=== PATIENT | female | born 1935 | race Caucasian/White ===

== ENCOUNTER → 2017-02-18 | Outpatient (CLI) | payer MEDICARE, OTHER ==
--- NOTE | 2017-02-19 09:07 | MM ---
Reason for exam: screening (asymptomatic). Last mammogram was performed 1 year and 1 month ago. History: Patient is postmenopausal. Benign US biopsy breast VAD LT of the left breast, January 18, 2015. Took estrogen for 15 years beginning at age 39. Took progesterone for 15 years beginning at age 39. Physical Findings: A clinical breast exam by your physician is recommended on an annual basis and results should be correlated with mammographic findings. MG 3D Screening Mammo W/Cad Bilateral CC and MLO view(s) were taken. Prior study comparison: January 18, 2016, bilateral MG 3d diag mammo w/cad TONY. January 18, 2015, left breast MG diagnostic mammo LT wo CAD. The breast tissue is heterogeneously dense. This may lower the sensitivity of mammography. Finding: There are few typically benign round calcifications in the left breast. Previous mammotome biopsy in the left breast. There is no discrete abnormality. ASSESSMENT: Benign, BI-RAD 2 RECOMMENDATION: Routine screening mammogram of both breasts in 1 year.
== END | disposition home or self-care (01) ==
LOC: RADMAMWWP 14:54
PROVIDERS: ATTEND Internal Medicine Geriatric Medicine
DX: Z12.31 Encounter for screening mammogram for malignant neoplasm of breast (principal)
CPT/HCPCS: 77063; G0202

== ENCOUNTER 2020-12-23 | Inpatient (IN) | payer MEDICARE, OTHER ==
[2020-12-23] MEDS ORDERED: SODIUM CHLORIDE 0.9% 1,000 ML IV STA (00:09)
[2020-12-23] MEDS ORDERED: MORPHINE SULFATE 4 MG/ML SYRINGE IV STA (00:09)
[2020-12-23] MEDS ORDERED: SODIUM CHLORIDE 0.9% 500 ML 500 ML IV STA (00:09)
--- NOTE | 2020-12-23 00:13 | ED ---
Fall HPI - General Stated Complaint: Fall Time Seen by Provider: 12/23/20 00:09 Source: RN notes reviewed, old records reviewed Mode of arrival: ambulatory Limitations: no limitations - History of Present Illness Initial Comments: This is an 85-year-old female to the ER for evaluation of a fall. Patient is a poor historian regarding her fall. Complaining of severe left hip pain patient got tangled up in a tire prior to falling. Her fall was purely Mechanical no other injuries aside from left hip MD Complaint: fall -: hour(s) Fall From: standing When Fall Occurred: 1 hour BILL[employer] Fall Witnessed: yes, by family Place Fall Occurred: home Loss of Consciousness: none Prolonged Down Time?: no Symptoms Prior to Fall: none Location - Extremities: Left: Thigh Severity: moderate, severe Severity scale (1-10): 7 Quality: burning Context: tripped/slipped Associated Symptoms: denies - Related Data Allergies Allergy/AdvReac Type Severity Reaction Status Date / Time codeine Allergy Rash/Hives Verified 12/23/20 00:16 Review of Systems ROS Statement: Those systems with pertinent positive or pertinent negative responses have been documented in the HPI. ROS Other: All systems not noted in ROS Statement are negative. General Exam General appearance: alert, in no apparent distress, anxious Head exam: Present: atraumatic, normocephalic, normal inspection Eye exam: Present: normal appearance, PERRL, EOMI. Absent: scleral icterus, conjunctival injection, periorbital swelling ENT exam: Present: normal exam, mucous membranes moist Neck exam: Present: normal inspection. Absent: tenderness, meningismus, lymphadenopathy Respiratory exam: Present: normal lung sounds bilaterally. Absent: respiratory distress, wheezes, rales, rhonchi, stridor Cardiovascular Exam: Present: regular rate, normal rhythm, normal heart sounds. Absent: systolic murmur, diastolic murmur, rubs, gallop, clicks GI/Abdominal exam: Present: soft, normal bowel sounds. Absent: distended, tenderness, guarding, rebound, rigid Extremities exam: Present: normal inspection, full ROM, normal capillary refill. Absent: tenderness, pedal edema, joint swelling, calf tenderness Left Hip exam: Present: tenderness, deformity, external rotation, shortening Neurovascular tendon exam: Present: no vascular compromise Back exam: Present: normal inspection Neurological exam: Present: alert, oriented X3, CN II-XII intact Psychiatric exam: Present: normal affect, normal mood Skin exam: Present: warm, dry, intact, normal color. Absent: rash Course Vital Signs 12/23/20 12/23/20 00:08 00:41 Temperature 98 F Pulse Rate 66 66 Respiratory 18 18 Rate Blood Pressure 220/96 202/83 O2 Sat by Pulse 88 L 96 Oximetry - Reevaluation(s) Reevaluation #1: 12/23/20 01:50 Medical record is reviewed Reevaluation #2: 12/23/20 01:50 Patient has current pain control Reevaluation #3: 12/23/20 01:50 Patient family member informed results and questions are answered - Consultations Consultation #1: Spoke with orthopedics who agreed to admit this patient Medical Decision Making - Medical Decision Making 85 female DF for evaluation patient Dese for evaluation of a fall with a left hip fracture. Patient will be admitted to orthopedics with a medical consult for evaluation and treatment - Lab Data Result diagrams: 12/23/20 00:17 12/23/20 00:17 Lab Results 12/23/20 12/23/20 12/23/20 Range/Units 00:17 00:17 00:17 WBC 15.5 H (3.8-10.6) k/uL RBC 4.09 (3.80-5.40) m/uL Hgb 13.3 (11.4-16.0) gm/dL Hct 38.7 (34.0-46.0) % MCV 94.5 (80.0-100.0) fL MCH 32.6 (25.0-35.0) pg MCHC 34.5 (31.0-37.0) g/dL RDW 12.8 (11.5-15.5) % Plt Count 279 (150-450) k/uL MPV 7.2 Neutrophils % 85 % Lymphocytes % 11 % Monocytes % 3 % Eosinophils % 1 % Basophils % 0 % Neutrophils # 13.2 H (1.3-7.7) k/uL Lymphocytes # 1.6 (1.0-4.8) k/uL Monocytes # 0.4 (0-1.0) k/uL Eosinophils # 0.1 (0-0.7) k/uL Basophils # 0.1 (0-0.2) k/uL PT 10.0 (9.0-12.0) sec INR 0.9 (<1.2) APTT 23.0 (22.0-30.0) sec Sodium 137 (137-145) mmol/L Potassium 3.7 (3.5-5.1) mmol/L Chloride 103 (98-107) mmol/L Carbon Dioxide 29 (22-30) mmol/L Anion Gap 5 mmol/L BUN 8 (7-17) mg/dL Creatinine 0.66 (0.52-1.04) mg/dL Est GFR (CKD-EPI)AfAm >90 (>60 ml/min/1.73 sqM) Est GFR (CKD-EPI)NonAf 82 (>60 ml/min/1.73 sqM) Glucose 131 H (74-99) mg/dL Plasma Lactic Acid Nicho (0.7-2.0) mmol/L Calcium 8.9 (8.4-10.2) mg/dL Phosphorus 3.1 (2.5-4.5) mg/dL Magnesium 1.8 (1.6-2.3) mg/dL Total Bilirubin 0.5 (0.2-1.3) mg/dL AST 28 (14-36) U/L ALT 17 (4-34) U/L Alkaline Phosphatase 128 H (38-126) U/L Creatine Kinase 82 (30-135) U/L Troponin I (0.000-0.034) ng/mL Total Protein 6.7 (6.3-8.2) g/dL Albumin 3.7 (3.5-5.0) g/dL 12/23/20 12/23/20 Range/Units 00:17 00:17 WBC (3.8-10.6) k/uL RBC (3.80-5.40) m/uL Hgb (11.4-16.0) gm/dL Hct (34.0-46.0) % MCV (80.0-100.0) fL MCH (25.0-35.0) pg MCHC (31.0-37.0) g/dL RDW (11.5-15.5) % Plt Count (150-450) k/uL MPV Neutrophils % % Lymphocytes % % Monocytes % % Eosinophils % % Basophils % % Neutrophils # (1.3-7.7) k/uL Lymphocytes # (1.0-4.8) k/uL Monocytes # (0-1.0) k/uL Eosinophils # (0-0.7) k/uL Basophils # (0-0.2) k/uL PT (9.0-12.0) sec INR (<1.2) APTT (22.0-30.0) sec Sodium (137-145) mmol/L Potassium (3.5-5.1) mmol/L Chloride (98-107) mmol/L Carbon Dioxide (22-30) mmol/L Anion Gap mmol/L BUN (7-17) mg/dL Creatinine (0.52-1.04) mg/dL Est GFR (CKD-EPI)AfAm (>60 ml/min/1.73 sqM) Est GFR (CKD-EPI)NonAf (>60 ml/min/1.73 sqM) Glucose (74-99) mg/dL Plasma Lactic Acid Nicho 1.2 (0.7-2.0) mmol/L Calcium (8.4-10.2) mg/dL Phosphorus (2.5-4.5) mg/dL Magnesium (1.6-2.3) mg/dL Total Bilirubin (0.2-1.3) mg/dL AST (14-36) U/L ALT (4-34) U/L Alkaline Phosphatase (38-126) U/L Creatine Kinase (30-135) U/L Troponin I <0.012 (0.000-0.034) ng/mL Total Protein (6.3-8.2) g/dL Albumin (3.5-5.0) g/dL - EKG Data -: EKG Interpreted by Me (EKG shows sinus rhythm 66 WA 214 QRS 82 QTC 444) - Radiology Data Radiology results: report reviewed (X-ray left hip pelvis and chest x-ray po sitive for left hip fracture), image reviewed Disposition Clinical Impression: Fall, Fracture, intertrochanteric, left femur Disposition: ADMITTED IP TO THIS [facility] Condition: Good Is patient prescribed a controlled substance at d/c from ED?: No
[2020-12-23 00:55] LABS: Basophils # (A) 0.1 k/uL (0-0.2); Basophils % (A) 0 %; Eosinophils # (A) 0.1 k/uL (0-0.7); Eosinophils % (A) 1 %; HCT 38.7 % (34.0-46.0); HGB 13.3 gm/dL (11.4-16.0); Lymphocytes # (A) 1.6 k/uL (1.0-4.8); Lymphocytes % (A) 11 %; MCH 32.6 pg (25.0-35.0); MCHC 34.5 g/dL (31.0-37.0); MCV 94.5 fL (80.0-100.0); Mean Platelet Volume 7.2; Monocytes # (A) 0.4 k/uL (0-1.0); Monocytes % (A) 3 %; Neutrophils # (A) 13.2 k/uL (1.3-7.7); Neutrophils % (A) 85 %; Platelet Count 279 k/uL (150-450); RBC 4.09 m/uL (3.80-5.40); RDW 12.8 % (11.5-15.5); WBC 15.5 k/uL (3.8-10.6)
[2020-12-23 01:05] LABS: INR 0.9 (<1.2)
[2020-12-23 01:07] LABS: ALT 17 U/L (4-34); AST 28 U/L (14-36); African American GFR (CKD) >90 (>60 ml/min/1.73 sqM); Albumin 3.7 g/dL (3.5-5.0); Alkaline Phosphatase 128 U/L (38-126); Anion Gap 5 mmol/L; Blood Urea Nitrogen 8 mg/dL (7-17); Calcium 8.9 mg/dL (8.4-10.2); Carbon Dioxide 29 mmol/L (22-30); Chloride 103 mmol/L (98-107); Creatine Kinase 82 U/L (30-135); Glucose 131 mg/dL (74-99); Magnesium 1.8 mg/dL (1.6-2.3); Non-African American GFR(CKD) 82 (>60 ml/min/1.73 sqM); Phosphorus 3.1 mg/dL (2.5-4.5); Potassium 3.7 mmol/L (3.5-5.1); Sodium 137 mmol/L (137-145); Total Bilirubin 0.5 mg/dL (0.2-1.3); Total Protein 6.7 g/dL (6.3-8.2)
--- NOTE | 2020-12-23 01:20 | XR ---
EXAMINATION TYPE: XR chest 1V DATE OF EXAM: 12/23/2020 COMPARISON: NONE HISTORY: Fall. Pain. TECHNIQUE: Single view FINDINGS: There is minimal linear density left lung base. Right lung is clear. Heart is normal. Thora cic aorta is atheromatous. There is no heart failure. There are chest leads. IMPRESSION: Subsegmental atelectasis at the left lung base.
--- NOTE | 2020-12-23 01:21 | XR ---
EXAMINATION TYPE: XR Hip LT and AP Pelvis DATE OF EXAM: 12/23/2020 COMPARISON: NONE HISTORY: Fall. Pain. TECHNIQUE: 3 views FINDINGS: Pelvic ring is intact. There is an acute mildly impacted subcapital fracture left femur. Th ere is no dislocation. Proximal right femur is intact. Sacroiliac joints are intact. IMPRESSION: Acute fracture of the left femoral neck with mild impaction.
[2020-12-23] MEDS ORDERED: NALOXONE 0.4 MG/ML 1 ML VIAL IV PRN ×2 (01:42→13:05)
[2020-12-23] MEDS: MORPHINE SULFATE 4 MG/ML SYRINGE IV PRN ×4 (03:14→20:05)
--- NOTE | 2020-12-23 03:25 | XR ---
EXAMINATION TYPE: XR femur LT DATE OF EXAM: 12/23/2020 COMPARISON: NONE HISTORY: Leg pain TECHNIQUE: 5 views FINDINGS: There is deformity of the femoral neck consistent with an acute subcapital impacted fractur e. There is no dislocation. The knee joint appears anatomic. I see no evidence of fracture at the kne e. IMPRESSION: Acute impacted subcapital fracture left femur.
[2020-12-23] MEDS: hydrALAZINE HCL 25 MG TAB PO SCH ×4 (03:55→22:06)
[2020-12-23] MEDS ORDERED: hydrALAZINE HCL 10 MG TAB PO PRN (05:37)
[2020-12-23] MEDS: LOSARTAN 50 MG TAB PO SCH (05:48)
[2020-12-23] MEDS ORDERED: PANTOPRAZOLE 40 MG/10 ML VIAL IV SCH (09:00)
[2020-12-23] MEDS: SODIUM CHLORIDE 0.9% 1,000 ML IV SCH ×3 (09:20→16:08)
--- NOTE | 2020-12-23 09:26 | P.HPOR ---
History of Present Illness H&P Date: 12/23/20 Chief Complaint: left hip pain Patient presented the emergency department late last night status post fall at home while trying to get into vehicle inside garage. Patient says she is in moderate amount of pain. She says she is ready for her hip to be fixed and is understanding that she may need to go to rehab for a couple weeks to recover after surgery. Patient was seen at bedside this morning is lying supine in bed. She points to her left hip and states it is in pain. Patient's left leg is shortened and externally rotated. Patient denies taking any blood thinners for medication denies any heart history. She says about 10-15 years ago she fell and fractured patella. She denies any other orthopedic surgical history. Patient has chest pain, fever, shortness breath, nausea, vomiting, change in vision. Past Medical History Past Medical History: Hyperlipidemia, Hypertension Additional Past Medical History / Comment(s): herniated disc, neuropathy, low thyroid History of Any Multi-Drug Resistant Organisms: None Reported Past Surgical History: Appendectomy, Hysterectomy Additional Past Surgical History / Comment(s): toxic goiter; gallblader removal Past Psychological History: Depression Smoking Status: Former smoker Past Alcohol Use History: None Reported Past Drug Use History: None Reported Medications and Allergies Allergies Allergy/AdvReac Type Severity Reaction Status Date / Time codeine Allergy Rash/Hives Verified 12/23/20 00:16 Physical Examination Inspection: Shortening and external rotation of left leg. No evidence of open fractures. Negative for any ecchymosis. Negative for any significant di scoloration other than as noted. Negative for nodules, erythema. Sensation: Sensation is intact in bilateral upper extremities symmetric, equal in distribution. Sensation is intact in bilateral lower extremities symmetric, equal in distribution Palpation: Significant tenderness to palpation diffusely over the proximal left femur. Nontender to palpation throughout rest of exam Range of motion: Limited range of motion in the left leg due to patient being in significant pain. Decreased hip flexion in left leg. Bilateral upper extremities full range of motion in elbow extension/flexion as well as shoulder internal and external rotation abduction and forward elevation. Right lower extremity full range of motion and knee flexion extension and hip flexion extension. Plantar and dorsiflexion full range of motion bilaterally Motor: Strength 5 out of 5 in upper extremities as well as test manager strength. Right lower extremity 5/5 in resisted flexion extension and hip flexion extension. Left leg exam limited due to patient being in significant amount of pain Neurovascular status/tensioning signs: Refill under 3 seconds bilaterally in l ower and upper extremities. Skin mildly warm to touch in hands bilaterally as well as bilaterally in the lower extremities. Dorsalis pedis pulses intact, 2+ bilaterally. Radial pulses intact, 2+ bilaterally. Negative Homans bilaterally. Negative Gabriela's bilaterally. Negative clonus upon you siflexing feet bilaterally. Results - Labs Labs: Abnormal Lab Results - Last 24 Hours (Table) 12/23/20 12/23/20 Range/Units 00:17 00:17 WBC 15.5 H (3.8-10.6) k/uL Neutrophils # 13.2 H (1.3-7.7) k/uL Glucose 131 H (74-99) mg/dL Alkaline Phosphatase 128 H (38-126) U/L H & H 12/23/20 Range/Units 00:17 Hgb 13.3 (11.4-16.0) gm/dL Hct 38.7 (34.0-46.0) % Coagulation 12/23/20 Range/Units 00:17 INR 0.9 (<1.2) Result Diagrams: 12/23/20 00:17 12/23/20 00:17 Assessment and Plan Assessment: Left hip intertrochanteric fracture Plan: 1. Left hip intertrochanteric fracture - surgery scheduled for today, 12/23/2020 - plan to do left hip hemiarthroplasty. Patient consented to surgery. Remain nothing by mouth at this time 2. Appreciate medical management 3. Pain management - stable at this time 4. GI prophylaxis - protonix 5. PT/OT- non-weightbearing left leg Time with Patient: Less than 30
--- NOTE | 2020-12-23 10:04 | P.CONS ---
History of Present Illness - Reason for Consult Consult date: 12/23/20 - Chief Complaint Left hip pain - History of Present Illness 85 years old female with past medical history of hypertension, hyperlipidemia, GERD, hypothyroidism comes in after she had a fall while trying to get into her car and got tangled up into cord of some sort. Patient fell on her hip leading to left hip fracture. Overnight patient was complaining of significant hip pain. Patient's blood pressure on admission was 220/96" 98 pulse 66 respiratory rate 18 and oxygen saturation was 88% on room air. Labs are ordered to suggest a WBC of 15.5 hemoglobin 13.3 platelets 279 sodium 137 potassium 3.7 chloride 103 bicarb 20 B UN eights creatinine 0.66 glucose 131 EKG obtained suggest a sinus rhythm. Patient does not do so cane or walker at home is more than 5METs at home. She denies any chest pain, shortness of breath, nausea, vomiting, burning micturition, numbness or tingling in her extremities. 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 He said patient was initiated on hydralazine and losartan overnight with improvement in her blood pressure to 186/71 afebrile pulse 70 respiratory rate 18 oxygen saturation of 95% on 2 L chest x-ray is negative for pneumonia. Segmental atelectasis in the left lung base noted. No urinalysis available. Review of systems Constitutional: Denies chills, Denies fever, Denies lethargy, Denies malaise, Denies poor appetite, Denies weakness, Denies weight loss Eyes: denies decreased vision, denies diplopia, denies discharge, denies pain Ears: deny: decreased hearing Ears, nose, mouth and throat: Denies dental pain, Denies headache, Denies nasal discharge, Denies nose pain Cardiovascular: Denies chest pain, Denies decreased exercise tolerance, Denies edema, Denies high blood pressure, Denies irregular heart beat, Denies palpitations, Denies paroxysmal nocturnal dyspnea, Denies rapid heart beat, Denies shortness of breath Respiratory: Denies congestion, Denies cough, Denies cough with sputum, Denies dyspnea, Denies home oxygen, Denies wheezing Gastrointestinal: Denies abdominal pain, Denies change in bowel habits, Denies coffee ground emesis, Denies early satiety, Denies excessive gas, Denies heartburn, Denies hematemesis, Denies hematochezia, Denies loss of appetite, Denies nausea, Denies vomiting Genitourinary: Denies dysuria, Denies flank pain, Denies kidney stones, Denies menorrhagia, Denies urgency, Denies urinary frequency Musculoskeletal: Endorses gait dysfunction, limitation of motion and significant hip pain, Denies morning stiffness, Denies muscle cramps Integumentary: Denies rash, Denies wounds, Denies brittle nails, Denies change in hair/nails, Denies darkening of skin Neurological: Denies balance difficulties, Denies change in speech, Denies double vision, Denies gait dysfunction, Denies loss of vision, Denies motor disturbance, Denies numbness, Denies paralysis, Denies paresthesias, Denies seizures Psychiatric: Denies anxiety, Denies depression Endocrine: Denies excessive sweating, Denies excessive thirst, Denies high blood sugars, Denies palpitations Hematologic/Lymphatic: Denies easy bruising, Denies lymphadenopathy Social history Former smoker quit smoking 20 years ago smoked more than half pack a day for 30+ years. Denies any alcohol use. No illicit drug use Family history Father had multiple surgeries. Denies any history of coronary artery disease Mother had no significant medical problems Daughter had diabetes and rheumatoid arthritis, 10 years ago from complications Physical exam - Constitutional General appearance: cooperative, no acute distress, obese - EENT Eyes: anicteric sclerae, PERRLA, normal appearance ENT: hearing grossly normal - Neck Neck: no lymphadenopathy, normal ROM, no other, no rigidity, no stridor, no thyromegaly - Respiratory Respiratory: bilateral: CTA, negative: diminished, dullness, rales, rhonchi - Cardiovascular Rhythm: regular Heart sounds: normal: S1, S2 Abnormal Heart Sounds: no systolic murmur, no diastolic murmur, no rub, no S3 Gallop, no S4 Gallop, no click, no other - Gastrointestinal General gastrointestinal: normal bowel sounds, soft - Integumentary Integumentary: no rash - Neurologic Neurologic: CNII-XII intact - Musculoskeletal Musculoskeletal: gait not assessed, significant pain on movement of left lower extremity. Tenderness to palpate in the proximal left femur. Left leg appear shortened and externally rotated - Psychiatric Psychiatric: A&O x's 3, appropriate affect Assessment and plan #1 left hip intertrochanteric fracture patient has 1-5% risk of or IA from the surgery. As per the revised cardiac risk index. Patient is cleared medically to undergo the surgery. Continue pain control with morphine 4 mg as needed #2 essential hypertension blood pressure is uncontrolled hydralazine initiated 25 3 times a day. Patient initiated on losartan, Norvasc to help control blood pressure. No medication available. Patient may be taking atenolol at home we will hold for the procedure. #3 GERD continue Protonix 40 mg IV daily #4 hypothyroidism. Patient is unaware of the dose. Patient is a poor historian Currently held #5 hyperlipidemia. Continue diet control. Unclear if patient is taking cholesterol-lowering medication. Patient is not able to provide history due to the pain #6 CODE STATUS full code #7 DVT prophylaxis SCDs. #8 leukocytosis. Chest x-ray negative for pneumonia. Urine analysis to be obtained prior to surgery. Thank you for the consult. I'll be happy to assist in patient's medical knee drug patient is in the hospital Past Medical History Past Medical History: Hyperlipidemia, Hypertension Additional Past Medical History / Comment(s): herniated disc, neuropathy, low thyroid History of Any Multi-Drug Resistant Organisms: None Reported Past Surgical History: Appendectomy, Hysterectomy Additional Past Surgical History / Comment(s): toxic goiter; gallblader removal Past Psychological History: Depression Smoking Status: Former smoker Past Alcohol Use History: None Reported Past Drug Use History: None Reported Medications and Allergies Allergies Allergy/AdvReac Type Severity Reaction Status Date / Time codeine Allergy Rash/Hives Verified 12/23/20 00:16 Physical Exam Vitals: Vital Signs Temp Pulse Pulse Resp BP BP Pulse Ox 12/23/20 08:00 97.9 F 70 18 186/71 95 12/23/20 07:26 97 12/23/20 05:00 182/80 12/23/20 03:40 188/76 12/23/20 02:43 98.2 F 68 19 206/75 98 12/23/20 02:40 18 12/23/20 00:41 66 18 202/83 96 12/23/20 00:08 98 F 66 18 220/96 88 L Intake and Output 12/22/20 12/23/20 12/23/20 22:59 06:59 14:59 Output Total 800 Balance -800 Output: Urine 800 Other: Voiding Method Indwelling Catheter Indwelling Catheter Weight 88.451 kg Results CBC & Chem 7: 12/23/20 00:17 12/23/20 00:17 Labs: Abnormal Lab Results - Last 24 Hours (Table) 12/23/20 12/23/20 Range/Units 00:17 00:17 WBC 15.5 H (3.8-10.6) k/uL Neutrophils # 13.2 H (1.3-7.7) k/uL Glucose 131 H (74-99) mg/dL Alkaline Phosphatase 128 H (38-126) U/L
[2020-12-23] MEDS ORDERED: KETAMINE 10 MG/ML 20 ML VIAL ONE (10:46)
[2020-12-23] MEDS ORDERED: fentaNYL (PF) 50 MCG/ML 2 ML AMP ONE (10:46)
[2020-12-23] MEDS ORDERED: PROPOFOL 10 MG/ML 20 ML VIAL IV ONE (10:46)
[2020-12-23] MEDS ORDERED: MIDAZOLAM 2 MG/2 ML VIAL ONE (10:46)
[2020-12-23] MEDS ORDERED: LACTATED RINGERS 1,000 ML IV ONE (10:50)
[2020-12-23] MEDS ORDERED: SODIUM CHLORIDE 0.9% 100 ML with ceFAZolin 2,000 MG IV ONE ×2 (11:06)
--- NOTE | 2020-12-23 13:03 | P.PN ---
Progress Note - Text Progress Note Date: 12/23/20 Pt s/e in PACU. Doing well. VSS. Pain controlled. Hip abduction pillow in place. Dressing CDI. She will TF to the floor when stable per anesthesia.
[2020-12-23] MEDS ORDERED: HYDROcodone/APAP 5-325MG 1 EACH TAB PO PRN ×2 (13:05→13:11)
[2020-12-23] MEDS ORDERED: CYCLOBENZAPRINE 5 MG TAB PO PRN (13:12)
--- NOTE | 2020-12-23 13:52 | XR ---
EXAMINATION TYPE: XR Hip LT and AP Pelvis DATE OF EXAM: 12/23/2020 COMPARISON: 12/23/2020 HISTORY: Pain TECHNIQUE: A single AP view of the pelvis is obtained. Two views of the left hip are obtained. FINDINGS: There is postsurgical change involving the left hip with surgical johnson and soft tissue edema. Vascular calcifications are seen and there is diffuse osteopenia. Hypertrophic arthropathy of the right hip joint. Degenerative change lower lumbar spine. IMPRESSION: 1. Postsurgical change involving the left hip.
[2020-12-23] MEDS: amLODIPine 10 MG TAB PO SCH (14:48)
[2020-12-23 17:04] LABS: Appearance,Urine Clear (Clear); Bacteria,Urine Rare /hpf; Bilirubin,Urine Negative (Negative); Blood,Urine Negative (Negative); Color,Urine Yellow; Glucose,Urine (UA) Negative (Negative); Ketones,Urine Negative (Negative); Leukocyte Esterase,Urine Large (Negative); Mucus,Urine Rare /hpf; Nitrite,Urine Negative (Negative); PH, Urine 6.5 (5.0-8.0); Protein,Urine Trace (Negative); RBC,Urine 4 /hpf (0-5); Specific Gravity,Urine 1.019 (1.001-1.035); Squamous Epithelial Cell,Urine 1 /hpf (0-4); Urobilinogen,Urine <2.0 mg/dL (<2.0); WBC,Urine 50 /hpf (0-5)
[2020-12-23] MEDS: SENNOSIDES-DOCUSATE SODIUM 1 EACH TAB PO SCH (20:05)
[2020-12-24] MEDS: SODIUM CHLORIDE 0.9% 1,000 ML IV SCH ×3 (01:11→17:34)
[2020-12-24] MEDS: MORPHINE SULFATE 4 MG/ML SYRINGE IV PRN ×2 (03:15→19:51)
[2020-12-24] MEDS ORDERED: ENOXAPARIN 40 MG/0.4 ML SYRINGE SQ SCH (09:00)
--- NOTE | 2020-12-24 09:49 | P.PN ---
Subjective Progress Note Date: 12/24/20 Principal diagnosis: POD #1 s/p left hip femoral neck fracture Patient seen at bedside this morning about to eat breakfast. Patient says he is in a moderate amount of pain. Patient has incentive spirometer at side and has been using it. Patient says she has not had a bowel movement yet, however, she has been passing gas. Patient denies chest pain, fever, shortness of breath, nausea, vomiting, change in vision, loss of bowel/bladder control. Objective - Vital Signs Vital signs: Vital Signs Temp 100.1 F H 12/24/20 07:59 Pulse 78 12/24/20 07:59 Resp 19 12/24/20 07:59 BP 170/74 12/24/20 07:59 Pulse Ox 94 L 12/24/20 07:59 Intake & Output 12/23/20 12/24/20 12/24/20 18:59 06:59 18:59 Intake Total 900 Output Total 550 525 Balance 350 -525 Intake: IV 900 Output: Urine 300 525 Estimated Blood Loss 250 Other: Voiding Method Indwelling Catheter Indwelling Catheter Indwelling Catheter - Exam Inspection: Incision is clean, dry, intact. [place] are in good place. No evidence of open fractures. Negative for any ecchymosis. Negative for any significant discoloration other than as noted. Negative for nodules, erythema. Sensation: Sensation is intact in bilateral upper extremities symmetric, equal in distribution. Sensation is intact in bilateral lower extremities symmetric, equal in distribution Palpation: Mild TTP over incision . Nontender to palpation throughout rest of exam Range of motion:Patient has limited ROM of left leg. She can externally/internally rotate left leg with some pain. Bilateral upper ex tremities full range of motion in elbow extension/flexion as well as shoulder internal and external rotation abduction and forward elevation. Right lower extremity full range of motion and knee flexion extension and hip flexion extension. Plantar and dorsiflexion full range of motion bilaterally Motor: Strength 5 out of 5 in upper extremities as well as government minister strength. Right lower extremity 5/5 in resisted flexion extension and hip flexion extension. Left leg exam limited due to patient being in significant amount of pain Neurovascular status/tensioning signs: Refill under 3 seconds bilaterally in lower and upper extremities. Skin mildly warm to touch in hands bilaterally as well as bilaterally in the lower extremities. Dorsalis pedis pulses intact, 2+ bilaterally. Radial pulses intact, 2+ bilaterally. Negative Homans bilaterally. Negative Gabriela's bilaterally. Negative clonus upon dorsiflexing feet bilaterally. - Labs CBC & Chem 7: 12/23/20 00:17 12/23/20 00:17 Labs: Abnormal Lab Results - Last 24 Hours (Table) 12/23/20 Range/Units 16:45 Urine Protein Trace H (Negative) Ur Leukocyte Esterase Large H (Negative) Urine WBC 50 H (0-5) /hpf Urine Bacteria Rare H (None) /hpf Urine Mucus Rare H (None) /hpf Microbiology - Last 24 Hours (Table) 12/23/20 16:45 Urine Culture - Preliminary Urine,Voided Assessment and Plan Assessment: Left hip intertrochanteric fracture Plan: 1. Left hip intertrochanteric fracture - surgery performed yesterday, 12/23/2020- left hip hemiarthroplasty. Patient in some discomfort this morning. Will adjust pain meds as needed. 2. Appreciate medical management 3. Pain management - [place] 7.5 mg/325mg 4. GI prophylaxis - protonix 5. PT/OT- WBAT w/walker for assistance. 6. Encourage incentive spirometer use 7. Discharge planning - plan to discharge to rehab Friday vs Friday. Time with Patient: Less than 30
[2020-12-24] MEDS: ENOXAPARIN 30 MG/0.3 ML SYRINGE SQ SCH ×2 (09:51→19:52)
[2020-12-24] MEDS: PANTOPRAZOLE 40 MG TABLET PO SCH (09:51)
[2020-12-24] MEDS: LOSARTAN 50 MG TAB PO SCH (09:51)
[2020-12-24] MEDS: amLODIPine 10 MG TAB PO SCH (09:51)
[2020-12-24] MEDS: hydrALAZINE HCL 25 MG TAB PO SCH ×3 (09:51→19:52)
[2020-12-24 10:22] LABS: Basophils # (A) 0.03 X 10*3/uL (0.00-0.10); Basophils % (A) 0.3 %; Eosinophils # (A) 0.16 X 10*3/uL (0.04-0.35); Eosinophils % (A) 1.6 %; HCT 32.3 % (37.2-46.3); HGB 10.8 g/dL (12.0-15.0); Lymphocytes # (A) 1.58 X 10*3/uL (0.90-5.00); Lymphocytes % (A) 15.9 %; MCH 32.5 pg (27.0-32.0); MCHC 33.4 g/dL (32.0-37.0); MCV 97.3 fL (80.0-97.0); Mean Platelet Volume 9.8 fL (9.5-12.2); Monocytes # (A) 0.55 X 10*3/uL (0.20-1.00); Monocytes % (A) 5.5 %; Neutrophils # (A) 7.54 X 10*3/uL (1.80-7.70); Neutrophils % (A) 76.2 %; Platelet Count 221 X 10*3/uL (140-440); RBC 3.32 X 10*6/uL (4.10-5.20); RDW 13.2 % (11.5-14.5); WBC 9.91 X 10*3/uL (4.50-10.00)
[2020-12-24 11:37] LABS: Glucose,Whole Blood 156 mg/dL (75-99)
[2020-12-24 11:47] LABS: African American GFR (CKD) 97.7 (60.0-200.0); Anion Gap 4.8 mmol/L (4.00-12.00); BUN/Creat Ratio 13.33 Ratio (12.00-20.00); Calcium 8.1 mg/dL (8.7-10.3); Carbon Dioxide 28.2 mmol/L (21.6-31.8); Magnesium 1.7 mg/dL (1.5-2.4); Non-African American GFR(CKD) 84.3 (60.0-200.0); Phosphorus 3.1 mg/dL (2.4-5.1)
--- NOTE | 2020-12-24 14:29 | P.PN ---
Subjective Progress Note Date: 12/24/20 85 years old female with past medical history of hypertension, hyperlipidemia, GERD, hypothyroidism comes in after she had a fall while trying to get into her car and got tangled up into cord of some sort. Patient fell on her hip leading to left hip fracture. Overnight patient was complaining of significant hip pain. Patient's blood pressure on admission was 220/96" 98 pulse 66 respiratory rate 18 and oxygen saturation was 88% on room air. Labs are ordered to suggest a WBC of 15.5 hemoglobin 13.3 platelets 279 sodium 137 potassium 3.7 chloride 103 bicarb 20 B UN eights creatinine 0.66 glucose 131 EKG obtained suggest a sinus rhythm. Patient does not do so cane or walker at home is more than 5METs at home. She denies any chest pain, shortness of breath, nausea, vomiting, burning micturition, numbness or tingling in her extremities. 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 He said patient was initiated on hydralazine and losartan overnight with improvement in her blood pressure to 186/71 afebrile pulse 70 respiratory rate 18 oxygen saturation of 95% on 2 L chest x-ray is negative for pneumonia. Segmental atelectasis in the left lung base noted. No urinalysis available. 12/24 patient examined bedside. Appears to be lethargic and have pain in the left lower extremity. Patient is able to move her left lower extremity without significant pain. She denies any chest pain, shortness of breath noted. Breathing difficulty. Labs are reviewed patient has a low-grade temp of 100.1 pulse 78 respiratory rate 19 and blood pressure 170/74 oxygen saturation 94% on 2 L. Chest x-ray to be obtained. Continue Norvasc, losartan and hydralazine for blood pressure control. Encourage oral intake of fluids. PTOT consulted for possible discharge to rehab on Friday was issues Review of systems Constitutional: Denies chills, Denies fever, Denies lethargy, Denies malaise, Denies poor appetite, Denies weakness, Denies weight loss Eyes: denies decreased vision, denies diplopia, denies discharge, denies pain Ears: deny: decreased hearing Ears, nose, mouth and throat: Denies dental pain, Denies headache, Denies nasal discharge, Denies nose pain Cardiovascular: Denies chest pain, Denies decreased exercise tolerance, Denies edema, Denies high blood pressure, Denies irregular heart beat, Denies palpitations, Denies paroxysmal nocturnal dyspnea, Denies rapid heart beat, Denies shortness of breath Respiratory: Denies congestion, Denies cough, Denies cough with sputum, Denies dyspnea, Denies home oxygen, Denies wheezing Gastrointestinal: Denies abdominal pain, Denies change in bowel habits, Denies coffee ground emesis, Denies early satiety, Denies excessive gas, Denies heartburn, Denies hematemesis, Denies hematochezia, Denies loss of appetite, Denies nausea, Denies vomiting Genitourinary: Denies dysuria, Denies flank pain, Denies kidney stones, Denies m enorrhagia, Denies urgency, Denies urinary frequency Musculoskeletal: Endorses gait dysfunction, limitation of motion and significant hip pain, Denies morning stiffness, Denies muscle cramps Integumentary: Denies rash, Denies wounds, Denies brittle nails, Denies change in hair/nails, Denies darkening of skin Neurological: Denies balance difficulties, Denies change in speech, Denies double vision, Denies gait dysfunction, Denies loss of vision, Denies motor disturbance, Denies numbness, Denies paralysis, Denies paresthesias, Denies seizures Psychiatric: Denies anxiety, Denies depression Endocrine: Denies excessive sweating, Denies excessive thirst, Denies high blood sugars, Denies palpitations Hematologic/Lymphatic: Denies easy bruising, Denies lymphadenopathy Physical exam - Constitutional General appearance: cooperative, no acute distress, obese - EENT Eyes: anicteric sclerae, PERRLA, normal appearance ENT: hearing grossly normal - Neck Neck: no lymphadenopathy, normal ROM, no other, no rigidity, no stridor, no thyromegaly - Respiratory Respiratory: bilateral: CTA, negative: diminished, dullness, rales, rhonchi - Cardiovascular Rhythm: regular Heart sounds: normal: S1, S2 Abnormal Heart Sounds: no systolic murmur, no diastolic murmur, no rub, no S3 Gallop, no S4 Gallop, no click, no other - Gastrointestinal General gastrointestinal: normal bowel sounds, soft - Integumentary Integumentary: no rash - Neurologic Neurologic: CNII-XII intact - Musculoskeletal Musculoskeletal: gait not assessed, mild pain on movement of left lower extremity. Left leg in a immobilizer no drainage noted at the site of incision. Mild tender to palpate over her incision Patient is limited range of motion on the left leg - Psychiatric Psychiatric: A&O x's 3, appropriate affect Assessment and plan #1 postoperative day 1 left hip hemiarthroplasty for left hip intertrochanteric fracture Continue pain control with morphine 4 mg as needed incentive spirometry. Chest x-ray ordered to rule out pneumonia #2 essential hypertension blood pressure is uncontrolled hydralazine initiated 25 3 times a day. Patient initiated on losartan, Norvasc to help control blood pressure. No medication available. Patient may be taking atenolol at home we will hold for the procedure. Patient initiated on atenolol 25 mg at home #3 GERD continue Protonix 40 mg IV daily #4 hypothyroidism. Synthyroid initiated at 50 mg by mouth daily Patient is a poor historian Currently held #5 hyperlipidemia. Continue diet control. Hold Lipitor #6 neuropathy hold gabapentin continue [place] for pain control. #7 CODE STATUS full code #7 DVT prophylaxis Lovenox 30 subcu 12 hours #8 leukocytosis secondary to UTI Chest x-ray negative for pneumonia. Urine analysis positive for infection. Rocephin initiated 1 g daily Objective - Vital Signs Vital signs: Vital Signs Temp 98 F 12/24/20 11:33 Pulse 78 12/24/20 07:59 Resp 19 12/24/20 07:59 BP 170/74 12/24/20 07:59 Pulse Ox 94 L 12/24/20 07:59 Intake & Output 12/23/20 12/24/20 12/24/20 18:59 06:59 18:59 Intake Total 900 Output Total 550 525 Balance 350 -525 Intake: IV 900 Output: Urine 300 525 Estimated Blood Loss 250 Other: Voiding Method Indwelling Catheter Indwelling Catheter Indwelling Catheter - Labs CBC & Chem 7: 12/24/20 00:06 12/24/20 06:04 Labs: Abnormal Lab Results - Last 24 Hours (Table) 12/23/20 12/24/20 12/24/20 Range/Units 16:45 00:06 06:04 RBC 3.32 L (4.10-5.20) X 10*6/uL Hgb 10.8 L (12.0-15.0) g/dL Hct 32.3 L (37.2-46.3) % MCV 97.3 H (80.0-97.0) fL MCH 32.5 H (27.0-32.0) pg Immature Gran # 0.05 H (0.00-0.04) X 10*3/uL BUN 8.0 L (9.0-27.0) mg/dL Glucose 147 H (70-110) mg/dL POC Glucose (mg/dL) (75-99) mg/dL Calcium 8.1 L (8.7-10.3) mg/dL Urine Protein Trace H (Negative) Ur Leukocyte Esterase Large H (Negative) Urine WBC 50 H (0-5) /hpf Urine Bacteria Rare H (None) /hpf Urine Mucus Rare H (None) /hpf 12/24/20 Range/Units 11:35 RBC (4.10-5.20) X 10*6/uL Hgb (12.0-15.0) g/dL Hct (37.2-46.3) % MCV (80.0-97.0) fL MCH (27.0-32.0) pg Immature Gran # (0.00-0.04) X 10*3/uL BUN (9.0-27.0) mg/dL Glucose (70-110) mg/dL POC Glucose (mg/dL) 156 H (75-99) mg/dL Calcium (8.7-10.3) mg/dL Urine Protein (Negative) Ur Leukocyte Esterase (Negative) Urine WBC (0-5) /hpf Urine Bacteria (None) /hpf Urine Mucus (None) /hpf Microbiology - Last 24 Hours (Table) 12/23/20 16:45 Urine Culture - Preliminary Urine,Voided
[2020-12-24] MEDS ORDERED: NON FORMULARY DRUG (Esomeprazole Magnesium [Esomeprazole Magnesium] 40 MG Capsule.Dr) PO SCH (14:30)
[2020-12-24] MEDS: CITALOPRAM HYDROBROMIDE 10 MG TAB PO SCH (16:16)
[2020-12-24] MEDS: SENNOSIDES-DOCUSATE SODIUM 1 EACH TAB PO SCH (19:52)
[2020-12-24] MEDS: atenoloL 25 MG TAB PO SCH (19:52)
[2020-12-24] MEDS: AMITRIPTYLINE HCL 50 MG TAB PO SCH (21:58)
[2020-12-25] MEDS: SODIUM CHLORIDE 0.9% 1,000 ML IV SCH ×4 (00:15→20:45)
[2020-12-25] MEDS: MORPHINE SULFATE 4 MG/ML SYRINGE IV PRN (00:48)
[2020-12-25] MEDS: HYDROcodone/APAP 7.5-325MG 1 EACH TAB PO PRN ×3 (02:11→20:43)
[2020-12-25] MEDS: LEVOTHYROXINE 50 MCG TAB PO SCH (05:15)
[2020-12-25] MEDS: CITALOPRAM HYDROBROMIDE 10 MG TAB PO SCH (08:37)
[2020-12-25] MEDS: ENOXAPARIN 30 MG/0.3 ML SYRINGE SQ SCH ×2 (08:37→20:44)
[2020-12-25] MEDS: amLODIPine 10 MG TAB PO SCH (08:37)
[2020-12-25] MEDS: PANTOPRAZOLE 40 MG TABLET PO SCH (08:37)
[2020-12-25] MEDS: hydrALAZINE HCL 25 MG TAB PO SCH ×3 (08:38→20:45)
[2020-12-25] MEDS: LOSARTAN 50 MG TAB PO SCH (08:38)
--- NOTE | 2020-12-25 09:45 | P.OP ---
Date of Procedure: 12/23/20 Preoperative Diagnosis: 1. Left hip femoral neck fracture 2. S/p ffs Postoperative Diagnosis: 1. Left hip femoral neck fracture 2. s/p ffs Procedure(s) Performed: 1. Left hip hemiarthroplasty Implants: S&N polar stem size 5, 28 mm inner +0 head, 49 mm outter bipolar cap Anesthesia: MAC, spinal Surgeon: Micheal Lang Mysql Database Developer #1: Brandon Kirkland (Was present for the entire case and necessary due to the complexity of the case) Mysql Database Developer #2: Sandy De La Rosa (Was present for the entire case and necessary due to the complexity of the case) Estimated Blood Loss (ml): 250 IV fluids (ml): 1,500 Urine output (ml): 200 Pathology: none sent Condition: stable Disposition: PACU Indications for Procedure: 85 yo female presented s/p ffs on her left hip with inability to ambulate and pain in her left hip. She was evaluated by ED and admitted to the hospital with medicine consult for left hip femoral neck fracture. The patient was evaluated and we discussed risks and benefits of surgical vs non surgical options. Pt was evaluated and cleared by medicine for surgical fixation. She agree with surgical fixation. She did not have prior pain in her hip and normally ambulates with a cane for assist. She lives at home with her grandson who we attempted several times to contact howevere with no answer at this time. She is alert and able to make her own decisions and she is OK with proceeding with surgical fixation assuming the risks involved. Operative Findings: Comminuted displaced, complete femoral neck fracture on the Left. Description of Procedure: The patient was seen and examined in the preoperative area. All preoperative protocols were followed. Informed consent was obtained risks and benefits of the procedure were discussed at length. Risks including bleeding infection damage to the surrounding tissue and risk of reoperation were discussed with the patient. Risk of anesthesia up to and including was a discussed with the patient. These are outlined in the risk reviewed. They were willing to accept these risks and all of the risks of surgery. The patient was given a weight- based dose of antibiotics in the form of 2 g Ancef. The patient was seen and evaluated by the anesthesia team who deemed them fit for surgery. The site was marked, the patient was willing to proceed with the procedure. The patient was transferred to the operative suite by the Department of anesthesia. There were then drifted off to sleep by the department of anesthesia and spinal anesthesia anesthesia was used. Once adequate anesthesia had been obtained the patient was carefully transferred to the operative bed. All bony prominences were padded accordingly. SCDs were placed on the nonoperative lower extremities. Arms were well padded. Patient was then placed lateral on a pegboard with an axillary roll her arms and legs were well-padded her knees were well padded. Pegs were placed. Her left lower extremity was exposed 10:15's were placed around this area. Preoperative briefing was done with the operative team and everyone was ready for the procedure to start. The patients left leg was then prepped and draped in the normal sterile fashion. Timeout was then performed and all parties in agreement with the procedure to be performed. Over his lower previously by marked area were then performed a standard posterior approach to the hip. Skin incision was made and dissection taken down to the tensor fascia was then split in line with its fibers Chumley was then placed we then identified the posterior external rotators as well as the bursa in this area bursa was removed there is a large hemorrhagic portion of the hematoma in this area and the short external rotators had been damaged posteriorly the piriformis was still intact however. We then used a [employer] to protect the gluteus medius insertion and we performed a capsulotomy with in the posterior capsule. This was a L-shaped capsulotomy following up along the superior portion of the neck to the head. Once this was performed the leg was internally rotated the fracture was complete and we are able to place a corkscrew into the head of the femur and this was removed with ease. We then performed a clean up cut of the femoral neck using a guide to allow for 1 fingerbreadth above the lesser trochanter. Once this clean up cut was performed we were then able to irrigate and inspect the acetabulum which was intact the labrum was intact. We then sized the acetabulum and a 49 mm head was selected. We then turned our attention to the proximal femur the leg was internally rotated and abducted we then performed a box osteotome for lateralization followed by a rasp were then sequentially broached the femur lateralizing in between each broach to ensure good fit and to ensure no varus. We then were able to place a size 5 broach which was stable and so we trialed this with a standard neck and a 0 mm head. Once we did this the leg lengths were checked as well as tension. Leg lengths were stable tension was good and the patient's hip was stable in all ranges of motion. We elected to go with these components. We then dislocated the hip atraumatically and removed the head and neck the broach handle was reattached and the broach was stable we then removed this and copiously irrigated out with a pulse lavaged the canal as well as the acetabulum. Once it was irrigated with then placed the final component. Final component was impacted into place and sat in good position the trunnion was then cleaned and dried and we placed the Erickson taper head of the bipolar this was impacted into place and was stable. We then atraumatically relocated hip once relocated and taken through a range of motion hip remained stable with good leg lengths. We then again copiously irrigated with pulse lavage the wound. Posterior capsular repair was then performed using a 20 drill bit 3 holes were drilled in the posterior aspect of the greater trochanter the capsule as well as the piriformis were then passed through this using a suture passer and Ethibond stitch #1 Ethibond was used to perform this. We then tied these together to allow for good capsular repair. It was then oversewn with #1 Ethibond. The hip was then taken through a range of motion and the capsular repair was stable. We then performed repair of the tensor fascia using #1 Vicryl in a running locking fashion the deep subcutaneous tissue was closed using 0 Vicryl the superficial subcutaneous tissue closed with 2-0 Vicryl and the skin was closed with skin johnson. Wound edges approximated very well. The wound was then cleaned and dressed with a sterile Optifoam Dressing. The patient was then transferred back to their hospital bed. There were awakened by department of anesthesia having tolerated the procedure very well with no complications. The patient was then transported to the postoperative care unit in stable condition.
--- NOTE | 2020-12-25 12:31 | P.PN ---
Subjective Progress Note Date: 12/25/20 This is an 85-year-old female patient of Dr. Walsh with past medical history of hypertension, hyperlipidemia, GERD, hypothyroidism comes in after she had a fall while trying to get into her car and got tangled up into cord of some sort. Patient fell on her hip leading to left hip fracture. Overnight patient was complaining of significant hip pain. Patient's blood pressure on admission was 220/96" 98 pulse 66 respiratory rate 18 and oxygen saturation was 88% on room air. Labs are ordered to suggest a WBC of 15.5 hemoglobin 13.3 platelets 279 sodium 137 potassium 3.7 chloride 103 bicarb 20 B UN eights creatinine 0.66 glucose 131 EKG obtained suggest a sinus rhythm. Patient does not do so cane or walker at home is more than 5METs at home. She denies any chest pain, shortness of breath, nausea, vomiting, burning micturition, numbness or tingling in her extremities. 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 He said patient was initiated on hydralazine and losartan overnight with improvement in her blood pressure to 186/71 afebrile pulse 70 respiratory rate 18 oxygen saturation of 95% on 2 L chest x-ray is negative for pneumonia. Segmental atelectasis in the left lung base noted. No urinalysis available. 12/24 patient examined bedside. Appears to be lethargic and have pain in the left lower extremity. Patient is able to move her left lower extremity without significant pain. She denies any chest pain, shortness of breath noted. Breathing difficulty. Labs are reviewed patient has a low-grade temp of 100.1 pulse 78 respiratory rate 19 and blood pressure 170/74 oxygen saturation 94% on 2 L. Chest x-ray to be obtained. Continue Norvasc, losartan and hydralazine for blood pressure control. Encourage oral intake of fluids. PTOT consulted for possible discharge to rehab on Friday. 12/25: Patient has been afebrile for greater than 24 hours. Heart rate 65, blood pressure 152/60, pulse ox 94% on 2 L. Urine culture is in progress. Patient's been started on Lovenox for DVT prophylaxis. Expect PT and OT to start working with the patient with plan for subacute rehab once arrangements are completed. Medication reconciliation has been reviewed and prepared for discharge if orthopedically as patient today. DVT prophylaxis per orthopedics. Review of systems Constitutional: Denies chills, Denies fever, Denies lethargy, Denies malaise, Denies poor appetite, Denies weakness, Denies weight loss Eyes: denies decreased vision, denies diplopia, denies discharge, denies pain Ears: deny: decreased hearing Ears, nose, mouth and throat: Denies dental pain, Denies headache, Denies nasal discharge, Denies nose pain Cardiovascular: Denies chest pain, Denies decreased exercise tolerance, Denies edema, Denies high blood pressure, Denies irregular heart beat, Denies palpitations, Denies paroxysmal nocturnal dyspnea, Denies rapid heart beat, Denies shortness of breath Respiratory: Denies congestion, Denies cough, Denies cough with sputum, Denies dyspnea, Denies home oxygen, Denies wheezing Gastrointestinal: Denies abdominal pain, Denies change in bowel habits, Denies coffee ground emesis, Denies early satiety, Denies excessive gas, Denies heartburn, Denies hematemesis, Denies hematochezia, Denies loss of appetite, Denies nausea, Denies vomiting Genitourinary: Denies dysuria, Denies flank pain, Denies kidney stones, Denies menorrhagia, Denies urgency, Denies urinary frequency Musculoskeletal: Endorses gait dysfunction, limitation of motion and minimal hip pain, Denies morning stiffness, Denies muscle cramps Integumentary: Denies rash, Denies wounds, Denies brittle nails, Denies change in hair/nails, Denies darkening of skin Neurological: Denies balance difficulties, Denies change in speech, Denies double vision, Denies gait dysfunction, Denies loss of vision, Denies motor disturbance, Denies numbness, Denies paralysis, Denies paresthesias, Denies seizures Psychiatric: Denies anxiety, Denies depression Endocrine: Denies excessive sweating, Denies excessive thirst, Denies high blood sugars, Denies palpitations Hematologic/Lymphatic: Denies easy bruising, Denies lymphadenopathy Physical exam - Constitutional General appearance: cooperative, no acute distress, obese - EENT Eyes: anicteric sclerae, PERRLA, normal appearance ENT: hearing grossly normal - Neck Neck: no lymphadenopathy, normal ROM, no other, no rigidity, no stridor, no thyromegaly - Respiratory Respiratory: bilateral: CTA, negative: diminished, dullness, rales, rhonchi - Cardiovascular Rhythm: regular Heart sounds: normal: S1, S2 Abnormal Heart Sounds: 2/6 systolic murmur, no diastolic murmur, no rub, no S3 Gallop, no S4 Gallop, no click, no other - Gastrointestinal General gastrointestinal: normal bowel sounds, soft - Integumentary Integumentary: no rash - Neurologic Neurologic: CNII-XII intact - Musculoskeletal Musculoskeletal: gait not assessed, mild pain left hip. no drainage noted at the site of incision. Mild tender to palpate over her incision Patient is limited range of motion on the left leg - Psychiatric Psychiatric: A&O x's 3, appropriate affect Assessment and plan #1 postoperative day 2 left hip hemiarthroplasty for left hip intertrochanteric fracture Continue pain control with morphine 4 mg as needed incentive spirometry. Chest x-ray ordered to rule out pneumonia #2 essential hypertension blood pressure is uncontrolled hydralazine initiated 25 3 times a day. Patient initiated on losartan 50 mg daily, Norvasc 10 mg daily to help control blood pressure. Patient initiated on atenolol 25 mg at home #3 GERD continue Protonix 40 mg oral daily #4 hypothyroidism. Synthyroid 50 mcg by mouth daily. #5 hyperlipidemia. Continue Lipitor #6 neuropathy continue gabapentin adjusted to 100 mg 3 times daily, continue [place] for pain control. #7 CODE STATUS full code #7 DVT prophylaxis Lovenox 30 subcu 12 hours #8 leukocytosis secondary to UTI patient will be transitioned to Ceftin per the correction. DISCHARGE PLAN Impression and plan of care have been directed as dictated by the signing physician. Tianna Elaine nurse practitioner acting as scribe for signing physician. Objective - Vital Signs Vital signs: Vital Signs Temp 97.9 F 12/25/20 07:32 Pulse 65 12/25/20 07:32 Resp 17 12/25/20 07:32 BP 152/68 12/25/20 07:32 Pulse Ox 94 L 12/25/20 07:32 Intake & Output 12/24/20 12/25/20 12/25/20 18:59 06:59 18:59 Intake Total 800 Output Total 625 1850 Balance 175 -1850 Intake: IV 800 Sodium Chloride 0.9% 1, 800 000 ml @ 130 mls/hr IV . [id number] [facility] Rx#:[id number] Output: Urine 625 1850 Urether[place] ([place]) 625 Other: Voiding Method Indwelling Catheter Indwelling Catheter # Voids 1 - Labs CBC & Chem 7: 12/24/20 00:06 12/24/20 06:04 Labs: Abnormal Lab Results - Last 24 Hours (Table) 12/24/20 12/24/20 12/24/20 Range/Units 00:06 06:04 11:35 RBC 3.32 L (4.10-5.20) X 10*6/uL Hgb 10.8 L (12.0-15.0) g/dL Hct 32.3 L (37.2-46.3) % MCV 97.3 H (80.0-97.0) fL MCH 32.5 H (27.0-32.0) pg Immature Gran # 0.05 H (0.00-0.04) X 10*3/uL BUN 8.0 L (9.0-27.0) mg/dL Glucose 147 H (70-110) mg/dL POC Glucose (mg/dL) 156 H (75-99) mg/dL Calcium 8.1 L (8.7-10.3) mg/dL Microbiology - Last 24 Hours (Table) 12/23/20 16:45 Urine Culture - Preliminary Urine,Voided
--- NOTE | 2020-12-25 12:43 | P.PN ---
Subjective Progress Note Date: 12/25/20 Principal diagnosis: POD #2 s/p left hip femoral neck fracture Patient seen at bedside this morning about to eat breakfast. Patient says he is in a moderate amount of pain. Patient has incentive spirometer at side and has been using it. Patient says she has not had a bowel movement yet, however, she has been passing gas. Patient denies chest pain, fever, shortness of breath, nausea, vomiting, change in vision, loss of bowel/bladder control. Objective - Vital Signs Vital signs: Vital Signs Temp 97.9 F 12/25/20 07:32 Pulse 65 12/25/20 07:32 Resp 17 12/25/20 07:32 BP 152/68 12/25/20 07:32 Pulse Ox 94 L 12/25/20 07:32 Intake & Output 12/24/20 12/25/20 12/25/20 18:59 06:59 18:59 Intake Total 800 Output Total 625 1850 Balance 175 -1850 Intake: IV 800 Sodium Chloride 0.9% 1, 800 000 ml @ 130 mls/hr IV . [id number] [facility] Rx#:[id number] Output: Urine 625 1850 Uretheral ([place]) 625 Other: Voiding Method Indwelling Catheter Indwelling Catheter Indwelling Catheter # Voids 1 - Exam Inspection: Incision is clean, dry, intact. Thong are in good place. No evidence of open fractures. Negative for any ecchymosis. Negative for any significant discoloration other than as noted. Negative for nodules, erythema. Sensation: Sensation is intact in bilateral upper extremities symmetric, equal in distribution. Sensation is intact in bilateral lower extremities symmetric, equal in distribution Palpation: Mild TTP over incision . Nontender to palpation throughout rest of exam Range of motion:Patient has limited ROM of left leg. She can externally/internally rotate left leg with some pain. Bilateral upper extremities full range of motion in elbow extension/flexion as well as shoulder internal and external rotation abduction and forward elevation. Right lower extremity full range of motion and knee flexion extension and hip flexion extension. Plantar and dorsiflexion full range of motion bilaterally Motor: Strength 5 out of 5 in upper extremities as well as bartender helper strength. Right lower extremity 5/5 in resisted flexion extension and hip flexion extension. Left leg exam limited due to patient being in significant amount of pain Neurovascular status/tensioning signs: Refill under 3 seconds bilaterally in lower and upper extremities. Skin mildly warm to touch in hands bilaterally as well as bilaterally in the lower extremities. Dorsalis pedis pulses intact, 2+ bilaterally. Radial pulses intact, 2+ bilaterally. Negative Homans bilaterally. Negative Gabriela's bilaterally. Negative clonus upon dorsiflexing feet bilaterally. - Labs CBC & Chem 7: 12/24/20 00:06 12/24/20 06:04 Labs: Microbiology - Last 24 Hours (Table) 12/23/20 16:45 Urine Culture - Preliminary Urine,Voided Assessment and Plan Assessment: Left hip intertrochanteric fracture Plan: 1. Left hip intertrochanteric fracture - surgery performed yesterday, 12/23/2020- left hip hemiarthroplasty. 2. Appreciate medical management 3. Pain management - [place] 7.5 mg/325mg 4. GI prophylaxis - protonix 5. PT/OT- WBAT w/walker for assistance. 6. Encourage incentive spirometer use 7. Discharge planning - plan to discharge to rehab tomorrow, 12/26/2020 Time with Patient: Less than 30
[2020-12-25] MEDS: AMITRIPTYLINE HCL 50 MG TAB PO SCH (20:43)
[2020-12-25] MEDS: SENNOSIDES-DOCUSATE SODIUM 1 EACH TAB PO SCH (20:44)
[2020-12-25] MEDS: atenoloL 25 MG TAB PO SCH (20:44)
[2020-12-26] MEDS: LEVOTHYROXINE 50 MCG TAB PO SCH (05:40)
[2020-12-26] MEDS: SODIUM CHLORIDE 0.9% 1,000 ML IV SCH ×2 (05:40→15:23)
[2020-12-26] MEDS: PANTOPRAZOLE 40 MG TABLET PO SCH (07:39)
--- NOTE | 2020-12-26 08:02 | P.PN ---
Subjective Progress Note Date: 12/26/20 Principal diagnosis: POD #3 s/p left hip femoral neck fracture Patient seen at bedside this morning about to eat breakfast. Patient says he is in a moderate amount of pain. Patient has incentive spirometer at side and has been using it. Patient says she has not had a bowel movement yet, however, she has been passing gas. Patient denies chest pain, fever, shortness of breath, nausea, vomiting, change in vision, loss of bowel/bladder control. Objective - Vital Signs Vital signs: Vital Signs Temp 98.0 F 12/26/20 07:22 Pulse 66 12/26/20 07:22 Resp 16 12/26/20 07:22 BP 145/75 12/26/20 07:22 Pulse Ox 96 12/26/20 07:22 Intake & Output 12/25/20 12/26/20 12/26/20 18:59 06:59 18:59 Output Total 3800 Balance -3800 Output: Urine 3800 Straight 1900 Other: Voiding Method Indwelling Catheter Toilet Bedpan # Voids 2 - Exam Inspection: Incision is clean, dry, intact. Thong are in good place. No evidence of open fractures. Negative for any ecchymosis. Negative for any sig nificant discoloration other than as noted. Negative for nodules, erythema. Sensation: Sensation is intact in bilateral upper extremities symmetric, equal in distribution. Sensation is intact in bilateral lower extremities symmetric, equal in distribution Palpation: Mild TTP over incision . Nontender to palpation throughout rest of exam Range of motion:Patient has limited ROM of left leg. She can externally/internally rotate left leg with some pain. Bilateral upper extremities full range of motion in elbow extension/flexion as well as shoulder internal and external rotation abduction and forward elevation. Right lower extremity full range of motion and knee flexion extension and hip flexion extension. 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 Right lower extremity 5/5 in resisted flexion extension and hip flexion extension. Left leg exam limited due to patient being in significant amount of pain Neurovascular status/tensioning signs: Refill under 3 seconds bilaterally in lower and upper extremities. Skin mildly warm to touch in hands bilaterally as well as bilaterally in the lower extremities. Dorsalis pedis pulses intact, 2+ bilaterally. Radial pulses intact, 2+ bilaterally. Negative Homans bilaterally. Negative Gabriela's bilaterally. Negative clonus upon dorsiflexing feet bilaterally. - Labs CBC & Chem 7: 12/24/20 00:06 12/24/20 06:04 Labs: Microbiology - Last 24 Hours (Table) 12/23/20 16:45 Urine Culture - Final Urine,Voided Assessment and Plan Assessment: Left hip intertrochanteric fracture Plan: 1. Left hip intertrochanteric fracture - surgery performed yesterday, 12/23/2020- left hip hemiarthroplasty. 2. Appreciate medical management 3. Pain management - [place] 7.5 mg/325mg 4. GI prophylaxis - protonix 5. PT/OT- WBAT w/walker for assistance. 6. Encourage incentive spirometer use 7. Discharge planning - plan to discharge to rehab today, 12/26/2020
[2020-12-26] MEDS ORDERED: TAMSULOSIN 0.4 MG CAP.ER.24H PO SCH (08:30)
--- NOTE | 2020-12-26 08:44 | P.PN ---
Progress Note - Text Progress Note Date: 12/26/20 Patient seen and examined I agree with the note of NISREEN Tidwell Patient doing fairly well complains of some pain in her left hip. She was up yesterday to her chair she walks minimally with a walker. Her exam is stable today she has some pain with logroll of the hip but has good flexion plantar flexion EHL FHL bilaterally. No other deficits sensation intact to light touch L2 S1 palpable distal pulses compartment soft and compressible. Dressing is clean dry and intact at this time. We are hoping to get her to rehab within the next day or even today. She is stable from orthopedic standpoint to go to rehab.
[2020-12-26] MEDS ORDERED: polyethylene glycoL 3350 17 GM POWD.PACK PO SCH (09:30)
[2020-12-26] MEDS: hydrALAZINE HCL 25 MG TAB PO SCH ×2 (09:33→15:24)
[2020-12-26] MEDS: ENOXAPARIN 30 MG/0.3 ML SYRINGE SQ SCH (09:34)
[2020-12-26] MEDS: amLODIPine 10 MG TAB PO SCH (09:34)
[2020-12-26] MEDS: LOSARTAN 50 MG TAB PO SCH (09:34)
[2020-12-26] MEDS: HYDROcodone/APAP 7.5-325MG 1 EACH TAB PO PRN ×2 (09:35→15:24)
[2020-12-26] MEDS: CITALOPRAM HYDROBROMIDE 10 MG TAB PO SCH (10:49)
--- NOTE | 2020-12-26 10:54 | P.GSCN ---
History of Present Illness Consult date: 12/26/20 History of present illness: Patient is in the hospital after sustaining a left hip fracture. She required surgery for this. She has had postoperative urinary retention. We are asked see the patient for this reason.She denies previous voiding issues. No history of recurrent uti. No history of incontinence. No previous urological evaluation No major back issues. No history of gi issues. Review of Systems the patient is still somewhat fuzzy about the hip fracture and hospitalization Past Medical History Past Medical History: Hyperlipidemia, Hypertension Additional Past Medical History / Comment(s): herniated disc, neuropathy, low thyroid History of Any Multi-Drug Resistant Organisms: None Reported Past Surgical History: Appendectomy, Hysterectomy Additional Past Surgical History / Comment(s): toxic goiter; gallblader removal Past Psychological History: Depression Smoking Status: Former smoker Past Alcohol Use History: None Reported Past Drug Use History: None Reported Medications and Allergies Home Medications Medication Instructions Recorded Confirmed Type Amitriptyline HCl [Elavil] 50 mg PO HS 12/23/20 12/23/20 History Atorvastatin [Lipitor] 20 mg PO DAILY 12/23/20 12/23/20 History Cholecalciferol (Vitamin D3) 125 mcg PO DAILY 12/23/20 12/23/20 History [Vitamin D3 (125 MCG = 5,000 IU)] Citalopram Hydrobromide [CeleXA] 10 mg PO DAILY 12/23/20 12/23/20 History Cyanocobalamin (Vitamin B-12) 1,000 mcg PO DAILY 12/23/20 12/23/20 History [Vitamin B-12] Ergocalciferol [Vitamin D2 (1250 1,250 mcg PO Q14D 12/23/20 12/23/20 History Mcg = 47646 Iu)] Esomeprazole Magnesium 40 mg PO DAILY 12/23/20 12/23/20 History Garlic 1 tab PO DAILY 12/23/20 12/23/20 History Levothyroxine Sodium [Levo-T] 50 mcg PO DAILY 12/23/20 12/23/20 History atenoloL [Atenolol] 25 mg PO HS 12/23/20 12/23/20 History Cefuroxime [Ceftin] 250 mg PO BID 3 Days #6 tab 12/25/20 Rx Gabapentin [Neurontin] 100 mg PO TID #9 cap 12/25/20 Rx Losartan [Cozaar] 50 mg PO DAILY tab 12/25/20 Rx Sennosides-Docusate Sodium 2 each PO HS tab 12/25/20 Rx [Senokot-S] amLODIPine [Norvasc] 10 mg PO DAILY tab 12/25/20 Rx hydrALAZINE HCL [Apresoline] 25 mg PO TID tab 12/25/20 Rx Polyethylene Glycol 3350 [Miralax] 17 gm PO DAILY #527 gm 12/26/20 Rx Allergies Allergy/AdvReac Type Severity Reaction Status Date / Time codeine Allergy Rash/Hives Verified 12/23/20 14:09 Surgical - Exam Vital Signs Temp Pulse Resp BP Pulse Ox 98 F 66 18 220/96 88 L 12/23/20 00:08 12/23/20 00:08 12/23/20 00:08 12/23/20 00:08 12/23/20 00:08 - General well developed, well nourished, moderate pain - Eyes PERRL - ENT no hearing loss - Neck trachea midline - Respiratory normal expansion, normal respiratory effort - Cardiovascular Rhythm: regular - Abdomen Abdomen: soft - Neurologic normal sensation - Musculoskeletal normal posture - Psychiatric the patient is somewhat fuzzy doesnt remember the hospital events. Results - Labs 12/24/20 00:06 12/24/20 06:04 Microbiology - Last 24 Hours (Table) 12/23/20 16:45 Urine Culture - Final Urine,Voided Assessment and Plan Assessment: Impression: post hip fracture urine retention Plan: I suspect that this issue is related to the ivf, pain, narcotics in the [place] hip fracture period. When she is ambulating a clear mentally the catheter can be removed for a voiding trial
--- NOTE | 2020-12-26 12:24 | P.PN ---
Subjective Progress Note Date: 12/26/20 This is an 85-year-old female patient of Dr. Walsh with past medical history of hypertension, hyperlipidemia, GERD, hypothyroidism comes in after she had a fall while trying to get into her car and got tangled up into cord of some sort. Patient fell on her hip leading to left hip fracture. Overnight patient was complaining of significant hip pain. Patient's blood pressure on admission was 220/96" 98 pulse 66 respiratory rate 18 and oxygen saturation was 88% on room air. Labs are ordered to suggest a WBC of 15.5 hemoglobin 13.3 platelets 279 sodium 137 potassium 3.7 chloride 103 bicarb 20 B UN eights creatinine 0.66 glucose 131 EKG obtained suggest a sinus rhythm. Patient does not do so cane or walker at home is more than 5METs at home. She denies any chest pain, shortness of breath, nausea, vomiting, burning micturition, numbness or tingling in her extremities. 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 He said patient was initiated on hydralazine and losartan overnight with improvement in her blood pressure to 186/71 afebrile pulse 70 respiratory rate 18 oxygen saturation of 95% on 2 L chest x-ray is negative for pneumonia. Segmental atelectasis in the left lung base noted. No urinalysis available. 12/24 patient examined bedside. Appears to be lethargic and have pain in the left lower extremity. Patient is able to move her left lower extremity without significant pain. She denies any chest pain, shortness of breath noted. Breathing difficulty. Labs are reviewed patient has a low-grade temp of 100.1 pulse 78 respiratory rate 19 and blood pressure 170/74 oxygen saturation 94% on 2 L. Chest x-ray to be obtained. Continue Norvasc, losartan and hydralazine fo r blood pressure control. Encourage oral intake of fluids. PTOT consulted for possible discharge to rehab on Friday. 12/25: Patient has been afebrile for greater than 24 hours. Heart rate 65, blood pressure 152/60, pulse ox 94% on 2 L. Urine culture is in progress. Patient's been started on Lovenox for DVT prophylaxis. Expect PT and OT to start working with the patient with plan for subacute rehab once arrangements are completed. Medication reconciliation has been reviewed and prepared for discharge if orthopedically as patient today. DVT prophylaxis per orthopedics. 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 With next bladder scan, [place] catheter will most likely be placed. Complicating the urinary retention is constipation and MiraLAX added to the Senokot. Patient has been afebrile, heart rate 66, blood pressure 145/ 75, pulse ox 96% on 2 L nasal cannula. Medication reconciliation has been updated with Flomax and MiraLAX. Patient is cleared for medicine for discharge to subacute rehab. Review of systems Constitutional: Denies chills, Denies fever, Denies lethargy, Denies malaise, Denies poor appetite, Denies weakness, Denies weight loss Eyes: denies decreased vision, denies diplopia, denies discharge, denies pain Ears: deny: decreased hearing Ears, nose, mouth and throat: Denies dental pain, Denies headache, Denies nasal discharge, Denies nose pain Cardiovascular: Denies chest pain, Denies decreased exercise tolerance, Denies edema, Denies high blood pressure, Denies irregular heart beat, Denies palpitations, Denies paroxysmal nocturnal dyspnea, Denies rapid heart beat, Denies shortness of breath Respiratory: Denies congestion, Denies cough, Denies cough with sputum, Denies dyspnea, Denies home oxygen, Denies wheezing Gastrointestinal: Denies abdominal pain, Denies change in bowel habits, Denies coffee ground emesis, Denies early satiety, Denies excessive gas, Denies heartburn, Denies hematemesis, Denies hematochezia, Denies loss of appetite, Denies nausea, Denies vomiting Genitourinary: Denies dysuria, Denies flank pain, Denies kidney stones, Denies menorrhagia, Denies urgency, Denies urinary frequency Musculoskeletal: Endorses gait dysfunction, limitation of motion and minimal hip pain, Denies morning stiffness, Denies muscle cramps Integumentary: Denies rash, Denies wounds, Denies brittle nails, Denies change in hair/nails, Denies darkening of skin Neurological: Denies balance difficulties, Denies change in speech, Denies double vision, Denies gait dysfunction, Denies loss of vision, Denies motor disturbance, Denies numbness, Denies paralysis, Denies paresthesias, Denies seizures Psychiatric: Denies anxiety, Denies depression Endocrine: Denies excessive sweating, Denies excessive thirst, Denies high blood sugars, Denies palpitations Hematologic/Lymphatic: Denies easy bruising, Denies lymphadenopathy Physical exam - Constitutional General appearance: cooperative, no acute distress, obese - EENT Eyes: anicteric sclerae, PERRLA, normal appearance ENT: hearing grossly normal - Neck Neck: no lymphadenopathy, normal ROM, no other, no rigidity, no stridor, no thyromegaly - Respiratory Respiratory: bilateral: CTA, negative: diminished, dullness, rales, rhonchi - Cardiovascular Rhythm: regular Heart sounds: normal: S1, S2 Abnormal Heart Sounds: 2/6 systolic murmur, no diastolic murmur, no rub, no S3 Gallop, no S4 Gallop, no click, no other - Gastrointestinal General gastrointestinal: normal bowel sounds, soft - Integumentary Integumentary: no rash - Neurologic Neurologic: CNII-XII intact - Musculoskeletal Musculoskeletal: gait not assessed, mild ain left hip. no drainage noted at the site of incision. Mild tender to palpate over her incision Patient is limited range of motion on the left leg - Psychiatric Psychiatric: A&O x's 3, appropriate affect Assessment and plan #1 postoperative day 3 left hip hemiarthroplasty for left hip intertrochanteric fracture Continue pain control with morphine 4 mg as needed incentive spirometry. Chest x-ray ordered to rule out pneumonia #2 essential hypertension blood pressure is uncontrolled hydralazine initiated 25 3 times a day. Patient initiated on losartan 50 mg daily, Norvasc 10 mg daily to help control blood pressure. Patient initiated on atenolol 25 mg at home #3 GERD continue Protonix 40 mg oral daily #4 hypothyroidism. Synthyroid 50 mcg by mouth daily. #5 hyperlipidemia. Continue Lipitor #6 neuropathy continue gabapentin adjusted to 100 mg 3 times daily, continue [place] for pain control. #7 CODE STATUS full code #7 DVT prophylaxis Lovenox 30 subcu 12 hours #8 leukocytosis secondary to UTI patient will be transitioned to Ceftin for the jail. 9. Urinary retention requiring [place] catheter placement. Patient started on Flomax. 10. Constipation. Patient started on MiraLAX in addition to Senokot 2 tablets scheduled daily. DISCHARGE PLAN [facility] Impression and plan of care have been directed as dictated by the signing physician. Tianna Elaine nurse practitioner acting as scribe for signing physician. Objective - Vital Signs Vital signs: Vital Signs Temp 98.0 F 12/26/20 07:22 Pulse 66 12/26/20 07:22 Resp 16 12/26/20 07:22 BP 145/75 12/26/20 07:22 Pulse Ox 96 12/26/20 07:22 Intake & Output 12/25/20 12/26/20 12/26/20 18:59 06:59 18:59 Output Total 3800 Balance -3800 Output: Urine 3800 Straight 1900 Other: Voiding Method Indwelling Catheter Toilet Bedpan # Voids 2 - Labs CBC & Chem 7: 12/24/20 00:06 12/24/20 06:04 Labs: Microbiology - Last 24 Hours (Table) 12/23/20 16:45 Urine Culture - Final Urine,Voided
--- NOTE | 2020-12-26 12:44 | P.DS ---
Providers Date of admission: 12/23/20 01:44 Expected date of discharge: 12/26/20 Attending physician: Micheal Lang DO Consults: 12/23/20 01:43 Consult Physician Routine Consulting Provider: Babatunde Walsh Reason/Comments: known Do you want consulting provider notified?: Yes 12/26/20 07:15 Consult Physician Routine Consulting Provider: Tom Villa Reason/Comments: Post Op Retention Do you want consulting provider notified?: Yes Primary care physician: Babatunde Walsh Hospital Course: Date of admission: 12/23/2020 Date of discharge: 12/26/2020 Admission diagnosis: Left hip femoral neck fracture Discharge diagnosis: Same Attending physician: Dr. Lang Surgical procedures: Left hip hemiarthroplasty Brief history: Patient is a 85-year-old female with a history of left hip femoral neck fracture status post fall. At this point patient has failed conservative treatment measures and has opted to proceed with a left hip hemiarthroplasty. Hospital course: Details of patient's surgery can be found in operative report. Patient tolerated the procedure well and was subsequently transported to orthopedic floor. Patient's orthopeidc and medical care was provided daily. Patient had daily laboratory tests performed for evaluation of overall blood counts. Patient had daily physical therapy to include strengthening range of motion as well as education with walker ambulation. Patient was treated with Lovenox for their postoperative DVT prophylaxis during their inpatient stay. Patient was noted to have a relatively uneventful postoperative course. Patient reported satisfactory pain control with oral pain medications by postoperative day .. Patient showed satisfactory progress with physical therapy. Patient moved steadily through the program and had no difficulty meeting the goals by postoperative day 3. Given patient's otherwise satisfactory course and having met physical therapy goals, plan is to discharge patient to [facility] for rehab on postoperative day 3. Discharge condition/disposition: Patient will be discharged to [facility] for rehab in stable condition. Discharge medications: Instructions are given on resumption of patient's normal daily medications per primary care recommendation, in addition patient will be prescribed Nageezi 5mg/325mg; Lovenox; Flexeril Discharge instructions: 1. Wound care and infection precautions, keep incision dry and covered while showering, no lotions, creams, moisturizers. No soaking, tubs, pools, hottubs. Do not scrub over the incision. 2. Weight-bear as tolerated with walker / cane until follow-up. 3. Ice and elevate when necessary. Do not exceed 20 minutes per hour with ice pack. 4. Utilize compression sleeve until seen at first follow up appointment. 5. Visiting nursing care. 6. Home physical therapy. 7. Pain meds and anticoagulants per prescription. 8. Pain medication has potential to cause constipation. Increase oral fluid and fiber intake. Contact primary care provider if you have not had a bowel movement within 48 hours after discharge 9. No anti-inflammatory medication until discussed at first post operative visit, this including Motrin, Aleve, Mobic, Diclofenac. 10. Follow up in office at 2 weeks postop with Ghulam Puente PA-C / Brandon Kirkland PA-C 11. Follow up with your primary care doctor 7-10 days after discharge. 12. Contact [facility] with any questions, . Assessment: Left hip femoral neck fracture Procedures: Left hip hemiarthroplasty Patient Condition at Discharge: Good Plan - Discharge Summary Discharge Rx Participant: No New Discharge Prescriptions: New Losartan [Cozaar] 50 mg PO DAILY tab Sennosides-Docusate Sodium [Senokot-S] 2 each PO HS tab Polyethylene Glycol 3350 [Miralax] 17 gm PO DAILY #527 gm Cyclobenzaprine [Flexeril] 10 mg PO HS #20 tab hydrALAZINE HCL [Apresoline] 25 mg PO TID tab Cefuroxime [Ceftin] 250 mg PO BID 3 Days #6 tab amLODIPine [Norvasc] 10 mg PO DAILY tab Tamsulosin [Flomax] 0.4 mg PO PC-BRKFST cap.er.24h Enoxaparin [Lovenox] 30 mg SQ Q12H #7 syringe HYDROcodone/APAP 5-325MG [Nageezi 5-325] 1 tab PO Q6HR PRN #24 tab PRN Reason: Pain Continue atenoloL [Atenolol] 25 mg PO HS Esomeprazole Magnesium 40 mg PO DAILY Ergocalciferol [Vitamin D2 (1250 Mcg = 97478 Iu)] 1,250 mcg PO Q14D Cholecalciferol (Vitamin D3) [Vitamin D3 (125 MCG = 5,000 IU)] 125 mcg PO DAILY Cyanocobalamin (Vitamin B-12) [Vitamin B-12] 1,000 mcg PO DAILY Amitriptyline HCl [Elavil] 50 mg PO HS Atorvastatin [Lipitor] 20 mg PO DAILY Citalopram Hydrobromide [CeleXA] 10 mg PO DAILY Levothyroxine Sodium [Levo-T] 50 mcg PO DAILY Garlic 1 tab PO DAILY Changed Gabapentin [Neurontin] 100 mg PO TID #9 cap Discontinued Gabapentin [Neurontin] 400 mg PO HS Discharge Medication List Amitriptyline HCl [Elavil] 50 mg PO HS 12/23/20 [History] Atorvastatin [Lipitor] 20 mg PO DAILY 12/23/20 [History] Cholecalciferol (Vitamin D3) [Vitamin D3 (125 MCG = 5,000 IU)] 125 mcg PO DAILY 12/23/20 [History] Citalopram Hydrobromide [CeleXA] 10 mg PO DAILY 12/23/20 [History] Cyanocobalamin (Vitamin B-12) [Vitamin B-12] 1,000 mcg PO DAILY 12/23/20 [History] Ergocalciferol [Vitamin D2 (1250 Mcg = 80993 Iu)] 1,250 mcg PO Q14D 12/23/20 [History] Esomeprazole Magnesium 40 mg PO DAILY 12/23/20 [History] Garlic 1 tab PO DAILY 12/23/20 [History] Levothyroxine Sodium [Levo-T] 50 mcg PO DAILY 12/23/20 [History] atenoloL [Atenolol] 25 mg PO HS 12/23/20 [History] Cefuroxime [Ceftin] 250 mg PO BID 3 Days #6 tab 12/25/20 [Rx] Gabapentin [Neurontin] 100 mg PO TID #9 cap 12/25/20 [Rx] Losartan [Cozaar] 50 mg PO DAILY tab 12/25/20 [Rx] Sennosides-Docusate Sodium [Senokot-S] 2 each PO HS tab 12/25/20 [Rx] amLODIPine [Norvasc] 10 mg PO DAILY tab 12/25/20 [Rx] hydrALAZINE HCL [Apresoline] 25 mg PO TID tab 12/25/20 [Rx] Cyclobenzaprine [Flexeril] 10 mg PO HS #20 tab 12/26/20 [Rx] Enoxaparin [Lovenox] 30 mg SQ Q12H #7 syringe 12/26/20 [Rx] HYDROcodone/APAP 5-325MG [Nageezi 5-325] 1 tab PO Q6HR PRN #24 tab 12/26/20 [Rx] Polyethylene Glycol 3350 [Miralax] 17 gm PO DAILY #527 gm 12/26/20 [Rx] Tamsulosin [Flomax] 0.4 mg PO PC-BRKFST cap.er.24h 12/26/20 [Rx] Follow up Appointment(s)/Referral(s): Babatunde Walsh MD [Primary Care Provider] - 1 Week (at [facility] or after dc from other F) Micheal Lang DO [Doctor of Osteopathic Medicine] - 2 Weeks Patient Instructions/Handouts: Joint Replacement Surgery (DC) Activity/Diet/Wound Care/Special Instructions: Orthopedic Discharge Instructions: 1. Wound care and infection precautions, keep incision dry and covered while sh owering, no lotions, creams, moisturizers. No soaking, pools, hot tubs. Do not scrub over incision. 2. Weight-bear as tolerated with walker / cane until follow-up. 3. Ice and elevate when necessary. Do not exceed 20 minutes per hour with ice pack. 4. Utilize compression sleeve until seen at first follow up appointment. 5. Pain meds and anticoagulants per prescription. 6. Pain medication has potential to cause constipation. Increase oral fluid and fiber intake. Contact primary care provider if you have not had a bowel movement within 48 hours after discharge. 7. No anti-inflammatory medication until discussed at first post operative visit, this including Motrin, Aleve, Mobic, Diclofenac. 8. Follow up in office at 2 weeks postop with Ghulam Puente PA-C / Brandon Kirkland PA-C 9. Follow up with your primary care doctor 7-10 days after discharge. 10. Contact [facility] with any questions, . Discharge Disposition: TRANSFER TO SNF/ECF
[2020-12-26 14:28] VITALS: BP 110/58; PULSE 67; RESP 18; TEMP 97.6
== END 2020-12-26 16:20 | DRG 522 ==
LOC: EC → 4SSUR 01:44
PROVIDERS: ADMIT Orthopaedic Surgery; ATTEND Orthopaedic Surgery
PROC: 0SRS01A Replacement of Left Hip Joint, Femoral Surface with Metal Synthetic Substitute, Uncemented, Open Approach (ICD-10-PCS; principal; 2020-12-23 10:00)
DX: S72.142A Displaced intertrochanteric fracture of left femur, initial encounter for closed fracture (principal); J98.11 Atelectasis; N39.0 Urinary tract infection, site not specified; E03.9 Hypothyroidism, unspecified; E78.5 Hyperlipidemia, unspecified; G57.90 Unspecified mononeuropathy of unspecified lower limb; I10 Essential (primary) hypertension; F32.9 Major depressive disorder, single episode, unspecified; K21.9 Gastro-esophageal reflux disease without esophagitis; R33.9 Retention of urine, unspecified; K59.00 Constipation, unspecified; Z79.890 Hormone replacement therapy; Z79.899 Other long term (current) drug therapy; Z90.710 Acquired absence of both cervix and uterus; Z90.49 Acquired absence of other specified parts of digestive tract; Z87.19 Personal history of other diseases of the digestive system; Z87.42 Personal history of other diseases of the female genital tract; Z87.891 Personal history of nicotine dependence; Z87.81 Personal history of (healed) traumatic fracture; Z98.890 Other specified postprocedural states; W01.0XXA Fall on same level from slipping, tripping and stumbling without subsequent striking against object, initial encounter; Y92.008 Other place in unspecified non-institutional (private) residence as the place of occurrence of the external cause; Z88.5 Allergy status to narcotic agent
CPT/HCPCS: 36415; 71045; 73502; 80048; 80053; 81001; 82550; 83605; 83735; 84100; 84484; 85025; 85610; 85730; 87086; 88305; 88311; 93005; 94760; 96361; 96374; 99285

== ENCOUNTER → 2023-03-17 | Outpatient (CLI) | payer MEDICARE ==
--- NOTE | 2023-03-17 11:39 | MR ---
EXAMINATION TYPE: MR lumbar spine wo/w con, XR lumbar spine 2 or 3V DATE OF EXAM: 03/17/2023 10:10 AM CLINICAL INDICATION:Female, 88 years old with history of M54.9 back pain; PHH, Low back pain into omid lower extremities COMPARISON: None TECHNIQUE: Multi planar, multi sequence imaging was performed utilizing: T1-weighted, T2-weighted, a nd turbo inversion recovery imaging of the lumbar spine. IV Contrast: 7 cc Gadavist. (None if empty) Additional plain film imaging of the lumbar spine with frontal and lateral views. FINDINGS: Alignment: The lumbar vertebral bodies have preserved heights and alignment. Cord: The conus medullaris and the distal spinal cord appear unremarkable with regards to their signa l intensity and morphology. Bones/Discs: Scattered suspicious lesions are seen throughout the osseous structures compatible with metastatic disease which are low T1 signal and demonstrate postcontrast enhancement. The largest in L 3 vertebral body measuring up to 1.4 cm. There is curvilinear low T1/T2 signal with bony edema involv ing the L5 superior endplate with at least 25% height loss. Pseudoarthrosis of the spinous processes. T12-L1: No evidence of significant spinal canal stenosis or neural foraminal stenosis. L1-L2: No evidence of significant spinal canal stenosis. Facet joint arthropathy mild bilateral neura l foraminal stenosis. L2-L3: Disc bulge and facet joint arthropathy result in moderate to severe spinal canal and moderate bilateral neural foraminal stenosis. There is cauda equina bunching. L3-L4: Disc bulge and facet joint arthropathy result in moderate to severe spinal canal and moderate bilateral neural foraminal stenosis. There is cauda equina bunching. L4-L5: Disc bulge and facet joint arthropathy result in severe spinal canal and moderate bilateral ne ural foraminal stenosis. There is cauda equina bunching. L5-S1: The disc is rounded posterior morphology without significant spinal canal stenosis. Facet join t arthropathy with mild bilateral neural foraminal stenosis. No significant spinal canal or neural foraminal stenosis in the remainder of the visualized levels. Other findings: Radiograph from the same day confirms findings on MRI. IMPRESSION: Motion limited exam. 1. 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 2. Acute/subacute L5 superior endplate compression deformity with 25% height loss. 3. No definitive underlying osseous lesion to suggest pathologic fracture. 4. L4-L5 severe, L3-L4 and L2-L3 moderate to severe spinal canal stenosis secondary to disc bulge an d facet joint arthropathy. 5. Findings suggestive of Baastrup's disease.
== END | disposition home or self-care (01) ==
LOC: RADMRIMAIN 08:53
PROVIDERS: ATTEND Internal Medicine Geriatric Medicine
DX: M48.56XA Collapsed vertebra, not elsewhere classified, lumbar region, initial encounter for fracture (principal); M48.061 Spinal stenosis, lumbar region without neurogenic claudication; M51.26 Other intervertebral disc displacement, lumbar region
CPT/HCPCS: 72100; 72158; A9585

== ENCOUNTER → 2023-03-21 | Outpatient (CLI) | payer MEDICARE ==
--- NOTE | 2023-03-21 13:33 | MM ---
Reason for Exam: Clinical finding. Last mammogram was performed 6 year(s) and 1 month(s) ago. Patient History: Menarche at age 15. First Full-Term at age 26. Left ovary removed at age 39. Right ovary removed at age 39. Hysterectomy at age 39. Postmenopausal. Estrogen for 15 years from age 39 until age 54. Progesterone for 15 years from age 39 until age 54. 01/18/2015, Benign Core Biopsy on the left side. Tissue Density: The breast tissue is heterogeneously dense. This may lower the sensitivity of mammography. Findings: Analyzed By CAD. Spiculated high density mass within the upper outer quadrant of the left breast measuring 3.4 cm approximately 5 cm from the nipple. Additional enlarged left axillary lymph nodes with fine pleomorphic calcifications with largest measuring 4 cm. Biopsy clip within the left breast. Skin thickening throughout the left breast demonstrated. No suspicious mass or group of calcifications within the right breast. Architectural distortion within the right breast.Spiculated high density mass within the upper outer quadrant of the left breast measuring 3.4 cm approximately 5 cm from the nipple. Additional enlarged left axillary lymph nodes with fine pleomorphic calcifications with largest measuring 4 cm. Biopsy clip within the left breast. Skin thickening throughout the left breast demonstrated. No suspicious mass or group of calcifications within the right breast. No architectural distortion within the right breast. Overall Assessment: Incomplete: need additional imaging evaluation, BI-RAD 0 Management: Diagnostic Breast Ultrasound of the left breast. A clinical breast exam by your physician is recommended on an annual basis and results should be correlated with mammographic findings. This exam should not preclude additional follow-up of suspicious palpable abnormalities. Results were given to the patient verbally at the time of exam. Electronically signed and approved by: Dave Mejia D.O.
--- NOTE | 2023-03-21 14:27 | USB ---
Reason for Exam: Additional evaluation requested from abnormal screening. Patient History: Menarche at age 15. First Full-Term at age 26. Left ovary removed at age 39. Right ovary removed at age 39. Hysterectomy at age 39. Postmenopausal. Estrogen for 15 years from age 39 until age 54. Progesterone for 15 years from age 39 until age 54. 01/18/2015, Benign Core Biopsy on the left side. Prior Study Comparison: 01/18/2015 Left Diagnostic Mammogram, [facility]. 08/09/2015 Left Diagnostic Ultrasound, [facility]. 01/18/2016 Bilateral Diagnostic Mammogram, [facility]. 02/18/2017 Bilateral Screening Mammogram, [facility]. Findings: The whole breast of the left breast, the axilla of the left breast and the retroareolar of the left breast were scanned. Complete ultrasound of the left breast with additional evaluation of the nipple and axilla was performed. Large spiculated hypoechoic mass within the left breast at 12:00 5 cm from nipple measuring 2.6 x 2.5 x 2.8 cm. Echogenic halo identified without significant shadowing. Diffuse soft tissue edema identified. Antiparallel oriented hypoechoic mass within the left nipple region measuring 0.4 x 0.5 x 0.3 cm with posterior acoustic shadowing. No internal color flow identified. This is approximately 1.5 cm from the nipple. Multiple abnormal left axillary lymph nodes largest measuring 2.6 x 1.9 x 1.6 cm. Eccentric thickening cortex identified measuring up to 1.3 cm. Internal color flow identified. Within the left axilla tail is an irregular hypoechoic spiculated mass with internal color flow. There is corresponding calcifications as seen on mammogram of the same date. No posterior acoustic shadowing identified. This measures 3.6 x 1.9 cm. Overall Assessment: Highly suggestive of malignancy, BI-RAD 5 Management: Ultrasound Core Biopsy of the left breast. Ultrasound core biopsy involving the left nipple small mass, 12:00 dominant left breast mass, left axillary mass, and abnormal axillary lymph node. A clinical breast exam by your physician is recommended on an annual basis and results should be correlated with mammographic findings. This exam should not preclude additional follow-up of suspicious palpable abnormalities. Results were given to the patient verbally at the time of exam. Electronically signed and approved by: Dave Mejia D.O.
== END | disposition home or self-care (01) ==
LOC: RADMAMWWP 12:55
PROVIDERS: ATTEND Surgery
DX: N63.25 Unspecified lump in the left breast, overlapping quadrants (principal); R92.333 Mammographic heterogeneous density, bilateral breasts; Z78.0 Asymptomatic menopausal state
CPT/HCPCS: 77066; 76641; G0279; 77062

== ENCOUNTER → 2023-04-07 | Day surgery (SDC) | payer MEDICARE | END | disposition home or self-care (01) | LOC: RADUSWWP 12:33 | PROVIDERS: ATTEND Surgery | DX: R92.8 Other abnormal and inconclusive findings on diagnostic imaging of breast (principal); I21.9 Acute myocardial infarction, unspecified; Z17.0 Estrogen receptor positive status [ER+] | CPT/HCPCS: 88305; 88342; 88341; 77065; 19083; 19084; A4648 ==

== ENCOUNTER → 2023-04-09 | Outpatient (CLI) | payer MEDICARE ==
[2023-04-09 15:10] VITALS: BP 146/70; PULSE 72; RESP 18; TEMP 98
--- NOTE | 2023-04-09 15:29 | P.GSHP ---
History of Present Illness H&P Date: 04/09/23 Chief Complaint: abnormal left breast mammogram Jessica is an 88-year-old white female seen in consultation for Dr. Walsh regarding an abnormal left breast mammogram. She underwent a bilateral mammogram in 1020 723 which revealed a 3.4 cm lesion in the left breast as well as multiple abnormal lymph nodes. She subsequently underwent an ultrasound of the left breast revealing a 2.6 x 2.8 cm lesion. Additionally multiple abnormal left axillary lymph nodes were identified. She underwent ultrasound- guided core biopsy of the left breast mass and left axillary mass on [id number]. She also had an MRI of her lumbar spine performed on [id number]. This revealed metastatic disease to the osseous structures Acute/subacute L5 superior endplate compression deformity with 25% height loss No definitive underlying osseous lesion to suggest pathologic fracture L4-L5, L3-L4, and L2-L3 moderate to severe spinal canal stenosis secondary to disc bulge and facet joint arthropathy Findings suggestive of Baastrups disease She noted a lump in her left breast about 1 month ago. It has not changed in size. She had a biopsy of the lymph nodes under her arm as well as the lesion in her breast approximately 2 days ago pathology is pending. She has not had surgery or trauma on either breasts. She has chronic back pain. Caffiene: 1 cup/day, coke daily nicotine: none chocolate: occasional BCP: stopped in her 30's hormones: none Family History: none Hormonal History: menarche: 17 breast fed: no, age at first : 25 menopause: hysterectomy 32's Surgical History: hysterectomy toxic goiter gallbladder left hip fracture Medical History: Hypertension Hyperlipidemia Social history: Nicotine: Negative Alcohol: negative Drugs: none - Constitutional Constitutional: Reports sweats - EENT Eyes: bilateral blurred vision Ears: bilateral: tinnitus Ears, nose, mouth and throat: Reports headache - Breasts Breasts: bilateral: as per HPI - Cardiovascular Cardiovascular: Reports shortness of breath - Respiratory Respiratory: Reports cough - Gastrointestinal Gastrointestinal: Denies abdominal pain, Denies diarrhea, Denies nausea, Denies vomiting - Genitourinary (Female) Genitourinary: Denies dysuria, Denies hematuria - Menstruation Menstruation: Reports post hysterectomy - Musculoskeletal Musculoskeletal: Reports as per HPI - Integumentary Integumentary: Reports pruritus - Neurological Neurological: Denies numbness, Denies weakness - Psychiatric Psychiatric: Reports anxiety, Reports depression - Endocrine Endocrine: Reports fatigue - Hematologic/Lymphatic Comment: none - Allergic/Immunologic Allergic/Immunologic: Reports as per HPI Past Medical History Past Medical History: Hyperlipidemia, Hypertension Additional Past Medical History / Comment(s): herniated disc, neuropathy, low thyroid History of Any Multi-Drug Resistant Organisms: None Reported Past Surgical History: Appendectomy, Hysterectomy Additional Past Surgical History / Comment(s): toxic goiter; gallblader removal Past Psychological History: Depression Smoking Status: Former smoker Past Alcohol Use History: None Reported Past Drug Use History: None Reported Medications and Allergies Home Medications Medication Instructions Recorded Confirmed Type Amitriptyline HCl [Elavil] 50 mg PO HS 12/23/20 04/09/23 History Atorvastatin [Lipitor] 20 mg PO DAILY 12/23/20 04/09/23 History Cholecalciferol (Vitamin D3) 125 mcg PO DAILY 12/23/20 04/09/23 History [Vitamin D3 (125 MCG = 5,000 IU)] Citalopram Hydrobromide [CeleXA] 10 mg PO DAILY 12/23/20 04/09/23 History Cyanocobalamin (Vitamin B-12) 1,000 mcg PO DAILY 12/23/20 04/09/23 History [Vitamin B-12] Ergocalciferol [Vitamin D2 (1250 1,250 mcg PO Q14D 12/23/20 04/09/23 History Mcg = 71283 Iu)] Levothyroxine Sodium [Levo-T] 50 mcg PO DAILY 12/23/20 04/09/23 History atenoloL 25 mg PO HS 12/23/20 04/09/23 History Gabapentin [Neurontin] 100 mg PO TID #9 cap 12/25/20 04/09/23 Rx Allergies Allergy/AdvReac Type Severity Reaction Status Date / Time codeine Allergy Rash/Hives Verified 04/09/23 15:03 Surgical - Exam Vital Signs Temp Pulse Resp BP Pulse Ox 98.0 F 72 18 146/70 92 L 04/09/23 14:56 04/09/23 14:56 04/09/23 14:56 04/09/23 14:56 04/09/23 14:56 - General moderate distress - Eyes normal ocular movement - Neck trachea midline - Respiratory normal respiratory effort, clear to auscultation - Cardiovascular Heart Sounds: normal: S1, S2 - Abdomen Abdomen: soft, non tender, no guarding, no rigid, no rebound - Integumentary normal turgor - Musculoskeletal uses a cane - Psychiatric oriented to time, oriented to person, oriented to place, speech is normal, memory intact Breast Exam: BRA: 40D inspection: Bilateral grade 3 ptosis Palpation: Right breast: Patient examined sitting up no dominant masses or nodules of concern Right axilla: No adenopathy of concern Left breast: Approximately 4-5 cm mass in the upper outer quadrant non-fixed to the chest wall Left axilla: Fullness in the axilla consistent with multiple adenopathy Results MRI from [id number] reviewed consistent with metastatic disease to osseous structures Abnormal left breast mammogram and ultrasound/biopsies performed. Pathology pending Assessment and Plan Assessment: Impression: Abnormal MRI of the back from [id number] Abnormal left breast mammogram pathology pending Plan: PET/CT Await pathology results Presentation of case at tumor board Appointment medical oncology Would not planning any surgical intervention at this time CC: Dr. Walsh
== END ==
LOC: WWCWWP 14:13
PROVIDERS: ATTEND Surgery
DX: R92.8 Other abnormal and inconclusive findings on diagnostic imaging of breast (principal); N63.20 Unspecified lump in the left breast, unspecified quadrant; E78.5 Hyperlipidemia, unspecified; I10 Essential (primary) hypertension; F32.A Depression, unspecified; G89.29 Other chronic pain; E03.9 Hypothyroidism, unspecified; Z87.891 Personal history of nicotine dependence; Z88.5 Allergy status to narcotic agent; Z79.899 Other long term (current) drug therapy; Z79.890 Hormone replacement therapy

== ENCOUNTER → 2023-04-23 | Outpatient (CLI) | payer MEDICARE ==
--- NOTE | 2023-04-24 11:17 | MR ---
EXAMINATION TYPE: MR brain wo/w con DATE OF EXAM: 04/23/2023 6:10 PM CLINICAL INDICATION:Female, 88 years old with history of C50.812; PHH, Breast Cancer, Severe pain carol n left leg, hip to foot COMPARISON: None TECHNIQUE: Multi planar, multi sequence imaging was performed through the brain including: T1, T2, In version recovery, susceptibility weighted imaging and gradient echo imaging and Diffusion weighted im aging. The patient was then given intravenous contrast and multi planar, T1 fat-saturation images wer e obtained. IV Contrast: 9 cc Gadavist FINDINGS: Mild cerebral atrophy with proportional dilation of ventricular system. Diffusion-weighted imaging s hows no evidence of restricted diffusion to suggest acute/subacute infarct. Intracranial arterial ken w voids are maintained. Midline structures show no abnormality. Scattered foci and confluent areas of of high T2 signal intensity are seen within the periventricular white matter. The susceptibility mervat ghted images do not reveal any evidence for micro-hemorrhage. After administration of gadolinium, no abnormal enhancement is seen. The bone marrow signal is there is some heterogenous bone marrow signal in the clivus and skull base on the left. Series 802 image 24. Paranasal sinuses and mastoid air cells: No significant paranasal sinus disease. Visualized orbits: Orbital contents are intact. IMPRESSION: 1. No evidence of intracranial mass, acute/subacute infarct, or abnormal enhancement. No evidence for intra-axial metastatic disease. Mild heterogenous enhancement to the skull base to the clivus. On th e left represent metastatic disease. Consider PET/CT. 2. Extensive Nonspecific white matter changes, likely related to small vessel ischemic disease.
== END | disposition home or self-care (01) ==
LOC: RADMRIMAIN 16:47
PROVIDERS: ATTEND Internal Medicine
DX: C50.812 Malignant neoplasm of overlapping sites of left female breast (principal); C79.31 Secondary malignant neoplasm of brain; R90.82 White matter disease, unspecified
CPT/HCPCS: 70553; A9585

== ENCOUNTER → 2023-05-16 | Outpatient (CLI) | payer MEDICARE ==
--- NOTE | 2023-05-25 19:41 | PE ---
EXAMINATION TYPE: PET CT fusion skull to thigh DATE OF EXAM: 05/16/2023 COMPARISON: None Prior PET/CT: None HISTORY: Breast cancer TECHNIQUE: Following the intravenous administration of 11.76 mCi of F-18 FDG, whole body images are performed from the skull base to the midthigh. Images are reviewed on the computer in the coronal, a xial, and sagittal planes. Reconstructed rotating images are created on independent workstation and reviewed on the computer. A localization and attenuation correction CT is performed in conjunction with the PET scan. DLP: 474.03 mGycm SCAN: Initial Blood glucose: 102 mg/dL Average Mediastinum SUV: 2.46 Average Liver SUV: 3.39 FINDINGS: NECK: There is a focus of radiotracer accumulation at the right skull base may be at the atlantoaxia l occipital junction. THORAX: There is uptake within a prominent left axillary lymph node, image 96, SUV 5.91. Slightly mor e medial smaller lymph node has an SUV of 3.88. There are additional smaller lymph nodes with uptake, image 100, SUV 6.78 more posteriorly image 100 SUV 3.55/10 uptake image 104, SUV 6.87 suspicious for metastatic disease. A more inferior metastatic lymph node may be present image 109, SUV 5.89. Additi onal lymph nodes are present. There is uptake within the left breast 127, SUV 6.84 compatible with the patient's reported breast ca ncer. ABDOMEN: No abnormal uptake PELVIS: No abnormal uptake OSSEOUS STRUCTURES: There is increased uptake along the left lateral lamina C2 small focus radiotrace r is present within the T2 left pars interarticularis, image 67, SUV 5.8 level and in the body of C2 on the left. Abnormal osseous uptake is present scattered within the pelvis including above the right acetabulum, lateral right sacral alar, image 214, medial ilium, image 214 medial right iliac wing, image 208 and within the sacrum, image 209. There is a large focus of radiotracer within the anterior lateral right iliac wing, image 200. There is uptake within the L4 and L1 vertebral bodies inferior right lateral T12 vertebral body a posterior lateral right rib, image 119. Uptake appears to be within T9, T8 and T 5, T4. Upper right and left ribs uptake is noted, example images [address]: Vascular calcifications within the aorta. Coronary artery calcifications noted. Enla rged lymph node just to the left axillary region. Pancreas is atrophic. Left hip prosthesis is presen t. COMPARISON: None IMPRESSION: 1. Uptake within the left breast compatible with the patient's known primary breast cancer. 2. Multiple areas of uptake within the left axillary region compatible with metastatic lymph nodes. 3. Multiple osseous metastasis including ribs, axial vertebral bodies within the thoracic and lumbar spine, and within the pelvis.
== END | disposition home or self-care (01) ==
LOC: RADPETMAIN 11:47
PROVIDERS: ATTEND Surgery
DX: C50.412 Malignant neoplasm of upper-outer quadrant of left female breast (principal); C79.51 Secondary malignant neoplasm of bone
CPT/HCPCS: 78815; A9552

== ENCOUNTER → 2023-06-06 | Outpatient (CLI) | payer MEDICARE ==
[~2023-06-06] MED LIST: SODIUM CHLORIDE 0.9% 500 ML 500 ML in EMPTY BAG 1 BAG IV PRN; ZOLEDRONIC ACID 4 MG in SODIUM CHLORIDE 0.9% 100 ML IV NR
[2023-06-06 13:29] VITALS: BP 145/71; PULSE 69; RESP 16; TEMP 97.5
== END ==
LOC: PROCWHC3 12:17
PROVIDERS: ATTEND Internal Medicine
DX: C50.812 Malignant neoplasm of overlapping sites of left female breast (principal)
CPT/HCPCS: 96365; J3489

== ENCOUNTER → 2023-07-23 | Outpatient (CLI) | payer MEDICARE ==
--- NOTE | 2023-07-23 16:54 | CA ---
Transthoracic Echo Report Name: Jessica Buckner Age: 88 Gender: F : 1935 Exam Date: 07/23/2023 13:05 Exam Location: [facility] Ht (in): 68 Wt (lb): 189 Ordering Physician: Gely Patel MD Attending/Referring Phys: Balloon Dipper Yara Henriquez RDCS Procedure CPT: Indications: Z01.818 Chemo Cardiac Hx: Technical Quality: Fair Contrast 1: Total Dose (mL): Contrast 2: Total Dose (mL): MEASUREMENTS (Male / Female) Normal Values 2D ECHO LV Diastolic Diameter PLAX 4.1 cm 4.2 - 5.9 / 3.9 - 5.3 cm LV Systolic Diameter PLAX 2.0 cm IVS Diastolic Thickness 1.2 cm 0.6 - 1.0 / 0.6 - 0.9 cm LVPW Diastolic Thickness 1.1 cm 0.6 - 1.0 / 0.6 - 0.9 cm LV Relative Wall Thickness 0.6 RV Internal Dim ED PLAX 2.2 cm LA Volume 57.1 cm??? 18 - 58 / 22 - 52 cm??? LA Volume Index 27.9 cm???/m??? 16 - 28 cm???/m??? M-MODE Aortic Root Diameter MM 2.1 cm LA Systolic Diameter MM 3.8 cm LA Ao Ratio MM 1.8 AV Cusp Separation MM 1.3 cm DOPPLER AV Peak Velocity 186.9 cm/s AV Peak Gradient 14.0 mmHg AV Mean Velocity 123.5 cm/s AV Mean Gradient 6.9 mmHg AV Velocity Time Integral 40.9 cm LVOT Peak Velocity 145.0 cm/s LVOT Peak Gradient 8.4 mmHg LVOT Velocity Time Integral 31.6 cm MV Peak Velocity 174.5 cm/s MV Peak Gradient 12.2 mmHg MV Mean Velocity 88.9 cm/s MV Mean Gradient 3.8 mmHg MV Velocity Time Integral 45.3 cm MV Area PHT 2.6 cm??? Mitral E Point Velocity 147.6 cm/s Mitral A Point Velocity 69.3 cm/s Mitral E to A Ratio 2.1 MV Deceleration Time 288.2 ms MV E' Velocity 5.6 cm/s Mitral E to MV E' Ratio 26.2 TR Peak Velocity 244.8 cm/s TR Peak Gradient 24.0 mmHg Right Ventricular Systolic Press 27.6 mmHg FINDINGS Left Ventricle Mildly increased left ventricular wall thickness. Left ventricular cavity size normal. Normal left ventricular systolic function with no obvious regional wall motion abnormalities. Left ventricular ejection fraction is estimated at 55-60 %. Right Ventricle Normal right ventricular size and function. Right ventricular systolic pressure within normal limits. Right Atrium Normal right atrial size. Left Atrium Mildly increased left atrial volume. Mildly increased left atrial area. Mitral Valve Structurally normal mitral valve. Mitral valve thickened. Moderate mitral annular calcification. Mild mitral stenosis. Mild mitral regurgitation. Aortic Valve Trileaflet aortic valve. Diffuse thickening (sclerosis) of the aortic valve cusps without reduced excursion. No aortic regurgitation. Tricuspid Valve Structurally normal tricuspid valve. Mild tricuspid regurgitation. Pulmonic Valve Trace pulmonic regurgitation. Pericardium No pericardial effusion. Echo free space anterior to the right ventricle likely represents a fat pad. Aorta Normal size aortic root and proximal ascending aorta. CONCLUSIONS Normal LV systolic function Mitral annular calcification with mild mitral stenosis and regurgitation Previewed by: Dr. Dom Calderon MD (Electronically Signed) Final Date: 23 July 2023 16:53
== END | disposition home or self-care (01) ==
LOC: RADECHMAIN 13:00
PROVIDERS: ATTEND Internal Medicine
DX: Z01.818 Encounter for other preprocedural examination (principal); C50.812 Malignant neoplasm of overlapping sites of left female breast; I34.81 Nonrheumatic mitral (valve) annulus calcification; I10 Essential (primary) hypertension; E78.5 Hyperlipidemia, unspecified; E03.9 Hypothyroidism, unspecified; Z71.3 Dietary counseling and surveillance
CPT/HCPCS: 93306

== ENCOUNTER → 2023-11-13 | Outpatient (CLI) | payer MEDICARE ==
--- NOTE | 2023-11-16 18:46 | PE ---
EXAMINATION TYPE: PET CT fusion skull to thigh DATE OF EXAM: 11/13/2023 COMPARISON: No recent pertinent CT Prior PET/CT: 05/16/2023 HISTORY: Breast cancer TECHNIQUE: Following the intravenous administration of 10.67 mCi of F-18 FDG, whole body images are performed from the skull base to the midthigh. Images are reviewed on the computer in the coronal, a xial, and sagittal planes. Reconstructed rotating images are created on independent workstation and reviewed on the computer. A localization and attenuation correction CT is performed in conjunction with the PET scan. DLP: 738.07 mGycm SCAN: Subsequent Blood glucose: 95 mg/dL Average Mediastinum SUV: 2.56 Average Liver SUV: 3.49 FINDINGS: NECK: There is some subtle asymmetry at the level of the vocal cords with slight increased focal cor d signal on the right compared to the left. SUV is 4.21. Direct visualization is recommended. THORAX: There is focal radiotracer in the left superior mediastinum, image 74, SUV 6.56. Left axillary lymphadenopathy is present, image 88, SUV medially 5.91, SUV laterally 7.17 and additio nal hyperintensity is below the prior pectoralis major muscle image 92, SUV 9.44. Some posterior axil sydni adenopathy is present, image 94, SUV 5.5. Additional inferior axillary adenopathy is present. On e of the more intense lymph node measures 10.03, image 102 and image 109 SUV 7.69. Left breast mass image 1:15 has an SUV of 9.21 ABDOMEN: No intra-abdominal abnormality PELVIS: No intrapelvic abnormality OSSEOUS STRUCTURES: There is increased signal within the upper thoracic spine. Additional mid thoraci c spine upper lumbar spine increased uptake of radiotracer is evident. Metastatic disease should be c onsidered. Example images 64, SUV 5.88, image 80, SUV 5.97, image 106, SUV 5.59, image 136, SUV 9.82, image 158, SUV 6.46. Additional milder areas of uptake are present. There are some incidental sclero tic lesions noted on the localization CT which are not radiotracer avid. There is a focus of increase d radiotracer accumulation within the proximal clavicle, image 74, SUV 6.17. The right sacral uptake is present image 184, SUV 6.97. Uptake within the right iliac wing image 194 and the SUV of 5.23. The re is a focus radiotracer in the posterior cortex of proximal right diaphyseal femur, image 250, SUV 6.[address]: Vascular calcifications within the aorta. Left hip prosthesis is present. COMPARISON: Uptake within the osseous structures present previously but may be more extensive than pr ior. Axillary adenopathy appears smaller size but increased in SUV. IMPRESSION: 1. Left breast mass with multiple left axillary lymphadenopathy with uptake compatible with metastati c disease to the left axillary lymph nodes. 2. There is extensive uptake within osseous structures predominantly within the axial skeleton as dis cussed above. 3. Subtle asymmetry within the right vocal cord. Consider direct visualization
== END | disposition home or self-care (01) ==
LOC: RADPETMAIN 12:56
PROVIDERS: ATTEND Internal Medicine Hematology & Oncology
DX: C50.812 Malignant neoplasm of overlapping sites of left female breast (principal); R59.0 Localized enlarged lymph nodes
CPT/HCPCS: 78815; A9552

== ENCOUNTER → 2023-12-22 | Outpatient (CLI) | payer MEDICARE ==
--- NOTE | 2023-12-22 18:23 | CA ---
Transthoracic Echo Report Name: Jessica Buckner Age: 88 Gender: F : 1935 Exam Date: 12/22/2023 16:04 Exam Location: [facility] Ht (in): 68 Wt (lb): 185 Ordering Physician: Gely Patel MD Attending/Referring Phys: Gely Patel MD Forest Engineer Iliana Freitas RDCS Procedure CPT: Indications: Z01.818 ENCOUNTER FOR OTHER PREPROCEDURAL EXAMINAT Cardiac Hx: Technical Quality: Fair Contrast 1: Total Dose (mL): Contrast 2: Total Dose (mL): MEASUREMENTS (Male / Female) Normal Values 2D ECHO LV Diastolic Diameter PLAX 4.6 cm 4.2 - 5.9 / 3.9 - 5.3 cm LV Systolic Diameter PLAX 3.0 cm IVS Diastolic Thickness 1.1 cm 0.6 - 1.0 / 0.6 - 0.9 cm LVPW Diastolic Thickness 1.1 cm 0.6 - 1.0 / 0.6 - 0.9 cm LV Relative Wall Thickness 0.5 RV Internal Dim ED PLAX 2.9 cm LA Systolic Diameter LX 3.4 cm 3.0 - 4.0 / 2.7 - 3.8 cm LV Diastolic Volume MOD BP 98.9 cm??? 67 - 155 / 56 - 104 cm??? LV Systolic Volume MOD BP 40.1 cm??? 22 - 58 / 19 - 49 cm??? LV Ejection Fraction MOD BP 59.4 % >= 55 % LV Cardiac Index MOD BP 1944.1 cm???/min???m??? LV Diastolic Volume MOD 4C 94.8 cm??? LV Systolic Volume MOD 4C 43.0 cm??? LV Ejection Fraction MOD 4C 54.6 % LV Cardiac Index MOD 4C 1713.2 cm???/min???m??? LV Diastolic Length 4C 8.0 cm LV Systolic Length 4C 7.1 cm LV Diastolic Volume MOD 2C 95.2 cm??? LV Systolic Volume MOD 2C 33.4 cm??? LV Ejection Fraction MOD 2C 64.9 % LV Cardiac Index MOD 2C 2043.1 cm???/min???m??? LV Diastolic Length 2C 8.7 cm LV Systolic Length 2C 6.2 cm LA Volume 67.1 cm??? 18 - 58 / 22 - 52 cm??? LA Volume Index 33.1 cm???/m??? 16 - 28 cm???/m??? M-MODE Aortic Root Diameter MM 3.0 cm AV Cusp Separation MM 1.9 cm DOPPLER AV Peak Velocity 189.3 cm/s AV Peak Gradient 14.3 mmHg AV Mean Velocity 132.5 cm/s AV Mean Gradient 7.7 mmHg AV Velocity Time Integral 45.4 cm MV Area PHT 2.7 cm??? Mitral E Point Velocity 140.5 cm/s Mitral A Point Velocity 66.1 cm/s Mitral E to A Ratio 2.1 MV Deceleration Time 276.0 ms TR Peak Velocity 290.8 cm/s TR Peak Gradient 33.8 mmHg Right Ventricular Systolic Press 38.8 mmHg FINDINGS Left Ventricle Left ventricular ejection fraction is estimated at 55-60 %. Normal left ventricular wall motion. Mildly increased septal wall thickness. Mildly increased posterior wall thickness. Mildly decrease LV strain Right Ventricle Normal right ventricular size and function. Mild pulmonary hypertension. Right Atrium Mild right atrial dilatation. No right atrial thrombus or mass seen. Left Atrium Mildly increased left atrial volume. Mildly increased left atrial area. Mitral Valve Mitral valve thickened. Mild mitral annular calcification. Trace to mild mitral regurgitation. Aortic Valve Trileaflet aortic valve. No aortic valve stenosis or regurgitation. Aortic valve sclerosis. Tricuspid Valve Structurally normal tricuspid valve. Mild tricuspid regurgitation. Pulmonic Valve Structurally normal pulmonic valve. Trace to mild pulmonic regurgitation. Pericardium No pericardial effusion. No pleural effusion. Aorta Normal size aortic root and proximal ascending aorta. CONCLUSIONS Preserved LV size and function Thickened mitral valve leaflet Previewed by: Dr. Omero Phillip MD (Electronically Signed) Final Date: 22 December 2023 18:23
== END | disposition home or self-care (01) ==
LOC: RADECHMAIN 16:01
PROVIDERS: ATTEND Internal Medicine
DX: C50.812 Malignant neoplasm of overlapping sites of left female breast (principal); Z01.818 Encounter for other preprocedural examination; E03.9 Hypothyroidism, unspecified; Z71.3 Dietary counseling and surveillance
CPT/HCPCS: 93306

== ENCOUNTER → 2024-03-25 | Outpatient (CLI) | payer MEDICARE ==
--- NOTE | 2024-03-27 08:22 | PE ---
EXAMINATION TYPE: PET CT fusion skull to thigh DATE OF EXAM: 03/25/2024 CLINICAL INDICATION:Female, 89 years old with history of C50.812 BREAST CANCER; TECHNIQUE: Following the intravenous administration of 12.22 mCi of F-18 FDG, whole body images are performed from the skull base to the midthigh. Images are reviewed on the computer in the coronal, axial, and sagittal planes. Reconstructed rotating images are created on independent workstation and reviewed on the computer. A non-contrast CT is performed in conjunction with the PET scan. Glucose level 113 mg/dL CT DLP: 814 mGycm, Automated exposure control for dose reduction was used. COMPARISON: CT None, PET/CT 11/13/2023, MRI: None FINDINGS: Mediastinal SUV mean is 2.1. Hepatic parenchyma SUV mean is 2.0. SKULL BASE AND NECK: No suspicious radiotracer activity. CHEST, MEDIASTINUM, AND HILAR REGION: Suspicious uptake identified examples include: * Left breast uptake max SUV 5.9 previously 9.5. * left axillary lymph nodes with uptake max SUV 7.6 previously 12.9 the largest measuring up to 18 m m which is increase in size previously measuring up to 9 mm. * Prevascular space lymph node/AP window max SUV 9.6 previously 9.8 ABDOMEN AND PELVIS: * Uptake within the caudate lobe max SUV 6.3 not definitively seen on prior. Measuring 19 mm. MUSCULOSKELETAL STRUCTURES: Suspicious uptake identified examples include: * Medial right clavicle max SUV 6.1 previously 8.3. * S1 vertebral body multiple levels throughout the spine SUV 7.0, previously 6.5 * L5 vertebral body max SUV 7.1 previously 6.5. * Right rib 7 Max SUV 4.0 previously 3.7. * L3 vertebral body max SUV 7.6, previously 6.4 * T12 vertebral body max SUV 6.7, producing 11.8 * T10 vertebral body max SUV 7.2 previously 9.5 * C1 vertebral body max SUV 5.[address]: * Coronary atherosclerosis. * Carotid bifurcation atherosclerosis. * Mild cardiomegaly. * Colonic diverticulosis. * Cholecystectomy changes. * Left hip arthroplasty appears intact. IMPRESSION: Majority of the lesions have decreased FDG activity from prior exam however there is increasing left axillary lymphadenopathy size. [facility], Workstation: [id number], 03/27/2024 8:20 AM
== END | disposition home or self-care (01) ==
LOC: RADPETMAIN 10:06
PROVIDERS: ATTEND Internal Medicine
DX: C50.812 Malignant neoplasm of overlapping sites of left female breast (principal)
CPT/HCPCS: 78815; A9552

== ENCOUNTER → 2024-07-23 | Outpatient (CLI) | payer MEDICARE ==
--- NOTE | 2024-07-24 16:17 | PE ---
EXAMINATION TYPE: PET CT fusion skull to thigh DATE OF EXAM: 07/23/2024 COMPARISON: No recent pertinent CT Prior PET/CT: 03/25/2024 CLINICAL INDICATION: Female, 89 years old with history of C50.812 breast ca, TECHNIQUE: Following the intravenous administration of 9.32 mCi of F-18 FDG, whole body images are p erformed PET CT fusion skull to thigh. Images are reviewed on the computer in the coronal, axial, an d sagittal planes. Reconstructed rotating images are created on independent workstation and reviewed on the computer. A localization and attenuation correction CT is performed in conjunction with the PET scan. DLP: 78.83 mGycm SCAN: Subsequent Blood glucose: 117 mg/dL Average Mediastinum SUV: 2.72 Average Liver SUV: 3.5 FINDINGS: NECK: Large suspicious metastases is not identified THORAX: There is a superior mediastinal area of uptake may be a small prostatic lymph node, image 82, SUV 7.77. Previous SUV 9.6 and appeared larger. Left suprahilar uptake is present image 93, SUV 5.94 . Not present previously. There is uptake within the enlarged lymph node in the left axillary region, image 95, SUV 7.6. Previo us SUV 5.49. Additional lymph nodes are more inferior example image 100, SUV 7.76. Previous SUV 7.6. There is uptake within the inferior axillary region on the left. Image 108, SUV 6.24. Uptake is withi n the left breast image 122, SUV 8.57. This appears to be recurrent. ABDOMEN: Uptake is within the peripheral liver, image 131, SUV 6.84. There are additional scattered a reas of uptake within the liver. Some hyperintense areas within the lateral mid right liver, image 13 8, SUV 6.43. Uptake is within the inferior posterior right lobe liver image 155, C5 0.72. PELVIS: No suspicious intraperitoneal uptake OSSEOUS STRUCTURES: Appears to be some posterior left cervical spine uptake, image 39, SUV 6.07. Hype rintense uptake in medial left posterior clavicle. Image 77, SUV 5.9. There is some uptake within an anterior left rib, image 89, SUV 6.5. There is uptake within the posterior left sternum, image 92, ARZATE V 4.55. There is uptake within the thoracic vertebral body, image 104, SUV 5.8. There is uptake withi n the anterior left vertebral thoracic level image 112, SUV 6.39. Uptake is within vertebral level, i mage 122, SUV 9.88. Uptake is within the lower thoracic level image 144, SUV 5.5. Some central home connect lpn ior uptake is within the thoracolumbar junction image 156, SUV 5.28 lumbar spine uptake image 175 has an SUV of 5.81. Intense uptake is within the lumbosacral region image 192, SUV 7.8. Posterior sacral uptake is present image 199, SUV 8.95. Uptake is within the right ilium, image 199, SUV 4.66. Bilate ral sacral alar and bilateral medial ilium uptake is present, example image 206. Small amount of atel ectasis at the right acetabulum. Image 2-4, SUV 8.21. There is uptake within the right femur. Image 2 58, SUV 7.36. LOCALIZATION CT: Coronary artery calcification is present. Diverticulosis without acute diverticuliti s sigmoid colon. COMPARISON: Left axillary uptake was present previously. Breast uptake appears recurrent. The scatter ed osseous uptake appears to be increasing or new. Hepatic uptake appears to be new. There is some ne w uptake within the hilar regions and increasing in the superior mediastinum. IMPRESSION: 1. Recurrent or increasing areas of uptake from prior exam. 2. New areas of uptake within the superior mediastinum and left hilar region suspicious for new metas tasis. 3. New areas of uptake within the liver suspicious for hepatic metastasis. 4. New areas of uptake within the axial skeleton and within the pelvis suspicious for new metastasis. Prior osseous metastases may be increasing in volume and intensity. [facility], , 07/24/2024 4:15 PM
== END | disposition home or self-care (01) ==
LOC: RADPETMAIN 09:03
PROVIDERS: ATTEND Internal Medicine Hematology & Oncology
DX: C50.812 Malignant neoplasm of overlapping sites of left female breast (principal); K57.30 Diverticulosis of large intestine without perforation or abscess without bleeding; R59.0 Localized enlarged lymph nodes
CPT/HCPCS: 78815; A9552

== ENCOUNTER → 2024-08-09 | Outpatient (CLI) | payer MEDICARE ==
--- NOTE | 2024-08-09 12:02 | MR ---
EXAMINATION TYPE: MR brain wo/w con DATE OF EXAM: 08/09/2024 11:29 AM COMPARISON: 04/23/2023. 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 TECHNIQUE: Multi planar, multi sequence imaging was performed through the brain including: T1, T2, In version recovery, susceptibility weighted imaging and gradient echo imaging and Diffusion weighted im aging. The patient was then given intravenous contrast and multi planar, T1 fat-saturation images wer e obtained. IV Contrast: 8 mL Gadobutrol FINDINGS: Mild cerebral atrophy with proportional dilation of ventricular system. Diffusion-weighted imaging s hows no evidence of restricted diffusion to suggest acute/subacute infarct. Intracranial arterial ken w voids are maintained. Midline structures show no abnormality. Scattered foci and confluent areas of high T2 signal intensity are seen within the periventricular white matter. The susceptibility weight ed images demonstrate left frontal lobe and left parietal lobe pulmonary effect suggestive of microhe morrhage versus small vascular malformations. No abnormal postcontrast enhancement within these regio ns.. After administration of gadolinium, no abnormal enhancement is seen. The bone marrow signal is within normal limits. Paranasal sinuses and mastoid air cells: No significant paranasal sinus disease. Visualized orbits: Bilateral aphakia IMPRESSION: 1. No evidence of intracranial mass, acute/subacute infarct, or abnormal enhancement. 2. Nonspecific white matter changes, likely related to small vessel ischemic disease. [facility], , 08/09/2024 12:00 PM
== END | disposition home or self-care (01) ==
LOC: RADMRIMAIN 10:06
PROVIDERS: ATTEND Internal Medicine
DX: C50.812 Malignant neoplasm of overlapping sites of left female breast (principal); E03.9 Hypothyroidism, unspecified; E78.5 Hyperlipidemia, unspecified; R90.82 White matter disease, unspecified; Z71.3 Dietary counseling and surveillance
CPT/HCPCS: 70553; A9585

== ENCOUNTER 2024-09-03 12:28 | Inpatient (IN) | payer MEDICARE ==
--- NOTE | 2024-09-03 13:22 | ED ---
Arrhythmia/Palpitations HPI - General Chief Complaint: Arrhythmia/Palpitations Stated Complaint: Irreg Heartrate Time Seen by Provider: 09/03/24 13:21 Source: patient, family, RN notes reviewed Mode of arrival: ambulatory Limitations: no limitations - History of Present Illness Initial Comments: 89-year-old female with a past medical history significant of breast cancer with metastasis currently on chemotherapy, thyroid disorder, hyperlipidemia and hypertension presented to the ER for evaluation of irregular heart rate. Patient was sent from [facility] after receiving scheduled chemotherapy. Family, at bedside, state patient was hooked up to a radiographer cardiac catheterization and was found to have heart rates ranging from 70-140s bpm. Patient completed chemotherapy and was instructed to come to the emergency department for further evaluation and treat ment. Patient denies any chest pain, palpitations, shortness of breath, dizziness, lightheadedness during this or currently. She denies a history of atrial fibrillation. Patient is not currently on a blood thinner and denies a history of blood clots. No other complaints. - Related Data Home Medications Medication Instructions Recorded Confirmed Amitriptyline HCl [Elavil] 50 mg PO HS 12/23/20 09/03/24 Atorvastatin [Lipitor] 20 mg PO DAILY 12/23/20 09/03/24 Citalopram Hydrobromide [CeleXA] 10 mg PO DAILY 12/23/20 09/03/24 Cyanocobalamin (Vitamin B-12) 1,000 mcg PO DAILY 12/23/20 09/03/24 [Vitamin B-12] Ergocalciferol [Vitamin D2 (1250 1,250 mcg PO Q14D 12/23/20 09/03/24 Mcg = 93182 Iu)] Levothyroxine Sodium [Levo-T] 50 mcg PO DAILY 12/23/20 09/03/24 atenoloL 25 mg PO HS 12/23/20 09/03/24 Aspirin [Adult Low Dose Aspirin EC] 81 mg PO DAILY 06/06/23 09/03/24 Gabapentin [Neurontin] 100 mg PO DAILY 06/06/23 09/03/24 Gabapentin [Neurontin] 400 mg PO HS 06/06/23 09/03/24 Multivit-Min/Iron/Folic/Lutein 1 tab PO DAILY 06/06/23 09/03/24 [Centrum Silver Women Tablet] Butalb/APAP/Caff 50-325-40Mg 1 tab PO Q6H PRN 09/03/24 09/03/24 [Fioricet 50-325-40] Cholecalciferol (Vitamin D3) 50 mcg PO DAILY 09/03/24 09/03/24 [Vitamin D3 (50 Mcg = 2000 Iu)] Collagen Skin Renewal 833-30mg 1 tab PO DAILY 09/03/24 09/03/24 Esomeprazole Magnesium [NexIUM] 40 mg PO DAILY 09/03/24 09/03/24 Fulvestrant 500 mg IM DIRECTED 09/03/24 09/03/24 Garlic(Unknown Dose) 1 tab PO DAILY 09/03/24 09/03/24 Ketorolac 0.5% Ophth Soln [Acular 1 drop BOTH EYES QID 09/03/24 09/03/24 0.5%] Lapatinib Ditosylate [Tykerb] 1,000 mg PO DAILY 09/03/24 09/03/24 Sodium Chloride 5% Ophth Soln 1 drop BOTH EYES QID 09/03/24 09/03/24 [Fabiano 128] Allergies Allergy/AdvReac Type Severity Reaction Status Date / Time codeine Allergy Rash/Hives Verified 09/03/24 14:37 Review of Systems ROS Statement: Those systems with pertinent positive or pertinent negative responses have been documented in the HPI. ROS Other: All systems not noted in ROS Statement are negative. Past Medical History Past Medical History: Cancer, Hyperlipidemia, Hypertension Additional Past Medical History / Comment(s): herniated disc, neuropathy, low thyroid, BREASST CANCER - 2022 History of Any Multi-Drug Resistant Organisms: None Reported Past Surgical History: Appendectomy, Hysterectomy Additional Past Surgical History / Comment(s): toxic goiter; gallblader removal Past Psychological History: Depression Smoking Status: Former smoker General Exam Limitations: no limitations General appearance: alert, in no apparent distress Respiratory exam: Present: normal lung sounds bilaterally. Absent: respiratory distress, wheezes, rales, rhonchi, stridor Cardiovascular Exam: Present: tachycardia, irregular rhythm, normal heart sounds Extremities exam: Present: normal inspection, full ROM, normal capillary refill. Absent: tenderness, pedal edema, joint swelling, calf tenderness Neurological exam: Present: alert, oriented X3, CN II-XII intact Skin exam: Present: warm, dry, intact, normal color. Absent: rash Course Vital Signs 09/03/24 09/03/24 09/03/24 12:49 13:31 15:00 Temperature 98.0 F Pulse Rate 134 H 118 H 115 H Pulse Rate [ Insurance Risk Analyst ] Respiratory 17 18 18 Rate Blood Pressure 128/82 131/98 122/92 O2 Sat by Pulse 99 99 96 Oximetry 09/03/24 09/03/24 15:48 15:50 Temperature Pulse Rate 125 H Pulse Rate [ 125 H Insurance Risk Analyst ] Respiratory 18 Rate Blood Pressure 143/97 O2 Sat by Pulse 97 Oximetry - Reevaluation(s) Reevaluation #1: 09/03/24 16:00 [facility] Medical Decision Making - Medical Decision Making Was pt. sent in by a medical professional or institution (, PA, CHIEF II DISPATCHER, urgent care, hospital, or senior living...) When possible be specific @ -Patient sent by [facility] for evaluation of irregular heart rhythm Did you speak to anyone other than the patient for history (EMS, parent, family, police, friend...)? What history was obtained from this source @ -Patient's grandson, bedside, aiding in HPI past medical history. Did you review nursing and triage notes (agree or disagree)? Why? @ -I reviewed and agree with nursing and triage notes Were old charts reviewed (outside hosp., previous admission, EMS record, old EKG, old radiological studies, urgent care reports/EKG's, senior living records)? Report findings @ -No old charts were reviewed Differential Diagnosis (chest pain, altered mental status, abdominal pain women, abdominal pain men, vaginal bleeding, weakness, fever, dyspnea, syncope, headache, dizziness, GI bleed, back pain, seizure, CVA, palpatations, mental health, musculoskeletal)? @ -Differential Palpitations: Ventricular arrhythmias, atrial arrhythmias, myocardial infarction, anemia, thyrotoxicosis, electrolyte imbalance, hypokalemia, pulmonary embolism, pulmonary disease, drugs, alcohol, anxiety, stress.... This is not meant to be an all-inclusive list. EKG interpreted by me (3pts min.). @ -As above X-rays interpreted by me (1pt min.). @ -CXR interpreted me showing cardiomegaly with mild pulmonary vascular congestion. No focal consolidations. CT interpreted by me (1pt min.). @ -None done U/S interpreted by me (1pt. min.). @ -None done What testing was considered but not performed or refused? (CT, X-rays, U/S, labs)? Why? @ -None What meds were considered but not given or refused? Why? @ -None Did you discuss the management of the patient with other professionals (professionals i.e. DrMichael, PA, CHIEF II DISPATCHER, lab, RT, psych nurse, social service director, salt plant operator, teacher, industrial relations officer, behavioral health case manager)? Give summary @ -Yes, [facility]. Was smoking cessation discussed for >3mins.? @ -No Was critical care preformed (if so, how long)? @ -Yes, 31 minutes Were there social determinants of health that impacted care today? How? (Homelessness, low income, unemployed, alcoholism, drug addiction, transportation, low edu. Level, literacy, decrease access to med. care, intermediate, rehab)? @ -No Was there de-escalation of care discussed even if they declined (Discuss DNR or withdrawal of care, Hospice)? DNR status @ -No What co-morbidities impacted this encounter? (DM, HTN, Smoking, COPD, CAD, Cancer, CVA, ARF, Chemo, Hep., AIDS, mental health diagnosis, sleep apnea, morbi d obesity)? @ -Breast cancer currently on chemotherapy, hypertension, hyperlipidemia Was patient admitted / discharged? Hospital course, mention meds given and route, prescriptions, significant lab abnormalities, going to OR and other pertinent info. @ -Admitted. 89-year-old female presented the ER for evaluation of irregular heart rhythm. Upon rooming, history and physical exam completed. Patient in no signs of acute distress nontoxic-appearing. Patient is tachycardic ranging from 90s to 140s. Vitals otherwise acceptable limits. EKG showing atrial fibrillation with RVR. Troponin elevated at 0.121. Patient started on Cardizem, 5mg bolus and drip at 5ml/hr, and low-dose heparin for new onset atrial fibrillation. Given new onset atrial fibrillation with elevated troponin admission [facility] on consult. Second troponin pending at time of admission. Upon reevaluation, patient resting comfortably in exam room no signs of acute distress. Results discussed with patient and patient's grandson, all questions answered. Patient agreeable for admission. Patient admitted in stable condition. Case discussed with ED attending, . Undiagnosed new problem with uncertain prognosis? @ -No Drug Therapy requiring intensive monitoring for toxicity (Heparin, Nitro, Insulin, Cardizem)? @ -Yes, heparin and Cardizem Were any procedures done? @ -No Diagnosis/symptom? @ -New onset A-fib/elevated troponin Acute, or Chronic, or Acute on Chronic? @ -Acute Uncomplicated (without systemic symptoms) or Complicated (systemic symptoms)? @ -Complicated Side effects of treatment? @ -No Exacerbation, Progression, or Severe Exacerbation? @ -No Poses a threat to life or bodily function? How? (Chest pain, USA, DC, pneumonia, PE, COPD, DKA, ARF, appy, cholecystitis, CVA, Diverticulitis, Homicidal, Suicidal, threat to staff... and all critical care pts) @ -Yes, untreated atrial fibrillation can lead to blood clot formation which can cause strokes. - Lab Data Result diagrams: 09/03/24 13:45 09/03/24 13:45 Lab Results 09/03/24 09/03/24 09/03/24 Range/Units 13:45 13:45 13:45 WBC 8.35 (4.50-10.00) 10*3/uL RBC 3.10 L (4.10-5.20) 10*6/uL Hgb 9.5 L (12.0-15.0) g/dL Hct 29.8 L (37.2-46.3) % MCV 96.1 (80.0-97.0) fL MCH 30.6 (27.0-32.0) pg MCHC 31.9 L (32.0-37.0) g/dL Plt Count 391 (140-440) 10*3/uL MPV 8.4 L (9.5-12.2) fL Immature Gran % (Auto) 0.2 % Neutrophils % 60.4 % Lymphocytes % 31.6 % Monocytes % 5.1 % Eosinophils % 2.0 % Basophils % 0.7 % Immature Gran # 0.02 (0.00-0.04) 10*3/uL Neutrophils # 5.03 (1.80-7.70) 10*3/uL Lymphocytes # 2.64 (0.90-5.00) 10*3/uL Monocytes # 0.43 (0.20-1.00) 10*3/uL Eosinophils # 0.17 (0.04-0.35) 10*3/uL Basophils # 0.06 (0.00-0.10) 10*3/uL PT 11.4 (10.0-12.5) sec INR 1.0 (<1.2) APTT 23.9 (22.0-30.0) sec Sodium 141 (137-145) mmol/L Potassium 4.4 (3.5-5.1) mmol/L Chloride 106 (98-107) mmol/L Carbon Dioxide 26 (22-30) mmol/L Anion Gap 9 mmol/L BUN 9 (7-17) mg/dL Creatinine 1.23 H (0.52-1.04) mg/dL Est GFR (CKD-EPI)AfAm 46 (>60 ml/min/1.73 sqM) Est GFR (CKD-EPI)NonAf 40 (>60 ml/min/1.73 sqM) Glucose 100 H (74-99) mg/dL Calcium 9.1 (8.4-10.2) mg/dL Magnesium 2.0 (1.6-2.3) mg/dL Total Bilirubin 0.4 (0.2-1.3) mg/dL AST 48 H (14-36) U/L ALT 28 (4-34) U/L Alkaline Phosphatase 234 H (38-126) U/L Troponin I (0.000-0.034) ng/mL Total Protein 6.9 (6.3-8.2) g/dL Albumin 3.5 (3.5-5.0) g/dL TSH 6.310 H (0.465-4.680) mIU/L Free T4 1.04 (0.78-2.19) ng/dL 09/03/24 Range/Units 13:45 WBC (4.50-10.00) 10*3/uL RBC (4.10-5.20) 10*6/uL Hgb (12.0-15.0) g/dL Hct (37.2-46.3) % MCV (80.0-97.0) fL MCH (27.0-32.0) pg MCHC (32.0-37.0) g/dL Plt Count (140-440) 10*3/uL MPV (9.5-12.2) fL Immature Gran % (Auto) % Neutrophils % % Lymphocytes % % Monocytes % % Eosinophils % % Basophils % % Immature Gran # (0.00-0.04) 10*3/uL Neutrophils # (1.80-7.70) 10*3/uL Lymphocytes # (0.90-5.00) 10*3/uL Monocytes # (0.20-1.00) 10*3/uL Eosinophils # (0.04-0.35) 10*3/uL Basophils # (0.00-0.10) 10*3/uL PT (10.0-12.5) sec INR (<1.2) APTT (22.0-30.0) sec Sodium (137-145) mmol/L Potassium (3.5-5.1) mmol/L Chloride (98-107) mmol/L Carbon Dioxide (22-30) mmol/L Anion Gap mmol/L BUN (7-17) mg/dL Creatinine (0.52-1.04) mg/dL Est GFR (CKD-EPI)AfAm (>60 ml/min/1.73 sqM) Est GFR (CKD-EPI)NonAf (>60 ml/min/1.73 sqM) Glucose (74-99) mg/dL Calcium (8.4-10.2) mg/dL Magnesium (1.6-2.3) mg/dL Total Bilirubin (0.2-1.3) mg/dL AST (14-36) U/L ALT (4-34) U/L Alkaline Phosphatase (38-126) U/L Troponin I 0.121 H* (0.000-0.034) ng/mL Total Protein (6.3-8.2) g/dL Albumin (3.5-5.0) g/dL TSH (0.465-4.680) mIU/L Free T4 (0.78-2.19) ng/dL - Radiology Data Radiology results: report reviewed, image reviewed Disposition Clinical Impression: New onset atrial fibrillation, Elevated troponin Disposition: ADMITTED IP TO THIS [facility] Condition: Stable Referrals: Babatunde Walsh MD [Primary Care Provider] - 1-2 days Time of Disposition: 16:00
[2024-09-03 14:03] LABS: Basophils # (A) 0.06 10*3/uL (0.00-0.10); Basophils % (A) 0.7 %; Eosinophils # (A) 0.17 10*3/uL (0.04-0.35); HCT 29.8 % (37.2-46.3); HGB 9.5 g/dL (12.0-15.0); Lymphocytes # (A) 2.64 10*3/uL (0.90-5.00); Lymphocytes % (A) 31.6 %; MCH 30.6 pg (27.0-32.0); MCHC 31.9 g/dL (32.0-37.0); MCV 96.1 fL (80.0-97.0); Mean Platelet Volume 8.4 fL (9.5-12.2); Monocytes # (A) 0.43 10*3/uL (0.20-1.00); Monocytes % (A) 5.1 %; Neutrophils # (A) 5.03 10*3/uL (1.80-7.70); Neutrophils % (A) 60.4 %; Platelet Count 391 10*3/uL (140-440); RDW 15.6 % (11.5-14.5); WBC 8.35 10*3/uL (4.50-10.00)
[2024-09-03 14:19] LABS: ALT 28 U/L (4-34); AST 48 U/L (14-36); African American GFR (CKD) 46 (>60 ml/min/1.73 sqM); Albumin 3.5 g/dL (3.5-5.0); Alkaline Phosphatase 234 U/L (38-126); Anion Gap 9 mmol/L; Blood Urea Nitrogen 9 mg/dL (7-17); Calcium 9.1 mg/dL (8.4-10.2); Carbon Dioxide 26 mmol/L (22-30); Chloride 106 mmol/L (98-107); Glucose 100 mg/dL (74-99); Non-African American GFR(CKD) 40 (>60 ml/min/1.73 sqM); Potassium 4.4 mmol/L (3.5-5.1); Sodium 141 mmol/L (137-145); Total Bilirubin 0.4 mg/dL (0.2-1.3); Total Protein 6.9 g/dL (6.3-8.2)
--- NOTE | 2024-09-03 14:21 | XR ---
EXAMINATION TYPE: XR chest 2V DATE OF EXAM: 09/03/2024 2:01 PM COMPARISON: Chest radiographs from 12/23/2020 CLINICAL INDICATION: Female, 89 years old with history of dysrhythmia; [facility] TECHNIQUE: XR chest 2V Frontal and lateral views of the chest. FINDINGS: Lungs/Pleura: There is no evidence of pleural effusion, focal consolidation, or pneumothorax. Pulmonary vascularity: Pulmonary vascular congestion. Heart/mediastinum: Cardiomediastinal silhouette is prominent in size. Musculoskeletal: No acute osseous pathology. Other findings: None IMPRESSION: Cardiomegaly and mild pulmonary vascular congestion. Correlate with BNP for congestive heart failure. [facility], , 09/03/2024 2:19 PM
[2024-09-03 14:26] LABS: Partial Thromboplastin Time 23.9 sec (22.0-30.0); Prothrombin Time 11.4 sec (10.0-12.5)
[2024-09-03] MEDS: DILTIAZEM 125 MG in SODIUM CHLORIDE 0.9% 100 ML IV SCH (14:35)
[2024-09-03] MEDS: DILTIAZEM DRIP BOLUS FROM BAG 1 MG SOLN IV ONE (14:37)
[2024-09-03 15:27] LABS: T4, Free (Free Thyroxine) 1.04 ng/dL (0.78-2.19)
[2024-09-03] MEDS: HEPARIN SOD,PORK IN 0.45% NACL 25,000 UNIT in 0.45% NACL 1 250ML.BAG IV SCH (15:54)
[2024-09-03] MEDS ORDERED: NALOXONE 0.4 MG/ML 1 ML VIAL IV PRN (15:58)
[2024-09-03] MEDS: HEPARIN SODIUM 1,000 UN/ML (10ML VL) IV ONE (15:58)
[2024-09-03] MEDS: SODIUM CHLORIDE 0.9% 1,000 ML IV SCH (18:02)
[2024-09-03] MEDS ORDERED: BUTALB/APAP/CAFF 50-325-40MG TAB PO PRN (18:40)
[2024-09-03] MEDS ORDERED: DEXTROSE 50% SYRINGE 50 ML IVP PRN ×2 (18:42)
[2024-09-03 19:30] LABS: Glucose,Whole Blood 126 mg/dL (70-110)
[2024-09-03] MEDS: METOPROLOL TARTRATE 50 MG TAB PO SCH (20:14)
[2024-09-03] MEDS: AMITRIPTYLINE HCL 50 MG TAB PO SCH (20:15)
[2024-09-03] MEDS: GABAPENTIN 400 MG CAP PO SCH (20:15)
[2024-09-03] MEDS ORDERED: INSULIN LISPRO (HumaLOG) 100 UNIT/ML 10 mL VL SQ SCH (21:00)
[2024-09-03] MEDS: KETOROLAC 0.5% OPHTH DROPS 5 ML BTL BOTH EYES SCH (23:23)
[2024-09-03] MEDS: SODIUM CHLORIDE 5% OPHTH DROPS 15 ML BTL BOTH EYES SCH (23:24)
[2024-09-04] MEDS: DILTIAZEM 125 MG in SODIUM CHLORIDE 0.9% 100 ML IV SCH (06:49)
[2024-09-04] MEDS: LEVOTHYROXINE 50 MCG TAB PO SCH (06:49)
[2024-09-04 07:52] LABS: Basophils # (A) 0.06 10*3/uL (0.00-0.10); Basophils % (A) 0.6 %; Eosinophils # (A) 0.21 10*3/uL (0.04-0.35); Eosinophils % (A) 2.2 %; HCT 31.9 % (37.2-46.3); HGB 10.1 g/dL (12.0-15.0); Lymphocytes # (A) 2.23 10*3/uL (0.90-5.00); Lymphocytes % (A) 23.6 %; MCH 30.6 pg (27.0-32.0); MCHC 31.7 g/dL (32.0-37.0); MCV 96.7 fL (80.0-97.0); Mean Platelet Volume 8.5 fL (9.5-12.2); Monocytes # (A) 0.48 10*3/uL (0.20-1.00); Monocytes % (A) 5.1 %; Neutrophils # (A) 6.44 10*3/uL (1.80-7.70); Neutrophils % (A) 68.1 %; Platelet Count 406 10*3/uL (140-440); RDW 15.5 % (11.5-14.5); WBC 9.46 10*3/uL (4.50-10.00)
[2024-09-04 08:03] LABS: INR 1.1 (<1.2); Partial Thromboplastin Time 33.8 sec (22.0-30.0); Prothrombin Time 11.5 sec (10.0-12.5)
[2024-09-04] MEDS: HEPARIN SODIUM 1,000 UN/ML (10ML VL) IV PRN (09:09)
[2024-09-04] MEDS: CITALOPRAM HYDROBROMIDE 10 MG TAB PO SCH (09:11)
[2024-09-04] MEDS: ASPIRIN 81 MG PO SCH (09:12)
[2024-09-04] MEDS: ATORVASTATIN 20 MG TAB PO SCH (09:12)
[2024-09-04] MEDS: GABAPENTIN 100 MG CAP PO SCH (09:12)
[2024-09-04] MEDS: MULTIVITAMINS, THERA 1 EACH TAB PO SCH (09:12)
--- NOTE | 2024-09-04 10:21 | P.CRDCN ---
History of Present Illness History of present illness: HISTORY OF PRESENT ILLNESS: This is a 89-year-old female with a past medical history significant for hypertension, hyperlipidemia, breast cancer, and former nicotine dependence. Patient follows in the office with Dr. Syed. We have been asked to see the patient in consultation for atrial fibrillation. Patient examined at the bedside in the emergency room. Patient states that she was at the [facility] yesterday receiving chemotherapy. She was found to be tachycardic and was direc hong to come to the emergency room. Patient was found to be in atrial fibrillation with RVR. Patient was started on IV heparin and IV Cardizem. The patient denies any known history of atrial fibrillation. Patient denied having any palpitations. She denied dizziness or lightheadedness. Denies chest pain or pressure. Denies shortness of breath. The patient is currently on IV Cardizem at 2.5 mg/h. Bedside telemetry reveals atrial fibrillation with a heart rate between [id number]. According to the nurse the patient's Cardizem was decreased as she did have an episode with heart rates in the 40s. DIAGNOSTICS: - EKG reveals A-fib with RVR - Chest xray cardiomegaly mild pulmonary vascular congestion - Laboratory data: WBC 9.46. Hemoglobin 10.1. Platelet count 406. Sodium 141. Potassium 4.4. BUN 9. Creatinine 1.23. Troponin 0.121. 0.112. proBNP 3100. TSH 6.310. Free T4 1.04. - Current home cardiac medications include atenolol 25 mg at night, Lipitor 20 mg daily, aspirin 81 mg daily. - Most recent echocardiogram obtained in November 2023 revealed ejection fraction 55 to 60%, trace to mild MR, mild TR - Cardiac catheterization history: Patient denies REVIEW OF SYSTEMS: At the time of my exam: CONSTITUTIONAL: Denies fever or chills. HEENT: Denies blurred vision, vision changes, or eye pain. Denies hemoptysis CARDIOVASCULAR: Denies chest pain. Denies orthopnea. Denies PND. Denies palpitations RESPIRATORY: Denies shortness of breath. GASTROINTESTINAL: Denies abdominal pain. Denies nausea or vomiting. HEMATOLOGIC: Denies bleeding disorders. GENITOURINARY: Denies any blood in urine. SKIN: Denies pruitis. Denies rash. PHYSICAL EXAM: VITAL SIGNS: Reviewed. GENERAL: Well-developed in no acute distress. HEENT: Head is normocephalic. Pupils are equal, round. Sclerae anicteric. Mucous membranes of the mouth are moist. Neck supple. No JVD or thyromegaly LUNGS: Respirations even and unlabored. Lungs essentially clear to auscultation bilaterally. HEART: Tachycardic. Irregular rate and rhythm. S1 and S2 heard. Systolic murmur noted. ABDOMEN: Soft. Nondistended. Nontender. EXTREMITIES: Normal range of motion. No clubbing or cyanosis. Peripheral pulses intact. No lower extremity edema NEUROLOGIC: Awake and alert. Oriented x 3. ASSESSMENT: New onset atrial fibrillation with RVR History of breast cancer with metastasis to liver, spine, and brain per patient, currently on chemotherapy Elevated troponins, type II IA secondary to oxygen supply/demand mismatch Hypertension Hyperlipidemia Former nicotine dependence Obesity: BMI 30.2 Coronary artery calcifications noted on PET scan PLAN: Obtain 2D echo to assess cardiac structure and function Discontinue IV heparin. Begin Eliquis 5 mg twice a day Discontinue IV Cardizem Continue metoprolol tartrate 50 mg twice a day Continue telemetry monitoring Further recommendations pending patient course Nurse practitioner note has been reviewed by physician. Signing provider agrees with the documented findings, assessment, and plan of care documented by DELIVERY SALES WORKER as a scribe. Past Medical History Past Medical History: Cancer, Hyperlipidemia, Hypertension Additional Past Medical History / Comment(s): herniated disc, neuropathy, low thyroid, BREASST CANCER - 2022 History of Any Multi-Drug Resistant Organisms: None Reported Past Surgical History: Appendectomy, Hysterectomy Additional Past Surgical History / Comment(s): toxic goiter; gallblader removal Past Anesthesia/Blood Transfusion Reactions: No Reported Reaction Smoking Status: Former smoker Medications and Allergies Home Medications Medication Instructions Recorded Confirmed Type Amitriptyline HCl [Elavil] 50 mg PO HS 12/23/20 09/03/24 History Atorvastatin [Lipitor] 20 mg PO DAILY 12/23/20 09/03/24 History Citalopram Hydrobromide [CeleXA] 10 mg PO DAILY 12/23/20 09/03/24 History Cyanocobalamin (Vitamin B-12) 1,000 mcg PO DAILY 12/23/20 09/03/24 History [Vitamin B-12] Ergocalciferol [Vitamin D2 (1250 1,250 mcg PO Q14D 12/23/20 09/03/24 History Mcg = 21140 Iu)] Levothyroxine Sodium [Levo-T] 50 mcg PO DAILY 12/23/20 09/03/24 History atenoloL 25 mg PO HS 12/23/20 09/03/24 History Aspirin [Adult Low Dose Aspirin EC] 81 mg PO DAILY 06/06/23 09/03/24 History Gabapentin [Neurontin] 100 mg PO DAILY 06/06/23 09/03/24 History Gabapentin [Neurontin] 400 mg PO HS 06/06/23 09/03/24 History Multivit-Min/Iron/Folic/Lutein 1 tab PO DAILY 06/06/23 09/03/24 History [Centrum Silver Women Tablet] Butalb/APAP/Caff 50-325-40Mg 1 tab PO Q6H PRN 09/03/24 09/03/24 History [Fioricet 50-325-40] Cholecalciferol (Vitamin D3) 50 mcg PO DAILY 09/03/24 09/03/24 History [Vitamin D3 (50 Mcg = 2000 Iu)] Collagen Skin Renewal 833-30mg 1 tab PO DAILY 09/03/24 09/03/24 History Esomeprazole Magnesium [NexIUM] 40 mg PO DAILY 09/03/24 09/03/24 History Fulvestrant 500 mg IM DIRECTED 09/03/24 09/03/24 History Garlic(Unknown Dose) 1 tab PO DAILY 09/03/24 09/03/24 History Ketorolac 0.5% Ophth Soln [Acular 1 drop BOTH EYES QID 09/03/24 09/03/24 History 0.5%] Lapatinib Ditosylate [Tykerb] 1,000 mg PO DAILY 09/03/24 09/03/24 History Sodium Chloride 5% Ophth Soln 1 drop BOTH EYES QID 09/03/24 09/03/24 History [Fabiano 128] Allergies Allergy/AdvReac Type Severity Reaction Status Date / Time codeine Allergy Rash/Hives Verified 09/03/24 14:37 Physical Exam Vitals: Vital Signs Temp Pulse Pulse Resp BP BP Pulse Ox 09/04/24 09:00 123 H 20 134/83 96 09/04/24 04:00 97.5 F L 96 18 130/97 09/03/24 22:38 101 H 22 116/84 97 09/03/24 20:56 106 H 20 131/94 98 09/03/24 20:02 110 H 18 120/80 97 09/03/24 19:30 129 H 18 126/83 97 09/03/24 17:00 105 H 22 119/86 98 09/03/24 16:41 115 H 09/03/24 16:00 96 19 129/102 99 09/03/24 15:50 125 H 09/03/24 15:48 125 H 18 143/97 97 09/03/24 15:00 115 H 18 122/92 96 09/03/24 13:31 118 H 18 131/98 99 09/03/24 12:49 98.0 F 134 H 17 128/82 99 FiO2 09/04/24 09:00 09/04/24 04:00 94 09/03/24 22:38 09/03/24 20:56 09/03/24 20:02 09/03/24 19:30 09/03/24 17:00 09/03/24 16:41 09/03/24 16:00 09/03/24 15:50 09/03/24 15:48 09/03/24 15:00 09/03/24 13:31 09/03/24 12:49 Intake and Output 09/03/24 09/04/24 09/04/24 22:59 06:59 14:59 Intake Total 33.25 80.327 84.137 Output Total 100 Balance 33.25 -19.673 84.137 Intake: Intake, IV Titration 33.25 80.327 84.137 Amount Diltiazem 125 mg In 33.25 Sodium Chloride 0.9% 100 ml @ 5 MG/HR 5 mls/hr IV .Q24H [facility] Rx#:[id number] Heparin Sod,Pork in 0.45% 80.327 84.137 NaCl 25,000 unit In 0.45 % NaCl 1 250ml.bag @ 12 UNITS/KG/HR 9.525 mls/hr IV .Q24H [facility] Rx#: [id number] Output: Urine 100 Other: # Voids 1 Weight 90 kg 90 kg Results 09/04/24 07:30 09/03/24 13:45 Cardiac Enzymes 09/03/24 09/03/24 09/03/24 Range/Units 13:45 13:45 17:26 AST 48 H (14-36) U/L Troponin I 0.121 H* 0.112 H* (0.000-0.034) ng/mL Coagulation 09/03/24 09/03/24 09/04/24 Range/Units 13:45 21:59 07:25 PT 11.4 11.5 (10.0-12.5) sec APTT 23.9 39.8 H 33.8 H (22.0-30.0) sec CBC 09/03/24 09/04/24 Range/Units 13:45 07:30 WBC 8.35 9.46 (4.50-10.00) 10*3/uL RBC 3.10 L 3.30 L (4.10-5.20) 10*6/uL Hgb 9.5 L 10.1 L (12.0-15.0) g/dL Hct 29.8 L 31.9 L (37.2-46.3) % Plt Count 391 406 (140-440) 10*3/uL Comprehensive Metabolic Panel 09/03/24 Range/Units 13:45 Sodium 141 (137-145) mmol/L Potassium 4.4 (3.5-5.1) mmol/L Chloride 106 (98-107) mmol/L Carbon Dioxide 26 (22-30) mmol/L BUN 9 (7-17) mg/dL Creatinine 1.23 H (0.52-1.04) mg/dL Glucose 100 H (74-99) mg/dL Calcium 9.1 (8.4-10.2) mg/dL AST 48 H (14-36) U/L ALT 28 (4-34) U/L Alkaline Phosphatase 234 H (38-126) U/L Total Protein 6.9 (6.3-8.2) g/dL Albumin 3.5 (3.5-5.0) g/dL Current Medications Generic Name Dose Route Start Last Admin Trade Name Freq PRN Reason Stop Dose Admin Acetaminophen 650 mg 09/03/24 15:58 Acetaminophen Tab 325 Mg Tab PO Q6HR PRN Mild Pain or Fever > 100.5 Acetaminophen/Butalbital/Caffeine 1 each 09/03/24 18:40 Butalb/Apap/Caff 50-325-40mg Tab PO Q6H PRN Headache Amitriptyline HCl 50 mg 09/03/24 21:00 09/03/24 20:15 Amitriptyline Hcl 50 Mg Tab PO 50 mg HS [facility] Administration Aspirin 81 mg 09/04/24 09:00 09/04/24 09:12 Aspirin 81 Mg PO 81 mg DAILY [facility] Administration Atorvastatin Calcium 20 mg 09/04/24 09:00 09/04/24 09:12 Atorvastatin 20 Mg Tab PO 20 mg DAILY [facility] Administration Citalopram Hydrobromide 10 mg 09/04/24 09:00 09/04/24 09:11 Citalopram Hydrobromide 10 Mg Tab PO 10 mg DAILY [facility] Administration Dextrose/Water 50 ml 09/03/24 18:42 Dextrose 50% Syringe 50 Ml IVP PER PROTOCOL PRN Hypoglycemia Protocol Gabapentin 100 mg 09/04/24 09:00 09/04/24 09:12 Gabapentin 100 Mg Cap PO 100 mg DAILY [facility] Administration Gabapentin 400 mg 09/03/24 21:00 09/03/24 20:15 Gabapentin 400 Mg Cap PO 400 mg HS [facility] Administration Heparin Sodium (Porcine) 0 unit 09/04/24 08:43 09/04/24 09:09 Heparin Sodium 1,000 Un/Ml (10ml Vl) IV 2,250 unit PER PROTOCOL PRN Administration Low PTT Protocol Heparin Sodium/Sodium Chloride 250 mls @ 9.525 mls/hr 09/03/24 13:45 09/04/24 09:10 25,000 unit/ Sodium Chloride IV 14 units/kg/hr .Q24H [facility] 11.113 mls/hr Titration Protocol 12 UNITS/KG/HR Sodium Chloride 1,000 mls @ 50 mls/hr 09/03/24 16:00 09/03/24 18:02 Saline 0.9% IV 50 mls/hr .Q20H [facility] Administration Diltiazem HCl 125 mg/ Sodium 125 mls @ 2.5 mls/hr 09/04/24 04:15 09/04/24 06:49 Chloride IV 2.5 mg/hr .Q24H [facility] 2.5 mls/hr Administration 2.5 MG/HR Ketorolac Tromethamine 1 drops 09/03/24 22:00 09/03/24 23:23 Ketorolac 0.5% Ophth Drops 5 Ml Btl BOTH EYES 1 drops QID [facility] Administration Levothyroxine Sodium 50 mcg 09/04/24 06:30 09/04/24 06:49 Levothyroxine 50 Mcg Tab PO 50 mcg 0630 [facility] Administration Metoprolol Tartrate 50 mg 09/03/24 21:00 09/04/24 09:12 Metoprolol Tartrate 50 Mg Tab PO 50 mg BID [facility] Administration Multivitamins 1 each 09/04/24 09:00 09/04/24 09:12 Multivitamins, Thera 1 Each Tab PO 1 each DAILY [facility] Administration Naloxone HCl 0.2 mg 09/03/24 15:58 Naloxone 0.4 Mg/Ml 1 Ml Vial IV Q2M PRN Opioid Reversal Sodium Chloride 1 drops 09/03/24 22:00 09/03/24 23:24 Sodium Chloride 5% Ophth Drops 15 Ml Btl BOTH EYES 1 drops QID [facility] Administration Intake and Output 09/03/24 09/04/24 09/04/24 22:59 06:59 14:59 Intake Total 33.25 80.327 84.137 Output Total 100 Balance 33.25 -19.673 84.137 Intake: Intake, IV Titration 33.25 80.327 84.137 Amount Diltiazem 125 mg In 33.25 Sodium Chloride 0.9% 100 ml @ 5 MG/HR 5 mls/hr IV .Q24H [facility] Rx#:[id number] Heparin Sod,Pork in 0.45% 80.327 84.137 NaCl 25,000 unit In 0.45 % NaCl 1 250ml.bag @ 12 UNITS/KG/HR 9.525 mls/hr IV .Q24H [facility] Rx#: [id number] Output: Urine 100 Other: # Voids 1 Weight 90 kg 90 kg Patient Weight 09/05/24 06:59 Weight 90 kg 09/04/24 07:30 09/03/24 13:45
[2024-09-04] MEDS: APIXABAN 5 MG TAB PO SCH (12:02)
--- NOTE | 2024-09-04 13:57 | P.HPIM ---
History of Present Illness 83-year-old pleasant female was sent in because of atrial fibrillation with rapid unclear rate from doctor's office patient was on his medicine chemotherapy found to be tachycardic was sent in here. Patient was started on IV Cardizem. Patient had any history of atrial fibrillation. EKG showed A-fib with RVR chest x-ray is within normal limits but does read as cardiomegaly with mild pulmonary vascular congestion patient BNP is around 2000 TSH is 6.3 with normal T4 patient had a normal ejection fraction on the echocardiogram that was not done last year. REVIEW OF SYSTEMS: All other systems are negative except those mentioned in the HPI PHYSICAL EXAMINATION: GENERAL: The patient is alert and oriented x3, not in any acute distress. Well developed, well nourished. HEENT: Pupils are round and equally reacting to light. EOMI. No scleral icterus. No conjunctival pallor. Normocephalic, atraumatic. No pharyngeal erythema. No thyromegaly. CARDIOVASCULAR: S1 and S2 present. No murmurs, rubs, or gallops. PULMONARY: Chest is clear to auscultation, no wheezing or crackles. ABDOMEN: Soft, nontender, nondistended, normoactive bowel sounds. No palpable organomegaly. MUSCULOSKELETAL: No joint swelling or deformity. EXTREMITIES: No cyanosis, clubbing, or pedal edema. NEUROLOGICAL: Gross neurological examination did not reveal any focal deficits. SKIN: No rashes. Assessment and plan Atrial fibrillation with rapid ventricular rate patient is presently rate controlled Cardizem will be discontinued and patient will be started on metoprolol 50 twice a day and patient was started on Eliquis - History of breast cancer with mets for which patient is receiving chemotherapy - Type II NSTEMI from supply/demand mismatch secondary to atrial fibrillation mild elevated troponins - Hyperlipidemia - Hypertension - Elevated BNP secondary to atrial fibrillation most probably patient is laying almost flat without any symptoms of shortness of breath this time I do not believe patient did not present CHF exacerbation at this time DVT prophylaxis: on anticoagulation with Eliquis Past Medical History Past Medical History: Cancer, Hyperlipidemia, Hypertension Additional Past Medical History / Comment(s): herniated disc, neuropathy, low thyroid, BREASST CANCER - 2022 History of Any Multi-Drug Resistant Organisms: None Reported Past Surgical History: Appendectomy, Hysterectomy Additional Past Surgical History / Comment(s): toxic goiter; gallblader removal Past Anesthesia/Blood Transfusion Reactions: No Reported Reaction Smoking Status: Former smoker Medications and Allergies Home Medications Medication Instructions Recorded Confirmed Type Amitriptyline HCl [Elavil] 50 mg PO HS 12/23/20 09/03/24 History Atorvastatin [Lipitor] 20 mg PO DAILY 12/23/20 09/03/24 History Citalopram Hydrobromide [CeleXA] 10 mg PO DAILY 12/23/20 09/03/24 History Cyanocobalamin (Vitamin B-12) 1,000 mcg PO DAILY 12/23/20 09/03/24 History [Vitamin B-12] Ergocalciferol [Vitamin D2 (1250 1,250 mcg PO Q14D 12/23/20 09/03/24 History Mcg = 37019 Iu)] Levothyroxine Sodium [Levo-T] 50 mcg PO DAILY 12/23/20 09/03/24 History atenoloL 25 mg PO HS 12/23/20 09/03/24 History Aspirin [Adult Low Dose Aspirin EC] 81 mg PO DAILY 06/06/23 09/03/24 History Gabapentin [Neurontin] 100 mg PO DAILY 06/06/23 09/03/24 History Gabapentin [Neurontin] 400 mg PO HS 06/06/23 09/03/24 History Multivit-Min/Iron/Folic/Lutein 1 tab PO DAILY 06/06/23 09/03/24 History [Centrum Silver Women Tablet] Butalb/APAP/Caff 50-325-40Mg 1 tab PO Q6H PRN 09/03/24 09/03/24 History [Fioricet 50-325-40] Cholecalciferol (Vitamin D3) 50 mcg PO DAILY 09/03/24 09/03/24 History [Vitamin D3 (50 Mcg = 2000 Iu)] Collagen Skin Renewal 833-30mg 1 tab PO DAILY 09/03/24 09/03/24 History Esomeprazole Magnesium [NexIUM] 40 mg PO DAILY 09/03/24 09/03/24 History Fulvestrant 500 mg IM DIRECTED 09/03/24 09/03/24 History Garlic(Unknown Dose) 1 tab PO DAILY 09/03/24 09/03/24 History Ketorolac 0.5% Ophth Soln [Acular 1 drop BOTH EYES QID 09/03/24 09/03/24 History 0.5%] Lapatinib Ditosylate [Tykerb] 1,000 mg PO DAILY 09/03/24 09/03/24 History Sodium Chloride 5% Ophth Soln 1 drop BOTH EYES QID 09/03/24 09/03/24 History [Fabiano 128] Allergies Allergy/AdvReac Type Severity Reaction Status Date / Time codeine Allergy Rash/Hives Verified 09/03/24 14:37 Physical Exam Vitals: Vital Signs Temp Pulse Pulse Resp BP BP Pulse Ox 09/04/24 13:51 107 H 20 115/88 96 09/04/24 12:51 97.7 F 98 16 122/88 96 09/04/24 10:43 93 20 122/76 96 09/04/24 09:00 123 H 20 134/83 96 09/04/24 04:00 97.5 F L 96 18 130/97 09/03/24 22:38 101 H 22 116/84 97 09/03/24 20:56 106 H 20 131/94 98 09/03/24 20:02 110 H 18 120/80 97 09/03/24 19:30 129 H 18 126/83 97 09/03/24 17:00 105 H 22 119/86 98 09/03/24 16:41 115 H 09/03/24 16:00 96 19 129/102 99 09/03/24 15:50 125 H 09/03/24 15:48 125 H 18 143/97 97 09/03/24 15:00 115 H 18 122/92 96 FiO2 09/04/24 13:51 09/04/24 12:51 09/04/24 10:43 09/04/24 09:00 09/04/24 04:00 94 09/03/24 22:38 09/03/24 20:56 09/03/24 20:02 09/03/24 19:30 09/03/24 17:00 09/03/24 16:41 09/03/24 16:00 09/03/24 15:50 09/03/24 15:48 09/03/24 15:00 Intake and Output 09/03/24 09/04/24 09/04/24 22:59 06:59 14:59 Intake Total 33.25 80.327 84.137 Output Total 100 Balance 33.25 -19.673 84.137 Intake: Intake, IV Titration 33.25 80.327 84.137 Amount Diltiazem 125 mg In 33.25 Sodium Chloride 0.9% 100 ml @ 5 MG/HR 5 mls/hr IV .Q24H [facility] Rx#:[id number] Heparin Sod,Pork in 0.45% 80.327 84.137 NaCl 25,000 unit In 0.45 % NaCl 1 250ml.bag @ 12 UNITS/KG/HR 9.525 mls/hr IV .Q24H [facility] Rx#: [id number] Output: Urine 100 Other: # Voids 1 Weight 90 kg 90 kg Results CBC & Chem 7: 09/04/24 07:30 09/03/24 13:45 Labs: Abnormal Lab Results - Last 24 Hours (Table) 09/03/24 09/03/24 09/03/24 Range/Units 13:45 13:45 13:45 RBC 3.10 L (4.10-5.20) 10*6/uL Hgb 9.5 L (12.0-15.0) g/dL Hct 29.8 L (37.2-46.3) % MCHC 31.9 L (32.0-37.0) g/dL MPV 8.4 L (9.5-12.2) fL APTT (22.0-30.0) sec Creatinine 1.23 H (0.52-1.04) mg/dL Glucose 100 H (74-99) mg/dL POC Glucose (mg/dL) (70-110) mg/dL AST 48 H (14-36) U/L Alkaline Phosphatase 234 H (38-126) U/L Troponin I 0.121 H* (0.000-0.034) ng/mL TSH 6.310 H (0.465-4.680) mIU/L 09/03/24 09/03/24 09/03/24 Range/Units 17:26 19:28 21:59 RBC (4.10-5.20) 10*6/uL Hgb (12.0-15.0) g/dL Hct (37.2-46.3) % MCHC (32.0-37.0) g/dL MPV (9.5-12.2) fL APTT 39.8 H (22.0-30.0) sec Creatinine (0.52-1.04) mg/dL Glucose (74-99) mg/dL POC Glucose (mg/dL) 126 H (70-110) mg/dL AST (14-36) U/L Alkaline Phosphatase (38-126) U/L Troponin I 0.112 H* (0.000-0.034) ng/mL TSH (0.465-4.680) mIU/L 09/04/24 09/04/24 Range/Units 07:25 07:30 RBC 3.30 L (4.10-5.20) 10*6/uL Hgb 10.1 L (12.0-15.0) g/dL Hct 31.9 L (37.2-46.3) % MCHC 31.7 L (32.0-37.0) g/dL MPV 8.5 L (9.5-12.2) fL APTT 33.8 H (22.0-30.0) sec Creatinine (0.52-1.04) mg/dL Glucose (74-99) mg/dL POC Glucose (mg/dL) (70-110) mg/dL AST (14-36) U/L Alkaline Phosphatase (38-126) U/L Troponin I (0.000-0.034) ng/mL TSH (0.465-4.680) mIU/L Thrombosis Risk Factor Assmnt - Choose All That Apply Any of the Below Risk Factors Present?: Yes Each Factor Represents 1 point: Obesity (BMI >25), Varicose veins Other Risk Factors: Yes Each Risk Factor Represents 2 Points: Malignancy Each Risk Factor Represents 3 Points: Age 75 years or older Thrombosis Risk Factor Assessment Total Risk Factor Score: 7 Thrombosis Risk Factor Assessment Level: High Risk
[2024-09-04] MEDS: ZINC OXIDE PASTE (Z-GUARD) 1 APPLIC TOPICAL SCH (19:11)
[2024-09-04] MEDS ORDERED: ZINC OXIDE PASTE (Z-GUARD) 1 APPLIC TOPICAL PRN (19:11)
[2024-09-05] MEDS: PANTOPRAZOLE 40 MG TABLET PO SCH (06:49)
[2024-09-05 07:20] LABS: HCT 30.7 % (37.2-46.3); HGB 9.6 g/dL (12.0-15.0); MCH 30.2 pg (27.0-32.0); MCHC 31.3 g/dL (32.0-37.0); MCV 96.5 fL (80.0-97.0); Mean Platelet Volume 8.6 fL (9.5-12.2); Platelet Count 361 10*3/uL (140-440); RBC 3.18 10*6/uL (4.10-5.20); RDW 15.4 % (11.5-14.5); WBC 7.79 10*3/uL (4.50-10.00)
[2024-09-05 07:51] LABS: African American GFR (CKD) 47 (>60 ml/min/1.73 sqM); Anion Gap 8 mmol/L; Blood Urea Nitrogen 10 mg/dL (7-17); Calcium 8.5 mg/dL (8.4-10.2); Carbon Dioxide 26 mmol/L (22-30); Chloride 103 mmol/L (98-107); Glucose 143 mg/dL (74-99); Non-African American GFR(CKD) 41 (>60 ml/min/1.73 sqM); Sodium 137 mmol/L (137-145)
--- NOTE | 2024-09-05 12:19 | P.PN ---
Subjective 83-year-old pleasant female was sent in because of atrial fibrillation with rapid unclear rate from doctor's office patient was on his medicine chemotherapy found to be tachycardic was sent in here. Patient was started on IV Cardizem. Patient had any history of atrial fibrillation. EKG showed A-fib with RVR chest x-ray is within normal limits but does read as cardiomegaly with mild pulmonary vascular congestion patient BNP is around 2000 TSH is 6.3 with normal T4 patient had a normal ejection fraction on the echocardiogram that was not done last year. 09/05/2024 Patient's heart rate remains high in the 140s metoprolol dose was increased to 3 times daily echocardiogram is still pending. Patient is otherwise hemodynamically stable REVIEW OF SYSTEMS: All other systems are negative except those mentioned in the HPI PHYSICAL EXAMINATION: GENERAL: The patient is alert and oriented x3, not in any acute distress. Well developed, well nourished. HEENT: Pupils are round and equally reacting to light. EOMI. No scleral icterus. No conjunctival pallor. Normocephalic, atraumatic. No pharyngeal erythema. No thyromegaly. CARDIOVASCULAR: S1 and S2 present. No murmurs, rubs, or gallops. PULMONARY: Chest is clear to auscultation, no wheezing or crackles. ABDOMEN: Soft, nontender, nondistended, normoactive bowel sounds. No palpable organomegaly. MUSCULOSKELETAL: No joint swelling or deformity. EXTREMITIES: No cyanosis, clubbing, or pedal edema. NEUROLOGICAL: Gross neurological examination did not reveal any focal deficits. SKIN: No rashes. Assessment and plan Atrial fibrillation with rapid ventricular rate patient is presently rate controlled Cardizem will be discontinued and Toprol dose was increased to 50 mg 3 times a day and patient was started on Eliquis -Elevated TSH probably secondary to syndrome repeat TSH in about a month - History of breast cancer with mets for which patient is receiving chemotherapy - Type II NSTEMI from supply/demand mismatch secondary to atrial fibrillation mild elevated troponins - Hyperlipidemia - Hypertension - Elevated BNP secondary to atrial fibrillation most probably patient is laying almost flat without any symptoms of shortness of breath this time I do not belie ve patient did not present CHF exacerbation at this time DVT prophylaxis: on anticoagulation with Eliquis Objective - Vital Signs Vital signs: Vital Signs Temp 97.4 F L 09/05/24 08:35 Pulse 124 H 09/05/24 08:35 Resp 18 09/05/24 08:35 BP 124/88 09/05/24 08:35 Pulse Ox 93 L 09/05/24 08:35 FiO2 94 09/04/24 04:00 Intake & Output 09/04/24 09/05/24 09/05/24 18:59 06:59 18:59 Intake Total 84.137 540 240 Output Total 0 Balance 84.137 540 240 Weight 90 kg 80 kg Intake: Intake, IV Titration 84.137 Amount Heparin Sod,Pork in 0.45% 84.137 NaCl 25,000 unit In 0.45 % NaCl 1 250ml.bag @ 12 UNITS/KG/HR 9.525 mls/hr IV .Q24H [facility] Rx#: [id number] Oral 540 240 Output: Urine 0 Other: Voiding Method Toilet # Voids 2 # Bowel Movements 1 - Labs CBC & Chem 7: 09/05/24 06:55 09/05/24 06:55 Labs: Abnormal Lab Results - Last 24 Hours (Table) 09/04/24 09/05/24 09/05/24 Range/Units 07:25 06:55 06:55 RBC 3.18 L (4.10-5.20) 10*6/uL Hgb 9.6 L (12.0-15.0) g/dL Hct 30.7 L (37.2-46.3) % MCHC 31.3 L (32.0-37.0) g/dL MPV 8.6 L (9.5-12.2) fL Creatinine 1.19 H (0.52-1.04) mg/dL Glucose 143 H (74-99) mg/dL Hemoglobin A1c 6.6 H (<=6.0) %
--- NOTE | 2024-09-05 12:43 | P.PN ---
Subjective HISTORY OF PRESENT ILLNESS: This is a 89-year-old female with a past medical history significant for hypertension, hyperlipidemia, breast cancer, and former nicotine dependence. Patient follows in the office with Dr. Syed. We have been asked to see the patient in consultation for atrial fibrillation. Patient examined at the bedside in the emergency room. Patient states that she was at the [facility] yesterday receiving chemotherapy. She was found to be tachycardic and was directed to come to the emergency room. Patient was found to be in atrial fibrillation with RVR. Patient was started on IV heparin and IV Cardizem. The patient denies any known history of atrial fibrillation. Patient denied having any palpitations. She denied dizziness or lightheadedness. Denies chest pain or pressure. Denies shortness of breath. The patient is currently on IV Cardizem at 2.5 mg/h. Bedside telemetry reveals atrial fibrillation with a heart rate between 237630. According to the nurse the patient's Cardizem was decreased as she did have an episode with heart rates in the 40s. DIAGNOSTICS: - EKG reveals A-fib with RVR - Chest xray cardiomegaly mild pulmonary vascular congestion - Laboratory data: WBC 9.46. Hemoglobin 10.1. Platelet count 406. Sodium 141. Potassium 4.4. BUN 9. Creatinine 1.23. Troponin 0.121. 0.112. proBNP 3100. TSH 6.310. Free T4 1.04. - Current home cardiac medications include atenolol 25 mg at night, Lipitor 20 mg daily, aspirin 81 mg daily. - Most recent echocardiogram obtained in November 2023 revealed ejection fraction 55 to 60%, trace to mild MR, mild TR - Cardiac catheterization history: Patient denies 09/05/2024 Patient examined this morning at the bedside. Patient currently denies chest pain or pressure. She denies shortness of breath. Denies any palpitations. Telemetry reveals atrial fibrillation with a heart rate around [id number]. PHYSICAL EXAM: VITAL SIGNS: Reviewed. GENERAL: Well-developed in no acute distress. HEENT: Head is normocephalic. Pupils are equal, round. Sclerae anicteric. Mucous membranes of the mouth are moist. Neck supple. No JVD or thyromegaly LUNGS: Respirations even and unlabored. Lungs essentially clear to auscultation bilaterally. HEART: Tachycardic. Irregular rate and rhythm. S1 and S2 heard. Systolic murmur noted. ABDOMEN: Soft. Nondistended. Nontender. EXTREMITIES: Normal range of motion. No clubbing or cyanosis. Peripheral pulses intact. No lower extremity edema NEUROLOGIC: Awake and alert. Oriented x 3. ASSESSMENT: New onset atrial fibrillation with RVR History of breast cancer with metastasis to liver, spine, and brain per patient, currently on chemotherapy Elevated troponins, type II SD secondary to oxygen supply/demand mismatch Hypertension Hyperlipidemia Former nicotine dependence Obesity: BMI 30.2 Coronary artery calcifications noted on PET scan PLAN: Obtain 2D echo to assess cardiac structure and function Continue Eliquis 5 mg twice a day Continue metoprolol tartrate. Increase frequency to TID dosing. Continue telemetry monitoring Further recommendations pending patient course Nurse practitioner note has been reviewed by physician. Signing provider agrees with the documented findings, assessment, and plan of care documented by HYDRAULIC ASSEMBLER as a scribe. Objective - Vital Signs Vital signs: Vital Signs Temp 97.4 F L 09/05/24 08:35 Pulse 124 H 09/05/24 08:35 Resp 18 09/05/24 08:35 BP 124/88 09/05/24 08:35 Pulse Ox 93 L 09/05/24 08:35 FiO2 94 09/04/24 04:00 Intake & Output 09/04/24 09/05/24 09/05/24 18:59 06:59 18:59 Intake Total 84.137 540 240 Output Total 0 Balance 84.137 540 240 Weight 90 kg 80 kg Intake: Intake, IV Titration 84.137 Amount Heparin Sod,Pork in 0.45% 84.137 NaCl 25,000 unit In 0.45 % NaCl 1 250ml.bag @ 12 UNITS/KG/HR 9.525 mls/hr IV .Q24H [facility] Rx#: [id number] Oral 540 240 Output: Urine 0 Other: Voiding Method Toilet # Voids 2 # Bowel Movements 1 - Labs CBC & Chem 7: 09/05/24 06:55 09/05/24 06:55 Labs: Abnormal Lab Results - Last 24 Hours (Table) 09/04/24 09/05/24 09/05/24 Range/Units 07:25 06:55 06:55 RBC 3.18 L (4.10-5.20) 10*6/uL Hgb 9.6 L (12.0-15.0) g/dL Hct 30.7 L (37.2-46.3) % MCHC 31.3 L (32.0-37.0) g/dL MPV 8.6 L (9.5-12.2) fL Creatinine 1.19 H (0.52-1.04) mg/dL Glucose 143 H (74-99) mg/dL Hemoglobin A1c 6.6 H (<=6.0) %
[2024-09-05] MEDS: METOPROLOL TARTRATE 50 MG TAB PO SCH (15:54)
[2024-09-05] MEDS: ACETAMINOPHEN TAB 325 MG TAB PO PRN (21:13)
[2024-09-06 07:10] LABS: African American GFR (CKD) 42 (>60 ml/min/1.73 sqM); Anion Gap 8 mmol/L; Blood Urea Nitrogen 12 mg/dL (7-17); Calcium 8.7 mg/dL (8.4-10.2); Carbon Dioxide 29 mmol/L (22-30); Chloride 101 mmol/L (98-107); Glucose 108 mg/dL (74-99); Non-African American GFR(CKD) 37 (>60 ml/min/1.73 sqM); Potassium 4.5 mmol/L (3.5-5.1); Sodium 138 mmol/L (137-145)
[2024-09-06] MEDS: METOPROLOL TARTRATE 50 MG TAB PO STA (13:01)
--- NOTE | 2024-09-06 13:32 | P.PN ---
Subjective HISTORY OF PRESENT ILLNESS: This is a 89-year-old female with a past medical history significant for hypertension, hyperlipidemia, breast cancer, and former nicotine dependence. Patient follows in the office with Dr. Syed. We have been asked to see the patient in consultation for atrial fibrillation. Patient examined at the bedside in the emergency room. Patient states that she was at the [facility] yesterday receiving chemotherapy. She was found to be tachycardic and was directed to come to the emergency room. Patient was found to be in atrial fibrillation with RVR. Patient was started on IV heparin and IV Cardizem. The patient denies any known history of atrial fibrillation. Patient denied having any palpitations. She denied dizziness or lightheadedness. Denies chest pain or pressure. Denies shortness of breath. The patient is currently on IV Cardizem at 2.5 mg/h. Bedside telemetry reveals atrial fibrillation with a heart rate between 019813. According to the nurse the patient's Cardizem was decreased as she did have an episode with heart rates in the 40s. DIAGNOSTICS: - EKG reveals A-fib with RVR - Chest xray cardiomegaly mild pulmonary vascular congestion - Laboratory data: WBC 9.46. Hemoglobin 10.1. Platelet count 406. Sodium 141. Potassium 4.4. BUN 9. Creatinine 1.23. Troponin 0.121. 0.112. proBNP 3100. TSH 6.310. Free T4 1.04. - Current home cardiac medications include atenolol 25 mg at night, Lipitor 20 mg daily, aspirin 81 mg daily. - Most recent echocardiogram obtained in November 2023 revealed ejection fraction 55 to 60%, trace to mild MR, mild TR - Cardiac catheterization history: Patient denies 09/05/2024 Patient examined this morning at the bedside. Patient currently denies chest pain or pressure. She denies shortness of breath. Denies any palpitations. Telemetry reveals atrial fibrillation with a heart rate around 863764. 09/06/2024 Patient examined this morning at the bedside. Patient currently denies chest pain or pressure. She denies shortness of breath. 2D echo remains pending. Patient remains in atrial fibrillation with controlled ventricular rates. Patie nt does have episodes of RVR. PHYSICAL EXAM: VITAL SIGNS: Reviewed. GENERAL: Well-developed in no acute distress. HEENT: Head is normocephalic. Pupils are equal, round. Sclerae anicteric. Mucous membranes of the mouth are moist. Neck supple. No JVD or thyromegaly LUNGS: Respirations even and unlabored. Lungs essentially clear to auscultation bilaterally. HEART: Irregular rate and rhythm. S1 and S2 heard. Systolic murmur noted. ABDOMEN: Soft. Nondistended. Nontender. EXTREMITIES: Normal range of motion. No clubbing or cyanosis. Peripheral pulses intact. No lower extremity edema NEUROLOGIC: Awake and alert. Oriented x 3. ASSESSMENT: New onset atrial fibrillation with RVR History of breast cancer with metastasis to liver, spine, and brain per patient, currently on chemotherapy Elevated troponins, type II NM secondary to oxygen supply/demand mismatch Hypertension Hyperlipidemia Former nicotine dependence Obesity: BMI 30.2 Coronary artery calcifications noted on PET scan PLAN: Obtain 2D echo to assess cardiac structure and function Continue Eliquis 5 mg twice a day Continue metoprolol tartrate. Increase dosage to 100 mg 3 times daily. Given additional 50 mg now. Continue telemetry monitoring Further recommendations pending patient course Nurse practitioner note has been reviewed by physician. Signing provider agrees with the documented findings, assessment, and plan of care documented by STEAM SHOVEL OILER as a scribe. Objective - Vital Signs Vital signs: Vital Signs Temp 98.6 F 09/06/24 08:00 Pulse 108 H 09/06/24 08:00 Resp 20 09/06/24 08:00 BP 146/94 09/06/24 08:00 Pulse Ox 93 L 09/06/24 08:00 FiO2 94 09/04/24 04:00 Intake & Output 09/05/24 09/06/24 09/06/24 18:59 06:59 18:59 Intake Total 480 480 Balance 480 480 Weight 80.1 kg Intake: Oral 480 480 Other: Voiding Method Toilet # Voids 2 1 1 # Bowel Movements 0 - Labs CBC & Chem 7: 09/05/24 06:55 09/06/24 05:32 Labs: Abnormal Lab Results - Last 24 Hours (Table) 09/06/24 Range/Units 05:32 Creatinine 1.31 H (0.52-1.04) mg/dL Glucose 108 H (74-99) mg/dL
--- NOTE | 2024-09-06 14:25 | CA ---
Transthoracic Echo Report Name: Jessica Buckner Age: 89 Gender: F : 1935 Exam Date: 09/06/2024 10:43 Exam Location: [facility] Ht (in): 68 Wt (lb): 198 Ordering Physician: Gabby Espinal Attending/Referring Phys: [id number], Teddy Service Or Work Dispatcher Chief Iliana Freitas, DERIAN Procedure CPT: Indications: LV function, new onset afib Cardiac Hx: Technical Quality: Good Contrast 1: Total Dose (mL): Contrast 2: Total Dose (mL): MEASUREMENTS (Male / Female) Normal Values 2D ECHO LV Diastolic Diameter PLAX 4.3 cm 4.2 - 5.9 / 3.9 - 5.3 cm LV Systolic Diameter PLAX 3.3 cm IVS Diastolic Thickness 1.2 cm 0.6 - 1.0 / 0.6 - 0.9 cm LVPW Diastolic Thickness 1.1 cm 0.6 - 1.0 / 0.6 - 0.9 cm LV Relative Wall Thickness 0.5 RV Internal Dim ED PLAX 3.8 cm LA Systolic Diameter LX 3.8 cm 3.0 - 4.0 / 2.7 - 3.8 cm LV Diastolic Volume MOD 4C 51.9 cm??? LV Systolic Volume MOD 4C 30.0 cm??? LV Ejection Fraction MOD 4C 42.1 % LV Cardiac Index MOD 4C 967.0 cm???/min???m??? LV Diastolic Length 4C 7.9 cm LV Systolic Length 4C 7.1 cm LV Diastolic Volume MOD 2C 82.3 cm??? LV Systolic Volume MOD 2C 55.5 cm??? LV Ejection Fraction MOD 2C 32.6 % LV Cardiac Index MOD 2C 1186.1 cm???/min???m??? LV Diastolic Length 2C 8.5 cm LV Systolic Length 2C 7.0 cm M-MODE Aortic Root Diameter MM 3.2 cm DOPPLER AV Peak Velocity 140.5 cm/s AV Peak Gradient 7.9 mmHg MV Area PHT 8.3 cm??? MR Peak Velocity 508.6 cm/s MR Peak Gradient 103.5 mmHg TR Peak Velocity 296.3 cm/s TR Peak Gradient 35.1 mmHg Right Ventricular Systolic Press 45.2 mmHg FINDINGS Left Ventricle Left ventricular ejection fraction is estimated at 35-40 %. Left ventricular cavity size normal. Mildly increased septal wall thickness. Mildly increased posterior wall thickness. Right Ventricle Mildly right ventricular dilatation. Moderate pulmonary hypertension. Right Atrium Severe right atrial dilatation. No right atrial thrombus or mass seen. Left Atrium No left atrial thrombus or mass present. Mild left atrial dilatation. Mitral Valve Moderate thickening/calcification of the anterior mitral valve leaflet. Moderate thickening/calcification of the posterior mitral valve leaflet. Moderate mitral annular calcification. Mild mitral regurgitation. Aortic Valve Trileaflet aortic valve. Aortic valve sclerosis. No aortic valve stenosis or regurgitation. Tricuspid Valve Structurally normal tricuspid valve. Moderate tricuspid regurgitation. Pulmonic Valve Structurally normal pulmonic valve. No pulmonic regurgitation. Pericardium No pericardial effusion. Aorta Normal size aortic root and proximal ascending aorta. CONCLUSIONS Left ventricular ejection fraction is estimated at 35-40 %. No bradycardia to systolic LV function Mild concentric LVH No obvious regional wall motion abnormality Mild RV dilatation with moderate pulmonary hypertension with RVSP of 45 mmHg Severe RA dilatation Mild LA dilatation Mitral calcification with mild MR Moderate TR Aortic valve sclerosis Previewed by: Dr Yehuda Syed (Electronically Signed) Final Date: 06 September 2024 14:25
[2024-09-06] MEDS: METOPROLOL TARTRATE 50 MG TAB PO SCH (16:42)
[2024-09-07] MEDS: METOPROLOL TARTRATE 50 MG TAB PO STA (13:04)
--- NOTE | 2024-09-07 13:52 | P.PN ---
Subjective HISTORY OF PRESENT ILLNESS: This is a 89-year-old female with a past medical history significant for hypertension, hyperlipidemia, breast cancer, and former nicotine dependence. Patient follows in the office with Dr. Syed. We have been asked to see the patient in consultation for atrial fibrillation. Patient examined at the bedside in the emergency room. Patient states that she was at the [facility] yesterday receiving chemotherapy. She was found to be tachycardic and was directed to come to the emergency room. Patient was found to be in atrial fibrillation with RVR. Patient was started on IV heparin and IV Cardizem. The patient denies any known history of atrial fibrillation. Patient denied having any palpitations. She denied dizziness or lightheadedness. Denies chest pain or pressure. Denies shortness of breath. The patient is currently on IV Cardizem at 2.5 mg/h. Bedside telemetry reveals atrial fibrillation with a heart rate between [id number]. According to the nurse the patient's Cardizem was decreased as she did have an episode with heart rates in the 40s. DIAGNOSTICS: - EKG reveals A-fib with RVR - Chest xray cardiomegaly mild pulmonary vascular congestion - Laboratory data: WBC 9.46. Hemoglobin 10.1. Platelet count 406. Sodium 141. Potassium 4.4. BUN 9. Creatinine 1.23. Troponin 0.121. 0.112. proBNP 3100. TSH 6.310. Free T4 1.04. - Current home cardiac medications include atenolol 25 mg at night, Lipitor 20 mg daily, aspirin 81 mg daily. - Most recent echocardiogram obtained in November 2023 revealed ejection fraction 55 to 60%, trace to mild MR, mild TR - Cardiac catheterization history: Patient denies 09/05/2024 Patient examined this morning at the bedside. Patient currently denies chest pain or pressure. She denies shortness of breath. Denies any palpitations. Telemetry reveals atrial fibrillation with a heart rate around 785572. 09/06/2024 Patient examined this morning at the bedside. Patient currently denies chest pain or pressure. She denies shortness of breath. 2D echo remains pending. Patient remains in atrial fibrillation with controlled ventricular rates. Patie nt does have episodes of RVR. 09/07/2024 Patient examined this morning at the bedside. Patient currently denies chest pain or pressure. She denies shortness of breath at rest. She does report some dyspnea upon ambulation from the bathroom. She remains in atrial fibrillation with heart rate between [id number]. Echocardiogram completed revealing ejection fraction 35 to 40%, mild concentric LVH, no obvious regional wall motion abnormalities, moderate pulmonary hypertension, mild MR, moderate TR PHYSICAL EXAM: VITAL SIGNS: Reviewed. GENERAL: Well-developed in no acute distress. HEENT: Head is normocephalic. Pupils are equal, round. Sclerae anicteric. Mucous membranes of the mouth are moist. Neck supple. No JVD or thyromegaly LUNGS: Respirations even and unlabored. Lungs essentially clear to auscultation bilaterally. HEART: Irregular rate and rhythm. S1 and S2 heard. Systolic murmur noted. ABDOMEN: Soft. Nondistended. Nontender. EXTREMITIES: Normal range of motion. No clubbing or cyanosis. Peripheral pulses intact. No lower extremity edema NEUROLOGIC: Awake and alert. Oriented x 3. 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 Increase dosage to 200 mg twice daily. Given additional dose of 100 mg now. Continue telemetry monitoring Further recommendations pending patient course Nurse practitioner note has been reviewed by physician. Signing provider agrees with the documented findings, assessment, and plan of care documented by SCHOOL OCCUPATIONAL THERAPIST as a scribe. Objective - Vital Signs Vital signs: Vital Signs Temp 97.8 F 09/07/24 11:09 Pulse 125 H 09/07/24 11:09 Resp 16 09/07/24 11:09 BP 127/74 09/07/24 11:09 Pulse Ox 96 09/07/24 11:09 FiO2 94 09/04/24 04:00 Intake & Output 09/06/24 09/07/24 09/07/24 18:59 06:59 18:59 Intake Total 480 118 Balance 480 118 Weight 80.1 kg 81 kg Intake: Oral 480 118 Other: Voiding Method Toilet # Voids 3 1 1 - Labs CBC & Chem 7: 09/05/24 06:55 09/06/24 05:32
--- NOTE | 2024-09-07 14:03 | P.PN ---
Subjective Progress Note Date: 09/07/24 83-year-old pleasant female was sent in because of atrial fibrillation with rapid unclear rate from doctor's office patient was on his medicine chemotherapy found to be tachycardic was sent in here. Patient was started on IV Cardizem. Patient had any history of atrial fibrillation. EKG showed A-fib with RVR chest x-ray is within normal limits but does read as cardiomegaly with mild pulmonary vascular congestion patient BNP is around 2000 TSH is 6.3 with normal T4 patient had a normal ejection fraction on the echocardiogram that was not done last year. 09/05/2024 Patient's heart rate remains high in the 140s metoprolol dose was increased to 3 times daily echocardiogram is still pending. Patient is otherwise hemodynamically stable 09/06/2024 Patient is evaluated today in follow-up on the cardiac unit. She is resting in bed. Patient was hoping to be discharged home today as she does have a follow- up appointment at [facility] outpatient imaging tomorrow states that she will be having imaging of her head in regards to her cataracts in the left eye. She is not having any acute complaints. She remains in atrial fibrillation with a heart rate into the 120s. Echocardiogram reveals an EF 35-40%. Review of Systems Constitutional: Denied any fatigue denied any fever. Cardio vascular: denied any chest pain, palpitations Gastrointestinal: denied any nausea, vomiting, diarrhea Pulmonary: Denied any shortness of breath cough Neurologic denied any new focal deficits All inpatient medications were reviewed and appropriate changes in these medications as dictated in the interval history and assessment and plan. PHYSICAL EXAMINATION: GENERAL: The patient is alert and oriented x3, not in any acute distress. Well developed, well nourished. HEENT: Pupils are round and equally reacting to light. EOMI. No scleral icterus. No conjunctival pallor. Normocephalic, atraumatic. No pharyngeal erythema. No thyromegaly. CARDIOVASCULAR: S1 and S2 present. No murmurs, rubs, or gallops. PULMONARY: Chest is clear to auscultation, no wheezing or crackles. ABDOMEN: Soft, nontender, nondistended, normoactive bowel sounds. No palpable organomegaly. MUSCULOSKELETAL: No joint swelling or deformity. EXTREMITIES: No cyanosis, clubbing, or pedal edema. NEUROLOGICAL: Gross neurological examination did not reveal any focal deficits. SKIN: No rashes. Assessment and plan - Atrial fibrillation with rapid ventricular rate - Elevated TSH probably secondary to syndrome repeat TSH in about a month - History of breast cancer with mets for which patient is receiving chemotherapy - Type II NSTEMI from supply/demand mismatch secondary to atrial fibrillation mild elevated troponins - Hyperlipidemia - Hypertension - Elevated BNP secondary to atrial fibrillation - Diplopia left eye per patient has been going on since her cataract surgery secondary to possibly wearing her eye patch -Recent cataract surgery DVT prophylaxis: on anticoagulation with [facility] recommending oral metoprolol 200 mg BID patient has received an extra 100 mg of oral metoprolol this afternoon. Continue cardiac telemetry. Patient to have outpatient imaging done tomorrow in regards to double vision in the left eye which was ordered by Dr Maciel. This was ordered on an outpatient basis. She has not been cleared for discharge as of yet. Echocardiogram is currently pending at this time. The impression and plan of care has been dictated by Lisa Smith, Nurse Practitioner as directed. Dr. Ne MD I have performed a history and physical examination and medical decision making of this patient, discussed the same with the dictator, and agree with the dictators assessment and plan as written, documented as a scribe. Based on total visit time, I have performed more than 50% of this visit. Objective - Vital Signs Vital signs: Vital Signs Temp 97.8 F 09/07/24 11:09 Pulse 125 H 09/07/24 11:09 Resp 16 09/07/24 11:09 BP 127/74 09/07/24 11:09 Pulse Ox 96 09/07/24 11:09 FiO2 94 09/04/24 04:00 Intake & Output 09/06/24 09/07/24 09/07/24 18:59 06:59 18:59 Intake Total 480 118 Balance 480 118 Weight 80.1 kg 81 kg Intake: Oral 480 118 Other: Voiding Method Toilet # Voids 3 1 1 - Labs CBC & Chem 7: 09/05/24 06:55 09/06/24 05:32 Assessment and Plan Time with Patient: Less than 30
[2024-09-07] MEDS: METOPROLOL TARTRATE 50 MG TAB PO SCH (20:01)
[2024-09-08 04:31] VITALS: RESP 16
[2024-09-08 11:05] LABS: African American GFR (CKD) 45 (>60 ml/min/1.73 sqM); Anion Gap 7 mmol/L; Blood Urea Nitrogen 18 mg/dL (7-17); Calcium 9.1 mg/dL (8.4-10.2); Carbon Dioxide 30 mmol/L (22-30); Chloride 102 mmol/L (98-107); Glucose 135 mg/dL (74-99); Non-African American GFR(CKD) 39 (>60 ml/min/1.73 sqM); Potassium 4.3 mmol/L (3.5-5.1); Sodium 139 mmol/L (137-145)
[2024-09-08] MEDS: DILTIAZEM ORAL 30 MG TAB PO SCH (12:01)
--- NOTE | 2024-09-08 13:27 | CT ---
EXAMINATION TYPE: CT brain wo con DATE OF EXAM: 09/08/2024 COMPARISON: None CLINICAL INDICATION: Female, 89 years old with history of diplopia left eye and right leg heaviness x 3 week; PHH, diplopia left eye CT DLP: 1200.4 mGycm Automated exposure control for dose reduction was used. Findings: The ventricles, basal cisterns and sulci over convexities are moderately enlarged consistent with mod erate generalized atrophy. There is moderate to marked decreased density in the periventricular white matter consistent with chronic ischemic white matter demyelination. There is no mass effect or shift of midline structures. There is no acute intra or extra-axial hemorrhage. The posterior fossa including the brainstem, fourth ventricle and cerebellopontine angles appear tito sly normal. Intraorbital contents appear normal with symmetric. Visualized paranasal sinuses and mastoid air cells are well aerated. There are 2 abnormal soft tissue masses in the left neck adjacent to the sternocleidomastoid the larg est of which measures 17 mm and the smaller measures approximately 16 mm findings are suspicious for adenopathy. CT soft tissue neck with contrast is recommended for further evaluation. IMPRESSION: 1. Moderate atrophy and marked chronic ischemic white matter demyelination 2. No acute bleed or mass effect. 3. Enlarged lymph nodes suspected in the left neck. CT soft tissue neck with contrast is recommended for further evaluation. [facility], Workstation: [id number] 09/08/2024 1:25 PM
--- NOTE | 2024-09-08 13:57 | P.PN ---
Subjective HISTORY OF PRESENT ILLNESS: This is a 89-year-old female with a past medical history significant for hypertension, hyperlipidemia, breast cancer, and former nicotine dependence. Patient follows in the office with Dr. Syed. We have been asked to see the patient in consultation for atrial fibrillation. Patient examined at the bedside in the emergency room. Patient states that she was at the [facility] yesterday receiving chemotherapy. She was found to be tachycardic and was directed to come to the emergency room. Patient was found to be in atrial fibrillation with RVR. Patient was started on IV heparin and IV Cardizem. The patient denies any known history of atrial fibrillation. Patient denied having any palpitations. She denied dizziness or lightheadedness. Denies chest pain or pressure. Denies shortness of breath. The patient is currently on IV Cardizem at 2.5 mg/h. Bedside telemetry reveals atrial fibrillation with a heart rate between 703010. According to the nurse the patient's Cardizem was decreased as she did have an episode with heart rates in the 40s. DIAGNOSTICS: - EKG reveals A-fib with RVR - Chest xray cardiomegaly mild pulmonary vascular congestion - Laboratory data: WBC 9.46. Hemoglobin 10.1. Platelet count 406. Sodium 141. Potassium 4.4. BUN 9. Creatinine 1.23. Troponin 0.121. 0.112. proBNP 3100. TSH 6.310. Free T4 1.04. - Current home cardiac medications include atenolol 25 mg at night, Lipitor 20 mg daily, aspirin 81 mg daily. - Most recent echocardiogram obtained in November 2023 revealed ejection fraction 55 to 60%, trace to mild MR, mild TR - Cardiac catheterization history: Patient denies 09/05/2024 Patient examined this morning at the bedside. Patient currently denies chest pain or pressure. She denies shortness of breath. Denies any palpitations. Telemetry reveals atrial fibrillation with a heart rate around 453672. 09/06/2024 Patient examined this morning at the bedside. Patient currently denies chest pain or pressure. She denies shortness of breath. 2D echo remains pending. Patient remains in atrial fibrillation with controlled ventricular rates. Patie nt does have episodes of RVR. 09/07/2024 Patient examined this morning at the bedside. Patient currently denies chest pain or pressure. She denies shortness of breath at rest. She does report some dyspnea upon ambulation from the bathroom. She remains in atrial fibrillation with heart rate between [id number]. Echocardiogram completed revealing ejection fraction 35 to 40%, mild concentric LVH, no obvious regional wall motion abnormalities, moderate pulmonary hypertension, mild MR, moderate TR 09/08/2024 Patient examined this morning at the bedside. Patient denies chest pain or pressure. She denies shortness of breath. She remains in atrial fibrillation with a heart rate between 58852. Blood pressure in the 130s. PHYSICAL EXAM: VITAL SIGNS: Reviewed. GENERAL: Well-developed in no acute distress. HEENT: Head is normocephalic. Pupils are equal, round. Sclerae anicteric. Mucous membranes of the mouth are moist. Neck supple. No JVD or thyromegaly LUNGS: Respirations even and unlabored. Lungs essentially clear to auscultation bilaterally. HEART: Irregular rate and rhythm. S1 and S2 heard. Systolic murmur noted. ABDOMEN: Soft. Nondistended. Nontender. EXTREMITIES: Normal range of motion. No clubbing or cyanosis. Peripheral pulses intact. No lower extremity edema NEUROLOGIC: Awake and alert. Oriented x 3. ASSESSMENT: New onset atrial fibrillation with RVR New onset cardiomyopathy, suspect nonischemic secondary to A-fib with RVR History of breast cancer with metastasis to liver, spine, and brain per patient, currently on chemotherapy Elevated troponins, type II AK secondary to oxygen supply/demand mismatch Hypertension Hyperlipidemia Former nicotine dependence Obesity: BMI 30.2 Coronary artery calcifications noted on PET scan PLAN: Continue Eliquis 5 mg twice a day Continue metoprolol tartrate 200 mg twice a day Patient with continued episodes of RVR despite high dose metoprolol. While Cardizem is not ideal choice due to cardiomyopathy, will add small dose of Cardizem 30 mg 3 times daily for optimal heart rate control Continue telemetry monitoring Further recommendations pending patient course Nurse practitioner note has been reviewed by physician. Signing provider agrees with the documented findings, assessment, and plan of care documented by JOINT MACHINE OPERATOR as a scribe. Objective - Vital Signs Vital signs: Vital Signs Temp 97.6 F 09/08/24 08:00 Pulse 100 09/08/24 12:00 Resp 16 09/08/24 13:35 BP 130/77 09/08/24 12:00 Pulse Ox 92 L 09/08/24 12:00 FiO2 94 09/04/24 04:00 Intake & Output 09/07/24 09/08/24 09/08/24 18:59 06:59 18:59 Intake Total 238 240 240 Balance 238 240 240 Weight 88 kg Intake: Oral 238 240 240 Other: Voiding Method Toilet Toilet # Voids 3 - Labs CBC & Chem 7: 09/05/24 06:55 09/08/24 09:34 Labs: Abnormal Lab Results - Last 24 Hours (Table) 09/08/24 Range/Units 09:34 BUN 18 H (7-17) mg/dL Creatinine 1.24 H (0.52-1.04) mg/dL Glucose 135 H (74-99) mg/dL
--- NOTE | 2024-09-08 14:56 | P.PN ---
Subjective Progress Note Date: 09/08/24 83-year-old pleasant female was sent in because of atrial fibrillation with rapid unclear rate from doctor's office patient was on his medicine chemotherapy found to be tachycardic was sent in here. Patient was started on IV Cardizem. Patient had any history of atrial fibrillation. EKG showed A-fib with RVR chest x-ray is within normal limits but does read as cardiomegaly with mild pulmonary vascular congestion patient BNP is around 2000 TSH is 6.3 with normal T4 patient had a normal ejection fraction on the echocardiogram that was not done last year. 09/05/2024 Patient's heart rate remains high in the 140s metoprolol dose was increased to 3 times daily echocardiogram is still pending. Patient is otherwise hemodynamically stable 09/06/2024 Patient is evaluated today in follow-up on the cardiac unit. She is resting in bed. Patient was hoping to be discharged home today as she does have a follow- up appointment at [facility] outpatient imaging tomorrow states that she will be having imaging of her head in regards to her cataracts in the left eye. She is not having any acute complaints. She remains in atrial fibrillation with a heart rate into the 120s. Echocardiogram reveals an EF 35-40%. 09/07/2024 Patient was evaluated today in follow-up on the cardiac unit. She remains in atrial fibrillation with rapid ventricular rate up into the 130s. She continues on oral Cardizem 30 mg 3 times daily as well as oral metoprolol 200 mg twice daily. Pending further recommendations from cardiology. Patient is very upset as she thought that she has been going for her brain scan that was scheduled as an outpatient. Did discuss with the patient that the brain CT without contrast has been ordered to have inpatient today as she did reveal that she has been having double vision in her left eye which has been ongoing since June as an outpatient; as well as heaviness in her right leg and this has been ongoing for a couple weeks. Unable to complete a brain CT with oral contrast as her BUN creatinine are abnormal with a GFR of 39. Brain CT reveals moderate atrophy and marked chronic ischemic white matter demyelination, no acute bleed or mass effect. Enlarged lymph nodes suspected in the left neck. CT soft tissue neck with contrast is recommended for further evaluation. Patient did have a PET scan on an outpatient basis in July of 2024 with findings of areas of uptake in the mediastinum and left hilar region suspicious for new metastasis. She has known metastatic breast cancer. Brain MRI in July of 2024 reveals no evidence of intracranial mass, acute/subacute infarct or abnormal enhancement. Nonspecific white matter changes, likely related to small vessel ischemic disease. Review of Systems Constitutional: Denied any fatigue denied any fever. Cardio vascular: denied any chest pain, palpitations Gastrointestinal: denied any nausea, vomiting, diarrhea Pulmonary: Denied any shortness of breath cough Neurologic denied any new focal deficits All inpatient medications were reviewed and appropriate changes in these medications as dictated in the interval history and assessment and plan. PHYSICAL EXAMINATION: GENERAL: The patient is alert and oriented x3, not in any acute distress. Well developed, well nourished. HEENT: Pupils are round and equally reacting to light. EOMI. No scleral icterus. No conjunctival pallor. Normocephalic, atraumatic. No pharyngeal erythema. No thyromegaly. CARDIOVASCULAR: S1 and S2 present. No murmurs, rubs, or gallops. PULMONARY: Chest is clear to auscultation, no wheezing or crackles. ABDOMEN: Soft, nontender, nondistended, normoactive bowel sounds. No palpable organomegaly. MUSCULOSKELETAL: No joint swelling or deformity. EXTREMITIES: No cyanosis, clubbing, or pedal edema. NEUROLOGICAL: Gross neurological examination did not reveal any focal deficits. SKIN: No rashes. Assessment and plan - Atrial fibrillation with rapid ventricular rate - Elevated TSH probably secondary to syndrome repeat TSH in about a month - History of breast cancer with mets for which patient is receiving chemotherapy - Type II NSTEMI from supply/demand mismatch secondary to atrial fibrillation mild elevated troponins - Hyperlipidemia - Hypertension - Elevated BNP secondary to atrial fibrillation - Diplopia left eye per patient has been going on since her cataract surgery secondary to possibly wearing her eye patch -Recent cataract surgery DVT prophylaxis: on anticoagulation with Eliquis Cardiology recommending oral metoprolol 200 mg BID patient has received an extra 100 mg of oral metoprolol this afternoon. Started on oral cardizem. Continue cardiac telemetry. Brain CT without contrast completed with no acute findings. She has not been cleared for discharge as of yet. Long conversation with patient at the bedside regarding ordering of the brain CT. She is not understanding. The impression and plan of care has been dictated by Lisa Smith, Nurse Practitioner as directed. Dr. Ne MD I have performed a history and physical examination and medical decision making of this patient, discussed the same with the dictator, and agree with the dictators assessment and plan as written, documented as a scribe. Based on total visit time, I have performed more than 50% of this visit. Objective - Vital Signs Vital signs: Vital Signs Temp 97.6 F 09/08/24 08:00 Pulse 100 09/08/24 12:00 Resp 16 09/08/24 13:35 BP 130/77 09/08/24 12:00 Pulse Ox 92 L 09/08/24 12:00 FiO2 94 09/04/24 04:00 Intake & Output 09/07/24 09/08/24 09/08/24 18:59 06:59 18:59 Intake Total 238 240 240 Balance 238 240 240 Weight 88 kg Intake: Oral 238 240 240 Other: Voiding Method Toilet Toilet # Voids 3 - Labs CBC & Chem 7: 09/05/24 06:55 09/08/24 09:34 Labs: Abnormal Lab Results - Last 24 Hours (Table) 09/08/24 Range/Units 09:34 BUN 18 H (7-17) mg/dL Creatinine 1.24 H (0.52-1.04) mg/dL Glucose 135 H (74-99) mg/dL Assessment and Plan Time with Patient: Less than 30
[2024-09-09 07:09] LABS: African American GFR (CKD) 44 (>60 ml/min/1.73 sqM); Anion Gap 9 mmol/L; Blood Urea Nitrogen 19 mg/dL (7-17); Calcium 9.3 mg/dL (8.4-10.2); Carbon Dioxide 27 mmol/L (22-30); Chloride 103 mmol/L (98-107); Glucose 113 mg/dL (74-99); Non-African American GFR(CKD) 38 (>60 ml/min/1.73 sqM); Potassium 4.2 mmol/L (3.5-5.1); Sodium 139 mmol/L (137-145)
[2024-09-09 09:36] VITALS: TEMP 97.6
--- NOTE | 2024-09-09 10:21 | US ---
EXAMINATION TYPE: US kidneys/renal and bladder DATE OF EXAM: 09/09/2024 COMPARISON: PET CT 2024 CLINICAL INDICATION: Female, 89 years old with history of MUSA; MUSA TECHNIQUE: Grayscale imaging of the bilateral kidneys and urinary bladder: FINDINGS: EXAM MEASUREMENTS: Right Kidney: 8.7 x 4.7 x 5.0 cm Left Kidney: 8.6 x 4.9 x 4.7 cm Right Kidney: Lower pole was gassed out. Limited measurement, but measures small. Left Kidney: Lower pole was gassed out. Limited measurement, but measures small. Bladder: Appears wnl Bilateral Jets seen: No, only left jet was seen during exam. Incidental findin hypoechoic ill-defined areas seen in the liver, larger area measures 7.3 x 5.6 x 3.4 cm. No hydronephrosis or nephrolithiasis. Small bilateral kidneys. No renal lesion identified. Cortical m edullary differentiation is maintained bilaterally. Urinary bladder is within normal limits. Only the left ureteral jet was seen. There are 2 visualized ill-defined hypoechoic lesions within the liver w hich correspond to PET/CT and demonstrated FDG activity IMPRESSION: 1. No hydronephrosis or nephrolithiasis. 2. Hepatic lesions which demonstrated FDG activity on prior PET CT scan and are concerning for metast asis. [facility], , 09/09/2024 10:19 AM
[2024-09-09 11:11] VITALS: BMI 29.5
[2024-09-09] MEDS: DILTIAZEM ORAL 30 MG TAB PO STA (12:38)
[2024-09-09 12:44] VITALS: BP 109/70; PULSE 112
--- NOTE | 2024-09-09 12:58 | P.PN ---
Subjective HISTORY OF PRESENT ILLNESS: This is a 89-year-old female with a past medical history significant for hypertension, hyperlipidemia, breast cancer, and former nicotine dependence. Patient follows in the office with Dr. Syed. We have been asked to see the patient in consultation for atrial fibrillation. Patient examined at the bedside in the emergency room. Patient states that she was at the [facility] yesterday receiving chemotherapy. She was found to be tachycardic and was directed to come to the emergency room. Patient was found to be in atrial fibrillation with RVR. Patient was started on IV heparin and IV Cardizem. The patient denies any known history of atrial fibrillation. Patient denied having any palpitations. She denied dizziness or lightheadedness. Denies chest pain or pressure. Denies shortness of breath. The patient is currently on IV Cardizem at 2.5 mg/h. Bedside telemetry reveals atrial fibrillation with a heart rate between 730444. According to the nurse the patient's Cardizem was decreased as she did have an episode with heart rates in the 40s. DIAGNOSTICS: - EKG reveals A-fib with RVR - Chest xray cardiomegaly mild pulmonary vascular congestion - Laboratory data: WBC 9.46. Hemoglobin 10.1. Platelet count 406. Sodium 141. Potassium 4.4. BUN 9. Creatinine 1.23. Troponin 0.121. 0.112. proBNP 3100. TSH 6.310. Free T4 1.04. - Current home cardiac medications include atenolol 25 mg at night, Lipitor 20 mg daily, aspirin 81 mg daily. - Most recent echocardiogram obtained in November 2023 revealed ejection fraction 55 to 60%, trace to mild MR, mild TR - Cardiac catheterization history: Patient denies 09/05/2024 Patient examined this morning at the bedside. Patient currently denies chest pain or pressure. She denies shortness of breath. Denies any palpitations. Telemetry reveals atrial fibrillation with a heart rate around 488841. 09/06/2024 Patient examined this morning at the bedside. Patient currently denies chest pain or pressure. She denies shortness of breath. 2D echo remains pending. Patient remains in atrial fibrillation with controlled ventricular rates. Patie nt does have episodes of RVR. 09/07/2024 Patient examined this morning at the bedside. Patient currently denies chest pain or pressure. She denies shortness of breath at rest. She does report some dyspnea upon ambulation from the bathroom. She remains in atrial fibrillation with heart rate between 272489. Echocardiogram completed revealing ejection fraction 35 to 40%, mild concentric LVH, no obvious regional wall motion abnormalities, moderate pulmonary hypertension, mild MR, moderate TR 09/08/2024 Patient examined this morning at the bedside. Patient denies chest pain or pressure. She denies shortness of breath. She remains in atrial fibrillation with a heart rate between 15248. Blood pressure in the 130s. 09/09/2024 Patient examined this morning to bedside. Patient denies chest pain or pressure. She denies shortness of breath. Telemetry reveals atrial fibrillation with a heart rate around 115. Pressure 128/88. She is on room air with oxygen saturations greater than 92%. PHYSICAL EXAM: VITAL SIGNS: Reviewed. GENERAL: Well-developed in no acute distress. HEENT: Head is normocephalic. Pupils are equal, round. Sclerae anicteric. Mucous membranes of the mouth are moist. Neck supple. No JVD or thyromegaly LUNGS: Respirations even and unlabored. Lungs essentially clear to auscultation bilaterally. HEART: Irregular rate and rhythm. S1 and S2 heard. Systolic murmur noted. ABDOMEN: Soft. Nondistended. Nontender. EXTREMITIES: Normal range of motion. No clubbing or cyanosis. Peripheral pulses intact. No lower extremity edema NEUROLOGIC: Awake and alert. Oriented x 3. 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 While Cardizem is not ideal choice due to cardiomyopathy, small dose of Cardizem 30 mg 3 times daily added on 09/08/2024 for optimal heart rate control. Increase oral Cardizem to 60 mg 3 times daily. Patient may be discharged from a cardiac standpoint if patient's heart rates stabilize this afternoon Continue telemetry monitoring Further recommendations pending patient course Nurse practitioner note has been reviewed by physician. Signing provider agrees with the documented findings, assessment, and plan of care documented by SCHOOL ADJUSTMENT COUNSELOR as a scribe. Objective - Vital Signs Vital signs: Vital Signs Temp 98.4 F 09/08/24 21:40 Pulse 114 H 09/09/24 04:13 Resp 16 09/09/24 04:13 BP 128/88 09/09/24 04:13 Pulse Ox 95 09/09/24 04:13 FiO2 94 09/04/24 04:00 Intake & Output 09/08/24 09/09/24 09/09/24 18:59 06:59 18:59 Intake Total 358 Balance 358 Weight 88.3 kg Intake: Oral 358 Other: Voiding Method Toilet Toilet # Voids 2 3 - Labs CBC & Chem 7: 09/05/24 06:55 09/09/24 05:59 Labs: Abnormal Lab Results - Last 24 Hours (Table) 09/08/24 09/09/24 Range/Units 09:34 05:59 BUN 18 H 19 H (7-17) mg/dL Creatinine 1.24 H 1.27 H (0.52-1.04) mg/dL Glucose 135 H 113 H (74-99) mg/dL
[2024-09-09] MEDS ORDERED: DILTIAZEM ORAL 60 MG TAB PO SCH (16:00)
--- NOTE | 2024-09-13 09:40 | CDI ---
Documentation Clarification Form Date: 09/13/2024 08:31:58 AM From: Agata John RN, CCDS Phone: [phone] Admit Date: 09/03/2024 01:43:00 PM Patient Name: Jessica Buckner Visit Number: [id number] Discharge Date: 09/09/2024 03:57:00 PM ATTENTION: The Clinical Documentation Specialists (CDI) and [facility] Coding Staff appreciate your assistance in clarifying documentation. Please respond to the clarification below the line at the bottom and electronically sign. The CDI & [facility] Coding staff will review the response and follow-up if needed. Please note: Queries are made part of the Legal Health Record. If you have any questions, please contact the author of this message via ITS. DoctorMichael Simeon Atrial Fibrillation is documented in the Cardiology consult and subsequent progress notes.. Additional clarification regarding the type of atrial fibrillation is requested. History/Risk Factors: Breast Cancer, Hyperlipidemia, Hypertension Clinical Indicators: 89-year-old female presented to the ER on 09/03/24 for evaluation of irregular heart rate. early learning teacher found heart rates ranging from 70-140s bpm. She denies any chest pain, palpitations, shortness of breath. 09/03 VS: 128/82 134 17 98.0 99% RA 09/03 Labs: Cr 1.23 Troponin 0.121, 0.112 BNP 3100 09/03 CXR: Cardiomegaly and mild pulmonary vascular congestion. Correlate with BNP for congestive heart failure. EKG/telemetry Atrial fibrillation with RVR 101 BPM 09/06 ECHO: Ejection fraction 35to 40%, mold concentric LVH, no obvious regional wall motion abnormalities, moderate pulmonary hypertension, mild MR, moderate TR. 09/06 cardiology progress notes: Patient remains in atrial fibrillation with controlled ventricular rates. Patient does have episodes of RVR. Assessment: New onset atrial fibrillation with RVR 09/08 Cardiology progress note: She remains in atrial fibrillation with a heart rate between 90-120 blood pressure in the 130s. 09/09 cardiology progress note: Telemetry reveals atrial fibrillation with a heart rate around 115 . 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
--- NOTE | 2024-09-14 09:28 | P.DS ---
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 secondary to A-fib with RVR - Elevated TSH probably secondary to syndrome repeat TSH in about a month - History of breast cancer with mets for which patient is receiving chemotherapy - Type II NSTEMI from supply/demand mismatch secondary to atrial fibrillation mild elevated troponins - Hyperlipidemia - Hypertension - Elevated BNP secondary to atrial fibrillation - Diplopia left eye per patient has been going on since her cataract surgery secondary to possibly wearing her eye patch -Recent cataract surgery -Obesity: BMI 30.2 -Coronary artery calcifications noted on PET scan Discharge Disposition Patient stable for discharge home. Patient to continue Eliquis 5 mg twice daily. Patient should continue metoprolol 200 mg twice daily. Cardizem was add ed for optimal heart rate control although Cardizem was not the ideal choice secondary to the decreased ejection fraction. Patient had a conditional discharge and that she may be discharged home later in the afternoon if her heart rate stabilizes however patient was discharged home with a heart rate of 104 - 110 by nursing. She was advised to return to the ER if she experiences any chest pain shortness of breath palpitations dizziness lightheadedness. She is advised to follow-up with Dr. Maciel regarding the imaging that has been completed and further recommendations for the diplopia in the left eye. CT soft tissue neck with contrast is recommended for further evaluation of the enlarged lymph in the neck. Defer to outpatient follow up with PCP. Hospital Course This is an 83-year-old pleasant female was sent in because of atrial fibrillation with rapid unclear rate from doctor's office. Patient was at her chemotherapy appointment and was found to be tachycardic and told to come strait to the ER. She has no prior history of atrial fibrillation. Had a recent cataract surgery for which she has been patching her left eye and now experiencing double vision and has been following with dr. Maciel for this as an outpatient. She recently underwent PET scan and brain MRI on an outpatient basis in july with no acute findings on brain MRI. Patient was admitted to the hospital and started on IV cardizem. EKG showed A-fib with RVR chest x-ray is within normal limits but does read as cardiomegaly with mild pulmonary vascular congestion patient BNP is around 2000 TSH is 6.3 with normal T4. Echocardiogram reveals an EF 35-40%. She remains in atrial fibrillation with rapid ventricular rate up into the 130s. She continues on oral Cardizem 30 mg 3 times daily as well as oral metoprolol 200 mg twice daily. Patient was supposed to have a brain CT with and without contrast done as an outpatient however she was hospitalized. Unable to complete a brain CT with oral contrast as her BUN creatinine are abnormal with a GFR of 39. Brain CT reveals moderate atrophy and marked chronic ischemic white matter demyelination, no acute bleed or mass effect. Enlarged lymph nodes suspected in the left neck. CT soft tissue neck with contrast is recommended for further evaluation. Patient did have a PET scan on an outpatient basis in July of 2024 with findings of areas of uptake in the mediastinum and left hilar region suspicious for new metastasis. She has known metastatic breast cancer. Brain MRI in July of 2024 reveals no evidence of intracranial mass, acute/subacute infarct or abnormal enhancement. Nonspecific white matter changes, likely related to small vessel ischemic disease. This was discussed with the patient. She has not been experiencing any chest pain or shortness of breath and no palpitations. She is a sodium level of 139 potassium of 4.2 BUN of 19 creatinine of 1.27. Patient does want to discharge home and is frustrated with remaining in the hospital. Cardiac medications were adjusted. Heart rate has improved and she will be discharged home. Please see medication reconciliation for a list of current medications. Thank you for allowing us to participate in the care of this patient. The impression and plan of care has been dictated by Lisa Smith Nurse Practitioner as directed. Dr. Ne MD I have performed a history and physical examination and medical decision making of this patient, discussed the same with the dictator, and agree with the dictators assessment and plan as written, documented as a scribe. Based on total visit time, I have performed more than 50% of this visit. Patient Condition at Discharge: Stable Plan - Discharge Summary New Discharge Prescriptions: New Diltiazem Oral [Cardizem*] 60 mg PO TID #90 tab Apixaban [Eliquis] 5 mg PO BID #60 tab Metoprolol Tartrate [Lopressor] 200 mg PO BID #120 tablet Continue Ergocalciferol [Vitamin D2 (1250 Mcg = 75539 Iu)] 1,250 mcg PO Q14D Cyanocobalamin (Vitamin B-12) [Vitamin B-12] 1,000 mcg PO DAILY Gabapentin [Neurontin] 400 mg PO HS Esomeprazole Magnesium [NexIUM] 40 mg PO DAILY Fulvestrant 500 mg IM DIRECTED Cholecalciferol (Vitamin D3) [Vitamin D3 (50 Mcg = 2000 Iu)] 50 mcg PO DAILY Amitriptyline HCl [Elavil] 50 mg PO HS Atorvastatin [Lipitor] 20 mg PO DAILY Citalopram Hydrobromide [CeleXA] 10 mg PO DAILY Levothyroxine Sodium [Levo-T] 50 mcg PO DAILY Aspirin [Adult Low Dose Aspirin EC] 81 mg PO DAILY Gabapentin [Neurontin] 100 mg PO DAILY Multivit-Min/Iron/Folic/Lutein [Centrum Silver Women Tablet] 1 tab PO DAILY Ketorolac 0.5% Ophth Soln [Acular 0.5%] 1 drop BOTH EYES QID Butalb/APAP/Caff 50-325-40Mg [Fioricet 50-325-40] 1 tab PO Q6H PRN PRN Reason: Headache Lapatinib Ditosylate [Tykerb] 1,000 mg PO DAILY Garlic(Unknown Dose) 1 tab PO DAILY Sodium Chloride 5% Ophth Soln [Fabiano 128] 1 drop BOTH EYES QID Collagen Skin Renewal 833-30mg 1 tab PO DAILY Discontinued atenoloL 25 mg PO HS Discharge Medication List Amitriptyline HCl [Elavil] 50 mg PO HS 12/23/20 [History] Atorvastatin [Lipitor] 20 mg PO DAILY 12/23/20 [History] Citalopram Hydrobromide [CeleXA] 10 mg PO DAILY 12/23/20 [History] Cyanocobalamin (Vitamin B-12) [Vitamin B-12] 1,000 mcg PO DAILY 12/23/20 [History] Ergocalciferol [Vitamin D2 (1250 Mcg = 54504 Iu)] 1,250 mcg PO Q14D 12/23/20 [History] Levothyroxine Sodium [Levo-T] 50 mcg PO DAILY 12/23/20 [History] Aspirin [Adult Low Dose Aspirin EC] 81 mg PO DAILY 06/06/23 [History] Gabapentin [Neurontin] 100 mg PO DAILY 06/06/23 [History] Gabapentin [Neurontin] 400 mg PO HS 06/06/23 [History] Multivit-Min/Iron/Folic/Lutein [Centrum Silver Women Tablet] 1 tab PO DAILY 06/06/23 [History] Butalb/APAP/Caff 50-325-40Mg [Fioricet 50-325-40] 1 tab PO Q6H PRN 09/03/24 [History] Cholecalciferol (Vitamin D3) [Vitamin D3 (50 Mcg = 2000 Iu)] 50 mcg PO DAILY 09/03/24 [History] Collagen Skin Renewal 833-30mg 1 tab PO DAILY 09/03/24 [History] Esomeprazole Magnesium [NexIUM] 40 mg PO DAILY 09/03/24 [History] Fulvestrant 500 mg IM DIRECTED 09/03/24 [History] Garlic(Unknown Dose) 1 tab PO DAILY 09/03/24 [History] Ketorolac 0.5% Ophth Soln [Acular 0.5%] 1 drop BOTH EYES QID 09/03/24 [History] Lapatinib Ditosylate [Tykerb] 1,000 mg PO DAILY 09/03/24 [History] Sodium Chloride 5% Ophth Soln [Fabiano 128] 1 drop BOTH EYES QID 09/03/24 [History] Apixaban [Eliquis] 5 mg PO BID #60 tab 09/09/24 [Rx] Diltiazem Oral [Cardizem*] 60 mg PO TID #90 tab 09/09/24 [Rx] Metoprolol Tartrate [Lopressor] 200 mg PO BID #120 tablet 09/09/24 [Rx] Follow up Appointment(s)/Referral(s): Guillermo Duggan MD [STAFF PHYSICIAN] - 09/21/24 1:30 pm Gely Patel MD [STAFF PHYSICIAN] - 09/22/24 11:30 am Babatunde Walsh MD [Primary Care Provider] - 1-2 days Ambulatory/Diagnostic Orders: Basic Metabolic Panel [LAB.AMB] Time Frame: 3 Days, Location: None Selected Patient Instructions/Handouts: A-fib (Atrial Fibrillation) (DC) Activity/Diet/Wound Care/Special Instructions: Please follow up with PCP and Dr. Maciel on discharge regarding the diplopia. Discharge Disposition: HOME SELF-CARE
== END 2024-09-09 15:57 | disposition home or self-care (01) | DRG 281 ==
LOC: EC 12:28 → 3SCARD 13:43
PROVIDERS: ADMIT Hospitalist; ATTEND Hospitalist
DX: I48.19 Other persistent atrial fibrillation (principal); I21.A1 Myocardial infarction type 2; C78.7 Secondary malignant neoplasm of liver and intrahepatic bile duct; C79.31 Secondary malignant neoplasm of brain; C79.51 Secondary malignant neoplasm of bone; C50.919 Malignant neoplasm of unspecified site of unspecified female breast; I10 Essential (primary) hypertension; E66.9 Obesity, unspecified; I42.8 Other cardiomyopathies; G62.9 Polyneuropathy, unspecified; E07.9 Disorder of thyroid, unspecified; Z68.30 Body mass index [BMI] 30.0-30.9, adult; H53.2 Diplopia; I25.10 Atherosclerotic heart disease of native coronary artery without angina pectoris; I25.84 Coronary atherosclerosis due to calcified coronary lesion; E78.5 Hyperlipidemia, unspecified; Z79.01 Long term (current) use of anticoagulants; Z87.891 Personal history of nicotine dependence; Z79.82 Long term (current) use of aspirin; Z79.890 Hormone replacement therapy; Z79.899 Other long term (current) drug therapy; Z28.310 Unvaccinated for COVID-19
CPT/HCPCS: 36415; 70450; 71046; 76770; 80048; 80053; 83036; 83735; 83880; 84439; 84443; 84484; 85025; 85027; 85610; 85730; 93005; 93306; 96361; 96365; 96366; 96368; 99291

== ENCOUNTER 2024-09-17 12:42 | Inpatient (IN) | payer MEDICARE ==
--- NOTE | 2024-09-17 13:11 | ED ---
General Adult HPI - General Chief complaint: Arrhythmia/Palpitations Stated complaint: Afib,Fall Time Seen by Provider: 09/17/24 12:53 Source: patient, RN notes reviewed, old records reviewed Mode of arrival: ambulatory Limitations: no limitations - History of Present Illness Initial comments: 89 female presenting [id number] generalized weakness, confusion, palpitation. Patient has history of atrial fibrillation. She has a history of metastatic b reast cancer. She was sent in by her primary care for evaluation. No pain complaints at the time my evaluation. The majority of the history is obtained from her son who is at bedside. - Related Data Home Medications Medication Instructions Recorded Confirmed Amitriptyline HCl [Elavil] 50 mg PO HS 12/23/20 09/17/24 Atorvastatin [Lipitor] 20 mg PO DAILY 12/23/20 09/17/24 Citalopram Hydrobromide [CeleXA] 10 mg PO DAILY 12/23/20 09/17/24 Cyanocobalamin (Vitamin B-12) 1,000 mcg PO DAILY 12/23/20 09/17/24 [Vitamin B-12] Ergocalciferol [Vitamin D2 (1250 1,250 mcg PO Q14D 12/23/20 09/17/24 Mcg = 13559 Iu)] Levothyroxine Sodium [Levo-T] 50 mcg PO DAILY 12/23/20 09/17/24 Aspirin [Adult Low Dose Aspirin EC] 81 mg PO DAILY 06/06/23 09/17/24 Gabapentin [Neurontin] 100 mg PO DAILY 06/06/23 09/17/24 Gabapentin [Neurontin] 400 mg PO HS 06/06/23 09/17/24 Multivit-Min/Iron/Folic/Lutein 1 tab PO DAILY 06/06/23 09/17/24 [Centrum Silver Women Tablet] Butalb/APAP/Caff 50-325-40Mg 1 tab PO Q6H PRN 09/03/24 09/17/24 [Fioricet 50-325-40] Cholecalciferol (Vitamin D3) 50 mcg PO DAILY 09/03/24 09/17/24 [Vitamin D3 (50 Mcg = 2000 Iu)] Collagen Skin Renewal 833-30mg 1 tab PO DAILY 09/03/24 09/17/24 Esomeprazole Magnesium [NexIUM] 40 mg PO DAILY 09/03/24 09/17/24 Fulvestrant 500 mg IM DIRECTED 09/03/24 09/17/24 Garlic(Unknown Dose) 1 tab PO DAILY 09/03/24 09/17/24 Lapatinib Ditosylate [Tykerb] 1,000 mg PO DAILY 09/03/24 09/17/24 Previous Rx's Medication Instructions Recorded Apixaban [Eliquis] 5 mg PO BID #60 tab 09/09/24 Diltiazem Oral [Cardizem*] 60 mg PO TID #90 tab 09/09/24 Metoprolol Tartrate [Lopressor] 200 mg PO BID #120 tablet 09/09/24 Allergies Allergy/AdvReac Type Severity Reaction Status Date / Time codeine Allergy Rash/Hives Verified 09/17/24 15:17 Review of Systems ROS Statement: Those systems with pertinent positive or pertinent negative responses have been documented in the HPI. ROS Other: All systems not noted in ROS Statement are negative. Past Medical History Past Medical History: Cancer, Hyperlipidemia, Hypertension Additional Past Medical History / Comment(s): herniated disc, neuropathy, low thyroid, BREASST CANCER - 2022 History of Any Multi-Drug Resistant Organisms: None Reported Past Surgical History: Appendectomy, Hysterectomy Additional Past Surgical History / Comment(s): toxic goiter; gallblader removal Past Anesthesia/Blood Transfusion Reactions: No Reported Reaction Past Psychological History: Depression Smoking Status: Former smoker Past Alcohol Use History: None Reported Past Drug Use History: None Reported General Exam Limitations: no limitations General appearance: in no apparent distress, lethargic Head exam: Present: atraumatic, normocephalic Eye exam: Present: normal appearance, PERRL ENT exam: Present: mucous membranes dry Respiratory exam: Present: normal lung sounds bilaterally. Absent: respiratory distress, wheezes Cardiovascular Exam: Present: tachycardia, irregular rhythm GI/Abdominal exam: Present: soft. Absent: distended, tenderness, guarding Neurological exam: Present: alert. Absent: motor sensory deficit Skin exam: Present: warm, dry, intact, pallor Course Vital Signs 09/17/24 09/17/24 09/17/24 12:46 13:08 13:30 Temperature 97.6 F Pulse Rate 152 H 160 H 168 H Respiratory 18 20 19 Rate Blood Pressure 126/86 146/99 146/99 O2 Sat by Pulse 98 100 Oximetry 09/17/24 09/17/24 09/17/24 14:00 14:30 15:00 Temperature Pulse Rate 133 H 141 H 152 H Respiratory 20 14 15 Rate Blood Pressure 139/84 144/94 O2 Sat by Pulse 99 99 98 Oximetry 09/17/24 09/17/24 15:30 16:00 Temperature Pulse Rate 149 H 135 H Respiratory 15 16 Rate Blood Pressure 146/80 131/108 O2 Sat by Pulse 98 99 Oximetry Medical Decision Making - Medical Decision Making Was pt. sent in by a medical professional or institution (, PA, DIRECTOR OF STRATEGIC MARKETING, urgent care, hospital, or fdc...) When possible be specific @ -No Did you speak to anyone other than the patient for history (EMS, parent, family, police, friend...)? What history was obtained from this source @Patient's son Did you review nursing and triage notes (agree or disagree)? Why? @ -I reviewed and agree with nursing and triage notes Were old charts reviewed (outside hosp., previous admission, EMS record, old EKG, old radiological studies, urgent care reports/EKG's, fdc records)? Report findings @ -No old charts were reviewed Differential Weakness: Hypoglycemia, shock, sepsis, hyponatremia, anemia, infection, ND, ETOH, adverse medicine reaction, overdose, stroke, this is not meant to be an all-inclusive list. Differential Palpitations Ventricular arrhythmias, atrial arrhythmias, myocardial infarction, anemia, thyrotoxicosis, electrolyte imbalance, hypokalemia, pulmonary embolism, pulmonary disease, drugs, alcohol, anxiety, stress.... This is not meant to be an all-inclusive list. EKG interpreted by me (3pts min.). @Atrial fibrillation with RVR rate of 156, QRS duration 78, QTc [address] segment elevation. X-rays interpreted by me (1pt min.). @ -Chest x-ray showing cardiomegaly, CHF CT interpreted by me (1pt min.). @ -None done U/S interpreted by me (1pt. min.). @ -None done What testing was considered but not performed or refused? (CT, X-rays, U/S, labs)? Why? @ -None What meds were considered but not given or refused? Why? @ -None Did you discuss the management of the patient with other professionals (pro fessionals i.e. , PA, DIRECTOR OF STRATEGIC MARKETING, lab, RT, psych nurse, social worker assistant, outpatient physical therapist assistant, teacher, senior administrative services officer, director case)? Give summary @ -EMH Was smoking cessation discussed for >3mins.? @ -No Was critical care preformed (if so, how long)? @ -Yes, 35 minutes Were there social determinants of health that impacted care today? How? (Homelessness, low income, unemployed, alcoholism, drug addiction, transpo rtation, low edu. Level, literacy, decrease access to med. care, senior living, rehab)? @ -No Was there de-escalation of care discussed even if they declined (Discuss DNR or withdrawal of care, Hospice)? DNR status @ -No What co-morbidities impacted this encounter? (DM, HTN, Smoking, COPD, CAD, Cancer, CVA, ARF, Chemo, Hep., AIDS, mental health diagnosis, sleep apnea, morbid obesity)? @ -Metastatic breast cancer, A-fib, CHF Was patient admitted / discharged? Hospital course, mention meds given and rou te, prescriptions, significant lab abnormalities, going to OR and other pertinent info. @ -[89-year-old female presenting with generalized weakness, palpitation, history of metastatic breast cancer, atrial fibrillation, patient is in atrial fibrillation with RVR. Patient started on Cardizem. She is anticoagulated on Eliquis at baseline. Chest x-ray shows CHF. Patient given IV Lasix and contin ued on Cardizem. Admitted to internal medicine with cardiology on consultation. Patient will likely require placement. Undiagnosed new problem with uncertain prognosis? @ -No Drug Therapy requiring intensive monitoring for toxicity (Heparin, Nitro, Insulin, Cardizem)? @ -No Were any procedures done? @ -No Diagnosis/symptom? @ -A-fib with RVR, CHF Acute, or Chronic, or Acute on Chronic? @Acute on chronic Uncomplicated (without systemic symptoms) or Complicated (systemic symptoms)? @ -Default Side effects of treatment? @ -No Exacerbation, Progression, or Severe Exacerbation? @ -No Poses a threat to life or bodily function? How? (Chest pain, USA, ND, pneumonia, PE, COPD, DKA, ARF, appy, cholecystitis, CVA, Diverticulitis, Homicidal, Suicidal, threat to staff... and all critical care pts) @ Yes, Arrhythmia, metastatic cancer - Lab Data Result diagrams: 09/17/24 13:16 09/17/24 13:16 Lab Results 09/17/24 09/17/24 09/17/24 Range/Units 13:16 13:16 13:16 WBC 10.71 H (4.50-10.00) 10*3/uL RBC 3.36 L (4.10-5.20) 10*6/uL Hgb 10.4 L (12.0-15.0) g/dL Hct 32.3 L (37.2-46.3) % MCV 96.1 (80.0-97.0) fL MCH 31.0 (27.0-32.0) pg MCHC 32.2 (32.0-37.0) g/dL Plt Count 481 H (140-440) 10*3/uL MPV 9.5 (9.5-12.2) fL Immature Gran % (Auto) 0.6 % Neutrophils % 81.5 % Lymphocytes % 12.3 % Monocytes % 4.7 % Eosinophils % 0.2 % Basophils % 0.7 % Immature Gran # 0.06 H (0.00-0.04) 10*3/uL Neutrophils # 8.73 H (1.80-7.70) 10*3/uL Lymphocytes # 1.32 (0.90-5.00) 10*3/uL Monocytes # 0.50 (0.20-1.00) 10*3/uL Eosinophils # 0.02 L (0.04-0.35) 10*3/uL Basophils # 0.08 (0.00-0.10) 10*3/uL PT 13.1 H (10.0-12.5) sec INR 1.2 H (<1.2) APTT 23.9 (22.0-30.0) sec Sodium 139 (137-145) mmol/L Potassium 4.5 (3.5-5.1) mmol/L Chloride 105 (98-107) mmol/L Carbon Dioxide 22 (22-30) mmol/L Anion Gap 12 mmol/L BUN 16 (7-17) mg/dL Creatinine 1.03 (0.52-1.04) mg/dL Est GFR (CKD-EPI)AfAm 57 (>60 ml/min/1.73 sqM) Est GFR (CKD-EPI)NonAf 49 (>60 ml/min/1.73 sqM) Glucose 141 H (74-99) mg/dL Calcium 8.9 (8.4-10.2) mg/dL Magnesium 1.9 (1.6-2.3) mg/dL Total Bilirubin 1.1 (0.2-1.3) mg/dL AST 100 H (14-36) U/L ALT 68 H (4-34) U/L Alkaline Phosphatase 233 H (38-126) U/L Troponin I (0.000-0.034) ng/mL Total Protein 7.5 (6.3-8.2) g/dL Albumin 3.9 (3.5-5.0) g/dL 09/17/ Range/Units 13:16 WBC (4.50-10.00) 10*3/uL RBC (4.10-5.20) 10*6/uL Hgb (12.0-15.0) g/dL Hct (37.2-46.3) % MCV (80.0-97.0) fL MCH (27.0-32.0) pg MCHC (32.0-37.0) g/dL Plt Count (140-440) 10*3/uL MPV (9.5-12.2) fL Immature Gran % (Auto) % Neutrophils % % Lymphocytes % % Monocytes % % Eosinophils % % Basophils % % Immature Gran # (0.00-0.04) 10*3/uL Neutrophils # (1.80-7.70) 10*3/uL Lymphocytes # (0.90-5.00) 10*3/uL Monocytes # (0.20-1.00) 10*3/uL Eosinophils # (0.04-0.35) 10*3/uL Basophils # (0.00-0.10) 10*3/uL PT (10.0-12.5) sec INR (<1.2) APTT (22.0-30.0) sec Sodium (137-145) mmol/L Potassium (3.5-5.1) mmol/L Chloride (98-107) mmol/L Carbon Dioxide (22-30) mmol/L Anion Gap mmol/L BUN (7-17) mg/dL Creatinine (0.52-1.04) mg/dL Est GFR (CKD-EPI)AfAm (>60 ml/min/1.73 sqM) Est GFR (CKD-EPI)NonAf (>60 ml/min/1.73 sqM) Glucose (74-99) mg/dL Calcium (8.4-10.2) mg/dL Magnesium (1.6-2.3) mg/dL Total Bilirubin (0.2-1.3) mg/dL AST (14-36) U/L ALT (4-34) U/L Alkaline Phosphatase (38-126) U/L Troponin I 0.035 H* (0.000-0.034) ng/mL Total Protein (6.3-8.2) g/dL Albumin (3.5-5.0) g/dL Critical Care Time Critical Care Time: Yes Total Critical Care Time: 35 Disposition Clinical Impression: Elevated troponin, Atrial fibrillation with rapid ventricular response Disposition: ADMITTED IP TO THIS [facility] Condition: Stable Is patient prescribed a controlled substance at d/c from ED?: No Time of Disposition: 16:12
[2024-09-17 13:43] LABS: Basophils # (A) 0.08 10*3/uL (0.00-0.10); Basophils % (A) 0.7 %; Eosinophils # (A) 0.02 10*3/uL (0.04-0.35); Eosinophils % (A) 0.2 %; HCT 32.3 % (37.2-46.3); HGB 10.4 g/dL (12.0-15.0); Lymphocytes # (A) 1.32 10*3/uL (0.90-5.00); Lymphocytes % (A) 12.3 %; MCHC 32.2 g/dL (32.0-37.0); MCV 96.1 fL (80.0-97.0); Mean Platelet Volume 9.5 fL (9.5-12.2); Monocytes % (A) 4.7 %; Neutrophils # (A) 8.73 10*3/uL (1.80-7.70); Neutrophils % (A) 81.5 %; Platelet Count 481 10*3/uL (140-440); RBC 3.36 10*6/uL (4.10-5.20); RDW 17.7 % (11.5-14.5); WBC 10.71 10*3/uL (4.50-10.00)
[2024-09-17] MEDS: DILTIAZEM 5 MG/ML 5 ML VIAL IVP STA ×2 (13:43→16:12)
[2024-09-17] MEDS: DILTIAZEM 125 MG in DEXTROSE 5% IN WATER 100 ML IV SCH (13:43)
[2024-09-17] MEDS: SODIUM CHLORIDE 0.9% 500 ML 500 ML IV ONE (13:43)
[2024-09-17] MEDS: SODIUM CHLORIDE 0.9% 1,000 ML IV SCH (13:44)
[2024-09-17 13:59] LABS: INR 1.2 (<1.2); Partial Thromboplastin Time 23.9 sec (22.0-30.0); Prothrombin Time 13.1 sec (10.0-12.5)
[2024-09-17 14:04] LABS: ALT 68 U/L (4-34); African American GFR (CKD) 57 (>60 ml/min/1.73 sqM); Albumin 3.9 g/dL (3.5-5.0); Anion Gap 12 mmol/L; Blood Urea Nitrogen 16 mg/dL (7-17); Calcium 8.9 mg/dL (8.4-10.2); Carbon Dioxide 22 mmol/L (22-30); Chloride 105 mmol/L (98-107); Glucose 141 mg/dL (74-99); Magnesium 1.9 mg/dL (1.6-2.3); Non-African American GFR(CKD) 49 (>60 ml/min/1.73 sqM); Sodium 139 mmol/L (137-145); Total Bilirubin 1.1 mg/dL (0.2-1.3); Total Protein 7.5 g/dL (6.3-8.2)
[2024-09-17 14:07] LABS: AST 100 U/L (14-36); Alkaline Phosphatase 233 U/L (38-126); Potassium 4.5 mmol/L (3.5-5.1)
--- NOTE | 2024-09-17 14:23 | XR ---
EXAMINATION TYPE: XR chest 2V DATE OF EXAM: 09/17/2024 2:17 PM COMPARISON: Chest radiographs from 09/03/2024, PET/CT 07/23/2024 TECHNIQUE: XR chest 2V Frontal and lateral views of the chest. CLINICAL INDICATION:Female, 89 years old with history of dysrhythmia; FINDINGS: Lungs/Pleura: There is no evidence of pleural effusion, focal consolidation, or pneumothorax. Pulmonary vascularity: Pulmonary vascular congestion. Heart/mediastinum: Cardiomediastinal silhouette is enlarged and stable. Atherosclerotic calcificatio ns are seen in the aorta. Musculoskeletal: No acute osseous pathology. Multilevel heterogenous sclerotic appearance of the thor acolumbar vertebral bodies redemonstrated. IMPRESSION: 1. Cardiomegaly and mild pulmonary vascular congestion. Correlate with BNP for congestive heart fail ure. 2. Redemonstration of osseous metastasis involving the visualized thoracoabdominal lumbar vertebral bodies. [facility], , 09/17/2024 2:21 PM
[2024-09-17] MEDS ORDERED: NALOXONE 0.4 MG/ML 1 ML VIAL IV PRN (15:57)
[2024-09-17] MEDS ORDERED: ACETAMINOPHEN TAB 325 MG TAB PO PRN (15:57)
[2024-09-17] MEDS ORDERED: ONDANSETRON 4 MG/2 ML VIAL IVP PRN (15:57)
[2024-09-17] MEDS: FUROSEMIDE 10 MG/ML 4 ML VIAL IV STA (16:55)
[2024-09-17] MEDS: METOPROLOL TARTRATE 50 MG TAB PO STA (17:48)
[2024-09-17] MEDS: APIXABAN 5 MG TAB PO SCH (17:48)
[2024-09-17 18:32] LABS: Appearance,Urine Clear (Clear); Bacteria,Urine Moderate /hpf; Bilirubin,Urine Negative (Negative); Blood,Urine Small (Negative); Color,Urine Colorless; Glucose,Urine (UA) Negative (Negative); Ketones,Urine Negative (Negative); Leukocyte Esterase,Urine Large (Negative); Mucus,Urine Rare /hpf; Nitrite,Urine Negative (Negative); Protein,Urine Negative (Negative); RBC,Urine 4 /hpf (0-5); Specific Gravity,Urine 1.006 (1.001-1.035); Squamous Epithelial Cell,Urine <1 /hpf (0-4); Urobilinogen,Urine <2.0 mg/dL (<2.0); WBC,Urine 26 /hpf (0-5)
[2024-09-17] MEDS ORDERED: BUTALB/APAP/CAFF 50-325-40MG TAB PO PRN (20:52)
[2024-09-17] MEDS: METOPROLOL TARTRATE 50 MG TAB PO SCH (21:56)
[2024-09-17] MEDS: AMITRIPTYLINE HCL 50 MG TAB PO SCH (21:57)
[2024-09-17] MEDS: GABAPENTIN 400 MG CAP PO SCH (21:57)
[2024-09-17] MEDS: MELATONIN 3 MG TABLET PO PRN (21:57)
[2024-09-18] MEDS: LEVOTHYROXINE 50 MCG TAB PO SCH (06:48)
[2024-09-18] MEDS: CYANOCOBALAMIN 500 MCG TAB PO SCH (08:31)
[2024-09-18] MEDS: ASPIRIN 81 MG PO SCH (08:31)
[2024-09-18] MEDS: GABAPENTIN 100 MG CAP PO SCH (08:31)
[2024-09-18] MEDS: CHOLECALCIFEROL 25 MCG (1000 IU) TABLET PO SCH (08:31)
[2024-09-18] MEDS: ATORVASTATIN 20 MG TAB PO SCH (08:32)
[2024-09-18] MEDS: CITALOPRAM HYDROBROMIDE 10 MG TAB PO SCH (08:32)
[2024-09-18] MEDS: PANTOPRAZOLE 40 MG TABLET PO SCH (08:32)
--- NOTE | 2024-09-18 09:36 | P.CRDCN ---
History of Present Illness Consult date: 09/18/24 Consult reason: atrial fibrillation History of present illness: This is an 89-year-old female patient of Dr. Syed with past medical history of hypertension, hyperlipidemia, breast cancer with metastatic disease to the liver, spine and brain per patient currently on chemotherapy, remote history of tobacco use. Patient had a recent hospitalization and discharged on 09/09 and at that time was seen by cardiology for new onset of atrial fibrillation with RVR as well as new onset of cardiomyopathy suspect nonischemic secondary to A-fib with RVR. Patient also had elevated troponins for type II RI. We have been asked to evaluate the patient for A-fib with RVR. Patient presented to [facility] emergency center due to weakness, confusion and palpitations. Patient was found to have elevated troponins and A-fib with RVR. In the ER, she was started on Cardizem IV push x 2 doses, 1 and half liters of IV fluid. Blood pressure 97/57, heart rate 70, pulse ox 96% on room air. Telemetry is atrial fibrillation with controlled ventricular rate. -EKG: Atrial fibrillation at 156 bpm. -Chest x-ray: Cardiomegaly and mild pulmonary vascular congestion. Osseous metastasis in the thoracic abdominal lumbar vertebrae bodies. -Laboratory studies: WBC 10.7, hemoglobin 10.4, INR 1.2. Troponin 0.035, 0.035, 0.035. AST 100, ALT 68, alkaline phosphatase 233. -Home cardiac medications: Eliquis 5 mg twice daily, aspirin 81 mg daily, atorvastatin 20 mg daily, Cardizem 60 mg 3 times daily, metoprolol tartrate 200 mg twice daily, also on levothyroxine. -Echocardiogram performed 09/04/2024 revealed EF 35 to 40%, mild concentric LVH, RVSP 45 mmHg moderate TR, aortic valve sclerosis. Review Of Systems: At the time of my exam: CONSTITUTIONAL: Denies fever or chills. Reports weakness and confusion. HEENT: Denies blurred vision, vision changes, or eye pain. Denies hemoptysis CARDIOVASCULAR: Denies chest pain. Denies orthopnea. Denies PND. Denies palpitations RESPIRATORY: Reports shortness of breath. GASTROINTESTINAL: Denies abdominal pain. Denies nausea or vomiting. HEMATOLOGIC: Denies bleeding disorders. GENITOURINARY: Denies any blood in urine. SKIN: Denies puritis. Denies rash. Physical examination: Gen: This is 89-year-old female in no acute distress VS: reviewed HEENT: Head is atraumatic, normocephalic. Pupils equal, round. Sclerae is anicteric. NECK: Supple. No JVD. LUNGS: Clear to auscultation. No wheezes or rhonchi. No intercostal retractions. HEART: Irregular rate and rhythm. Systolic murmur. ABDOMEN: Soft No tenderness. EXTREMITIES: No pedal edema. No calf tenderness. NEUROLOGICAL: Patient is awake, alert and oriented. 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 with RVR History of breast cancer with metastasis to liver, spine, and brain per patient, currently on chemotherapy Elevated troponins and flat pattern not indicative of acute coronary syndrome Elevated liver function test Hypertension Hyperlipidemia Former nicotine dependence Coronary artery calcifications noted on PET scan Plan: Resume patient's home cardiac medications with the following changes Metoprolol tartrate 100 mg twice daily Discontinue Cardizem due to cardiomyopathy Discontinue Cardizem drip No need to repeat echocardiogram Further recommendations to follow based upon clinical course Thank you kindly for this consultation. Nurse practitioner note has been reviewed, I agree with documented findings and plan of care. Patient was seen and examined. 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 2022 History of Any Multi-Drug Resistant Organisms: None Reported Past Surgical History: Appendectomy, Hysterectomy Additional Past Surgical History / Comment(s): toxic goiter; gallblader removal Past Anesthesia/Blood Transfusion Reactions: No Reported Reaction Past Psychological History: Depression Smoking Status: Former smoker Past Alcohol Use History: None Reported Past Drug Use History: None Reported Medications and Allergies Home Medications Medication Instructions Recorded Confirmed Type Amitriptyline HCl [Elavil] 50 mg PO HS 12/23/20 09/17/24 History Atorvastatin [Lipitor] 20 mg PO DAILY 12/23/20 09/17/24 History Citalopram Hydrobromide [CeleXA] 10 mg PO DAILY 12/23/20 09/17/24 History Cyanocobalamin (Vitamin B-12) 1,000 mcg PO DAILY 12/23/20 09/17/24 History [Vitamin B-12] Ergocalciferol [Vitamin D2 (1250 1,250 mcg PO Q14D 12/23/20 09/17/24 History Mcg = 43229 Iu)] Levothyroxine Sodium [Levo-T] 50 mcg PO DAILY 12/23/20 09/17/24 History Aspirin [Adult Low Dose Aspirin EC] 81 mg PO DAILY 06/06/23 09/17/24 History Gabapentin [Neurontin] 100 mg PO DAILY 06/06/23 09/17/24 History Gabapentin [Neurontin] 400 mg PO HS 06/06/23 09/17/24 History Multivit-Min/Iron/Folic/Lutein 1 tab PO DAILY 06/06/23 09/17/24 History [Centrum Silver Women Tablet] Butalb/APAP/Caff 50-325-40Mg 1 tab PO Q6H PRN 09/03/24 09/17/24 History [Fioricet 50-325-40] Cholecalciferol (Vitamin D3) 50 mcg PO DAILY 09/03/24 09/17/24 History [Vitamin D3 (50 Mcg = 2000 Iu)] Collagen Skin Renewal 833-30mg 1 tab PO DAILY 09/03/24 09/17/24 History Esomeprazole Magnesium [NexIUM] 40 mg PO DAILY 09/03/24 09/17/24 History Fulvestrant 500 mg IM DIRECTED 09/03/24 09/17/24 History Garlic(Unknown Dose) 1 tab PO DAILY 09/03/24 09/17/24 History Lapatinib Ditosylate [Tykerb] 1,000 mg PO DAILY 09/03/24 09/17/24 History Apixaban [Eliquis] 5 mg PO BID #60 tab 09/09/24 09/17/24 Rx Diltiazem Oral [Cardizem*] 60 mg PO TID #90 tab 09/09/24 09/17/24 Rx Metoprolol Tartrate [Lopressor] 200 mg PO BID #120 tablet 09/09/24 09/17/24 Rx Allergies Allergy/AdvReac Type Severity Reaction Status Date / Time codeine Allergy Rash/Hives Verified 09/17/24 15:17 Physical Exam Vitals: Vital Signs Temp Pulse Pulse Resp BP BP Pulse Ox 09/18/24 03:35 70 18 97/57 96 09/17/24 23:58 90 18 114/69 95 09/17/24 21:00 98.2 F 94 18 138/80 98 09/17/24 16:35 98.3 F 140 H 20 152/87 98 09/17/24 16:25 97.9 F 09/17/24 16:00 135 H 16 131/108 99 09/17/24 15:30 149 H 15 146/80 98 09/17/24 15:00 152 H 15 144/94 98 09/17/24 14:30 141 H 14 139/84 99 09/17/24 14:00 133 H 20 99 09/17/24 13:30 168 H 19 146/99 100 09/17/24 13:08 160 H 20 146/99 09/17/24 12:46 97.6 F 152 H 18 126/86 98 Intake and Output 09/17/24 09/18/24 09/18/24 22:59 06:59 14:59 Intake Total 12.667 652.333 Output Total 2250 Balance -2237.333 652.333 Intake: Intake, IV Titration 12.667 112.333 Amount Diltiazem 125 mg In 12.667 112.333 Dextrose 5% in Water 100 ml @ 5 MG/HR 5 mls/hr IV .Q24H [facility] Rx#:[id number] Oral 540 Output: Urine 2250 Other: Voiding Method Bedside Commode Bedside Commode Diaper Diaper # Voids 1 Weight 79.379 kg 79.5 kg Results 09/17/24 13:16 09/17/24 13:16 Cardiac Enzymes 09/17/24 09/17/24 09/17/24 Range/Units 13:16 13:16 17:38 AST 100 H (14-36) U/L Troponin I 0.035 H* 0.035 H* (0.000-0.034) ng/mL 09/17/24 Range/Units 21:42 AST (14-36) U/L Troponin I 0.035 H* (0.000-0.034) ng/mL Coagulation 09/17/24 Range/Units 13:16 PT 13.1 H (10.0-12.5) sec APTT 23.9 (22.0-30.0) sec CBC 09/17/24 Range/Units 13:16 WBC 10.71 H (4.50-10.00) 10*3/uL RBC 3.36 L (4.10-5.20) 10*6/uL Hgb 10.4 L (12.0-15.0) g/dL Hct 32.3 L (37.2-46.3) % Plt Count 481 H (140-440) 10*3/uL Comprehensive Metabolic Panel 09/17/24 Range/Units 13:16 Sodium 139 (137-145) mmol/L Potassium 4.5 (3.5-5.1) mmol/L Chloride 105 (98-107) mmol/L Carbon Dioxide 22 (22-30) mmol/L BUN 16 (7-17) mg/dL Creatinine 1.03 (0.52-1.04) mg/dL Glucose 141 H (74-99) mg/dL Calcium 8.9 (8.4-10.2) mg/dL AST 100 H (14-36) U/L ALT 68 H (4-34) U/L Alkaline Phosphatase 233 H (38-126) U/L Total Protein 7.5 (6.3-8.2) g/dL Albumin 3.9 (3.5-5.0) g/dL Current Medications Generic Name Dose Route Start Last Admin Trade Name Freq PRN Reason Stop Dose Admin Acetaminophen 650 mg 09/17/24 15:57 Acetaminophen Tab 325 Mg Tab PO Q6HR PRN Mild Pain or Fever > 100.5 Acetaminophen/Butalbital/Caffeine 1 each 09/17/24 20:52 Butalb/Apap/Caff 50-325-40mg Tab PO Q6H PRN Headache Amitriptyline HCl 50 mg 09/17/24 21:00 09/17/24 21:57 Amitriptyline Hcl 50 Mg Tab PO 50 mg HS ARIA Administration Apixaban 5 mg 09/17/24 17:33 09/17/24 21:56 Apixaban 5 Mg Tab PO 5 mg BID ARIA Administration Protocol Aspirin 81 mg 09/18/24 09:00 Aspirin 81 Mg PO DAILY [facility] Atorvastatin Calcium 20 mg 09/18/24 09:00 Atorvastatin 20 Mg Tab PO DAILY [facility] Cholecalciferol 50 mcg 09/18/24 09:00 Cholecalciferol 25 Mcg (1000 Iu) Tablet PO DAILY [facility] Citalopram Hydrobromide 10 mg 09/18/24 09:00 Citalopram Hydrobromide 10 Mg Tab PO DAILY [facility] Cyanocobalamin 1,000 mcg 09/18/24 09:00 Cyanocobalamin 500 Mcg Tab PO DAILY [facility] Gabapentin 100 mg 09/18/24 09:00 Gabapentin 100 Mg Cap PO DAILY [facility] Gabapentin 400 mg 09/17/24 21:00 09/17/24 21:57 Gabapentin 400 Mg Cap PO 400 mg HS ARIA Administration Diltiazem HCl 125 mg/ Dextrose 125 mls @ 5 mls/hr 09/17/24 13:15 09/18/24 03:35 /Water IV Infused .Q24H [facility] Titration Protocol 5 MG/HR Levothyroxine Sodium 50 mcg 09/18/24 06:30 09/18/24 06:48 Levothyroxine 50 Mcg Tab PO 50 mcg DAILY@0630 [facility] Administration Melatonin 3 mg 09/17/24 21:10 09/17/24 21:57 Melatonin 3 Mg Tablet PO 3 mg HS PRN Administration Insomnia Metoprolol Tartrate 100 mg 09/17/24 21:00 09/17/24 21:56 Metoprolol Tartrate 50 Mg Tab PO 100 mg BID [facility] Administration Naloxone HCl 0.2 mg 09/17/24 15:57 Naloxone 0.4 Mg/Ml 1 Ml Vial IV Q2M PRN Opioid Reversal Ondansetron HCl 4 mg 09/17/24 15:57 Ondansetron 4 Mg/2 Ml Vial IVP Q8HR PRN Nausea And Vomiting Pantoprazole Sodium 40 mg 09/18/24 07:30 Pantoprazole 40 Mg Tablet PO AC-BRKFST [facility] Intake and Output 09/17/24 09/18/24 09/18/24 22:59 06:59 14:59 Intake Total 12.667 652.333 Output Total 2250 Balance -2237.333 652.333 Intake: Intake, IV Titration 12.7 112.333 Amount Diltiazem 125 mg In 12.7 112.333 Dextrose 5% in Water 100 ml @ 5 MG/HR 5 mls/hr IV .Q24H [facility] Rx#:[id number] Oral 540 Output: Urine 2250 Other: Voiding Method Bedside Commode Bedside Commode Diaper Diaper # Voids 1 Weight 79.379 kg 79.5 kg 09/17/24 13:16 09/17/24 13:16
--- NOTE | 2024-09-18 09:48 | P.HPIM ---
History of Present Illness H&P Date: 09/18/24 History of present illness; patient is a 89-year-old lady with past medical history significant for hypothyroidism, atrial fibrillation, breast cancer who presented to the ER because of palpitations and generalized weakness. Patient have been all right couple of days ago when she started noticing that she was getting more weak. Patient was complaining of palpitations. Patient denied any chest pain. There was no orthopnea or PND. Patient was complaining of weakness. There was no fever or chills. Patient denies any cough. Because of the symptoms, patient went to her PCP office who told her to come to the ER Initial lab work done in the ER showed WBC 10.7, hemoglobin 10.4, platelet count 481, sodium 139, potassium 4.5, BUN 16, creatinine 1.03, glucose 141, troponin 0.035 AST 100, ALT 68 UA done showed large amount of leukocyte Estrace, urine WBC 26 EKG done in the ER showed heart rate of 156, irregular rate and rhythm, no ST segment elevation or depression seen, no T-wave inversions seen. Chest x-ray done in the ER showed cardiomegaly and mild pulmonary vascular congestion. Redemonstration of osseous metastases involving the visualized thoracoabdominal lumbar vertebral body Patient admitted to internal medicine service REVIEW OF SYSTEMS: CONSTITUTIONAL: No fever, no malaise, no fatigue. HEENT: No recent visual problems or hearing problems. Denied any sore throat. CARDIOVASCULAR: As mentioned above PULMONARY: As mentioned above GASTROINTESTINAL: No diarrhea, no nausea, no vomiting, no abdominal pain. NEUROLOGICAL: No headaches, no weakness, no numbness. HEMATOLOGICAL: Denies any bleeding or petechiae. GENITOURINARY: Denies any burning micturition, frequency, or urgency. MUSCULOSKELETAL/RHEUMATOLOGICAL: Denies any joint pain, swelling, or any muscle pain. ENDOCRINE: Denies any polyuria or polydipsia. The rest of the 14-point review of systems is negative. PHYSICAL EXAMINATION: GENERAL: The patient is alert and oriented x3, not in any acute distress. Well developed, well nourished. HEENT: Pupils are round and equally reacting to light. EOMI. No scleral icterus. No conjunctival pallor. Normocephalic, atraumatic. No pharyngeal erythema. No thyromegaly. CARDIOVASCULAR: S1 and S2 present. No murmurs, rubs, or gallops. PULMONARY: Chest is clear to auscultation, no wheezing or crackles. ABDOMEN: Soft, nontender, nondistended, normoactive bowel sounds. No palpable organomegaly. MUSCULOSKELETAL: No joint swelling or deformity. EXTREMITIES: No cyanosis, clubbing, or pedal edema. NEUROLOGICAL: Gross neurological examination did not reveal any focal deficits. SKIN: No rashes. 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 Continue same treatment. Continue with symptomatic treatment. Resume home medication. Monitor labs and vitals. DVT and GI prophylaxis. Further recommendations as per clinical course of the p atient Dictation was produced using [employer]ar[employer] dictation software. please excuse any grammatical, word or spelling errors. 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 2022 History of Any Multi-Drug Resistant Organisms: None Reported Past Surgical History: Appendectomy, Hysterectomy Additional Past Surgical History / Comment(s): toxic goiter; gallblader removal Past Anesthesia/Blood Transfusion Reactions: No Reported Reaction Past Psychological History: Depression Smoking Status: Former smoker Past Alcohol Use History: None Reported Past Drug Use History: None Reported Medications and Allergies Home Medications Medication Instructions Recorded Confirmed Type Amitriptyline HCl [Elavil] 50 mg PO HS 12/23/20 09/17/24 History Atorvastatin [Lipitor] 20 mg PO DAILY 12/23/20 09/17/24 History Citalopram Hydrobromide [CeleXA] 10 mg PO DAILY 12/23/20 09/17/24 History Cyanocobalamin (Vitamin B-12) 1,000 mcg PO DAILY 12/23/20 09/17/24 History [Vitamin B-12] Ergocalciferol [Vitamin D2 (1250 1,250 mcg PO Q14D 12/23/20 09/17/24 History Mcg = 80147 Iu)] Levothyroxine Sodium [Levo-T] 50 mcg PO DAILY 12/23/20 09/17/24 History Aspirin [Adult Low Dose Aspirin EC] 81 mg PO DAILY 06/06/23 09/17/24 History Gabapentin [Neurontin] 100 mg PO DAILY 06/06/23 09/17/24 History Gabapentin [Neurontin] 400 mg PO HS 06/06/23 09/17/24 History Multivit-Min/Iron/Folic/Lutein 1 tab PO DAILY 06/06/23 09/17/24 History [Centrum Silver Women Tablet] Butalb/APAP/Caff 50-325-40Mg 1 tab PO Q6H PRN 09/03/24 09/17/24 History [Fioricet 50-325-40] Cholecalciferol (Vitamin D3) 50 mcg PO DAILY 09/03/24 09/17/24 History [Vitamin D3 (50 Mcg = 2000 Iu)] Collagen Skin Renewal 833-30mg 1 tab PO DAILY 09/03/24 09/17/24 History Esomeprazole Magnesium [NexIUM] 40 mg PO DAILY 09/03/24 09/17/24 History Fulvestrant 500 mg IM DIRECTED 09/03/24 09/17/24 History Garlic(Unknown Dose) 1 tab PO DAILY 09/03/24 09/17/24 History Lapatinib Ditosylate [Tykerb] 1,000 mg PO DAILY 09/03/24 09/17/24 History Apixaban [Eliquis] 5 mg PO BID #60 tab 09/09/24 09/17/24 Rx Diltiazem Oral [Cardizem*] 60 mg PO TID #90 tab 09/09/24 09/17/24 Rx Metoprolol Tartrate [Lopressor] 200 mg PO BID #120 tablet 09/09/24 09/17/24 Rx Allergies Allergy/AdvReac Type Severity Reaction Status Date / Time codeine Allergy Rash/Hives Verified 09/17/24 15:17 Physical Exam Vitals: Vital Signs Temp Pulse Pulse Resp BP BP Pulse Ox 09/18/24 03:35 70 18 97/57 96 09/17/24 23:58 90 18 114/69 95 09/17/24 21:00 98.2 F 94 18 138/80 98 09/17/24 16:35 98.3 F 140 H 20 152/87 98 09/17/24 16:25 97.9 F 09/17/24 16:00 135 H 16 131/108 99 09/17/24 15:30 149 H 15 146/80 98 09/17/24 15:00 152 H 15 144/94 98 09/17/24 14:30 141 H 14 139/84 99 09/17/24 14:00 133 H 20 99 09/17/24 13:30 168 H 19 146/99 100 09/17/24 13:08 160 H 20 146/99 09/17/24 12:46 97.6 F 152 H 18 126/86 98 Intake and Output 09/17/24 09/18/24 09/18/24 22:59 06:59 14:59 Intake Total 12.667 652.333 Output Total 2250 Balance -2237.333 652.333 Intake: Intake, IV Titration 12.667 112.333 Amount Diltiazem 125 mg In 12.667 112.333 Dextrose 5% in Water 100 ml @ 5 MG/HR 5 mls/hr IV .Q24H [facility] Rx#:[id number] Oral 540 Output: Urine 2250 Other: Voiding Method Bedside Commode Bedside Commode Diaper Diaper # Voids 1 Weight 79.379 kg 79.5 kg Results CBC & Chem 7: 09/17/24 13:16 09/17/24 13:16 Labs: Abnormal Lab Results - Last 24 Hours (Table) 09/17/24 09/17/24 09/17/24 Range/Units 13:16 13:16 13:16 WBC 10.71 H (4.50-10.00) 10*3/uL RBC 3.36 L (4.10-5.20) 10*6/uL Hgb 10.4 L (12.0-15.0) g/dL Hct 32.3 L (37.2-46.3) % Plt Count 481 H (140-440) 10*3/uL Immature Gran # 0.06 H (0.00-0.04) 10*3/uL Neutrophils # 8.73 H (1.80-7.70) 10*3/uL Eosinophils # 0.02 L (0.04-0.35) 10*3/uL PT 13.1 H (10.0-12.5) sec INR 1.2 H (<1.2) Glucose 141 H (74-99) mg/dL AST 100 H (14-36) U/L ALT 68 H (4-34) U/L Alkaline Phosphatase 233 H (38-126) U/L Troponin I (0.000-0.034) ng/mL Urine Blood (Negative) Ur Leukocyte Esterase (Negative) Urine WBC (0-5) /hpf Urine Bacteria (None) /hpf Urine Mucus (None) /hpf 09/17/24 09/17/24 09/17/24 Range/Units 13:16 17:38 18:17 WBC (4.50-10.00) 10*3/uL RBC (4.10-5.20) 10*6/uL Hgb (12.0-15.0) g/dL Hct (37.2-46.3) % Plt Count (140-440) 10*3/uL Immature Gran # (0.00-0.04) 10*3/uL Neutrophils # (1.80-7.70) 10*3/uL Eosinophils # (0.04-0.35) 10*3/uL PT (10.0-12.5) sec INR (<1.2) Glucose (74-99) mg/dL AST (14-36) U/L ALT (4-34) U/L Alkaline Phosphatase (38-126) U/L Troponin I 0.035 H* 0.035 H* (0.000-0.034) ng/mL Urine Blood Small H (Negative) Ur Leukocyte Esterase Large H (Negative) Urine WBC 26 H (0-5) /hpf Urine Bacteria Moderate H (None) /hpf Urine Mucus Rare H (None) /hpf 09/17/24 Range/Units 21:42 WBC (4.50-10.00) 10*3/uL RBC (4.10-5.20) 10*6/uL Hgb (12.0-15.0) g/dL Hct (37.2-46.3) % Plt Count (140-440) 10*3/uL Immature Gran # (0.00-0.04) 10*3/uL Neutrophils # (1.80-7.70) 10*3/uL Eosinophils # (0.04-0.35) 10*3/uL PT (10.0-12.5) sec INR (<1.2) Glucose (74-99) mg/dL AST (14-36) U/L ALT (4-34) U/L Alkaline Phosphatase (38-126) U/L Troponin I 0.035 H* (0.000-0.034) ng/mL Urine Blood (Negative) Ur Leukocyte Esterase (Negative) Urine WBC (0-5) /hpf Urine Bacteria (None) /hpf Urine Mucus (None) /hpf Thrombosis Risk Factor Assmnt - Choose All That Apply Each Risk Factor Represents 2 Points: Malignancy Each Risk Factor Represents 3 Points: Age 75 years or older Thrombosis Risk Factor Assessment Total Risk Factor Score: 5 Thrombosis Risk Factor Assessment Level: High Risk
--- NOTE | 2024-09-19 09:34 | P.PN ---
Subjective Progress Note Date: 09/19/24 Consult reason: atrial fibrillation History of present illness: This is an 89-year-old female patient of Dr. Syed with past medical history of hypertension, hyperlipidemia, breast cancer with metastatic disease to the liver, spine and brain per patient currently on chemotherapy, remote history of tobacco use. Patient had a recent hospitalization and discharged on 09/09 and at that time was seen by cardiology for new onset of atrial fibrillation with RVR as well as new onset of cardiomyopathy suspect nonischemic secondary to A-fib with RVR. Patient also had elevated troponins for type II GA. We have been asked to evaluate the patient for A-fib with RVR. Patient presented to [facility] emergency center due to weakness, confusion and palpitations. Patient was found to have elevated troponins and A-fib with RVR. In the ER, she was started on Cardizem IV push x 2 doses, 1 and half liters of IV fluid. Blood pressure 97/57, heart rate 70, pulse ox 96% on room air. Telemetry is atrial fibrillation with controlled ventricular rate. -EKG: Atrial fibrillation at 156 bpm. -Chest x-ray: Cardiomegaly and mild pulmonary vascular congestion. Osseous metastasis in the thoracic abdominal lumbar vertebrae bodies. -Laboratory studies: WBC 10.7, hemoglobin 10.4, INR 1.2. Troponin 0.035, 0.035, 0.035. AST 100, ALT 68, alkaline phosphatase 233. -Home cardiac medications: Eliquis 5 mg twice daily, aspirin 81 mg daily, atorvastatin 20 mg daily, Cardizem 60 mg 3 times daily, metoprolol tartrate 200 mg twice daily, also on levothyroxine. -Echocardiogram performed 09/04/2024 revealed EF 35 to 40%, mild concentric LVH, RVSP 45 mmHg moderate TR, aortic valve sclerosis. 09/19 Patient seen and examined. Patient remains in atrial fibrillation. Heart rates are in the high 90s. Blood pressure 99/63, pulse ox 94% on room air. Patient has been off Cardizem drip as of yesterday morning and she was continued on metoprolol tartrate 100 mg twice daily and continued on Eliquis. Physical examination: Gen: This is 89-year-old female in no acute distress VS: reviewed HEENT: Head is atraumatic, normocephalic. Pupils equal, round. Sclerae is anicteric. NECK: Supple. No JVD. LUNGS: Clear to auscultation. No wheezes or rhonchi. No intercostal retractions. HEART: Irregular rate and rhythm. Systolic murmur. ABDOMEN: Soft No tenderness. EXTREMITIES: No pedal edema. No calf tenderness. NEUROLOGICAL: Patient is awake, alert and oriented. 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 with RVR History of breast cancer with metastasis to liver, spine, and brain per patient, currently on chemotherapy Elevated troponins and flat pattern not indicative of acute coronary syndrome Elevated liver function test Hypertension Hyperlipidemia Former nicotine dependence Coronary artery calcifications noted on PET scan Plan: Continue patient's home cardiac medications with the following changes Continue metoprolol tartrate 100 mg twice daily and add 50 mg at noon Discontinue Cardizem oral at discharge due to cardiomyopathy No need to repeat echocardiogram Continue telemetry monitoring Nurse practitioner note has been reviewed, I agree with documented findings and plan of care. Patient was seen and examined. Objective - Vital Signs Vital signs: Vital Signs Temp 98.0 F 09/19/24 07:49 Pulse 98 09/19/24 07:49 Resp 17 09/19/24 04:05 BP 99/63 09/19/24 07:49 Pulse Ox 94 L 09/19/24 07:49 FiO2 Intake & Output 09/18/24 09/19/24 09/19/24 18:59 06:59 18:59 Intake Total 46 10 Output Total 500 400 Balance -454 -390 Intake: IV 40 10 Invasive Line 1 20 10 Invasive Line 2 20 Intake, IV Titration 6 Amount Diltiazem 125 mg In 6 Dextrose 5% in Water 100 ml @ 5 MG/HR 5 mls/hr IV .Q24H [facility] Rx#:[id number] Output: Urine 500 400 Other: Voiding Method Bedside Commode Bedside Commode Diaper Diaper # Bowel Movements 1 - Labs CBC & Chem 7: 09/17/24 13:16 09/17/24 13:16
[2024-09-19 11:39] LABS: T4, Free (Free Thyroxine) 1.08 ng/dL (0.78-2.19)
[2024-09-19] MEDS: LEVOTHYROXINE 25 MCG TAB PO ONE (12:22)
[2024-09-19] MEDS: METOPROLOL TARTRATE 50 MG TAB PO SCH (12:22)
--- NOTE | 2024-09-19 14:41 | P.PN ---
Subjective Progress Note Date: 09/19/24 patient is a 89-year-old lady with past medical history significant for hypothyroidism, atrial fibrillation, breast cancer who presented to the ER because of palpitations and generalized weakness. Patient have been all right couple of days ago when she started noticing that she was getting more weak. Patient was complaining of palpitations. Patient denied any chest pain. There was no orthopnea or PND. Patient was complaining of weakness. There was no fever or chills. Patient denies any cough. Because of the symptoms, patient went to her PCP office who told her to come to the ER Initial lab work done in the ER showed WBC 10.7, hemoglobin 10.4, platelet count 481, sodium 139, potassium 4.5, BUN 16, creatinine 1.03, glucose 141, troponin 0.035 AST 100, ALT 68 UA done showed large amount of leukocyte Estrace, urine WBC 26 EKG done in the ER showed heart rate of 156, irregular rate and rhythm, no ST segment elevation or depression seen, no T-wave inversions seen. Chest x-ray done in the ER showed cardiomegaly and mild pulmonary vascular congestion. Redemonstration of osseous metastases involving the visualized thoracoabdominal lumbar vertebral body Patient admitted to internal medicine service 09/19. Patient seen and examined. States she feels much better. UA was suspicious for UTI, urine culture growing gram-negative bacilli. REVIEW OF SYSTEMS: CONSTITUTIONAL: No fever, no malaise,. CARDIOVASCULAR: No chest pain, no palpitations, no syncope. PULMONARY: No shortness of breath, no cough, GASTROINTESTINAL: No diarrhea, no nausea, no vomiting, no abdominal pain. NEUROLOGICAL: No headaches, no weakness, PHYSICAL EXAMINATION: GENERAL: The patient is alert and oriented x3, not in any acute distress. Well developed, well nourished. HEENT: Pupils are round and equally reacting to light. EOMI. No scleral icterus. No conjunctival pallor. Normocephalic, atraumatic. No pharyngeal erythema. No thyromegaly. CARDIOVASCULAR: S1 and S2 present. No murmurs, rubs, or gallops. PULMONARY: Chest is clear to auscultation, no wheezing or crackles. ABDOMEN: Soft, nontender, nondistended, normoactive bowel sounds. No palpable organomegaly. MUSCULOSKELETAL: No joint swelling or deformity. EXTREMITIES: No cyanosis, clubbing, or pedal edema. NEUROLOGICAL: Gross neurological examination did not reveal any focal deficits. SKIN: No rashes. 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 secondary to A-fib with RVR History of breast cancer with metastasis to liver, spine, and brain per patient, currently on chemotherapy Elevated troponins and flat pattern not indicative of acute coronary syndrome Elevated liver function test Hypothyroidism, TSH was elevated at 7.28 Monitor vital signs Monitor CBC Monitor CMP Continue telemetry monitoring Trend troponin Start IV Rocephin Continue metoprolol tartrate 100 mg twice daily and add 50 mg at noon Continue Eliquis Dose of Synthroid increased to 75 mcg Cardiology following, recommended discontinuing Cardizem at DC Labs and medication were reviewed.. Continue same treatment. Continue with symptomatic treatment. Resume home medication. Monitor labs and vitals. DVT and GI prophylaxis. Further recommendations as per clinical course of the patient Dictation was produced using [employer] dictation software. please excuse any grammatical, word or spelling errors. Objective - Vital Signs Vital signs: Vital Signs Temp 98.3 F 09/19/24 12:00 Pulse 98 09/19/24 07:49 Resp 16 09/19/24 14:00 BP 105/64 09/19/24 12:00 Pulse Ox 98 09/19/24 12:00 FiO2 Intake & Output 09/18/24 09/19/24 09/19/24 18:59 06:59 18:59 Intake Total 46 10 150 Output Total 500 400 300 Balance -454 -390 -150 Intake: IV 40 10 Invasive Line 1 20 10 Invasive Line 2 20 Intake, IV Titration 6 Amount Diltiazem 125 mg In 6 Dextrose 5% in Water 100 ml @ 5 MG/HR 5 mls/hr IV .Q24H ARIA Rx#:[id number] Oral 150 Output: Urine 500 400 300 Other: Voiding Method Bedside Commode Bedside Commode Bedside Commode Diaper Diaper # Bowel Movements 1 - Labs CBC & Chem 7: 09/17/24 13:16 09/17/24 13:16 Labs: Abnormal Lab Results - Last 24 Hours (Table) 09/19/24 Range/Units 09:22 TSH 7.280 H (0.465-4.680) mIU/L Microbiology - Last 24 Hours (Table) 09/17/24 18:17 Urine Culture - Preliminary Urine,Voided Gram Neg Bacilli
--- NOTE | 2024-09-19 23:33 | P.CONS ---
History of Present Illness - Reason for Consult Consult date: 09/19/24 UTI Requesting physician: Kelby Geiger - Chief Complaint Confusion and palpitation x 1 day - History of Present Illness Patient is a 89-year-old female with a past medical history significant for hypertension hyperlipidemia metastatic breast cancer patient has been brought into the hospital concerning for palpitation that apparently started the day of presentation to the hospital patient has been complaining of generalized weakness and apparently was confusion as reported by the son who provided the history mostly on arrival to the ER to the ER physician patient denies having headache or chest pain shortness with occasional cough no abdominal pain vomiting diarrhea patient on presentation to the hospital was afebrile and no fever have been called subsequently patient was tachycardic but not hypotensive or hypoxic patient did have a elevated white count 10.7 with a left shift creatinine was 1.03 liver enzymes elevated troponin was mildly elevated urine was positive urine culture currently growing gram-negative patient has been treated with Rocephin infectious disease was consulted today for UTI Review of Systems Positive point and negatives has been mentioned in the HPI, complete review of systems was performed and all other systems are negative 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 2022 History of Any Multi-Drug Resistant Organisms: None Reported Past Surgical History: Appendectomy, Hysterectomy Additional Past Surgical History / Comment(s): toxic goiter; gallblader removal Past Anesthesia/Blood Transfusion Reactions: No Reported Reaction Past Psychological History: Depression Smoking Status: Former smoker Past Alcohol Use History: None Reported Past Drug Use History: None Reported Medications and Allergies Home Medications Medication Instructions Recorded Confirmed Type Amitriptyline HCl [Elavil] 50 mg PO HS 12/23/20 09/17/24 History Atorvastatin [Lipitor] 20 mg PO DAILY 12/23/20 09/17/24 History Citalopram Hydrobromide [CeleXA] 10 mg PO DAILY 12/23/20 09/17/24 History Cyanocobalamin (Vitamin B-12) 1,000 mcg PO DAILY 12/23/20 09/17/24 History [Vitamin B-12] Ergocalciferol [Vitamin D2 (1250 1,250 mcg PO Q14D 12/23/20 09/17/24 History Mcg = 42868 Iu)] Levothyroxine Sodium [Levo-T] 50 mcg PO DAILY 12/23/20 09/17/24 History Aspirin [Adult Low Dose Aspirin EC] 81 mg PO DAILY 06/06/23 09/17/24 History Gabapentin [Neurontin] 100 mg PO DAILY 06/06/23 09/17/24 History Gabapentin [Neurontin] 400 mg PO HS 06/06/23 09/17/24 History Multivit-Min/Iron/Folic/Lutein 1 tab PO DAILY 06/06/23 09/17/24 History [Centrum Silver Women Tablet] Butalb/APAP/Caff 50-325-40Mg 1 tab PO Q6H PRN 09/03/24 09/17/24 History [Fioricet 50-325-40] Cholecalciferol (Vitamin D3) 50 mcg PO DAILY 09/03/24 09/17/24 History [Vitamin D3 (50 Mcg = 2000 Iu)] Collagen Skin Renewal 833-30mg 1 tab PO DAILY 09/03/24 09/17/24 History Esomeprazole Magnesium [NexIUM] 40 mg PO DAILY 09/03/24 09/17/24 History Fulvestrant 500 mg IM DIRECTED 09/03/24 09/17/24 History Garlic(Unknown Dose) 1 tab PO DAILY 09/03/24 09/17/24 History Lapatinib Ditosylate [Tykerb] 1,000 mg PO DAILY 09/03/24 09/17/24 History Apixaban [Eliquis] 5 mg PO BID #60 tab 09/09/24 09/17/24 Rx Diltiazem Oral [Cardizem*] 60 mg PO TID #90 tab 09/09/24 09/17/24 Rx Metoprolol Tartrate [Lopressor] 200 mg PO BID #120 tablet 09/09/24 09/17/24 Rx Allergies Allergy/AdvReac Type Severity Reaction Status Date / Time codeine Allergy Rash/Hives Verified 09/17/24 15:17 Physical Exam Vitals: Vital Signs Temp Pulse Resp BP Pulse Ox 09/19/24 14:00 16 09/19/24 12:00 98.3 F 16 105/64 98 09/19/24 07:49 98.0 F 98 99/63 94 L 09/19/24 04:05 89 17 117/67 94 L 09/18/24 23:36 90 17 90/56 95 09/18/24 20:30 98.2 F 122 H 17 126/73 96 Intake and Output 09/19/24 09/19/24 09/19/24 06:59 14:59 22:59 Intake Total 150 Output Total 400 300 Balance -400 -150 Intake: Oral 150 Output: Urine 400 300 Other: Voiding Method Bedside Commode Bedside Commode Diaper GENERAL DESCRIPTION: Elderly female lying in bed, no distress. No tachypnea or accessory muscle of respiration use. HEENT: Shows Pallor , no scleral icterus. Oral mucous membrane is dry. No pharyngeal erythema or thrush NECK: Trachea central, no thyromegaly. LUNGS: Unlabored breathing. Clear to auscultation anteriorly. No wheeze or crackle. HEART: S1, S2, regular rate and rhythm. No loud murmur ABDOMEN: Soft, no tenderness , guarding or rigidity, no organomegaly EXTREMITIES: No edema of feet. SKIN: No rash, no masses palpable. NEUROLOGICAL: The patient is awake, alert, oriented x3, mood and affect normal. Results CBC & Chem 7: 09/17/24 13:16 09/17/24 13:16 Labs: Abnormal Lab Results - Last 24 Hours (Table) 09/19/24 Range/Units 09:22 TSH 7.280 H (0.465-4.680) mIU/L Microbiology - Last 24 Hours (Table) 09/17/24 18:17 Urine Culture - Preliminary Urine,Voided Gram Neg Bacilli Assessment and Plan (1) UTI (urinary tract infection) Current Visit: Yes Status: Acute Code(s): N39.0 - URINARY TRACT INFECTION, SITE NOT SPECIFIED SNOMED Code(s): 69715446 (2) Leukocytosis Current Visit: Yes Status: Acute Code(s): D72.829 - ELEVATED WHITE BLOOD CELL COUNT, UNSPECIFIED SNOMED Code(s): 827074642 Plan: 1patient presented hospital with weakness she did have confusion as reported by the son to the ER physician elevated white count positive UA concerning for symptomatic UTI likely from enteric gram-negative pathogen 2-patient will be treated with Rocephin while waiting for the culture to finalize We will follow on clinical condition and cultures to further adjust medication if needed Thank you for this consultation we will follow the patient along with you Dictation was produced using [employer] software. please excuse any grammatical, word or spelling errors. Time with Patient: Greater than 30
[2024-09-20] MEDS: LEVOTHYROXINE 75 MCG TAB PO SCH (05:58)
[2024-09-20 07:40] LABS: Basophils # (A) 0.06 10*3/uL (0.00-0.10); Basophils % (A) 0.8 %; Eosinophils # (A) 0.23 10*3/uL (0.04-0.35); HGB 9.3 g/dL (12.0-15.0); Lymphocytes # (A) 1.99 10*3/uL (0.90-5.00); Lymphocytes % (A) 26.4 %; MCH 30.8 pg (27.0-32.0); MCV 99.3 fL (80.0-97.0); Mean Platelet Volume 8.7 fL (9.5-12.2); Monocytes % (A) 6.6 %; Neutrophils # (A) 4.74 10*3/uL (1.80-7.70); Neutrophils % (A) 62.8 %; Platelet Count 456 10*3/uL (140-440); RBC 3.02 10*6/uL (4.10-5.20); RDW 18.1 % (11.5-14.5); WBC 7.55 10*3/uL (4.50-10.00)
[2024-09-20 08:07] LABS: ALT 40 U/L (4-34); AST 45 U/L (14-36); African American GFR (CKD) 50 (>60 ml/min/1.73 sqM); Alkaline Phosphatase 183 U/L (38-126); Anion Gap 7 mmol/L; Blood Urea Nitrogen 13 mg/dL (7-17); Calcium 8.8 mg/dL (8.4-10.2); Carbon Dioxide 27 mmol/L (22-30); Chloride 105 mmol/L (98-107); Glucose 122 mg/dL (74-99); Non-African American GFR(CKD) 43 (>60 ml/min/1.73 sqM); Potassium 3.9 mmol/L (3.5-5.1); Sodium 139 mmol/L (137-145); Total Bilirubin 0.5 mg/dL (0.2-1.3); Total Protein 5.8 g/dL (6.3-8.2)
[2024-09-20] MEDS: DILTIAZEM ORAL 30 MG TAB PO SCH (09:58)
--- NOTE | 2024-09-20 11:51 | P.PN ---
Subjective HISTORY OF PRESENT ILLNESS: This is an 89-year-old female patient of Dr. Syed with past medical history of hypertension, hyperlipidemia, breast cancer with metastatic disease to the liver, spine and brain per patient currently on chemotherapy, remote history of tobacco use. Patient had a recent hospitalization and discharged on 09/09 and at that time was seen by cardiology for new onset of atrial fibrillation with RVR as well as new onset of cardiomyopathy suspect nonischemic secondary to A-fib with RVR. Patient also had elevated troponins for type II TN. We have been asked to evaluate the patient for A-fib with RVR. Patient presented to [facility] emergency center due to weakness, confusion and palpitations. Patient was found to have elevated troponins and A-fib with RVR. In the ER, she was started on Cardizem IV push x 2 doses, 1 and half liters of IV fluid. Blood pressure 97/57, heart rate 70, pulse ox 96% on room air. Telemetry is atrial fibrillation with controlled ventricular rate. -EKG: Atrial fibrillation at 156 bpm. -Chest x-ray: Cardiomegaly and mild pulmonary vascular congestion. Osseous meta stasis in the thoracic abdominal lumbar vertebrae bodies. -Laboratory studies: WBC 10.7, hemoglobin 10.4, INR 1.2. Troponin 0.035, 0.035, 0.035. AST 100, ALT 68, alkaline phosphatase 233. -Home cardiac medications: Eliquis 5 mg twice daily, aspirin 81 mg daily, atorvastatin 20 mg daily, Cardizem 60 mg 3 times daily, metoprolol tartrate 200 mg twice daily, also on levothyroxine. -Echocardiogram performed 09/04/2024 revealed EF 35 to 40%, mild concentric LVH, RVSP 45 mmHg moderate TR, aortic valve sclerosis. 09/19 Patient seen and examined. Patient remains in atrial fibrillation. Heart rates are in the high 90s. Blood pressure 99/63, pulse ox 94% on room air. Patient has been off Cardizem drip as of yesterday morning and she was continued on metoprolol tartrate 100 mg twice daily and continued on Eliquis. 09/20/2024 Patient examined this morning at bedside. Patient currently denies chest pain or pressure. She denies shortness of breath. Patient remains in atrial fibrillation with a heart rate in the 120s. PHYSICAL EXAM: VITAL SIGNS: Reviewed. GENERAL: Well-developed in no acute distress. NECK: Supple. No JVD or thyromegaly LUNGS: Respirations even and unlabored. Lungs essentially clear to auscultation bilaterally. HEART: Tachycardic. Irregular rate and rhythm. S1 and S2 heard. EXTREMITIES: Normal range of motion. No clubbing or cyanosis. Peripheral pulses intact. 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 While Cardizem is not ideal choice due to cardiomyopathy, add small dose of Cardizem 30mg TID for optimal heart rate control. Continue telemetry monitoring Continue anticoagulation with Eliquis Further recommendations pending patient course Nurse practitioner note has been reviewed by physician. Signing provider agrees with the documented findings, assessment, and plan of care documented by [employer] as a scribe. Objective - Vital Signs Vital signs: Vital Signs Temp 98.4 F 09/20/24 09:55 Pulse 115 H 09/20/24 09:55 Resp 16 09/20/24 09:55 BP 100/61 09/20/24 09:55 Pulse Ox 96 09/20/24 09:55 FiO2 Intake & Output 09/19/24 09/20/24 09/20/24 18:59 06:59 18:59 Intake Total 150 550 Output Total 300 Balance -150 550 Weight 79.5 kg Intake: IV 10 Invasive Line 3 10 Oral 150 540 Output: Urine 300 Other: Voiding Method Bedside Commode Bedside Commode Bedside Commode - Labs CBC & Chem 7: 09/20/24 07:17 09/20/24 07:17 Labs: Abnormal Lab Results - Last 24 Hours (Table) 09/20/24 09/20/24 Range/Units 07:17 07:17 RBC 3.02 L (4.10-5.20) 10*6/uL Hgb 9.3 L (12.0-15.0) g/dL Hct 30.0 L (37.2-46.3) % MCV 99.3 H (80.0-97.0) fL MCHC 31.0 L (32.0-37.0) g/dL Plt Count 456 H (140-440) 10*3/uL MPV 8.7 L (9.5-12.2) fL Creatinine 1.15 H (0.52-1.04) mg/dL Glucose 122 H (74-99) mg/dL AST 45 H (14-36) U/L ALT 40 H (4-34) U/L Alkaline Phosphatase 183 H (38-126) U/L Total Protein 5.8 L (6.3-8.2) g/dL Albumin 3.0 L (3.5-5.0) g/dL Microbiology - Last 24 Hours (Table) 09/17/24 18:17 Urine Culture - Preliminary Urine,Voided Gram Neg Bacilli
--- NOTE | 2024-09-20 13:09 | P.PN ---
Subjective Progress Note Date: 09/20/24 patient is a 89-year-old lady with past medical history significant for hypothyroidism, atrial fibrillation, breast cancer who presented to the ER because of palpitations and generalized weakness. Patient have been all right couple of days ago when she started noticing that she was getting more weak. Patient was complaining of palpitations. Patient denied any chest pain. There was no orthopnea or PND. Patient was complaining of weakness. There was no fever or chills. Patient denies any cough. Because of the symptoms, patient went to her PCP office who told her to come to the ER Initial lab work done in the ER showed WBC 10.7, hemoglobin 10.4, platelet count 481, sodium 139, potassium 4.5, BUN 16, creatinine 1.03, glucose 141, troponin 0.035 AST 100, ALT 68 UA done showed large amount of leukocyte Estrace, urine WBC 26 EKG done in the ER showed heart rate of 156, irregular rate and rhythm, no ST segment elevation or depression seen, no T-wave inversions seen. Chest x-ray done in the ER showed cardiomegaly and mild pulmonary vascular congestion. Redemonstration of osseous metastases involving the visualized thoracoabdominal lumbar vertebral body Patient admitted to internal medicine service 09/19. Patient seen and examined. States she feels much better. UA was suspicious for UTI, urine culture growing gram-negative bacilli. 09/20. Patient seen examined. Denies any shortness of breath. Denies any chest pain. Cardiology added low-dose Cardizem for rate control REVIEW OF SYSTEMS: CONSTITUTIONAL: No fever, no malaise,. CARDIOVASCULAR: No chest pain, no palpitations, no syncope. PULMONARY: No shortness of breath, no cough, GASTROINTESTINAL: No diarrhea, no nausea, no vomiting, no abdominal pain. NEUROLOGICAL: No headaches, no weakness, PHYSICAL EXAMINATION: GENERAL: The patient is alert and oriented x3, not in any acute distress. Well developed, well nourished. HEENT: Pupils are round and equally reacting to light. EOMI. No scleral icterus. No conjunctival pallor. Normocephalic, atraumatic. No pharyngeal erythema. No thyromegaly. CARDIOVASCULAR: S1 and S2 present. No murmurs, rubs, or gallops. PULMONARY: Chest is clear to auscultation, no wheezing or crackles. ABDOMEN: Soft, nontender, nondistended, normoactive bowel sounds. No palpable organomegaly. MUSCULOSKELETAL: No joint swelling or deformity. EXTREMITIES: No cyanosis, clubbing, or pedal edema. NEUROLOGICAL: Gross neurological examination did not reveal any focal deficits. SKIN: No rashes. 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 Continue same treatment. Continue with symptomatic treatment. Resume home medication. Monitor labs and vitals. DVT and GI prophylaxis. Further recommendations as per clinical course of the patient Dictation was produced using [employer] dictation software. please excuse any grammatical, word or spelling errors. Objective - Vital Signs Vital signs: Vital Signs Temp 98.5 F 09/19/24 23:47 Pulse 92 09/20/24 04:58 Resp 14 09/20/24 04:58 BP 97/59 09/20/24 04:58 Pulse Ox 94 L 09/20/24 04:58 FiO2 Intake & Output 09/19/24 09/20/24 09/20/24 18:59 06:59 18:59 Intake Total 150 550 Output Total 300 Balance -150 550 Weight 79.5 kg Intake: IV 10 Invasive Line 3 10 Oral 150 540 Output: Urine 300 Other: Voiding Method Bedside Commode Bedside Commode - Labs CBC & Chem 7: 09/20/24 07:17 09/20/24 07:17 Labs: Abnormal Lab Results - Last 24 Hours (Table) 09/19/24 09/20/24 09/20/24 Range/Units 09:22 07:17 07:17 RBC 3.02 L (4.10-5.20) 10*6/uL Hgb 9.3 L (12.0-15.0) g/dL Hct 30.0 L (37.2-46.3) % MCV 99.3 H (80.0-97.0) fL MCHC 31.0 L (32.0-37.0) g/dL Plt Count 456 H (140-440) 10*3/uL MPV 8.7 L (9.5-12.2) fL Creatinine 1.15 H (0.52-1.04) mg/dL Glucose 122 H (74-99) mg/dL AST 45 H (14-36) U/L ALT 40 H (4-34) U/L Alkaline Phosphatase 183 H (38-126) U/L Total Protein 5.8 L (6.3-8.2) g/dL Albumin 3.0 L (3.5-5.0) g/dL TSH 7.280 H (0.465-4.680) mIU/L Microbiology - Last 24 Hours (Table) 09/17/24 18:17 Urine Culture - Preliminary Urine,Voided Gram Neg Bacilli
--- NOTE | 2024-09-21 08:00 | P.PN ---
Subjective Progress Note Date: 09/20/24 Principal diagnosis: Reason for follow-up is UTI Patient is a 89-year-old female with a past medical history significant for hypertension hyperlipidemia metastatic breast cancer patient has been brought into the hospital concerning for palpitation apparently the patient did have altered mental status elevated white count positive UA concerning for symptomatic UTI. On today's evaluation that is 09/20/2024, Patient is afebrile this morning patient denies having any chest pain shortness of breath or cough, the patient is currently on room air, patient denies any abdominal pain no diarrhea no nausea no vomiting. The patient white count is down to 7.55 creatinine 0.5 urine is growing gram- negative Objective - Vital Signs Vital signs: Vital Signs Temp 97.5 F L 09/20/24 12:25 Pulse 130 H 09/20/24 12:25 Resp 16 09/20/24 12:25 BP 103/67 09/20/24 12:25 Pulse Ox 98 09/20/24 12:25 FiO2 Intake & Output 09/19/24 09/20/24 09/20/24 18:59 06:59 18:59 Intake Total 150 550 280 Output Total 300 Balance -150 550 280 Weight 79.5 kg Intake: IV 10 Invasive Line 3 10 Oral 150 540 280 Output: Urine 300 Other: Voiding Method Bedside Commode Bedside Commode Bedside Commode - Exam GENERAL DESCRIPTION: An elderly female lying in bed in no distress RESPIRATORY SYSTEM: Unlabored breathing , decreased breath sounds at bases HEART: S1 S2 regular rate and rhythm , ABDOMEN: Soft , no tenderness EXTREMITIES: No edema feet - Labs CBC & Chem 7: 09/20/24 07:17 09/20/24 07:17 Labs: Abnormal Lab Results - Last 24 Hours (Table) 09/20/24 09/20/24 Range/Units 07:17 07:17 RBC 3.02 L (4.10-5.20) 10*6/uL Hgb 9.3 L (12.0-15.0) g/dL Hct 30.0 L (37.2-46.3) % MCV 99.3 H (80.0-97.0) fL MCHC 31.0 L (32.0-37.0) g/dL Plt Count 456 H (140-440) 10*3/uL MPV 8.7 L (9.5-12.2) fL Creatinine 1.15 H (0.52-1.04) mg/dL Glucose 122 H (74-99) mg/dL AST 45 H (14-36) U/L ALT 40 H (4-34) U/L Alkaline Phosphatase 183 H (38-126) U/L Total Protein 5.8 L (6.3-8.2) g/dL Albumin 3.0 L (3.5-5.0) g/dL Microbiology - Last 24 Hours (Table) 09/17/24 18:17 Urine Culture - Final Urine,Voided Klebsiella pneumoniae Assessment and Plan (1) UTI (urinary tract infection) Current Visit: Yes Status: Acute Code(s): N39.0 - URINARY TRACT INFECTION, SITE NOT SPECIFIED SNOMED Code(s): 14953726 (2) Leukocytosis Current Visit: Yes Status: Acute Code(s): D72.829 - ELEVATED WHITE BLOOD CELL COUNT, UNSPECIFIED SNOMED Code(s): 667148438 Plan: 1patient presented hospital with weakness she did have altered mental status as reported by the son to the ER physician elevated white count positive UA concerning for symptomatic UTI likely from enteric gram-negative pathogen 2-patient did have improvement in the white count in the mentation white count is trending down her urine is growing gram-negative continue with Rocephin while waiting for the culture to finalize Dictation was produced using [employer] dictation software. please excuse any grammatical, word or spelling errors. Time with Patient: Less than 30
--- NOTE | 2024-09-21 11:13 | P.PN ---
Subjective HISTORY OF PRESENT ILLNESS: This is an 89-year-old female patient of Dr. Syed with past medical history of hypertension, hyperlipidemia, breast cancer with metastatic disease to the liver, spine and brain per patient currently on chemotherapy, remote history of tobacco use. Patient had a recent hospitalization and discharged on 09/09 and at that time was seen by cardiology for new onset of atrial fibrillation with RVR as well as new onset of cardiomyopathy suspect nonischemic secondary to A-fib with RVR. Patient also had elevated troponins for type II [place]. We have been asked to evaluate the patient for A-fib with RVR. Patient presented to [facility] emergency center due to weakness, confusion and palpitations. Patient was found to have elevated troponins and A-fib with RVR. In the ER, she was started on Cardizem IV push x 2 doses, 1 and half liters of IV fluid. Blood pressure 97/57, heart rate 70, pulse ox 96% on room air. Telemetry is atrial fibrillation with controlled ventricular rate. -EKG: Atrial fibrillation at 156 bpm. -Chest x-ray: Cardiomegaly and mild pulmonary vascular congestion. Osseous meta stasis in the thoracic abdominal lumbar vertebrae bodies. -Laboratory studies: WBC 10.7, hemoglobin 10.4, INR 1.2. Troponin 0.035, 0.035, 0.035. AST 100, ALT 68, alkaline phosphatase 233. -Home cardiac medications: Eliquis 5 mg twice daily, aspirin 81 mg daily, atorvastatin 20 mg daily, Cardizem 60 mg 3 times daily, metoprolol tartrate 200 mg twice daily, also on levothyroxine. -Echocardiogram performed 09/04/2024 revealed EF 35 to 40%, mild concentric LVH, RVSP 45 mmHg moderate TR, aortic valve sclerosis. 09/19 Patient seen and examined. Patient remains in atrial fibrillation. Heart rates are in the high 90s. Blood pressure 99/63, pulse ox 94% on room air. Patient has been off Cardizem drip as of yesterday morning and she was continued on metoprolol tartrate 100 mg twice daily and continued on Eliquis. 09/20/2024 Patient examined this morning at bedside. Patient currently denies chest pain or pressure. She denies shortness of breath. Patient remains in atrial fibrillation with a heart rate in the 120s. 09/21/2024 Patient examined this morning at the bedside. Patient currently denies chest pain or pressure. She denies shortness of breath. She remains in atrial fibrillation with controlled ventricular rate. Vital signs are stable. PHYSICAL EXAM: VITAL SIGNS: Reviewed. GENERAL: Well-developed in no acute distress. NECK: Supple. No JVD or thyromegaly LUNGS: Respirations even and unlabored. Lungs essentially clear to auscultation bilaterally. HEART: Tachycardic. Irregular rate and rhythm. S1 and S2 heard. EXTREMITIES: Normal range of motion. No clubbing or cyanosis. Peripheral pulses intact. 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 While Cardizem is not ideal choice due to cardiomyopathy, small dose of Cardizem 30mg TID added yesterday for optimal heart rate control. Continue telemetry monitoring Continue anticoagulation with Eliquis Patient is currently stable for discharge from a cardiac standpoint Further recommendations pending patient course Nurse practitioner note has been reviewed by physician. Signing provider agrees with the documented findings, assessment, and plan of care documented by DIRECTOR OF LABOR RELATIONS as a scribe. Objective - Vital Signs Vital signs: Vital Signs Temp 98 F 09/21/24 08:25 Pulse 93 09/21/24 08:25 Resp 16 09/21/24 08:25 BP 103/62 09/21/24 08:25 Pulse Ox 95 09/21/24 08:25 FiO2 Intake & Output 09/20/24 09/21/24 09/21/24 18:59 06:59 18:59 Intake Total 880 110 120 Balance 880 110 120 Weight 72.2 kg Intake: IV 10 Invasive Line 4 10 Intake, IV Titration 100 Amount cefTRIAXone 1 gm In 100 Sodium Chloride 0.9% 50 ml @ 100 mls/hr IVPB Q24HR [facility] Rx#:[id number] Oral 780 100 120 Other: Voiding Method Bedside Commode Bedside Commode # Voids 0 - Labs CBC & Chem 7: 09/20/24 07:17 09/20/24 07:17 Labs: Microbiology - Last 24 Hours (Table) 09/17/24 18:17 Urine Culture - Final Urine,Voided Klebsiella pneumoniae
--- NOTE | 2024-09-21 14:18 | P.PN ---
Subjective Progress Note Date: 09/21/24 patient is a 89-year-old lady with past medical history significant for hypothyroidism, atrial fibrillation, breast cancer who presented to the ER because of palpitations and generalized weakness. Patient have been all right couple of days ago when she started noticing that she was getting more weak. Patient was complaining of palpitations. Patient denied any chest pain. There was no orthopnea or PND. Patient was complaining of weakness. There was no fever or chills. Patient denies any cough. Because of the symptoms, patient went to her PCP office who told her to come to the ER Initial lab work done in the ER showed WBC 10.7, hemoglobin 10.4, platelet count 481, sodium 139, potassium 4.5, BUN 16, creatinine 1.03, glucose 141, troponin 0.035 AST 100, ALT 68 UA done showed large amount of leukocyte Estrace, urine WBC 26 EKG done in the ER showed heart rate of 156, irregular rate and rhythm, no ST segment elevation or depression seen, no T-wave inversions seen. Chest x-ray done in the ER showed cardiomegaly and mild pulmonary vascular congestion. Redemonstration of osseous metastases involving the visualized thoracoabdominal lumbar vertebral body Patient admitted to internal medicine service 09/19. Patient seen and examined. States she feels much better. UA was suspicious for UTI, urine culture growing gram-negative bacilli. 09/20. Patient seen examined. Denies any shortness of breath. Denies any chest pain. Cardiology added low-dose Cardizem for rate control /. Patient seen and examined. Currently rate controlled on Lopressor and Cardizem. PT and OT following REVIEW OF SYSTEMS: CONSTITUTIONAL: No fever, no malaise,. CARDIOVASCULAR: No chest pain, no palpitations, no syncope. PULMONARY: No shortness of breath, no cough, GASTROINTESTINAL: No diarrhea, no nausea, no vomiting, no abdominal pain. NEUROLOGICAL: No headaches, no weakness, PHYSICAL EXAMINATION: GENERAL: The patient is alert and oriented x3, not in any acute distress. Well developed, well nourished. HEENT: Pupils are round and equally reacting to light. EOMI. No scleral icterus. No conjunctival pallor. Normocephalic, atraumatic. No pharyngeal erythema. No thyromegaly. CARDIOVASCULAR: S1 and S2 present. No murmurs, rubs, or gallops. PULMONARY: Chest is clear to auscultation, no wheezing or crackles. ABDOMEN: Soft, nontender, nondistended, normoactive bowel sounds. No palpable o rganomegaly. MUSCULOSKELETAL: No joint swelling or deformity. EXTREMITIES: No cyanosis, clubbing, or pedal edema. NEUROLOGICAL: Gross neurological examination did not reveal any focal deficits. SKIN: No rashes. 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 secondary to A-fib with RVR History of breast cancer with metastasis to liver, spine, and brain per patient, currently on chemotherapy Elevated troponins and flat pattern not indicative of acute coronary syndrome Elevated liver function test Hypothyroidism, TSH was elevated at 7.28 Monitor vital signs Monitor CBC Monitor CMP Continue telemetry monitoring Follow-up on urine cultures Continue IV Rocephin Continue metoprolol tartrate 100 mg twice daily and 50 mg at noon Continue Cardizem Continue Eliquis Continue Synthroid 75 mcg Cardiology following, PT and OT consulted Labs and medication were reviewed.. Continue same treatment. Continue with symptomatic treatment. Resume home medication. Monitor labs and vitals. DVT and GI prophylaxis. Further recommendations as per clinical course of the patient Dictation was produced using [employer] dictation software. please excuse any grammatical, word or spelling errors. Objective - Vital Signs Vital signs: Vital Signs Temp 98 F 09/21/24 08:25 Pulse 93 09/21/24 08:25 Resp 16 09/21/24 08:25 BP 103/62 09/21/24 08:25 Pulse Ox 95 09/21/24 08:25 FiO2 Intake & Output 09/20/24 09/21/24 09/21/24 18:59 06:59 18:59 Intake Total 880 110 120 Balance 880 110 120 Weight 72.2 kg Intake: IV 10 Invasive Line 4 10 Intake, IV Titration 100 Amount cefTRIAXone 1 gm In 100 Sodium Chloride 0.9% 50 ml @ 100 mls/hr IVPB Q24HR [facility] Rx#:[id number] Oral 780 100 120 Other: Voiding Method Bedside Commode Bedside Commode # Voids 0 - Labs CBC & Chem 7: 09/20/24 07:17 09/20/24 07:17 Labs: Microbiology - Last 24 Hours (Table) 09/17/24 18:17 Urine Culture - Final Urine,Voided Klebsiella pneumoniae
--- NOTE | 2024-09-21 15:11 | P.PN ---
Subjective Progress Note Date: 09/21/24 Principal diagnosis: Reason for follow-up is UTI Patient is a 89-year-old female with a past medical history significant for hypertension hyperlipidemia metastatic breast cancer patient has been brought into the hospital concerning for palpitation apparently the patient did have altered mental status elevated white count positive UA concerning for symptomatic UTI. On today's evaluation that is 09/21/2024,the patient denies any fever or any chills, patient is breathing comfortably on room air, the patient denies chest pain shortness of breath and no significant cough, patient denies abdominal pain, no nausea vomiting or diarrhea. Patient white count 7.55 creatinine is 1.15 urine is growing Klebsiella sensitive to ceftriaxone Objective - Vital Signs Vital signs: Vital Signs Temp 98 F 09/21/24 08:25 Pulse 93 09/21/24 08:25 Resp 16 09/21/24 08:25 BP 103/62 09/21/24 08:25 Pulse Ox 95 09/21/24 08:25 FiO2 Intake & Output 09/20/24 09/21/24 09/21/24 18:59 06:59 18:59 Intake Total 880 110 120 Balance 880 110 120 Weight 72.2 kg Intake: IV 10 Invasive Line 4 10 Intake, IV Titration 100 Amount cefTRIAXone 1 gm In 100 Sodium Chloride 0.9% 50 ml @ 100 mls/hr IVPB Q24HR [facility] Rx#:[id number] Oral 780 100 120 Other: Voiding Method Bedside Commode Bedside Commode # Voids 0 - Exam GENERAL DESCRIPTION: An elderly female lying in bed in no distress RESPIRATORY SYSTEM: Unlabored breathing , decreased breath sounds at bases HEART: S1 S2 regular rate and rhythm , ABDOMEN: Soft , no tenderness EXTREMITIES: No edema feet - Labs CBC & Chem 7: 09/20/24 07:17 09/20/24 07:17 Labs: Microbiology - Last 24 Hours (Table) 09/17/24 18:17 Urine Culture - Final Urine,Voided Klebsiella pneumoniae Assessment and Plan (1) UTI (urinary tract infection) Current Visit: Yes Status: Acute Code(s): N39.0 - URINARY TRACT INFECTION, SITE NOT SPECIFIED SNOMED Code(s): 44809192 (2) Leukocytosis Current Visit: Yes Status: Acute Code(s): D72.829 - ELEVATED WHITE BLOOD CELL COUNT, UNSPECIFIED SNOMED Code(s): 346893962 Plan: 1patient presented hospital with weakness she did have altered mental status as reported by the son to the ER physician elevated white count positive UA johanny rning for symptomatic UTI likely from enteric gram-negative pathogen 2-patient did have improvement in the white count as well as mentation urine culture have been finalized with Klebsiella sensitive to ceftriaxone 3patient to continue with Rocephin while inpatient finishing therapy with Ceftin Dictation was produced using [employer] dictation software. please excuse any grammatical, word or spelling errors. Time with Patient: Less than 30
[2024-09-22 08:55] VITALS: PULSE 92; RESP 18
--- NOTE | 2024-09-22 11:48 | P.PN ---
Subjective HISTORY OF PRESENT ILLNESS: This is an 89-year-old female patient of Dr. Syed with past medical history of hypertension, hyperlipidemia, breast cancer with metastatic disease to the liver, spine and brain per patient currently on chemotherapy, remote history of tobacco use. Patient had a recent hospitalization and discharged on 09/09 and at that time was seen by cardiology for new onset of atrial fibrillation with RVR as well as new onset of cardiomyopathy suspect nonischemic secondary to A-fib with RVR. Patient also had elevated troponins for type II [place]. We have been asked to evaluate the patient for A-fib with RVR. Patient presented to [facility] emergency center due to weakness, confusion and palpitations. Patient was found to have elevated troponins and A-fib with RVR. In the ER, she was started on Cardizem IV push x 2 doses, 1 and half liters of IV fluid. Blood pressure 97/57, heart rate 70, pulse ox 96% on room air. Telemetry is atrial fibrillation with controlled ventricular rate. -EKG: Atrial fibrillation at 156 bpm. -Chest x-ray: Cardiomegaly and mild pulmonary vascular congestion. Osseous meta stasis in the thoracic abdominal lumbar vertebrae bodies. -Laboratory studies: WBC 10.7, hemoglobin 10.4, INR 1.2. Troponin 0.035, 0.035, 0.035. AST 100, ALT 68, alkaline phosphatase 233. -Home cardiac medications: Eliquis 5 mg twice daily, aspirin 81 mg daily, atorvastatin 20 mg daily, Cardizem 60 mg 3 times daily, metoprolol tartrate 200 mg twice daily, also on levothyroxine. -Echocardiogram performed 09/04/2024 revealed EF 35 to 40%, mild concentric LVH, RVSP 45 mmHg moderate TR, aortic valve sclerosis. 09/19 Patient seen and examined. Patient remains in atrial fibrillation. Heart rates are in the high 90s. Blood pressure 99/63, pulse ox 94% on room air. Patient has been off Cardizem drip as of yesterday morning and she was continued on metoprolol tartrate 100 mg twice daily and continued on Eliquis. 09/20/2024 Patient examined this morning at bedside. Patient currently denies chest pain or pressure. She denies shortness of breath. Patient remains in atrial fibrillation with a heart rate in the 120s. 09/21/2024 Patient examined this morning at the bedside. Patient currently denies chest pain or pressure. She denies shortness of breath. She remains in atrial fibrillation with controlled ventricular rate. Vital signs are stable. 09/22/2024 Patient examined this morning at the bedside. Patient currently denies chest pain or pressure. She denies shortness of breath. She remains in atrial fibrillation with controlled ventricular rate. PHYSICAL EXAM: VITAL SIGNS: Reviewed. GENERAL: Well-developed in no acute distress. NECK: Supple. No JVD or thyromegaly LUNGS: Respirations even and unlabored. Lungs essentially clear to auscultation bilaterally. HEART: Tachycardic. Irregular rate and rhythm. S1 and S2 heard. EXTREMITIES: Normal range of motion. No clubbing or cyanosis. Peripheral pulses intact. 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 While Cardizem is not ideal choice due to cardiomyopathy, small dose of Cardizem 30mg TID added 09/20/2024 for optimal heart rate control. Continue telemetry monitoring Continue anticoagulation with Eliquis Patient is currently stable for discharge from a cardiac standpoint Further recommendations pending patient course Discharge per medicine Nurse practitioner note has been reviewed by physician. Signing provider agrees with the documented findings, assessment, and plan of care documented by WIRE COINER as a scribe. Objective - Vital Signs Vital signs: Vital Signs Temp 98.0 F 09/22/24 08:00 Pulse 92 09/22/24 08:00 Resp 18 09/22/24 08:00 BP 108/73 09/22/24 08:00 Pulse Ox 95 09/22/24 08:00 FiO2 Intake & Output 09/21/24 09/22/24 09/22/24 18:59 06:59 18:59 Intake Total 290 240 Balance 290 240 Weight 77.1 kg Intake: Intake, IV Titration 50 Amount cefTRIAXone 1 gm In 50 Sodium Chloride 0.9% 50 ml @ 100 mls/hr IVPB Q24HR [facility] Rx#:[id number] Oral 240 240 Other: Voiding Method Toilet Bedside Commode # Voids 1 1 - Labs CBC & Chem 7: 09/20/24 07:17 09/20/24 07:17
[2024-09-22 12:16] VITALS: BP 110/64; TEMP 98.1
--- NOTE | 2024-09-22 12:34 | P.DS ---
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 Cardiac medications have been adjusted and rate is now controlled. Continue oral ceftin for Hospital Course patient is a 89-year-old lady with past medical history significant for hypothyroidism, atrial fibrillation, breast cancer who presented to the ER because of palpitations and generalized weakness. Patient have been all right couple of days ago when she started noticing that she was getting more weak. Patient was complaining of palpitations. Patient denied any chest pain. There was no orthopnea or PND. Patient was complaining of weakness. There was no fever or chills. Patient denies any cough. Because of the symptoms, patient went to her PCP office who told her to come to the ER. Initial lab work done in the ER showed WBC 10.7, hemoglobin 10.4, platelet count 481, sodium 139, potassium 4.5, BUN 16, creatinine 1.03, glucose 141, troponin 0.035 AST 100, ALT 68. UA done showed large amount of leukocyte Estrace, urine WBC 26. EKG done in the ER showed heart rate of 156, irregular rate and rhythm, no ST segment elevation or depression seen, no T-wave inversions seen. Chest x-ray done in the ER showed cardiomegaly and mild pulmonary vascular congestion. Redemonstration of osseous metastases involving the visualized thoracoabdominal lumbar vertebral body. Patient was admitted to the hospital. Urine culture is done and completed showing klebsiella pneumoniae. Patient has been on IV ceftriaxone to finish a course of oral ceftin for 5 days on discharge per ID. Cardiology was consulted and has adjusted medications including the metoprolol and adding small dose of oral cardizem. Patient will be discharging to subacute rehab. Most recent blood work reveals BUN 13, creatinine 1.15. Liver enzymes improving. Please see medication reconciliation for a list of current medications. Thank you for allowing us to participate in the care of this patient. The impression and plan of care has been dictated by Lisa Smith, Nurse Practitioner as directed. Dr. Ne MD I have performed a history and physical examination and medical decision making of this patient, discussed the same with the dictator, and agree with the dictators assessment and plan as written, documented as a scribe. Based on total visit time, I have performed more than 50% of this visit. Patient Condition at Discharge: Stable Plan - Discharge Summary Discharge Rx Participant: No New Discharge Prescriptions: New Metoprolol Tartrate [Lopressor] 50 mg PO 1200 tab Metoprolol Tartrate [Lopressor] 100 mg PO BID tab Cefuroxime [Ceftin] 250 mg PO BID 5 Days #10 tab Diltiazem Oral [Cardizem*] 30 mg PO TID tab Continue Ergocalciferol [Vitamin D2 (1250 Mcg = 81871 Iu)] 1,250 mcg PO Q14D Cyanocobalamin (Vitamin B-12) [Vitamin B-12] 1,000 mcg PO DAILY Gabapentin [Neurontin] 400 mg PO HS Esomeprazole Magnesium [NexIUM] 40 mg PO DAILY Fulvestrant 500 mg IM DIRECTED Cholecalciferol (Vitamin D3) [Vitamin D3 (50 Mcg = 2000 Iu)] 50 mcg PO DAILY Amitriptyline HCl [Elavil] 50 mg PO HS Atorvastatin [Lipitor] 20 mg PO DAILY Citalopram Hydrobromide [CeleXA] 10 mg PO DAILY Levothyroxine Sodium [Levo-T] 50 mcg PO DAILY Aspirin [Adult Low Dose Aspirin EC] 81 mg PO DAILY Gabapentin [Neurontin] 100 mg PO DAILY Multivit-Min/Iron/Folic/Lutein [Centrum Silver Women Tablet] 1 tab PO DAILY Lapatinib Ditosylate [Tykerb] 1,000 mg PO DAILY Garlic(Unknown Dose) 1 tab PO DAILY Collagen Skin Renewal 833-30mg 1 tab PO DAILY Apixaban [Eliquis] 5 mg PO BID #60 tab Butalb/APAP/Caff 50-325-40Mg [Fioricet 50-325-40] 1 tab PO Q6H PRN #4 tab PRN Reason: Headache Discontinued Diltiazem Oral [Cardizem*] 60 mg PO TID #90 tab Metoprolol Tartrate [Lopressor] 200 mg PO BID #120 tablet Discharge Medication List Amitriptyline HCl [Elavil] 50 mg PO HS 12/23/20 [History] Atorvastatin [Lipitor] 20 mg PO DAILY 12/23/20 [History] Citalopram Hydrobromide [CeleXA] 10 mg PO DAILY 12/23/20 [History] Cyanocobalamin (Vitamin B-12) [Vitamin B-12] 1,000 mcg PO DAILY 12/23/20 [History] Ergocalciferol [Vitamin D2 (1250 Mcg = 50315 Iu)] 1,250 mcg PO Q14D 12/23/20 [History] Levothyroxine Sodium [Levo-T] 50 mcg PO DAILY 12/23/20 [History] Aspirin [Adult Low Dose Aspirin EC] 81 mg PO DAILY 06/06/23 [History] Gabapentin [Neurontin] 100 mg PO DAILY 06/06/23 [History] Gabapentin [Neurontin] 400 mg PO HS 06/06/23 [History] Multivit-Min/Iron/Folic/Lutein [Centrum Silver Women Tablet] 1 tab PO DAILY 06/06/23 [History] Cholecalciferol (Vitamin D3) [Vitamin D3 (50 Mcg = 2000 Iu)] 50 mcg PO DAILY 09/03/24 [History] Collagen Skin Renewal 833-30mg 1 tab PO DAILY 09/03/24 [History] Esomeprazole Magnesium [NexIUM] 40 mg PO DAILY 09/03/24 [History] Fulvestrant 500 mg IM DIRECTED 09/03/24 [History] Garlic(Unknown Dose) 1 tab PO DAILY 09/03/24 [History] Lapatinib Ditosylate [Tykerb] 1,000 mg PO DAILY 09/03/24 [History] Apixaban [Eliquis] 5 mg PO BID #60 tab 09/09/24 [Rx] Butalb/APAP/Caff 50-325-40Mg [Fioricet 50-325-40] 1 tab PO Q6H PRN #4 tab 09/22/24 [Rx] Cefuroxime [Ceftin] 250 mg PO BID 5 Days #10 tab 09/22/24 [Rx] Diltiazem Oral [Cardizem*] 30 mg PO TID tab 09/22/24 [Rx] Metoprolol Tartrate [Lopressor] 50 mg PO 1200 tab 09/22/24 [Rx] Metoprolol Tartrate [Lopressor] 100 mg PO BID tab 09/22/24 [Rx] Follow up Appointment(s)/Referral(s): Guillermo Duggan MD [STAFF PHYSICIAN] - 1 Week Gely Patel MD [STAFF PHYSICIAN] - 1 Week Babatunde Walsh MD [Primary Care Provider] - 1-2 days Betty Tran MD [STAFF PHYSICIAN] - 1 Week Ambulatory/Diagnostic Orders: Basic Metabolic Panel [LAB.AMB] Location: None Selected Complete Blood Count w/diff [LAB.AMB] Time Frame: 3 Days, Location: None Selected Activity/Diet/Wound Care/Special Instructions: Patient will be discharge to [facility] Continue oral ceftin twice daily for 5 more days Follow up cardiology Discharge Disposition: TRANSFER TO SNF/ECF
--- NOTE | 2024-09-22 17:15 | P.PN ---
Subjective Progress Note Date: 09/22/24 Principal diagnosis: Reason for follow-up is UTI Patient is a 89-year-old female with a past medical history significant for hypertension hyperlipidemia metastatic breast cancer patient has been brought into the hospital concerning for palpitation apparently the patient did have altered mental status elevated white count positive UA concerning for symptomatic UTI. On today's evaluation that is 09/22/2024,the patient remains to be afebrile, patient is on room air not requiring supplemental oxygen and denies any shortness of breath no chest pain or cough.Patient denies having any nausea or vomiting, no abdominal pain and no diarrhea. Patient white count 7.55, creatinine is 1.15 urine with Klebsiella Objective - Vital Signs Vital signs: Vital Signs Temp 98.1 F 09/22/24 12:00 Pulse 92 09/22/24 12:14 Resp 18 09/22/24 12:14 BP 110/64 09/22/24 12:00 Pulse Ox 94 L 09/22/24 12:00 FiO2 Intake & Output 09/21/24 09/22/24 09/22/24 18:59 06:59 18:59 Intake Total 290 240 Balance 290 240 Weight 77.1 kg Intake: Intake, IV Titration 50 Amount cefTRIAXone 1 gm In 50 Sodium Chloride 0.9% 50 ml @ 100 mls/hr IVPB Q24HR [facility] Rx#:[id number] Oral 240 240 Other: Voiding Method Toilet Bedside Commode # Voids 1 1 - Exam GENERAL DESCRIPTION: An elderly female lying in bed in no distress RESPIRATORY SYSTEM: Unlabored breathing , decreased breath sounds at bases HEART: S1 S2 regular rate and rhythm , ABDOMEN: Soft , no tenderness EXTREMITIES: No edema feet - Labs CBC & Chem 7: 09/20/24 07:17 09/20/24 07:17 Assessment and Plan (1) UTI (urinary tract infection) Status: Acute Code(s): N39.0 - URINARY TRACT INFECTION, SITE NOT SPECIFIED SNOMED Code(s): 88300101 (2) Leukocytosis Status: Acute Code(s): D72.829 - ELEVATED WHITE BLOOD CELL COUNT, UNSPECIFIED SNOMED Code(s): 128068176 Plan: 1patient presented hospital with weakness she did have altered mental status as reported by the son to the ER physician elevated white count positive UA concerning for symptomatic UTI likely from enteric gram-negative pathogen 2-patient did have improvement in the white count as well as mentation urine culture have been finalized with Klebsiella sensitive to ceftriaxone 3patient to continue with Rocephin while inpatient will finish therapy the 7- day course of oral Ceftin on discharge discussed with MOLD MAKER HELPER for admitting team Dictation was produced using [employer] dictation software. please excuse any grammatical, word or spelling errors. Time with Patient: Less than 30
== END 2024-09-22 16:43 | DRG 309 ==
LOC: EC 12:42 → 3SCARD 15:57
PROVIDERS: ADMIT Hospitalist; ATTEND Hospitalist
DX: I48.19 Other persistent atrial fibrillation (principal); C78.7 Secondary malignant neoplasm of liver and intrahepatic bile duct; C79.31 Secondary malignant neoplasm of brain; C79.51 Secondary malignant neoplasm of bone; E03.9 Hypothyroidism, unspecified; F32.A Depression, unspecified; I10 Essential (primary) hypertension; I08.2 Rheumatic disorders of both aortic and tricuspid valves; N39.0 Urinary tract infection, site not specified; I42.8 Other cardiomyopathies; G62.9 Polyneuropathy, unspecified; R79.89 Other specified abnormal findings of blood chemistry; I25.10 Atherosclerotic heart disease of native coronary artery without angina pectoris; E78.5 Hyperlipidemia, unspecified; R94.5 Abnormal results of liver function studies; Z79.01 Long term (current) use of anticoagulants; Z79.82 Long term (current) use of aspirin; Z79.890 Hormone replacement therapy; Z79.899 Other long term (current) drug therapy; Z85.3 Personal history of malignant neoplasm of breast; Z87.891 Personal history of nicotine dependence; Z88.5 Allergy status to narcotic agent
CPT/HCPCS: 36415; 71046; 80053; 81001; 83735; 84439; 84443; 84484; 85025; 85610; 85730; 87077; 87086; 87186; 93005; 96365; 96366; 99291

== ENCOUNTER 2024-10-11 10:18 | Inpatient (IN) | payer MEDICARE ==
--- NOTE | 2024-10-11 10:41 | ED ---
General Adult HPI - General Stated complaint: AMS Time Seen by Provider: 10/11/24 10:25 Source: EMS Mode of arrival: EMS - History of Present Illness Initial comments: Dictation was produced using [employer] dictation software. please excuse any grammatical, word or spelling errors. Chief Complaint: 89-year-old female with past medical history of dyslipidemia hypertension presents to the ER for altered mental status History of Present Illness: Patient is 89-year-old female she is uncooperative. History of present illness obtained from grandson over the phone along with EMS. Patient was brought here to the emergency department for altered mental status. Grandson states that she has been altered for the last couple days. Specifically states that she has been argumentative. There is some concern that she has had some slurred speech for the past 48 hours. Patient denies any complaints however is not cooperative. Grandson states that she has been progressively weak requiring significant assistance over the last several days Unable to obtain ROS secondary to patient being uncooperative. - Related Data Home Medications Medication Instructions Recorded Confirmed Amitriptyline HCl [Elavil] 50 mg PO HS 12/23/20 09/17/24 Atorvastatin [Lipitor] 20 mg PO DAILY 12/23/20 09/17/24 Citalopram Hydrobromide [CeleXA] 10 mg PO DAILY 12/23/20 09/17/24 Cyanocobalamin (Vitamin B-12) 1,000 mcg PO DAILY 12/23/20 09/17/24 [Vitamin B-12] Ergocalciferol [Vitamin D2 (1250 1,250 mcg PO Q14D 12/23/20 09/17/24 Mcg = 80515 Iu)] Levothyroxine Sodium [Levo-T] 50 mcg PO DAILY 12/23/20 09/17/24 Aspirin [Adult Low Dose Aspirin EC] 81 mg PO DAILY 06/06/23 09/17/24 Gabapentin [Neurontin] 100 mg PO DAILY 06/06/23 09/17/24 Gabapentin [Neurontin] 400 mg PO HS 06/06/23 09/17/24 Multivit-Min/Iron/Folic/Lutein 1 tab PO DAILY 06/06/23 09/17/24 [Centrum Silver Women Tablet] Cholecalciferol (Vitamin D3) 50 mcg PO DAILY 09/03/24 09/17/24 [Vitamin D3 (50 Mcg = 2000 Iu)] Collagen Skin Renewal 833-30mg 1 tab PO DAILY 09/03/24 09/17/24 Esomeprazole Magnesium [NexIUM] 40 mg PO DAILY 09/03/24 09/17/24 Fulvestrant 500 mg IM DIRECTED 09/03/24 09/17/24 Garlic(Unknown Dose) 1 tab PO DAILY 09/03/24 09/17/24 Previous Rx's Medication Instructions Recorded Apixaban [Eliquis] 5 mg PO BID #60 tab 09/09/24 Butalb/APAP/Caff 50-325-40Mg 1 tab PO Q6H PRN #4 tab 09/22/24 [Fioricet 50-325-40] Cefuroxime [Ceftin] 250 mg PO BID 5 Days #10 tab 09/22/24 Diltiazem Oral [Cardizem*] 30 mg PO TID tab 09/22/24 Metoprolol Tartrate [Lopressor] 50 mg PO 1200 tab 09/22/24 Metoprolol Tartrate [Lopressor] 100 mg PO BID tab 09/22/24 Allergies Allergy/AdvReac Type Severity Reaction Status Date / Time codeine Allergy Rash/Hives Verified 10/11/24 10:39 Review of Systems ROS Statement: Those systems with pertinent positive or pertinent negative responses have been documented in the HPI. ROS Other: All systems not noted in ROS Statement are negative. 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 2022, cataracts, double vision History of Any Multi-Drug Resistant Organisms: None Reported Past Surgical History: Appendectomy, Hysterectomy Additional Past Surgical History / Comment(s): toxic goiter; gallblader removal Past Anesthesia/Blood Transfusion Reactions: No Reported Reaction Past Psychological History: Depression Smoking Status: Former smoker Past Alcohol Use History: None Reported Past Drug Use History: None Reported General Exam - General Exam Comments Initial Comments: PHYSICAL EXAM: General Impression: Alert, uncooperative HEENT: Normocephalic atraumatic, extra-ocular movements intact, pupils equal and reactive to light bilaterally, mucous membranes moist. Cardiovascular: Heart regular rate and rhythm Chest: Able to complete full sentences, no retractions, no tachypnea Abdomen: abdomen soft, non-tender, non-distended, no organomegaly Musculoskeletal: Pulses present and equal in all extremities, no peripheral edema Motor: no focal deficits noted Neurological: CN II-XII grossly intact, no focal motor or sensory deficits noted Skin: Intact with no visualized rashes Course Vital Signs 10/11/24 10/11/24 10:24 12:04 Temperature 97.5 F L Pulse Rate 81 92 Respiratory 20 Rate Blood Pressure 137/91 146/84 O2 Sat by Pulse 96 Oximetry EKG Findings - EKG Comments: EKG Findings:: My EKG interpretation: Ventricular rate, QRS 91, QTc 416. No NC prolongation, no QTC prolongation, no ST or T-wave changes noted. Medical Decision Making - Medical Decision Making Was pt. sent in by a medical professional or institution (, PA, KRAFT MILL OPERATOR, urgent care, hospital, or senior care...) When possible be specific @ -No Did you speak to anyone other than the patient for history (EMS, parent, family, police, friend...)? What history was obtained from this source @ -See above Did you review nursing and triage notes (agree or disagree)? Why? @ -I reviewed and agree with nursing and triage notes Were old charts reviewed (outside hosp., previous admission, EMS record, old EKG, old radiological studies, urgent care reports/EKG's, senior care records)? Report findings @ -No old charts were reviewed Differential Diagnosis (chest pain, altered mental status, abdominal pain women, abdominal pain men, vaginal bleeding, musculoskeletal, weakness, fever, dyspnea, syncope, headache, dizziness, GI bleed, back pain, seizure, CVA, palpatations, mental health)? @ -Differential Altered Mental Status: Hypoglycemia, DKA, hypercapnia, ETOH, overdose, CO poisoning, trauma, myxedema coma, HTN encephalopathy, infection, encephalitis, psychosis, intercranial hemorrhage, hepatic encephalopathy, meningitis, CVA, this is not meant to be an all-inclusive list EKG interpreted by me (3pts min.). @ -See above X-rays interpreted by me (1pt min.). @ -X-ray shows possible pneumonia at the right base CT interpreted by me (1pt min.). @ -None done U/S interpreted by me (1pt. min.). @ -None done What testing was considered but not performed or refused? (CT, X-rays, U/S, labs)? Why? @ -None What meds were considered but not given or refused? Why? @ -None Was smoking cessation discussed for >3mins.? @ -No Were there social determinants of health that impacted care today? How? (Homelessness, low income, unemployed, alcoholism, drug addiction, transportation, low edu. Level, literacy, decrease access to med. care, penitentiary, rehab)? @ -No Was there de-escalation of care discussed even if they declined (Discuss DNR or withdrawal of care, Hospice)? DNR status @ -No What co-morbidities impacted this encounter? (DM, HTN, Smoking, COPD, CAD, Cancer, CVA, ARF, Chemo, Hep., AIDS, mental health diagnosis, sleep apnea, morbid obesity)? @ -None Was patient admitted / discharged? Hospital course, mention meds given and route, prescriptions, significant lab abnormalities, going to OR and other pertinent info. @ -89-year-old female with altered mental status. Patient does not have focal neurologic deficits at the bedside. Vital signs stable. Patient no acute di stress she is however rather uncooperative. Laboratory evaluation obtained. Blood labs negative. Urinalysis shows UTI. Chest x-ray shows pneumonia. Patient started on antibiotics. Will be admitted consultation to Did you discuss the management of the patient with other professionals (professionals i.e. , PA, KRAFT MILL OPERATOR, lab, RT, psych nurse, hospital social worker, shoe stitcher odd, teacher, landcare officer, rifle case repairer)? Give summary @ -No Was critical care preformed (if so, how long)? @ -No Undiagnosed new problem with uncertain prognosis? @ -No Drug Therapy requiring intensive monitoring for toxicity (Heparin, Nitro, Insulin, Cardizem)? @ -No Were any procedures done? @ -No Diagnosis/symptom? Acute, or Chronic, or Acute on Chronic? Uncomplicated (without systemic symptoms) or Complicated (systemic symptoms)? @ -UTI, pneumonia complicated by mental status changes Side effects of treatment? @ -No Exacerbation, Progression, or Severe Exacerbation? @ -No Poses a threat to life or bodily function? How? (Chest pain, USA, ND, pneumonia, PE, COPD, DKA, ARF, appy, cholecystitis, CVA, Diverticulitis, Homicidal, Suicidal, threat to staff... and all critical care pts) @ -yes - Lab Data Result diagrams: 10/11/24 10:48 10/11/24 10:48 Lab Results 10/11/24 10/11/24 10/11/24 Range/Units 10:48 10:48 10:48 WBC 8.57 (4.50-10.00) 10*3/uL RBC 3.35 L (4.10-5.20) 10*6/uL Hgb 10.5 L (12.0-15.0) g/dL Hct 32.5 L (37.2-46.3) % MCV 97.0 (80.0-97.0) fL MCH 31.3 (27.0-32.0) pg MCHC 32.3 (32.0-37.0) g/dL Plt Count 378 (140-440) 10*3/uL MPV 8.9 L (9.5-12.2) fL Immature Gran % (Auto) 0.2 % Neutrophils % 76.6 % Lymphocytes % 13.7 % Monocytes % 5.3 % Eosinophils % 3.5 % Basophils % 0.7 % Immature Gran # 0.02 (0.00-0.04) 10*3/uL Neutrophils # 6.57 (1.80-7.70) 10*3/uL Lymphocytes # 1.17 (0.90-5.00) 10*3/uL Monocytes # 0.45 (0.20-1.00) 10*3/uL Eosinophils # 0.30 (0.04-0.35) 10*3/uL Basophils # 0.06 (0.00-0.10) 10*3/uL Sodium 139 (137-145) mmol/L Potassium 4.7 (3.5-5.1) mmol/L Chloride 105 (98-107) mmol/L Carbon Dioxide 27 (22-30) mmol/L Anion Gap 7 mmol/L BUN 20 H (7-17) mg/dL Creatinine 1.24 H (0.52-1.04) mg/dL Est GFR (CKD-EPI)AfAm 45 (>60 ml/min/1.73 sqM) Est GFR (CKD-EPI)NonAf 39 (>60 ml/min/1.73 sqM) Glucose 123 H (74-99) mg/dL Plasma Lactic Acid Nicho 0.9 (0.7-2.0) mmol/L Calcium 8.8 (8.4-10.2) mg/dL Magnesium 1.8 (1.6-2.3) mg/dL Total Bilirubin 0.8 (0.2-1.3) mg/dL AST 63 H (14-36) U/L ALT 29 (4-34) U/L Alkaline Phosphatase 190 H (38-126) U/L Total Protein 6.5 (6.3-8.2) g/dL Albumin 3.5 (3.5-5.0) g/dL Urine Color Urine Appearance (Clear) Urine pH (5.0-8.0) Ur Specific [place] (1.001-1.035) Urine Protein (Negative) Urine Glucose (UA) (Negative) Urine Ketones (Negative) Urine Blood (Negative) Urine Nitrite (Negative) Urine Bilirubin (Negative) Urine Urobilinogen (<2.0) mg/dL Ur Leukocyte Esterase (Negative) Urine RBC (0-5) /hpf Urine WBC (0-5) /hpf Urine Bacteria (None) /hpf Urine Mucus (None) /hpf 10/11/24 Range/Units 12:37 WBC (4.50-10.00) 10*3/uL RBC (4.10-5.20) 10*6/uL Hgb (12.0-15.0) g/dL Hct (37.2-46.3) % MCV (80.0-97.0) fL MCH (27.0-32.0) pg MCHC (32.0-37.0) g/dL Plt Count (140-440) 10*3/uL MPV (9.5-12.2) fL Immature Gran % (Auto) % Neutrophils % % Lymphocytes % % Monocytes % % Eosinophils % % Basophils % % Immature Gran # (0.00-0.04) 10*3/uL Neutrophils # (1.80-7.70) 10*3/uL Lymphocytes # (0.90-5.00) 10*3/uL Monocytes # (0.20-1.00) 10*3/uL Eosinophils # (0.04-0.35) 10*3/uL Basophils # (0.00-0.10) 10*3/uL Sodium (137-145) mmol/L Potassium (3.5-5.1) mmol/L Chloride (98-107) mmol/L Carbon Dioxide (22-30) mmol/L Anion Gap mmol/L BUN (7-17) mg/dL Creatinine (0.52-1.04) mg/dL Est GFR (CKD-EPI)AfAm (>60 ml/min/1.73 sqM) Est GFR (CKD-EPI)NonAf (>60 ml/min/1.73 sqM) Glucose (74-99) mg/dL Plasma Lactic Acid Nicho (0.7-2.0) mmol/L Calcium (8.4-10.2) mg/dL Magnesium (1.6-2.3) mg/dL Total Bilirubin (0.2-1.3) mg/dL AST (14-36) U/L ALT (4-34) U/L Alkaline Phosphatase (38-126) U/L Total Protein (6.3-8.2) g/dL Albumin (3.5-5.0) g/dL Urine Color Colorless Urine Appearance Clear (Clear) Urine pH 6.0 (5.0-8.0) Ur Specific [place] 1.007 (1.001-1.035) Urine Protein Trace H (Negative) Urine Glucose (UA) Negative (Negative) Urine Ketones Negative (Negative) Urine Blood Trace H (Negative) Urine Nitrite Positive H (Negative) Urine Bilirubin Negative (Negative) Urine Urobilinogen <2.0 (<2.0) mg/dL Ur Leukocyte Esterase Large H (Negative) Urine RBC 2 (0-5) /hpf Urine WBC 73 H (0-5) /hpf Urine Bacteria Many H (None) /hpf Urine Mucus Rare H (None) /hpf Disposition Clinical Impression: UTI (urinary tract infection), Pneumonia Disposition: ADMITTED IP TO THIS HOSP Condition: Fair Referrals: Babatunde Walsh MD [Primary Care Provider] - 1-2 days Decision Time: 13:21
[2024-10-11 10:57] LABS: Basophils # (A) 0.06 10*3/uL (0.00-0.10); Basophils % (A) 0.7 %; Eosinophils % (A) 3.5 %; HCT 32.5 % (37.2-46.3); HGB 10.5 g/dL (12.0-15.0); Lymphocytes # (A) 1.17 10*3/uL (0.90-5.00); Lymphocytes % (A) 13.7 %; MCH 31.3 pg (27.0-32.0); MCHC 32.3 g/dL (32.0-37.0); Mean Platelet Volume 8.9 fL (9.5-12.2); Monocytes # (A) 0.45 10*3/uL (0.20-1.00); Monocytes % (A) 5.3 %; Neutrophils # (A) 6.57 10*3/uL (1.80-7.70); Neutrophils % (A) 76.6 %; Platelet Count 378 10*3/uL (140-440); RBC 3.35 10*6/uL (4.10-5.20); RDW 16.2 % (11.5-14.5); WBC 8.57 10*3/uL (4.50-10.00)
[2024-10-11 11:26] LABS: ALT 29 U/L (4-34); AST 63 U/L (14-36); African American GFR (CKD) 45 (>60 ml/min/1.73 sqM); Albumin 3.5 g/dL (3.5-5.0); Alkaline Phosphatase 190 U/L (38-126); Anion Gap 7 mmol/L; Blood Urea Nitrogen 20 mg/dL (7-17); Calcium 8.8 mg/dL (8.4-10.2); Carbon Dioxide 27 mmol/L (22-30); Chloride 105 mmol/L (98-107); Glucose 123 mg/dL (74-99); Magnesium 1.8 mg/dL (1.6-2.3); Non-African American GFR(CKD) 39 (>60 ml/min/1.73 sqM); Potassium 4.7 mmol/L (3.5-5.1); Sodium 139 mmol/L (137-145); Total Bilirubin 0.8 mg/dL (0.2-1.3); Total Protein 6.5 g/dL (6.3-8.2)
--- NOTE | 2024-10-11 12:07 | XR ---
EXAMINATION TYPE: XR chest 1V portable DATE OF EXAM: 10/11/2024 11:56 AM COMPARISON: 09/17/2024 CLINICAL INDICATION: Female, 89 years old with history of ams, confusion FINDINGS: Heart mildly enlarged. Interstitial/vascular prominence and some patchy right basilar opacity. No siz able pleural effusion. IMPRESSION: 1. Correlate for possible CHF with pulmonary vascular congestion. 2. More focal patchy opacity at the right base could represent evolving patchy pulmonary edema or dev eloping pneumonia. [facility], , 10/11/2024 12:04 PM
--- NOTE | 2024-10-11 12:20 | CT ---
EXAMINATION TYPE: CT brain wo con DATE OF EXAM: 10/11/2024 COMPARISON: CT brain September 08, 2024 CLINICAL INDICATION: Female, 89 years old with history of ams, AMS TECHNIQUE: CT scan of the head is performed without contrast. CT DLP: 1094.6 mGycm. Automated Exposure Control for Dose Reduction was Utilized. FINDINGS: There is no acute intracranial hemorrhage or midline shift identified. There is mild to m oderate diffuse ventricular and sulcal prominence redemonstrated. There is advanced low-attenuation in the deep and periventricular white matter redemonstrated. Bilateral aphakia is redemonstrated. The visualized sinuses are clear. IMPRESSION: No acute intracranial hemorrhage or midline shift. No significant change from most recen t prior CT. [facility], , 10/11/2024 12:18 PM
--- NOTE | 2024-10-11 12:48 | CT ---
EXAMINATION TYPE: CT angio head neck DATE OF EXAM: 10/11/2024 COMPARISON: MRI brain August 09, 2024 CLINICAL INDICATION: Female, 89 years old with history of neurologic defecit, Neurologic deficit, TECHNIQUE: CTA scan of the head and neck is performed without and with IV Contrast, patient injected with 65 ml mL of Isovue 370, axial images are obtained, coronal and sagittal reformatted images are reviewed. 3D reconstructed images are created on an independent workstation and reviewed. NASCET crystal martinez was used in interpretation of this exam? CT DLP: 416.6 mGycm. Automated Exposure Control for Dose Reduction was Utilized. FINDINGS: Vertebral arteries: The vertebral arteries are patent. Vertebral artery dominance: Codominant Basilar artery: The basilar artery is intact. The basilar artery bifurcation is normal. Internal Carotid arteries: The cervical, petrous, cavernous and supraclinoid segments are normal. MENG: Patent with no evidence of aneurysm. ACOM: Hypoplastic. MCA: Patent with no evidence of aneurysm. VETERINARY MICROBIOLOGIST: Patent with no evidence of aneurysm. PCOM: Patent left posterior communicating artery. Dural sinuses: Patent. CTA NECK: Right Carotid System: The common carotid artery and external carotid artery are patent. The carotid bifurcation demonstrate s moderate peripheral calcified plaque extending into the proximal right internal carotid artery with out evidence of hemodynamically significant stenosis. The remaining portions of the internal carotid artery demonstrate normal size without significant narrowing. Left Carotid System: The common carotid artery and external carotid artery are patent. The carotid bifurcation demonstrate s [id number] peripheral calcified plaque without hemodynamically significant stenosis. The jake ining portions of the internal carotid artery demonstrate normal size without significant narrowing. Vertebral arteries are patent without evidence hemodynamically significant stenosis. There is a three-vessel aortic arch. The origins of the great vessels are patent. No evidence of hemo dynamically significant stenosis. Bilateral aphakia is present. IMPRESSION: No evidence of significant stenosis at the carotid bifurcations. No evidence of intracranial large vessel occlusion or intracranial aneurysm. [facility], , 10/11/2024 12:45 PM
[2024-10-11 13:06] LABS: Appearance,Urine Clear (Clear); Bacteria,Urine Many /hpf; Bilirubin,Urine Negative (Negative); Blood,Urine Trace (Negative); Color,Urine Colorless; Glucose,Urine (UA) Negative (Negative); Ketones,Urine Negative (Negative); Leukocyte Esterase,Urine Large (Negative); Mucus,Urine Rare /hpf; Nitrite,Urine Positive (Negative); Protein,Urine Trace (Negative); RBC,Urine 2 /hpf (0-5); Specific Gravity,Urine 1.007 (1.001-1.035); Urobilinogen,Urine <2.0 mg/dL (<2.0); WBC,Urine 73 /hpf (0-5)
[2024-10-11] MEDS ORDERED: NALOXONE 0.4 MG/ML 1 ML VIAL IV PRN (13:17)
[2024-10-11] MEDS: cefTRIAXone IN SWFI 1,000 MG/10 ML SYRINGE IVP STA (13:52)
[2024-10-11] MEDS: AZITHROMYCIN 500 MG in SODIUM CHLORIDE 0.9% 250 ML IVPB STA (13:57)
[2024-10-11] MEDS: SODIUM CHLORIDE 0.9% 1,000 ML IV SCH (14:31)
[2024-10-11] MEDS ORDERED: BUTALB/APAP/CAFF 50-325-40MG TAB PO PRN (17:22)
[2024-10-11] MEDS: CHOLECALCIFEROL 25 MCG (1000 IU) TABLET PO SCH (18:39)
[2024-10-11] MEDS: METOPROLOL TARTRATE 50 MG TAB PO SCH (22:32)
[2024-10-11] MEDS: APIXABAN 5 MG TAB PO SCH (22:32)
--- NOTE | 2024-10-12 04:18 | HP ---
HISTORY AND PHYSICAL CHIEF COMPLAINT: Change in mental status. HISTORY OF PRESENT ILLNESS: This 89-year-old woman with a past medical history of multiple medical problems, was recently admitted with chronic atrial fibrillation and UTI. The patient also had possible nonischemic cardiomyopathy. Currently, the patient is confused and not amenable to suggestion and the patient is apparently uncooperative and the grandson brought the patient to the ER and the patient treatment. The patient is possibly argumentative also. There is no history of fever, rigors, chills at this time. PAST MEDICAL HISTORY: History of hypertension, hyperlipidemia. Rest of the chart is also noted. HOME MEDICATIONS: Reviewed include multivitamin. Rest of medications noted. ALLERGIES: Codeine. FAMILY HISTORY: Could not be taken, the patient is confused. SOCIAL HISTORY: Could not be taken, the patient is confused. PHYSICAL EXAMINATION: VITAL SIGNS: Pulse is 82, blood pressure n respirations 16. HEENT: Conjunctivae are normal. NECK: No jugular venous distention. CARDIOVASCULAR: S1 and S2, muffled. RESPIRATIONS: A few scattered rhonchi. ABDOMEN: Soft, nontender. NERVOUS SYSTEM: Diffusely weak. LABORATORY DATA: Hemoglobin 10.5. Creatinine is 1.24. UA shows possible UTI. ASSESSMENT: 1. Change in mental status, metabolic encephalopathy. 2. Acute renal failure. 3. Possible urinary tract infection, present on admission. 4. Hypertension. 5. Hyperlipidemia. 6. History of degenerative joint disease. 7. Chronic atrial fibrillation. 8. Possible nonischemic cardiomyopathy secondary to atrial fibrillation with rapid ventricular rate. 9. History of breast cancer. 10.Multiple complex medical issues. RECOMMENDATION/DISCUSSION: 1. This 89-year-old woman presented with multiple complex medical issues. At this time, I would recommend neuro checks, complete neurovascular workup, and Neurology evaluation. I would also recommend urine culture and empiric antibiotics. Infectious Disease evaluation also. The chest x-ray also has suspicions for pneumonia also. 2. Rule out pneumonia. We will continue to monitor. Guarded prognosis. Further recommendations to follow. Empiric antibiotics as mentioned earlier. also will be consulted for pneumonia. MMODL / IJN: [id number] / [id number]
--- NOTE | 2024-10-12 05:36 | P.CNPUL ---
History of Present Illness Consult date: 10/12/24 Requesting physician: Mariha Mcbride Reason for consult: pneumonia Chief complaint: Altered mental status History of present illness: Patient is an 89-year-old female with past medical history significant for metastatic breast cancer. Originally diagnosed back in 2022. PET scan done June, showing recurrent or increasing areas of uptake from prior exam. New areas of uptake within the superior mediastinum and left hilar region. New areas of uptake within the liver suspicious of hepatic metastasis. No areas of uptake within the axial skeleton and with in the pelvis suspicious for new metastasis. Prior osseous metastasis may be increasing in volume and intensity. Of note, patient had a recent hospitalization August 2024 for new onset A-fib and urinary tract infection. Urine was positive for Klebsiella pneumonia. She was discharged to subacute rehab on September 22 with a course of Ceftin to be completed outpatient. She was also started on metoprolol and Cardizem. Brought back to the emergency department yesterday morning by EMS for altered mental status. Ongoing for the last couple days. Associated slurred speech. Patient was noted to be not cooperative in the ED. Workup including a brain CT without contrast showing no acute intracranial hemorrhage or midline shift. Brain CT angio did not show any evidence of significant stenosis at the carotid bifurcations. No evidence of intracranial large vessel occlusion or intracranial aneurysm. Urinalysis was positive for nitrates, pyuria, and bacteria. Chest x-ray remarkable for cardiomegaly and pulmonary vascular congestion. Possible focal patchy opacity at the right base could represent evolving patchy pulmonary edema or developing pneumonia. Remaining labs including a CBC with a WBC count of 8.6, hemoglobin 10.5, platelets 378. CMP: Electrolytes WDL, creatinine near baseline around 1.24, glucose 123. Patient currently being evaluated on the general medical floor. She is awake and alert. She is on 2 L/min nasal cannula. Does not appear to to be any respiratory distress. No coughing. She denies any complaints at this time. Refuses to answer most direct questioning. Gauze covering the left eye. Slurred speech intermittently noted. Started empirically on a combination of azithromycin and Rocephin. Remains afebrile. Normal saline infusing at 75 mL/h. Current vital signs: Temperature 98.8 F, heart rate 88 bpm, blood pressure 147/88 mmHg, nontachypneic, SpO2 recorded at 98% on 2 L/min nasal cannula. 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 2022, cataracts, double vision History of Any Multi-Drug Resistant Organisms: None Reported Past Surgical History: Appendectomy, Hysterectomy Additional Past Surgical History / Comment(s): toxic goiter; gallblader removal Past Anesthesia/Blood Transfusion Reactions: No Reported Reaction Past Psychological History: Depression Smoking Status: Former smoker Past Alcohol Use History: None Reported Past Drug Use History: None Reported Medications and Allergies Home Medications Medication Instructions Recorded Confirmed Type Amitriptyline HCl [Elavil] 50 mg PO DAILY 12/23/20 10/11/24 History Atorvastatin [Lipitor] 20 mg PO DAILY 12/23/20 10/11/24 History Citalopram Hydrobromide [CeleXA] 10 mg PO DAILY 12/23/20 10/11/24 History Cyanocobalamin (Vitamin B-12) 1,000 mcg PO DAILY 12/23/20 10/11/24 History [Vitamin B-12] Levothyroxine Sodium [Levo-T] 50 mcg PO DAILY@0600 12/23/20 10/11/24 History Aspirin [Adult Low Dose Aspirin EC] 81 mg PO DAILY 06/06/23 10/11/24 History Gabapentin [Neurontin] 100 mg PO DAILY 06/06/23 10/11/24 History Gabapentin [Neurontin] 400 mg PO HS 06/06/23 10/11/24 History Fulvestrant 500 mg IM Q30D 09/03/24 10/11/24 History Apixaban [Eliquis] 5 mg PO BID #60 tab 09/09/24 10/11/24 Rx Butalb/APAP/Caff 50-325-40Mg 1 tab PO Q6H PRN #4 tab 09/22/24 10/11/24 Rx [Fioricet 50-325-40] Amiodarone [Cordarone] See Taper PO DIRECTED 10/11/24 10/11/24 History Celecoxib [CeleBREX] 100 mg PO DAILY 10/11/24 10/11/24 History Cholecalciferol (Vitamin D3) 50 mcg PO MOWETHFR 10/11/24 10/11/24 History [Vitamin D3 (50 Mcg = 2000 Iu)] Cholecalciferol (Vitamin D3) 100 mcg PO SUSA 10/11/24 10/11/24 History [Vitamin D3 (50 Mcg = 2000 Iu)] Famotidine [Pepcid] 20 mg PO BID 10/11/24 10/11/24 History Metoprolol Tartrate [Lopressor] 200 mg PO BID 10/11/24 10/11/24 History Multivit-Minerals/Folic Acid 0.4 mg PO DAILY 10/11/24 10/11/24 History [One-A-Day Women's 50 Plus Tab] Allergies Allergy/AdvReac Type Severity Reaction Status Date / Time codeine Allergy Rash/Hives Verified 10/11/24 16:23 Physical Exam Vitals: Vital Signs Temp Pulse Pulse Resp BP BP Pulse Ox 10/11/24 22:11 98.8 F 88 16 147/88 98 10/11/24 20:18 84 18 130/67 10/11/24 18:13 87 18 122/58 97 10/11/24 14:31 82 16 149/89 96 10/11/24 12:04 92 146/84 10/11/24 10:24 97.5 F L 81 20 137/91 96 Intake and Output 10/11/24 10/11/24 10/12/24 14:59 22:59 06:59 Output Total 1000 Balance -1000 Output: Urine 1000 Straight 1000 Other: Voiding Method Diaper Incontinent Weight 79.379 kg 79.379 kg GENERAL EXAM: Alert, 89-year-old white female, gauze covering left eye, on 2 L/min nasal cannula,, comfortable in no apparent distress. HEAD: Normocephalic and atraumatic EYES: Normal reaction of pupils, equal size. NOSE: Clear with pink turbinates. THROAT: No erythema or exudates. NECK: No masses, no JVD. CHEST: No chest wall deformity. LUNGS: Equal air entry with no crackles, wheeze, rhonchi or dullness. No conversational dyspnea or accessory muscle use. No coughing. CVS: S1 and S2 normal with no audible murmur, irregular rhythm. No extra heart sounds ABDOMEN: No hepatosplenomegaly, active bowel sounds, no guarding or rigidity. SPINE: No scoliosis or deformity SKIN: No rashes CENTRAL NERVOUS SYSTEM: Neurological exam limited by patient participation, dysarthria noted, no other obvious focal deficits, tone is normal in all 4 extremities. EXTREMITIES: There is no peripheral edema, clubbing, or cyanosis. Peripheral pulses are intact. Results - Laboratory Findings CBC and BMP: 10/11/24 10:48 10/11/24 10:48 Abnormal lab findings: Abnormal Labs 10/11/24 10/11/24 10/11/24 10:48 10:48 12:37 RBC 3.35 L Hgb 10.5 L Hct 32.5 L MPV 8.9 L BUN 20 H Creatinine 1.24 H Glucose 123 H AST 63 H Alkaline Phosphatase 190 H Urine Protein Trace H Urine Blood Trace H Urine Nitrite Positive H Ur Leukocyte Esterase Large H Urine WBC 73 H Urine Bacteria Many H Urine Mucus Rare H - Diagnostic Findings Chest x-ray: image reviewed Assessment and Plan Assessment: Urinary tract infection Altered mental status, consider acute metabolic encephalopathy Acute hypoxemic respiratory failure, currently on 2 L/min nasal cannula, Chest x-ray remarkable for cardiomegaly and pulmonary vascular congestion. Possible focal patchy opacity at the right base could represent evolving patchy pulmonary edema or developing pneumonia. Atrial fibrillation with controlled ventricular response, anticoagulated on Eliquis Nonischemic cardiomyopathy, recent available echocardiogram from August, estimating a left ventricular ejection fraction of 35 to 40%, moderate pulmonary hypertension with RVSP 45 mmHg, mild MR, moderate tricuspid regurgitation. Chronic kidney disease stage III Hypertension History of hyperlipidemia Metastatic breast cancer, PET scan done June, showing recurrent or increasing areas of uptake from prior exam. New areas of uptake within the superior mediastinum and left hilar region. New areas of uptake within the liver suspicious of hepatic metastasis. No areas of uptake within the axial skeleton and with in the pelvis suspicious for new metastasis. Prior osseous metastasis may be increasing in volume and intensity. History of hypothyroidism History of cataract, with cataract removal on the left Plan: Patient's medications, labs, imaging reviewed Currently on 2 L/min nasal cannula, wean as tolerated Chest x-ray remarkable for CHF. Right lower lobe pneumonia felt to be less likely. Obtain NT proBNP Give dose of Lasix 20 mg IV push once now Currently empirically covered on antibiotics Urine culture on previous admission positive for Klebsiella pneumonia Infectious disease consulted for antibiotic management Will continue to follow I have personally seen and examined the patient, performed the documentation and the assessment and plan as written. Number of minutes spent on the visit:20 Time with Patient: Greater than 30
[2024-10-12] MEDS: LEVOTHYROXINE 50 MCG TAB PO SCH (06:03)
[2024-10-12] MEDS: FUROSEMIDE 10 MG/ML 2 ML VIAL IV ONE (06:03)
--- NOTE | 2024-10-12 07:23 | P.CONS ---
History of Present Illness - Reason for Consult Consult date: 10/11/24 UTI, pneumonia Requesting physician: Riccardo Santiago - Chief Complaint Mental status changes x few days - History of Present Illness Patient is a 89-year-old female with a past medical his significant for hypertension hyperlipidemia metastatic breast cancer with mets to the liver and spine patient has been brought into the hospital concerning for altered mental status in this patient symptom has been going on for the last couple of days as reported by the grandson patient has been more argumentative and there was concern for some slurred speech was also concerning for increasing weakness over the last few days with recent with the patient has been evaluated on presentation to the hospital patient was afebrile no fever have recorded subsequently patient was nontachycardic or hypotensive no distress on room air documented currently on a 2 L nasal cannula oxygen patient did have a white count of 8.57 BUN/creatinine has been mildly elevated AST of 63 urine has been positive patient did have a chest x-ray focal patchy opacity right lung base could represent evolving patchy pulm edema also pneumonia patient was started on Rocephin and Zithromax infectious disease was consulted for further management of antibiotic therapy most information has been obtained from review the chart and talking nursing staff as the patient cannot provide any history Review of Systems Positive points has been mentioned in HPI complete review could not be obtained because of his underlying mental status 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 2022, cataracts, double vision History of Any Multi-Drug Resistant Organisms: None Reported Past Surgical History: Appendectomy, Hysterectomy Additional Past Surgical History / Comment(s): toxic goiter; gallblader removal Past Anesthesia/Blood Transfusion Reactions: No Reported Reaction Past Psychological History: Depression Smoking Status: Former smoker Past Alcohol Use History: None Reported Past Drug Use History: None Reported Medications and Allergies Home Medications Medication Instructions Recorded Confirmed Type Amitriptyline HCl [Elavil] 50 mg PO DAILY 12/23/20 10/11/24 History Atorvastatin [Lipitor] 20 mg PO DAILY 12/23/20 10/11/24 History Citalopram Hydrobromide [CeleXA] 10 mg PO DAILY 12/23/20 10/11/24 History Cyanocobalamin (Vitamin B-12) 1,000 mcg PO DAILY 12/23/20 10/11/24 History [Vitamin B-12] Levothyroxine Sodium [Levo-T] 50 mcg PO DAILY@0600 12/23/20 10/11/24 History Aspirin [Adult Low Dose Aspirin EC] 81 mg PO DAILY 06/06/23 10/11/24 History Gabapentin [Neurontin] 100 mg PO DAILY 06/06/23 10/11/24 History Gabapentin [Neurontin] 400 mg PO HS 06/06/23 10/11/24 History Fulvestrant 500 mg IM Q30D 09/03/24 10/11/24 History Apixaban [Eliquis] 5 mg PO BID #60 tab 09/09/24 10/11/24 Rx Butalb/APAP/Caff 50-325-40Mg 1 tab PO Q6H PRN #4 tab 09/22/24 10/11/24 Rx [Fioricet 50-325-40] Amiodarone [Cordarone] See Taper PO DIRECTED 10/11/24 10/11/24 History Celecoxib [CeleBREX] 100 mg PO DAILY 10/11/24 10/11/24 History Cholecalciferol (Vitamin D3) 50 mcg PO MOWETHFR 10/11/24 10/11/24 History [Vitamin D3 (50 Mcg = 2000 Iu)] Cholecalciferol (Vitamin D3) 100 mcg PO SUSA 10/11/24 10/11/24 History [Vitamin D3 (50 Mcg = 2000 Iu)] Famotidine [Pepcid] 20 mg PO BID 10/11/24 10/11/24 History Metoprolol Tartrate [Lopressor] 200 mg PO BID 10/11/24 10/11/24 History Multivit-Minerals/Folic Acid 0.4 mg PO DAILY 10/11/24 10/11/24 History [One-A-Day Women's 50 Plus Tab] Allergies Allergy/AdvReac Type Severity Reaction Status Date / Time codeine Allergy Rash/Hives Verified 10/11/24 16:23 Physical Exam Vitals: Vital Signs Temp Pulse Resp BP Pulse Ox 10/11/24 14:31 82 16 149/89 96 10/11/24 12:04 92 146/84 10/11/24 10:24 97.5 F L 81 20 137/91 96 Intake and Output 10/11/24 10/11/24 10/11/24 06:59 14:59 22:59 Output Total 1000 Balance -1000 Output: Urine 1000 Straight 1000 Other: Weight 79.379 kg GENERAL DESCRIPTION: Elderly female lying in bed, no distress. No tachypnea or accessory muscle of respiration use. HEENT: Shows Pallor , no scleral icterus. Oral mucous membrane is dry. NECK: Trachea central, no thyromegaly. LUNGS: Unlabored breathing. Decreased breath sound at the base HEART: S1, S2, regular rate and rhythm. No loud murmur ABDOMEN: Soft, no tenderness , guarding or rigidity, no organomegaly EXTREMITIES: No edema of feet. SKIN: No rash, no masses palpable. NEUROLOGICAL: The patient is lethargic orientation could not be determined Results CBC & Chem 7: 10/11/24 10:48 10/11/24 10:48 Labs: Abnormal Lab Results - Last 24 Hours (Table) 10/11/24 10/11/24 10/11/24 Range/Units 10:48 10:48 12:37 RBC 3.35 L (4.10-5.20) 10*6/uL Hgb 10.5 L (12.0-15.0) g/dL Hct 32.5 L (37.2-46.3) % MPV 8.9 L (9.5-12.2) fL BUN 20 H (7-17) mg/dL Creatinine 1.24 H (0.52-1.04) mg/dL Glucose 123 H (74-99) mg/dL AST 63 H (14-36) U/L Alkaline Phosphatase 190 H (38-126) U/L Urine Protein Trace H (Negative) Urine Blood Trace H (Negative) Urine Nitrite Positive H (Negative) Ur Leukocyte Esterase Large H (Negative) Urine WBC 73 H (0-5) /hpf Urine Bacteria Many H (None) /hpf Urine Mucus Rare H (None) /hpf Assessment and Plan (1) Pneumonia Current Visit: Yes Status: Acute Code(s): J18.9 - PNEUMONIA, UNSPECIFIED ORGANISM SNOMED Code(s): 457830538 Plan: 1patient presented the hospital with mental status changes weakness which is likely multifactorial patient did have a positive UA however white count has been normal and will not qualify for symptomatic UTI did have evidence of patchy right lower lobe opacity concerning for possible pneumonia. 2try to get a sputum for Gram stain and culture. 3will treat with Rocephin and Zithromax while waiting for the workup to be completed. We will follow on clinical condition and cultures to further adjust medication if needed Thank you for this consultation we will follow the patient along with you Dictation was produced using [employer] dictation software. please excuse any grammatical, word or spelling errors. Time with Patient: Greater than 30
[2024-10-12 08:04] LABS: Basophils # (A) 0.05 X 10*3/uL (0.00-0.10); Basophils % (A) 0.7 %; Eosinophils # (A) 0.17 X 10*3/uL (0.04-0.35); Eosinophils % (A) 2.2 %; HCT 30.9 % (37.2-46.3); HGB 9.6 g/dL (12.0-15.0); Lymphocytes # (A) 1.34 X 10*3/uL (0.90-5.00); Lymphocytes % (A) 17.5 %; MCH 30.2 pg (27.0-32.0); MCHC 31.1 g/dL (32.0-37.0); MCV 97.2 FL (80.0-97.0); Mean Platelet Volume 9.2 FL (9.5-12.2); Monocytes # (A) 0.49 X 10*3/uL (0.20-1.00); Monocytes % (A) 6.4 %; NRBC Per 100 WBC 0 X 10*3/uL (0.00-0.01); Neutrophils # (A) 5.59 X 10*3/uL (1.80-7.70); Neutrophils % (A) 72.9 %; Platelet Count 366 X 10*3/uL (140-440); RBC 3.18 X 10*6/uL (4.10-5.20); RDW 16.5 % (11.5-14.5); WBC 7.66 X 10*3/uL (4.50-10.00)
[2024-10-12 08:53] LABS: Blood Urea Nitrogen 15.4 mg/dL (9.0-27.0); Calcium 8.2 mg/dL (8.7-10.3); Carbon Dioxide 23.1 mmol/L (21.6-31.8); Chloride 106 mmol/L (96-109); Glucose 99 mg/dL (70-110); Potassium 4.4 mmol/L (3.5-5.5); Sodium 141 mmol/L (135-145)
[2024-10-12] MEDS: ATORVASTATIN 20 MG TAB PO SCH (09:48)
[2024-10-12] MEDS: ASPIRIN 81 MG PO SCH (09:48)
[2024-10-12] MEDS: MELOXICAM 7.5 MG TAB PO SCH (09:48)
[2024-10-12] MEDS: CYANOCOBALAMIN 500 MCG TAB PO SCH (09:48)
[2024-10-12] MEDS: MULTIVITAMINS, THERA 1 EACH TAB PO SCH (09:49)
[2024-10-12] MEDS: AMITRIPTYLINE HCL 50 MG TAB PO SCH (09:49)
[2024-10-12] MEDS: CITALOPRAM HYDROBROMIDE 10 MG TAB PO SCH (09:49)
[2024-10-12] MEDS: AZITHROMYCIN 500 MG in SODIUM CHLORIDE 0.9% 250 ML IVPB SCH (12:38)
[2024-10-12] MEDS: ACETAMINOPHEN TAB 325 MG TAB PO PRN (14:34)
--- NOTE | 2024-10-12 16:07 | P.PN ---
Subjective Progress Note Date: 10/12/24 Principal diagnosis: Reason for follow-up is pneumonia Patient is a 89-year-old female with a past medical his significant for hypertension hyperlipidemia metastatic breast cancer with mets to the liver and spine patient has been brought into the hospital concerning for altered mental status, P did have a positive UA and also having focal opacity right lung base concerning for possible pneumonia prompted this consultation On today's evaluation that is 10/12/2024, Patient is afebrile patient is more awake and alert currently on room air and denies having any shortness of breath, the patient denies any chest pain or cough, the patient denies any nausea vomiting or any diarrhea. Patient white count 7.66, creatinine is 1.1 Objective - Vital Signs Vital signs: Vital Signs Temp 98.5 F 10/12/24 07:54 Pulse 95 10/12/24 07:54 Resp 16 10/12/24 07:54 BP 135/74 10/12/24 07:54 Pulse Ox 99 10/12/24 07:54 FiO2 Intake & Output 10/11/24 10/12/24 10/12/24 18:59 06:59 18:59 Output Total 1000 Balance -1000 Weight 79.379 kg 79.379 kg Output: Urine 1000 Straight 1000 Other: Voiding Method Diaper Incontinent # Voids 1 1 # Bowel Movements 1 1 - Exam GENERAL DESCRIPTION: An elderly female lying in bed in no distress RESPIRATORY SYSTEM: Unlabored breathing , decreased breath sounds at bases HEART: S1 S2 regular rate and rhythm , ABDOMEN: Soft , no tenderness EXTREMITIES: No edema feet - Labs CBC & Chem 7: 10/12/24 03:00 10/12/24 03:00 Labs: Abnormal Lab Results - Last 24 Hours (Table) 10/12/24 10/12/24 Range/Units 03:00 03:00 RBC 3.18 L (4.10-5.20) X 10*6/uL Hgb 9.6 L (12.0-15.0) g/dL Hct 30.9 L (37.2-46.3) % MCV 97.2 H (80.0-97.0) FL MCHC 31.1 L (32.0-37.0) g/dL RDW 16.5 H (11.5-14.5) % MPV 9.2 L (9.5-12.2) FL Est GFR (CKD-EPI) 49 L (>=60) Calcium 8.2 L (8.7-10.3) mg/dL Assessment and Plan (1) Pneumonia Current Visit: Yes Status: Acute Code(s): J18.9 - PNEUMONIA, UNSPECIFIED ORGANISM SNOMED Code(s): 433976837 Plan: 1patient presented the hospital with mental status changes weakness which is likely multifactorial patient did have a positive UA however white count has been normal and will not qualify for symptomatic UTI did have evidence of patchy right lower lobe opacity concerning for possible pneumonia. 2try to get a sputum for Gram stain and culture. 3patient did have some clinical improvement continue Rocephin and Zithromax while waiting for the workup to be completed. Dictation was produced using [employer] dictation software. please excuse any grammatical, word or spelling errors. Time with Patient: Less than 30
[2024-10-12 17:50] LABS: Influenza A Not Detected (Not Detectd); Influenza B Not Detected (Not Detectd); RSV Not Detected (Not Detectd)
--- NOTE | 2024-10-13 01:24 | PN ---
PROGRESS NOTE DATE OF SERVICE: 10/12/2024 SUBJECTIVE: This is an 89-year-old woman was admitted with change in mental status, acute metabolic labs also, acute renal failure also. The patient is closely monitored. No chest pain. No palpitation. UTI was suspected on exam. The patient also suspect to have right base pneumonia. PAST MEDICAL HISTORY: Reviewed. REVIEW OF SYSTEMS: Fourteen-point review of systems negative except as mentioned earlier. CURRENT MEDICATIONS: Reviewed. PHYSICAL EXAMINATION: VITAL SIGNS: Pulse is 83, blood pressure 101/50, respirations 17. HEENT: Conjunctivae normal. NECK: NECK: No jugular venous distention. RESPIRATORY: Breath sounds diminished at the bases. ABDOMEN: Soft. LABORATORY DATA: Hemoglobin 9.6. UA noted. ASSESSMENT: 1. Change in mental status, possible acute metabolic encephalopathy, possible right- sided pneumonia. 2. Acute renal failure. 3. Rule out urinary tract infection. 4. Hypertension. 5. Hyperlipidemia. 6. History of degenerative joint disease. 7. History of chronic atrial fibrillation. 8. Possible nonischemic cardiomyopathy secondary to atrial fibrillation with rapid ventricular rate. 9. History of breast cancer. 10.Multiple complex medical issues. RECOMMENDATIONS: Continue current medications. Continue the antibiotics. Follow with Infectious Disease. Follow the cultures. Guarded prognosis. Further recommendations to follow. MMODL / IJN: [id number] /
[2024-10-13 05:28] LABS: Mycoplasma IgG Antibody (EIA) 1.26 INDEX (<=0.90); Mycoplasma IgM Antibody 0.1 INDEX (<=0.90)
[2024-10-13 08:20] LABS: Basophils # (A) 0.06 X 10*3/uL (0.00-0.10); Basophils % (A) 0.9 %; Eosinophils # (A) 0.25 X 10*3/uL (0.04-0.35); Eosinophils % (A) 3.7 %; HCT 31.6 % (37.2-46.3); HGB 9.5 g/dL (12.0-15.0); Lymphocytes # (A) 1.89 X 10*3/uL (0.90-5.00); Lymphocytes % (A) 27.8 %; MCHC 30.1 g/dL (32.0-37.0); MCV 99.7 FL (80.0-97.0); Monocytes # (A) 0.52 X 10*3/uL (0.20-1.00); Monocytes % (A) 7.6 %; NRBC Per 100 WBC 0 X 10*3/uL (0.00-0.01); Neutrophils # (A) 4.07 X 10*3/uL (1.80-7.70); Neutrophils % (A) 59.7 %; Platelet Count 342 X 10*3/uL (140-440); RBC 3.17 X 10*6/uL (4.10-5.20); RDW 16.6 % (11.5-14.5); WBC 6.81 X 10*3/uL (4.50-10.00)
[2024-10-13 08:43] LABS: BUN/Creat Ratio 12.27 Ratio (12.00-20.00); Blood Urea Nitrogen 13.5 mg/dL (9.0-27.0); Calcium 8.3 mg/dL (8.7-10.3); Carbon Dioxide 23.4 mmol/L (21.6-31.8); Chloride 107 mmol/L (96-109); Glucose 116 mg/dL (70-110); Sodium 142 mmol/L (135-145)
[2024-10-13] MEDS: THIAMINE 100 MG TAB PO SCH (12:04)
[2024-10-13] MEDS: FOLIC ACID 1 MG TAB PO SCH (12:05)
--- NOTE | 2024-10-13 14:20 | P.PN ---
Subjective Progress Note Date: 10/13/24 Patient is an 89-year-old female with past medical history significant for metastatic breast cancer. Originally diagnosed back in 2022. PET scan done June, showing recurrent or increasing areas of uptake from prior exam. New areas of uptake within the superior mediastinum and left hilar region. New areas of uptake within the liver suspicious of hepatic metastasis. No areas of uptake within the axial skeleton and with in the pelvis suspicious for new metastasis. Prior osseous metastasis may be increasing in volume and intensity. Of note, patient had a recent hospitalization August 2024 for new onset A-fib and urinary tract infection. Urine was positive for Klebsiella pneumonia. She was discharged to subacute rehab on September 22 with a course of Ceftin to be completed outpatient. She was also started on metoprolol and Cardizem. Brought back to the emergency department yesterday morning by EMS for altered mental status. Ongoing for the last couple days. Associated slurred speech. Patient was noted to be not cooperative in the ED. Workup including a brain CT without contrast showing no acute intracranial hemorrhage or midline shift. Brain CT angio did not show any evidence of significant stenosis at the carotid bifurcations. No evidence of intracranial large vessel occlusion or intracranial aneurysm. Urinalysis was positive for nitrates, pyuria, and bacteria. Chest x-ray remarkable for cardiomegaly and pulmonary vascular congestion. Possible focal patchy opacity at the right base could represent evolving patchy pulmonary edema or developing pneumonia. Remaining labs including a CBC with a WBC count of 8.6, hemoglobin 10.5, platelets 378. CMP: Electrolytes WDL, creatinine near baseline around 1.24, glucose 123. Patient currently being evaluated on the general medical floor. She is awake and alert. She is on 2 L/min nasal cannula. Does not appear to to be any respiratory distress. No coughing. She denies any complaints at this time. Refuses to answer most direct questioning. Gauze covering the left eye. Slurred speech intermittently noted. Started empirically on a combination of azithromycin and Rocephin. Remains afebrile. Normal saline infusing at 75 mL/h. Current vital signs: Temperature 98.8 F, heart rate 88 bpm, blood pressure 147/88 mmHg, nontachypneic, SpO2 recorded at 98% on 2 L/min nasal cannula. The patient is seen today October 13, 2024 in follow-up on the regular medical floor. She is awake and alert in no acute distress. More oriented today. She is maintaining good O2 saturations in the 90s on room air. She is afebrile. Hemodynamically stable. Urine culture is showing gram-negative bacilli. Blood culture pending. White count 6.8. Hemoglobin 9.5. Platelets 342. Sodium 142. Potassium 4.0. Bicarb 23. BUN 14. Creatinine 1.1. Glucose 116. She remains anticoagulated with Eliquis. Antibiotics in the form of ceftriaxone and azithromycin. Infectious disease is on the case. Objective - Vital Signs Vital signs: Vital Signs Temp 98.1 F 10/13/24 07:14 Pulse 109 H 10/13/24 08:05 Resp 18 10/13/24 07:14 BP 124/65 10/13/24 07:14 Pulse Ox 94 L 10/13/24 07:14 FiO2 Intake & Output 10/12/24 10/13/24 10/13/24 18:59 06:59 18:59 Intake Total 300 Output Total 715 Balance 300 -715 Intake: Intake, IV Titration 300 Amount Azithromycin 500 mg In 250 Sodium Chloride 0.9% 250 ml @ 250 mls/hr IVPB DAILY [facility] Rx#:[id number] cefTRIAXone 1 gm In 50 Sodium Chloride 0.9% 50 ml @ 100 mls/hr IVPB Q24H [facility] Rx#:[id number] Output: Urine 715 Straight 715 Other: Voiding Method Bedside Commode # Voids 1 # Bowel Movements 1 - Exam GENERAL EXAM: Alert, 89-year-old female, gauze covering left eye, on room air, comfortable in no apparent distress. HEAD: Normocephalic and atraumatic EYES: Normal reaction of pupils, equal size. NOSE: Clear with pink turbinates. THROAT: No erythema or exudates. NECK: No masses, no JVD. CHEST: No chest wall deformity. LUNGS: Equal air entry with no crackles, wheeze, rhonchi or dullness. No conversational dyspnea or accessory muscle use. No coughing. CVS: S1 and S2 normal with no audible murmur, irregular rhythm. No extra heart sounds ABDOMEN: No hepatosplenomegaly, active bowel sounds, no guarding or rigidity. SPINE: No scoliosis or deformity SKIN: No rashes CENTRAL NERVOUS SYSTEM: Neurological exam limited by patient participation, dysarthria noted, no other obvious focal deficits, tone is normal in all 4 extremities. EXTREMITIES: There is no peripheral edema, clubbing, or cyanosis. Peripheral pulses are intact. - Labs CBC & Chem 7: 10/13/24 03:46 10/13/24 03:46 Labs: Abnormal Lab Results - Last 24 Hours (Table) 10/12/24 10/13/24 10/13/24 Range/Units 00:16 03:46 03:46 RBC 3.17 L (4.10-5.20) X 10*6/uL Hgb 9.5 L (12.0-15.0) g/dL Hct 31.6 L (37.2-46.3) % MCV 99.7 H (80.0-97.0) FL MCHC 30.1 L (32.0-37.0) g/dL RDW 16.6 H (11.5-14.5) % MPV 9.0 L (9.5-12.2) FL Est GFR (CKD-EPI) 49 L (>=60) Glucose 116 H (70-110) mg/dL Calcium 8.3 L (8.7-10.3) mg/dL Mycoplasma pneumon IgG 1.26 H (<=0.90) INDEX Microbiology - Last 24 Hours (Table) 10/11/24 12:37 Urine Culture - Preliminary Urine,Catheterized Gram Neg Bacilli 10/11/24 13:48 Blood Culture - Preliminary Blood Assessment and Plan Assessment: Urinary tract infection secondary to gram-negative bacilli Altered mental status, consider acute metabolic encephalopathy, improving Acute hypoxemic respiratory failure, currently on 2 L/min nasal cannula, Chest x-ray remarkable for cardiomegaly and pulmonary vascular congestion. Possible focal patchy opacity at the right base could represent evolving patchy pulmonary edema or developing pneumonia. Recovered and on room air oxygen Atrial fibrillation with controlled ventricular response, anticoagulated on Eliquis Nonischemic cardiomyopathy, recent available echocardiogram from August, estimating a left ventricular ejection fraction of 35 to 40%, moderate pulmonary hypertension with RVSP 45 mmHg, mild MR, moderate tricuspid regurgitation. Chronic kidney disease stage III Hypertension History of hyperlipidemia Metastatic breast cancer, PET scan done June, showing recurrent or increasing areas of uptake from prior exam. New areas of uptake within the superior mediastinum and left hilar region. New areas of uptake within the li gilda suspicious of hepatic metastasis. No areas of uptake within the axial skeleton and with in the pelvis suspicious for new metastasis. Prior osseous metastasis may be increasing in volume and intensity. History of hypothyroidism History of cataract, with cataract removal on the left Plan: The patient was seen and evaluated Labs and medications reviewed Microbiology reviewed Urine positive for gram-negative bacilli Currently on ceftriaxone and azithromycin ID is on the case Anticoagulated with Eliquis Stable and on room air oxygen I have personally seen and examined the patient, performed the documentation and the assessment and plan as written. Number of minutes spent on the visit: 10 Dictation was produced using [employer] dictation software. Please excuse any grammatical, word or spelling errors.
--- NOTE | 2024-10-13 14:49 | XR ---
EXAMINATION TYPE: XR chest 1V portable DATE OF EXAM: 10/13/2024 CLINICAL INDICATION: Female, 89 years old with history of chf, progress study. TECHNIQUE: Single AP portable upright view of the chest is obtained. COMPARISON: Chest x-ray from 2 days earlier FINDINGS: Persistent cardiomegaly and atherosclerotic thoracic aorta. There is patchy left basilar i ncreased opacity. Right Lung is clear. Osseous structures are demineralized. IMPRESSION: Cardiomegaly with left basilar acute infiltrate and/or atelectasis [facility] Tony Felix, , 10/13/2024 2:47 PM
--- NOTE | 2024-10-14 03:36 | PN ---
PROGRESS NOTE DATE OF SERVICE: 10/13/2024 SUBJECTIVE: This is an 89-year-old woman who was admitted with change in mental status, acute metabolic encephalopathy with possible right-sided pneumonia, is being closely monitored. The patient had some renal failure also. The most recent chest x- ray which I reviewed personally showed significant improvement of the chest x-ray. PAST MEDICAL HISTORY: Reviewed. REVIEW OF SYSTEMS: Fourteen-point review of systems negative except as mentioned earlier. PHYSICAL EXAMINATION: VITAL SIGNS: Pulse is 109, blood pressure 149/70, respirations 18. CHEST: Clear to auscultation. Few scattered rhonchi. ABDOMEN: Soft. NERVOUS SYSTEM: Nonfocal. LABORATORY DATA: Hemoglobin 8.5. Other labs are noted. The mycoplasma IgM is negative. Cultures, urine culture revealed gram-negative bacilli. ASSESSMENT: 1. Change in mental status, possible acute metabolic encephalopathy, with possible right-sided pneumonia, improved. 2. Acute urinary tract infection with gram-negative bacilli. 3. Acute renal failure. 4. Hypertension. 5. Hyperlipidemia. 6. History of degenerative joint disease. 7. History of chronic atrial fibrillation. 8. Possible nonischemic cardiomyopathy secondary to atrial fibrillation with rapid ventricular rate. 9. History of breast cancer. 10.Multiple complex medical issues. RECOMMENDATIONS: Continue antibiotics. Repeat labs. Closely follow with multiple consultants. Prognosis is guarded. Further recommendations to follow. MMODL / IJN: [id number] / MTDD
[2024-10-14 08:09] LABS: Basophils # (A) 0.05 X 10*3/uL (0.00-0.10); Basophils % (A) 0.6 %; Eosinophils % (A) 1.2 %; HCT 32.6 % (37.2-46.3); HGB 9.9 g/dL (12.0-15.0); MCHC 30.4 g/dL (32.0-37.0); MCV 98.8 FL (80.0-97.0); Mean Platelet Volume 9.3 FL (9.5-12.2); Monocytes # (A) 0.48 X 10*3/uL (0.20-1.00); Monocytes % (A) 5.6 %; NRBC Per 100 WBC 0 X 10*3/uL (0.00-0.01); Neutrophils # (A) 6.08 X 10*3/uL (1.80-7.70); Platelet Count 391 X 10*3/uL (140-440); RDW 16.4 % (11.5-14.5); WBC 8.56 X 10*3/uL (4.50-10.00)
[2024-10-14 08:24] LABS: Blood Urea Nitrogen 11.6 mg/dL (9.0-27.0); Calcium 8.9 mg/dL (8.7-10.3); Carbon Dioxide 25.2 mmol/L (21.6-31.8); Chloride 104 mmol/L (96-109); Glucose 119 mg/dL (70-110); Potassium 4.4 mmol/L (3.5-5.5); Sodium 141 mmol/L (135-145)
[2024-10-14] MEDS: ONDANSETRON 4 MG/2 ML VIAL IVP PRN (10:48)
--- NOTE | 2024-10-14 12:26 | P.PN ---
Subjective Progress Note Date: 10/14/24 Patient is an 89-year-old female with past medical history significant for metastatic breast cancer. Originally diagnosed back in 2022. PET scan done June, showing recurrent or increasing areas of uptake from prior exam. New areas of uptake within the superior mediastinum and left hilar region. New areas of uptake within the liver suspicious of hepatic metastasis. No areas of uptake within the axial skeleton and with in the pelvis suspicious for new metastasis. Prior osseous metastasis may be increasing in volume and intensity. Of note, patient had a recent hospitalization August 2024 for new onset A-fib and urinary tract infection. Urine was positive for Klebsiella pneumonia. She was discharged to subacute rehab on September 22 with a course of Ceftin to be completed outpatient. She was also started on metoprolol and Cardizem. Brought back to the emergency department yesterday morning by EMS for altered mental status. Ongoing for the last couple days. Associated slurred speech. Patient was noted to be not cooperative in the ED. Workup including a brain CT without contrast showing no acute intracranial hemorrhage or midline shift. Brain CT angio did not show any evidence of significant stenosis at the carotid bifurcations. No evidence of intracranial large vessel occlusion or intracranial aneurysm. Urinalysis was positive for nitrates, pyuria, and bacteria. Chest x-ray remarkable for cardiomegaly and pulmonary vascular congestion. Possible focal patchy opacity at the right base could represent evolving patchy pulmonary edema or developing pneumonia. Remaining labs including a CBC with a WBC count of 8.6, hemoglobin 10.5, platelets 378. CMP: Electrolytes WDL, creatinine near baseline around 1.24, glucose 123. Patient currently being evaluated on the general medical floor. She is awake and alert. She is on 2 L/min nasal cannula. Does not appear to to be any respiratory distress. No coughing. She denies any complaints at this time. Refuses to answer most direct questioning. Gauze covering the left eye. Slurred speech intermittently noted. Started empirically on a combination of azithromycin and Rocephin. Remains afebrile. Normal saline infusing at 75 mL/h. Current vital signs: Temperature 98.8 F, heart rate 88 bpm, blood pressure 147/88 mmHg, nontachypneic, SpO2 recorded at 98% on 2 L/min nasal cannula. The patient is seen today October 13, 2024 in follow-up on the regular medical floor. She is awake and alert in no acute distress. More oriented today. She is maintaining good O2 saturations in the 90s on room air. She is afebrile. Hemodynamically stable. Urine culture is showing gram-negative bacilli. Blood culture pending. White count 6.8. Hemoglobin 9.5. Platelets 342. Sodium 142. Potassium 4.0. Bicarb 23. BUN 14. Creatinine 1.1. Glucose 116. She remains anticoagulated with Eliquis. Antibiotics in the form of ceftriaxone and azithromycin. Infectious disease is on the case. The patient is seen today October 14, 2024 in follow-up on the regular medical floor. She is currently sitting up in bed. Awake and alert in no acute distress. Denies any shortness of breath, cough or congestion. She is yen ntaining O2 saturations in the 90s on room air oxygen. She is on ceftriaxone and azithromycin. Urine culture positive for Klebsiella pneumoniae. White count 8.5. Hemoglobin 9.9. Platelets 391. Sodium 141. Potassium 4.4. Bicarb 25. BUN 12. Creatinine 1.0. Glucose 119. She is anticoagulated with Eliquis. Objective - Vital Signs Vital signs: Vital Signs Temp 97.7 F 10/14/24 07:09 Pulse 99 10/14/24 07:09 Resp 18 10/14/24 07:09 BP 164/84 10/14/24 07:09 Pulse Ox 95 10/14/24 07:09 FiO2 Intake & Output 10/13/24 10/14/24 10/14/24 18:59 06:59 18:59 Output Total 600 250 Balance -600 -250 Output: Urine 600 250 Straight 300 Other: Voiding Method Indwelling Catheter Indwelling Catheter - Exam GENERAL EXAM: Alert, 89-year-old female, gauze covering left eye, on room air, comfortable in no apparent distress. HEAD: Normocephalic and atraumatic EYES: Normal reaction of pupils, equal size. NOSE: Clear with pink turbinates. THROAT: No erythema or exudates. NECK: No masses, no JVD. CHEST: No chest wall deformity. LUNGS: Equal air entry with no crackles, wheeze, rhonchi or dullness. No conversational dyspnea. CVS: S1 and S2 normal with no audible murmur, irregular rhythm. No extra heart sounds ABDOMEN: No hepatosplenomegaly, active bowel sounds, no guarding or rigidity. SPINE: No scoliosis or deformity SKIN: No rashes CENTRAL NERVOUS SYSTEM: Neurological exam limited by patient participation, dysarthria noted, no other obvious focal deficits, tone is normal in all 4 extremities. EXTREMITIES: There is no peripheral edema, clubbing, or cyanosis. Peripheral pulses are intact. - Labs CBC & Chem 7: 10/14/24 04:38 10/14/24 04:38 Labs: Abnormal Lab Results - Last 24 Hours (Table) 10/14/24 10/14/24 Range/Units 04:38 04:38 RBC 3.30 L (4.10-5.20) X 10*6/uL Hgb 9.9 L (12.0-15.0) g/dL Hct 32.6 L (37.2-46.3) % MCV 98.8 H (80.0-97.0) FL MCHC 30.4 L (32.0-37.0) g/dL RDW 16.4 H (11.5-14.5) % MPV 9.3 L (9.5-12.2) FL Immature Gran # 0.05 H (0.00-0.04) X 10*3/uL Est GFR (CKD-EPI) 55 L (>=60) BUN/Creatinine Ratio 11.60 L (12.00-20.00) Ratio Glucose 119 H (70-110) mg/dL Microbiology - Last 24 Hours (Table) 10/11/24 12:37 Urine Culture - Final Urine,Catheterized Klebsiella pneumoniae 10/11/24 13:48 Blood Culture - Preliminary Blood Assessment and Plan Assessment: Urinary tract infection secondary to Klebsiella pneumoniae. Currently on ceftriaxone and azithromycin Altered mental status, consider acute metabolic encephalopathy, improved Acute hypoxemic respiratory failure, currently on 2 L/min nasal cannula, Chest x-ray remarkable for cardiomegaly and pulmonary vascular congestion. Possible focal patchy opacity at the right base could represent evolving patchy pulmonary edema or developing pneumonia. Recovered and on room air oxygen Atrial fibrillation with controlled ventricular response, anticoagulated on Eliquis Nonischemic cardiomyopathy, recent available echocardiogram from August, estimating a left ventricular ejection fraction of 35 to 40%, moderate pulmonary hypertension with RVSP 45 mmHg, mild MR, moderate tricuspid regurgitation. Chronic kidney disease stage III Hypertension History of hyperlipidemia Metastatic breast cancer, PET scan done June, showing recurrent or increasing areas of uptake from prior exam. New areas of uptake within the superior mediastinum and left hilar region. New areas of uptake within the liver suspicious of hepatic metastasis. No areas of uptake within the axial skeleton and with in the pelvis suspicious for new metastasis. Prior osseous metastasis may be increasing in volume and intensity. History of hypothyroidism History of cataract, with cataract removal on the left Plan: The patient was seen and evaluated Labs and medications reviewed Urine positive for Klebsiella pneumoniae Currently on ceftriaxone and azithromycin Anticoagulated with Eliquis Stable and on room air oxygen Grandson to obtain guardianship Case management and social work following I have personally seen and examined the patient, performed the documentation and the assessment and plan as written. Number of minutes spent on the visit: 10 Dictation was produced using [employer] dictation software. Please excuse any grammatical, word or spelling errors.
--- NOTE | 2024-10-14 15:25 | P.PN ---
Subjective Progress Note Date: 10/13/24 Principal diagnosis: Reason for follow-up is pneumonia Patient is a 89-year-old female with a past medical his significant for hypertension hyperlipidemia metastatic breast cancer with mets to the liver and spine patient has been brought into the hospital concerning for altered mental status, P did have a positive UA and also having focal opacity right lung base concerning for possible pneumonia prompted this consultation On today's evaluation that is 10/13/2024, patient has been afebrile, patient is breathing comfortably and is currently on room air, patient denies having any chest pain and cough, patient denies nausea vomiting or diarrhea and no abdominal pain. Patient white count is 6.81 creatinine 1.1 Objective - Vital Signs Vital signs: Vital Signs Temp 97.9 F 10/13/24 19:21 Pulse 102 H 10/13/24 19:21 Resp 17 10/13/24 19:21 BP 165/84 10/13/24 19:21 Pulse Ox 96 10/13/24 19:21 FiO2 Intake & Output 10/13/24 10/13/24 10/14/24 06:59 18:59 06:59 Output Total 715 600 Balance -715 -600 Output: Urine 715 600 Straight 715 300 Other: Voiding Method Bedside Commode - Exam GENERAL DESCRIPTION: An elderly female lying in bed in no distress RESPIRATORY SYSTEM: Unlabored breathing , decreased breath sounds at bases HEART: S1 S2 regular rate and rhythm , ABDOMEN: Soft , no tenderness EXTREMITIES: No edema feet - Labs CBC & Chem 7: 10/14/24 04:38 10/14/24 04:38 Labs: Abnormal Lab Results - Last 24 Hours (Table) 10/12/24 10/13/24 10/13/24 Range/Units 00:16 03:46 03:46 RBC 3.17 L (4.10-5.20) X 10*6/uL Hgb 9.5 L (12.0-15.0) g/dL Hct 31.6 L (37.2-46.3) % MCV 99.7 H (80.0-97.0) FL MCHC 30.1 L (32.0-37.0) g/dL RDW 16.6 H (11.5-14.5) % MPV 9.0 L (9.5-12.2) FL Est GFR (CKD-EPI) 49 L (>=60) Glucose 116 H (70-110) mg/dL Calcium 8.3 L (8.7-10.3) mg/dL Mycoplasma pneumon IgG 1.26 H (<=0.90) INDEX Microbiology - Last 24 Hours (Table) 10/11/24 13:48 Blood Culture - Preliminary Blood 10/11/24 12:37 Urine Culture - Preliminary Urine,Catheterized Gram Neg Bacilli Assessment and Plan (1) Pneumonia Current Visit: Yes Status: Acute Code(s): J18.9 - PNEUMONIA, UNSPECIFIED OR GANISM SNOMED Code(s): 930328247 Plan: 1patient presented the hospital with mental status changes weakness which is likely multifactorial patient did have a positive UA however white count has been normal and will not qualify for symptomatic UTI did have evidence of patchy right lower lobe opacity concerning for possible pneumonia. 2blood culture have been negative sputum not collected urine is growing Klebsiella 3patient did have some clinical improvement continue Rocephin and monitor clinical course closely Dictation was produced using [employer] dictation software. please excuse any grammatical, word or spelling errors. Time with Patient: Less than 30
--- NOTE | 2024-10-14 15:26 | P.PN ---
Subjective Progress Note Date: 10/14/24 Principal diagnosis: Reason for follow-up is pneumonia Patient is a 89-year-old female with a past medical his significant for hypertension hyperlipidemia metastatic breast cancer with mets to the liver and spine patient has been brought into the hospital concerning for altered mental status, P did have a positive UA and also having focal opacity right lung base concerning for possible pneumonia prompted this consultation On today's evaluation that is 10/14/2024, Patient is afebrile this morning patient denies having any chest pain shortness of breath or cough, the patient is currently on room air, patient denies any abdominal pain no diarrhea no nausea no vomiting Patient white count is down to 8.56 creatinine is 1.0 urine for Legionella antigen negative urine culture with Klebsiella sensitive pathogen blood culture have been negative Objective - Vital Signs Vital signs: Vital Signs Temp 97.7 F 10/14/24 14:11 Pulse 97 10/14/24 14:11 Resp 18 10/14/24 14:11 BP 156/71 10/14/24 14:11 Pulse Ox 95 10/14/24 14:11 FiO2 Intake & Output 10/13/24 10/14/24 10/14/24 18:59 06:59 18:59 Output Total 600 250 Balance -600 -250 Output: Urine 600 250 Straight 300 Other: Voiding Method Indwelling Catheter Indwelling Catheter - Exam GENERAL DESCRIPTION: An elderly female lying in bed in no distress RESPIRATORY SYSTEM: Unlabored breathing , decreased breath sounds at bases HEART: S1 S2 regular rate and rhythm , ABDOMEN: Soft , no tenderness EXTREMITIES: No edema feet - Labs CBC & Chem 7: 10/14/24 04:38 10/14/24 04:38 Labs: Abnormal Lab Results - Last 24 Hours (Table) 10/14/24 10/14/24 Range/Units 04:38 04:38 RBC 3.30 L (4.10-5.20) X 10*6/uL Hgb 9.9 L (12.0-15.0) g/dL Hct 32.6 L (37.2-46.3) % MCV 98.8 H (80.0-97.0) FL MCHC 30.4 L (32.0-37.0) g/dL RDW 16.4 H (11.5-14.5) % MPV 9.3 L (9.5-12.2) FL Immature Gran # 0.05 H (0.00-0.04) X 10*3/uL Est GFR (CKD-EPI) 55 L (>=60) BUN/Creatinine Ratio 11.60 L (12.00-20.00) Ratio Glucose 119 H (70-110) mg/dL Microbiology - Last 24 Hours (Table) 10/11/24 12:37 Urine Culture - Final Urine,Catheterized Klebsiella pneumoniae 10/11/24 13:48 Blood Culture - Preliminary Blood Assessment and Plan (1) Pneumonia Current Visit: Yes Status: Acute Code(s): J18.9 - PNEUMONIA, UNSPECIFIED ORGANISM SNOMED Code(s): 043454034 Plan: 1patient presented the hospital with mental status changes weakness which is likely multifactorial patient did have a positive UA however white count has been normal and will not qualify for symptomatic UTI did have evidence of patchy right lower lobe opacity concerning for possible pneumonia. 2blood culture have been negative sputum not collected urine is growing Klebsiella that is sensitive to ceftriaxone 3patient did have some clinical improvement we will continue with Rocephin while inpatient and monitor clinical course closely Dictation was produced using [employer] dictation software. please excuse any grammatical, word or spelling errors. Time with Patient: Less than 30
--- NOTE | 2024-10-14 16:31 | PN ---
PROGRESS NOTE DATE OF SERVICE: 10/14/2024 SUBJECTIVE: This is an 89-year-old woman was admitted with right-sided pneumonia, also had possible UTI also. The patient was closely monitored. No chest pain. No palpitation. PHYSICAL EXAMINATION: VITAL SIGNS: Pulse 97, blood pressure 130/57, and respirations 18. CHEST: Few scattered rhonchi. ABDOMEN: Soft. NERVOUS SYSTEM: No stroke. LABORATORY DATA: Hemoglobin 9.9. ASSESSMENT: 1. Change in mental status, acute metabolic encephalopathy with possible right-sided pneumonia, improved. 2. Acute urinary tract infection with gram-negative bacilli, which is Klebsiella pneumonia rather sensitive. 3. Acute renal failure. 4. Hypertension. 5. Hyperlipidemia. 6. History of degenerative joint disease. 7. History of chronic atrial fibrillation. 8. Possible nonischemic cardiomyopathy secondary to atrial fibrillation with rapid ventricular rate. 9. History of breast cancer. 10.Multiple complex medical issues. RECOMMENDATIONS: Recommend to continue current medications and symptomatic treatment. Otherwise, at this time I would recommend repeat labs, antibiotics. Closely monitor. Guarded prognosis. Further recommendations to follow. Possible discharge within the next 24 hours. MMODL / IJN: [id number] /
[2024-10-15 08:06] LABS: Basophils # (A) 0.05 X 10*3/uL (0.00-0.10); Basophils % (A) 0.6 %; Eosinophils # (A) 0.11 X 10*3/uL (0.04-0.35); Eosinophils % (A) 1.4 %; HCT 30.7 % (37.2-46.3); HGB 9.4 g/dL (12.0-15.0); Lymphocytes # (A) 2.25 X 10*3/uL (0.90-5.00); Lymphocytes % (A) 27.8 %; MCH 30.3 pg (27.0-32.0); MCHC 30.6 g/dL (32.0-37.0); Mean Platelet Volume 9.1 FL (9.5-12.2); Monocytes # (A) 0.52 X 10*3/uL (0.20-1.00); Monocytes % (A) 6.4 %; NRBC Per 100 WBC 0 X 10*3/uL (0.00-0.01); Neutrophils # (A) 5.13 X 10*3/uL (1.80-7.70); Neutrophils % (A) 63.4 %; Platelet Count 344 X 10*3/uL (140-440); RDW 16.2 % (11.5-14.5); WBC 8.09 X 10*3/uL (4.50-10.00)
[2024-10-15 08:25] LABS: Calcium 8.9 mg/dL (8.7-10.3); Carbon Dioxide 25.4 mmol/L (21.6-31.8); Chloride 104 mmol/L (96-109); Glucose 109 mg/dL (70-110); Potassium 4.4 mmol/L (3.5-5.5); Sodium 139 mmol/L (135-145)
--- NOTE | 2024-10-15 10:57 | P.PN ---
Subjective Progress Note Date: 10/15/24 Patient is an 89-year-old female with past medical history significant for metastatic breast cancer. Originally diagnosed back in 2022. PET scan done June, showing recurrent or increasing areas of uptake from prior exam. New areas of uptake within the superior mediastinum and left hilar region. New areas of uptake within the liver suspicious of hepatic metastasis. No areas of uptake within the axial skeleton and with in the pelvis suspicious for new metastasis. Prior osseous metastasis may be increasing in volume and intensity. Of note, patient had a recent hospitalization August 2024 for new onset A-fib and urinary tract infection. Urine was positive for Klebsiella pneumonia. She was discharged to subacute rehab on September 22 with a course of Ceftin to be completed outpatient. She was also started on metoprolol and Cardizem. Brought back to the emergency department yesterday morning by EMS for altered mental status. Ongoing for the last couple days. Associated slurred speech. Patient was noted to be not cooperative in the ED. Workup including a brain CT without contrast showing no acute intracranial hemorrhage or midline shift. Brain CT angio did not show any evidence of significant stenosis at the carotid bifurcations. No evidence of intracranial large vessel occlusion or intracranial aneurysm. Urinalysis was positive for nitrates, pyuria, and bacteria. Chest x-ray remarkable for cardiomegaly and pulmonary vascular congestion. Possible focal patchy opacity at the right base could represent evolving patchy pulmonary edema or developing pneumonia. Remaining labs including a CBC with a WBC count of 8.6, hemoglobin 10.5, platelets 378. CMP: Electrolytes WDL, creatinine near baseline around 1.24, glucose 123. Patient currently being evaluated on the general medical floor. She is awake and alert. She is on 2 L/min nasal cannula. Does not appear to to be any respiratory distress. No coughing. She denies any complaints at this time. Refuses to answer most direct questioning. Gauze covering the left eye. Slurred speech intermittently noted. Started empirically on a combination of azithromycin and Rocephin. Remains afebrile. Normal saline infusing at 75 mL/h. Current vital signs: Temperature 98.8 F, heart rate 88 bpm, blood pressure 147/88 mmHg, nontachypneic, SpO2 recorded at 98% on 2 L/min nasal cannula. The patient is seen today October 13, 2024 in follow-up on the regular medical floor. She is awake and alert in no acute distress. More oriented today. She is maintaining good O2 saturations in the 90s on room air. She is afebrile. Hemodynamically stable. Urine culture is showing gram-negative bacilli. Blood culture pending. White count 6.8. Hemoglobin 9.5. Platelets 342. Sodium 142. Potassium 4.0. Bicarb 23. BUN 14. Creatinine 1.1. Glucose 116. She remains anticoagulated with Eliquis. Antibiotics in the form of ceftriaxone and azithromycin. Infectious disease is on the case. The patient is seen today October 14, 2024 in follow-up on the regular medical floor. She is currently sitting up in bed. Awake and alert in no acute distress. Denies any shortness of breath, cough or congestion. She is yen ntaining O2 saturations in the 90s on room air oxygen. She is on ceftriaxone and azithromycin. Urine culture positive for Klebsiella pneumoniae. White count 8.5. Hemoglobin 9.9. Platelets 391. Sodium 141. Potassium 4.4. Bicarb 25. BUN 12. Creatinine 1.0. Glucose 119. She is anticoagulated with Eliquis. The patient is seen today October 15, 2024 in follow-up on the regular medical floor. She is awake and alert in no acute distress. Denies any worsening shortness of breath, cough or congestion. Maintaining good O2 saturations in the 90s on room air. She remains on ceftriaxone. Anticoagulated with Eliquis. Urine culture was positive for Klebsiella pneumoniae. Blood culture revealed no growth. White count 8.0. Hemoglobin 9.4. Platelets 344. Sodium 139. Potassium 4.4. Bicarb 25. BUN 12. Creatinine 1.0. Glucose 109. Objective - Vital Signs Vital signs: Vital Signs Temp 97.8 F 10/15/24 07:08 Pulse 86 10/15/24 07:08 Resp 20 10/15/24 07:08 BP 149/84 10/15/24 07:08 Pulse Ox 93 L 10/15/24 07:08 FiO2 Intake & Output 10/14/24 10/15/24 10/15/24 18:59 06:59 18:59 Output Total 425 Balance -425 Output: Urine 425 Other: Voiding Method Indwelling Catheter Indwelling Catheter - Exam GENERAL EXAM: Alert, oriented 89-year-old female, gauze covering left eye, sitting up in bed, on room air, comfortable in no apparent distress. HEAD: Normocephalic and atraumatic EYES: Normal reaction of pupils, equal size. NOSE: Clear with pink turbinates. THROAT: No erythema or exudates. NECK: No masses, no JVD. CHEST: No chest wall deformity. LUNGS: Equal air entry with no crackles, wheeze, rhonchi or dullness. No con versational dyspnea. CVS: S1 and S2 normal with no audible murmur, irregular rhythm. No extra heart sounds ABDOMEN: No hepatosplenomegaly, active bowel sounds, no guarding or rigidity. SPINE: No scoliosis or deformity SKIN: No rashes CENTRAL NERVOUS SYSTEM: Neurological exam limited by patient participation, dysarthria noted, no other obvious focal deficits, tone is normal in all 4 extremities. EXTREMITIES: There is no peripheral edema, clubbing, or cyanosis. Peripheral pulses are intact. - Labs CBC & Chem 7: 10/15/24 03:59 10/15/24 03:59 Labs: Abnormal Lab Results - Last 24 Hours (Table) 10/15/24 10/15/24 Range/Units 03:59 03:59 RBC 3.10 L (4.10-5.20) X 10*6/uL Hgb 9.4 L (12.0-15.0) g/dL Hct 30.7 L (37.2-46.3) % MCV 99.0 H (80.0-97.0) FL MCHC 30.6 L (32.0-37.0) g/dL RDW 16.2 H (11.5-14.5) % MPV 9.1 L (9.5-12.2) FL Est GFR (CKD-EPI) 55 L (>=60) Microbiology - Last 24 Hours (Table) 10/11/24 13:48 Blood Culture - Preliminary Blood 10/11/24 12:37 Urine Culture - Final Urine,Catheterized Klebsiella pneumoniae Assessment and Plan Assessment: Urinary tract infection secondary to Klebsiella pneumoniae. Currently on ceftriaxone and completed azithromycin Altered mental status, consider acute metabolic encephalopathy, improved Acute hypoxemic respiratory failure, currently on 2 L/min nasal cannula, Chest x-ray remarkable for cardiomegaly and pulmonary vascular congestion. Possible focal patchy opacity at the right base could represent evolving patchy pulmonary edema or developing pneumonia. Recovered and on room air oxygen Atrial fibrillation with controlled ventricular response, anticoagulated on Eliquis Nonischemic cardiomyopathy, recent available echocardiogram from August, estimating a left ventricular ejection fraction of 35 to 40%, moderate pulmonary hypertension with RVSP 45 mmHg, mild MR, moderate tricuspid regurgitation. Chronic kidney disease stage III Hypertension History of hyperlipidemia Metastatic breast cancer, PET scan done June, showing recurrent or increasing areas of uptake from prior exam. New areas of uptake within the superior mediastinum and left hilar region. New areas of uptake within the liver suspicious of hepatic metastasis. No areas of uptake within the axial skeleton and with in the pelvis suspicious for new metastasis. Prior osseous metastasis may be increasing in volume and intensity. History of hypothyroidism History of cataract, with cataract removal on the left Plan: The patient was seen and evaluated Labs and medications reviewed Urine positive for Klebsiella pneumoniae Currently on ceftriaxone Completed azithromycin Infectious disease is following Anticoagulated with Eliquis Stable and on room air oxygen Cleared for discharge Case management working on discharge planning This patient was seen independently by the pulmonary nurse practitioner addressing pulmonary issues I have personally seen and examined the patient, performed the documentation and the assessment and plan as written. Number of minutes spent on the visit: 24 Dictation was produced using [employer] dictation software. Please excuse any grammatical, word or spelling errors.
[2024-10-15 13:43] VITALS: BMI 28.2
--- NOTE | 2024-10-15 14:58 | PN ---
PROGRESS NOTE DATE OF SERVICE: 10/15/2024 SUBJECTIVE: This is an 89-year-old woman who was admitted with change in mental status, metabolic encephalopathy, also has possible right-sided pneumonia. The patient also has some UTI. Apparently, the grandson is going to obtain the legal guardianship. OBJECTIVE: VITAL SIGNS: Pulse is 86, blood pressure 140/84, and respirations 20. CHEST: Clear to auscultation. CARDIOVASCULAR: S1 and S2. ABDOMEN: Soft. LABORATORY DATA: Reviewed. Urine culture, Klebsiella pneumoniae. ASSESSMENT: 1. Change in mental status possibly acute metabolic encephalopathy with possible right- sided pneumonia, improved. 2. Acute urinary tract infection with Klebsiella pneumoniae sensitive. 3. Acute renal failure. 4. Hypertension. 5. Hyperlipidemia. 6. History of degenerative joint disease. 7. History of chronic atrial fibrillation. 8. Possible nonischemic cardiomyopathy secondary to atrial fibrillation with rapid ventricular rate. 9. History of breast cancer. 10.Multiple complex medical issues. RECOMMENDATIONS: Recommend to continue current management and symptomatic treatment. Continue the antibiotics, PT/OT evaluation. I would recommend repeat labs, guardianship. Prognosis guarded. Further recommendations to follow. MMODL / IJN: [id number] /
--- NOTE | 2024-10-15 15:08 | P.PN ---
Subjective Progress Note Date: 10/15/24 Principal diagnosis: Reason for follow-up is pneumonia Patient is a 89-year-old female with a past medical his significant for hypertension hyperlipidemia metastatic breast cancer with mets to the liver and spine patient has been brought into the hospital concerning for altered mental status, P did have a positive UA and also having focal opacity right lung base concerning for possible pneumonia prompted this consultation On today's evaluation that is 10/15/2024,the patient denies any fever or any chills, patient is breathing comfortably on room air, the patient denies chest pain shortness of breath and no significant cough, patient denies abdominal pain, no nausea vomiting or diarrhea. Patient white count is 8.09, creatinine is 1.0 blood culture negative urine with Klebsiella Objective - Vital Signs Vital signs: Vital Signs Temp 97.6 F 10/15/24 13:47 Pulse 83 10/15/24 13:47 Resp 18 10/15/24 13:47 BP 134/78 10/15/24 13:47 Pulse Ox 94 L 10/15/24 13:47 FiO2 Intake & Output 10/14/24 10/15/24 10/15/24 18:59 06:59 18:59 Output Total 425 Balance -425 Weight 79.379 kg Output: Urine 425 Other: Voiding Method Indwelling Catheter Indwelling Catheter Indwelling Catheter - Exam GENERAL DESCRIPTION: An elderly female lying in bed in no distress RESPIRATORY SYSTEM: Unlabored breathing , decreased breath sounds at bases HEART: S1 S2 regular rate and rhythm , ABDOMEN: Soft , no tenderness EXTREMITIES: No edema feet - Labs CBC & Chem 7: 10/15/24 03:59 10/15/24 03:59 Labs: Abnormal Lab Results - Last 24 Hours (Table) 10/15/24 10/15/24 Range/Units 03:59 03:59 RBC 3.10 L (4.10-5.20) X 10*6/uL Hgb 9.4 L (12.0-15.0) g/dL Hct 30.7 L (37.2-46.3) % MCV 99.0 H (80.0-97.0) FL MCHC 30.6 L (32.0-37.0) g/dL RDW 16.2 H (11.5-14.5) % MPV 9.1 L (9.5-12.2) FL Est GFR (CKD-EPI) 55 L (>=60) Microbiology - Last 24 Hours (Table) 10/11/24 13:48 Blood Culture - Preliminary Blood Assessment and Plan (1) Pneumonia Current Visit: Yes Status: Acute Code(s): J18.9 - PNEUMONIA, UNSPECIFIED ORGANISM SNOMED Code(s): 627399566 Plan: 1patient presented the hospital with mental status changes weakness which is likely multifactorial patient did have a positive UA however white count has been normal and will not qualify for symptomatic UTI did have evidence of patchy right lower lobe opacity concerning for possible pneumonia. 2blood culture have been negative sputum not collected urine is growing Klebsiella that is sensitive to ceftriaxone 3patient did have some clinical improvement patient did finish a 5-day course of Rocephin Queta at the bedside question concern answered Dictation was produced using [employer] dictation software. please excuse any grammatical, word or spelling errors. Time with Patient: Less than 30
[2024-10-16 09:13] LABS: Basophils # (A) 0.06 X 10*3/uL (0.00-0.10); Basophils % (A) 0.6 %; Eosinophils # (A) 0.19 X 10*3/uL (0.04-0.35); HCT 32.6 % (37.2-46.3); HGB 9.8 g/dL (12.0-15.0); Lymphocytes # (A) 1.92 X 10*3/uL (0.90-5.00); MCH 29.9 pg (27.0-32.0); MCHC 30.1 g/dL (32.0-37.0); MCV 99.4 FL (80.0-97.0); Mean Platelet Volume 9.2 FL (9.5-12.2); Monocytes # (A) 0.66 X 10*3/uL (0.20-1.00); Monocytes % (A) 6.9 %; NRBC Per 100 WBC 0 X 10*3/uL (0.00-0.01); Neutrophils # (A) 6.73 X 10*3/uL (1.80-7.70); Platelet Count 357 X 10*3/uL (140-440); RBC 3.28 X 10*6/uL (4.10-5.20); WBC 9.61 X 10*3/uL (4.50-10.00)
[2024-10-16 09:46] LABS: Blood Urea Nitrogen 12.5 mg/dL (9.0-27.0); Carbon Dioxide 24.8 mmol/L (21.6-31.8); Chloride 103 mmol/L (96-109); Glucose 104 mg/dL (70-110); Potassium 4.2 mmol/L (3.5-5.5); Sodium 138 mmol/L (135-145)
--- NOTE | 2024-10-16 11:13 | P.CN ---
Psychiatric Consult - . Consult date: 10/16/24 Consult:: 10/16/24 11:04 IDENTIFYING DATA: This patient is a 89-year-old female currently living with her grandson retired from the [employer] REASON FOR REFERRAL: Psychiatry was consulted for altered mental status HISTORY OF PRESENT ILLNESS: The patient presented to the hospital with heart palpitations. I met with the patient she was hard of hearing and multiple times things had to be repeated close to her ear. She was oriented to the date that includes time a day, month, day and year. She was able to recall the current president and past president. She was able to repeat 3 things immediately and then after 5 minutes. She was able to state her name and where she was located [facility]. She states that the ambulance brought her to the hospital. She denies any extensive history of mental health problems but notes that she is slightly depressed and anxious because she is here. She denies any problems with overall sleep, energy, appetite or concentration. She does have feelings sometimes of hopelessness. She denies any crying or guilt or shame. She denies any active suicidal thoughts or homicidal thoughts. She denies any access to guns. Collateral information: Patient gave me permission to speak to her grandson Jonathon Buckner [phone]. An attempt was made there was no answer. Review of psychiatric systems: Bipolar disorder-negative Psychosis-negative Anxiety-negative PAST PSYCHIATRIC HISTORY: Patient has not had a history of mental illness. Patient denies being on any psychiatric medications. Patient denies any previous psychiatric hospitalizations. Patient denies any psychiatric outpatient follow-up. Patient denies any history of suicide attempts in the past. PAST MEDICAL HISTORY: As per EMR. ALLERGIES: as per EMR. CHEMICAL DEPENDENCY HISTORY: as per HPI. FAMILY PSYCHIATRIC/SUBSTANCE USE HISTORY: Negative SOCIAL HISTORY: Patient was born and raised in [place] and notes that her childhood was okay. She was the second of 8 children. She completed high school with good grades. She was once and has a adult daughter and grandson. She notes that she worked for the [employer] and is retired. She describes herself as spiritual. She denies any service. MENTAL STATUS EXAM: General Appearance: Patient appears to be stated age is alert, pleasant, and cooperative. Patient appears to have fair hygiene and grooming wearing hospital gown with fair eye contact. Behavior: Patient is calmly lying in bed without any agitated behavior. Speech: Patient's speech is fluent and nonpressured. Mood/Affect: Patient reports their mood is "euthymic", affect is congruent Suicidality/Homicidality: Patient denies having any suicidal or homicidal ideation intent or plan. Perceptions: Patient denies any visual hallucinations and denies any auditory hallucinations Though content/process: There is no evidence of any delusional thought content and thought process is linear and goal-directed. Memory and concentration: AOX3, grossly intact for the purposes of this session. Can spell "WORLD" backwards Judgment and insight: Fair Diagnosis: Altered mental status resolving Assessment: I met with the patient she appears oriented, without mental health and alert. It is felt that this time her hearing is the main problem for her understanding things and possible hearing aid might help. Sometimes hearing problems can make patients seem like they are delirious. If there was an underlying delirium it appears that it is resolving. PLAN: -At this time patient DOES NOT meet criteria for inpatient psychiatric admission. -Would recommend the following medication changes/additions: None -Can discontinue 1:1 sitter at this time as patient is not currently an imminent threat to themselves -Communicated plan to patient's nurse -Psychiatry will sign off at this time -Please contact with any questions.
--- NOTE | 2024-10-16 11:54 | P.PN ---
Subjective This is a pleasant 89 years old female who was admitted for acute urinary tract infection and metabolic encephalopathy besides have multiple chronic medical problems Patient currently treated for acute urinary tract infection with ceftriaxone Mentation improving she knows she is in [facility] she knows the date is 10/16/2024 and she knows the name of president however she does not have much insight to her illness she thinks she is in the hospital for irregular heartbeat rather than acute urinary tract infection, patient was updated She denies chest pain or dyspnea no other new complaint Objective - Vital Signs Vital signs: Vital Signs Temp 98.3 F 10/16/24 07:13 Pulse 95 10/16/24 07:13 Resp 17 10/16/24 07:13 BP 163/74 10/16/24 07:13 Pulse Ox 90 L 10/16/24 07:13 FiO2 Intake & Output 10/15/24 10/16/24 10/16/24 18:59 06:59 18:59 Intake Total 240 Output Total 400 700 Balance -400 -700 240 Weight 79.379 kg Intake: Oral 240 Output: Urine 400 700 Other: Voiding Method Indwelling Catheter Indwelling Catheter Indwelling Catheter - Labs CBC & Chem 7: 10/16/24 04:19 10/16/24 04:19 Labs: Abnormal Lab Results - Last 24 Hours (Table) 10/16/24 10/16/24 Range/Units 04:19 04:19 RBC 3.28 L (4.10-5.20) X 10*6/uL Hgb 9.8 L (12.0-15.0) g/dL Hct 32.6 L (37.2-46.3) % MCV 99.4 H (80.0-97.0) FL MCHC 30.1 L (32.0-37.0) g/dL RDW 16.0 H (11.5-14.5) % MPV 9.2 L (9.5-12.2) FL Immature Gran # 0.05 H (0.00-0.04) X 10*3/uL Est GFR (CKD-EPI) 55 L (>=60) Assessment and Plan Assessment: Acute urinary tract infection Metabolic encephalopathy Possible elements of dementia Chronic atrial fibrillation Nonischemic cardiomyopathy with ejection fraction 35 to 40% Chronic kidney disease stage III Metastatic breast cancer to the liver and spine Plan: Continue ceftriaxone Psychiatry consult Infectious disease and pulmonary team consult forestry conservation worker on the case As per staff son is trying to get guardianship Labs and medication were reviewed.. Continue same treatment. Continue with symptomatic treatment. Resume home medication. Monitor labs and vitals. DVT and GI prophylaxis. Further recommendations as per clinical course of the patient DVT prophylaxis: Eliquis GI Prophylaxis: Pepcid PT/OT: Pending Prognosis is guarded
--- NOTE | 2024-10-16 12:43 | P.PN ---
Subjective Progress Note Date: 10/16/24 Patient is an 89-year-old female with past medical history significant for metastatic breast cancer. Originally diagnosed back in 2022. PET scan done June, showing recurrent or increasing areas of uptake from prior exam. New areas of uptake within the superior mediastinum and left hilar region. New areas of uptake within the liver suspicious of hepatic metastasis. No areas of uptake within the axial skeleton and with in the pelvis suspicious for new metastasis. Prior osseous metastasis may be increasing in volume and intensity. Of note, patient had a recent hospitalization August 2024 for new onset A-fib and urinary tract infection. Urine was positive for Klebsiella pneumonia. She was discharged to subacute rehab on September 22 with a course of Ceftin to be completed outpatient. She was also started on metoprolol and Cardizem. Brought back to the emergency department yesterday morning by EMS for altered mental status. Ongoing for the last couple days. Associated slurred speech. Patient was noted to be not cooperative in the ED. Workup including a brain CT without contrast showing no acute intracranial hemorrhage or midline shift. Brain CT angio did not show any evidence of significant stenosis at the carotid bifurcations. No evidence of intracranial large vessel occlusion or intracranial aneurysm. Urinalysis was positive for nitrates, pyuria, and bacteria. Chest x-ray remarkable for cardiomegaly and pulmonary vascular congestion. Possible focal patchy opacity at the right base could represent evolving patchy pulmonary edema or developing pneumonia. Remaining labs including a CBC with a WBC count of 8.6, hemoglobin 10.5, platelets 378. CMP: Electrolytes WDL, creatinine near baseline around 1.24, glucose 123. Patient currently being evaluated on the general medical floor. She is awake and alert. She is on 2 L/min nasal cannula. Does not appear to to be any respiratory distress. No coughing. She denies any complaints at this time. Refuses to answer most direct questioning. Gauze covering the left eye. Slurred speech intermittently noted. Started empirically on a combination of azithromycin and Rocephin. Remains afebrile. Normal saline infusing at 75 mL/h. Current vital signs: Temperature 98.8 F, heart rate 88 bpm, blood pressure 147/88 mmHg, nontachypneic, SpO2 recorded at 98% on 2 L/min nasal cannula. The patient is seen today October 13, 2024 in follow-up on the regular medical floor. She is awake and alert in no acute distress. More oriented today. She is maintaining good O2 saturations in the 90s on room air. She is afebrile. Hemodynamically stable. Urine culture is showing gram-negative bacilli. Blood culture pending. White count 6.8. Hemoglobin 9.5. Platelets 342. Sodium 142. Potassium 4.0. Bicarb 23. BUN 14. Creatinine 1.1. Glucose 116. She remains anticoagulated with Eliquis. Antibiotics in the form of ceftriaxone and azithromycin. Infectious disease is on the case. The patient is seen today October 14, 2024 in follow-up on the regular medical floor. She is currently sitting up in bed. Awake and alert in no acute distress. Denies any shortness of breath, cough or congestion. She is yen ntaining O2 saturations in the 90s on room air oxygen. She is on ceftriaxone and azithromycin. Urine culture positive for Klebsiella pneumoniae. White count 8.5. Hemoglobin 9.9. Platelets 391. Sodium 141. Potassium 4.4. Bicarb 25. BUN 12. Creatinine 1.0. Glucose 119. She is anticoagulated with Eliquis. The patient is seen today October 15, 2024 in follow-up on the regular medical floor. She is awake and alert in no acute distress. Denies any worsening shortness of breath, cough or congestion. Maintaining good O2 saturations in the 90s on room air. She remains on ceftriaxone. Anticoagulated with Eliquis. Urine culture was positive for Klebsiella pneumoniae. Blood culture revealed no growth. White count 8.0. Hemoglobin 9.4. Platelets 344. Sodium 139. Potassium 4.4. Bicarb 25. BUN 12. Creatinine 1.0. Glucose 109. The patient is seen today October 16 and follow-up on the regular medical floor. She is currently resting comfortably in bed. Awake and alert in no acute distress. Maintaining good O2 saturations in the 90s on room air oxygen. Urine culture positive for Klebsiella pneumoniae. Blood culture revealed no growth. White count 9.6. Hemoglobin 9.8. Platelets 357. Sodium 138. Potassium 4.2. Bicarb 25. BUN 13. Creatinine 1.0. She remains on ceftriaxone. Anticoagulated with Eliquis. Objective - Vital Signs Vital signs: Vital Signs Temp 98.3 F 10/16/24 07:13 Pulse 95 10/16/24 07:13 Resp 17 10/16/24 07:13 BP 163/74 10/16/24 07:13 Pulse Ox 90 L 10/16/24 07:13 FiO2 Intake & Output 10/15/24 10/16/24 10/16/24 18:59 06:59 18:59 Intake Total 240 Output Total 400 700 Balance -400 -700 240 Weight 79.379 kg Intake: Oral 240 Output: Urine 400 700 Other: Voiding Method Indwelling Catheter Indwelling Catheter Indwelling Catheter - Exam GENERAL EXAM: Alert, oriented 89-year-old female, gauze covering left eye, on room air, in no apparent distress. HEAD: Normocephalic and atraumatic EYES: Normal reaction of pupils, equal size. NOSE: Clear with pink turbinates. THROAT: No erythema or exudates. NECK: No masses, no JVD. CHEST: No chest wall deformity. LUNGS: Equal air entry with no crackles, wheeze, rhonchi or dullness. No conversational dyspnea. CVS: S1 and S2 normal with no audible murmur, irregular rhythm. No extra heart sounds ABDOMEN: No hepatosplenomegaly, active bowel sounds, no guarding or rigidity. SPINE: No scoliosis or deformity SKIN: No rashes CENTRAL NERVOUS SYSTEM: Dysarthria noted, no other obvious focal deficits, tone is normal in all 4 extremities. EXTREMITIES: There is no peripheral edema, clubbing, or cyanosis. Peripheral pulses are intact. - Labs CBC & Chem 7: 10/16/24 04:19 10/16/24 04:19 Labs: Abnormal Lab Results - Last 24 Hours (Table) 10/16/24 10/16/24 Range/Units 04:19 04:19 RBC 3.28 L (4.10-5.20) X 10*6/uL Hgb 9.8 L (12.0-15.0) g/dL Hct 32.6 L (37.2-46.3) % MCV 99.4 H (80.0-97.0) FL MCHC 30.1 L (32.0-37.0) g/dL RDW 16.0 H (11.5-14.5) % MPV 9.2 L (9.5-12.2) FL Immature Gran # 0.05 H (0.00-0.04) X 10*3/uL Est GFR (CKD-EPI) 55 L (>=60) Assessment and Plan Assessment: Urinary tract infection secondary to Klebsiella pneumoniae. Currently on c eftriaxone and completed azithromycin Altered mental status, consider acute metabolic encephalopathy, improved Acute hypoxemic respiratory failure, currently on 2 L/min nasal cannula, Chest x-ray remarkable for cardiomegaly and pulmonary vascular congestion. Possible focal patchy opacity at the right base could represent evolving patchy pulmonary edema or developing pneumonia. Recovered and on room air oxygen Atrial fibrillation with controlled ventricular response, anticoagulated on Eliquis Nonischemic cardiomyopathy, recent available echocardiogram from August, estimating a left ventricular ejection fraction of 35 to 40%, moderate pulmonary hypertension with RVSP 45 mmHg, mild MR, moderate tricuspid regurgitation. Chronic kidney disease stage III Hypertension History of hyperlipidemia Metastatic breast cancer, PET scan done June, showing recurrent or increasing areas of uptake from prior exam. New areas of uptake within the superior mediastinum and left hilar region. New areas of uptake within the liver suspicious of hepatic metastasis. No areas of uptake within the axial skeleton and with in the pelvis suspicious for new metastasis. Prior osseous metastasis may be increasing in volume and intensity. History of hypothyroidism History of cataract, with cataract removal on the left Plan: The patient was seen and evaluated Labs and medications reviewed Remains on ceftriaxone Completed azithromycin Infectious disease is following Anticoagulated with Eliquis Stable and on room air oxygen Pulmonary will see as needed This patient was seen independently by the pulmonary nurse practitioner addressing pulmonary issues I have personally seen and examined the patient, performed the documentation and the assessment and plan as written. Number of minutes spent on the visit: 23 Dictation was produced using [employer] dictation software. Please excuse any grammatical, word or spelling errors.
--- NOTE | 2024-10-16 16:31 | P.PN ---
Subjective Progress Note Date: 10/16/24 Principal diagnosis: Reason for follow-up is pneumonia Patient is a 89-year-old female with a past medical his significant for hypertension hyperlipidemia metastatic breast cancer with mets to the liver and spine patient has been brought into the hospital concerning for altered mental status, P did have a positive UA and also having focal opacity right lung base concerning for possible pneumonia prompted this consultation On today's evaluation that is 10/16/2024,the patient remains to be afebrile, patient is on room air not requiring supplemental oxygen and denies any shortness of breath no chest pain or cough.Patient denies having any nausea or vomiting, no abdominal pain and no diarrhea has been reported. Patient white count is 9.61 creatinine is 1.0 Objective - Vital Signs Vital signs: Vital Signs Temp 98.3 F 10/16/24 13:45 Pulse 78 10/16/24 13:45 Resp 17 10/16/24 13:45 BP 143/87 10/16/24 13:45 Pulse Ox 95 10/16/24 13:45 FiO2 Intake & Output 10/15/24 10/16/24 10/16/24 18:59 06:59 18:59 Intake Total 480 Output Total 400 700 Balance -400 -700 480 Weight 79.379 kg Intake: Oral 480 Output: Urine 400 700 Other: Voiding Method Indwelling Catheter Indwelling Catheter Indwelling Catheter - Exam GENERAL DESCRIPTION: An elderly female lying in bed in no distress RESPIRATORY SYSTEM: Unlabored breathing , decreased breath sounds at bases HEART: S1 S2 regular rate and rhythm , ABDOMEN: Soft , no tenderness EXTREMITIES: No edema feet - Labs CBC & Chem 7: 10/16/24 04:19 10/16/24 04:19 Labs: Abnormal Lab Results - Last 24 Hours (Table) 10/16/24 10/16/24 Range/Units 04:19 04:19 RBC 3.28 L (4.10-5.20) X 10*6/uL Hgb 9.8 L (12.0-15.0) g/dL Hct 32.6 L (37.2-46.3) % MCV 99.4 H (80.0-97.0) FL MCHC 30.1 L (32.0-37.0) g/dL RDW 16.0 H (11.5-14.5) % MPV 9.2 L (9.5-12.2) FL Immature Gran # 0.05 H (0.00-0.04) X 10*3/uL Est GFR (CKD-EPI) 55 L (>=60) Assessment and Plan (1) Pneumonia Current Visit: Yes Status: Acute Code(s): J18.9 - PNEUMONIA, UNSPECIFIED ORGANISM SNOMED Code(s): 675008710 (2) UTI (urinary tract infection) Current Visit: Yes Status: Acute Code(s): N39.0 - URINARY TRACT INFECTION, SITE NOT SPECIFIED SNOMED Code(s): 26761686 Plan: 1patient presented the hospital with mental status changes weakness which is likely multifactorial patient did have a positive UA however white count has been normal and will not qualify for symptomatic UTI did have evidence of patchy right lower lobe opacity concerning for possible pneumonia. 2blood culture have been negative sputum not collected urine is growing Klebsiella that is sensitive to ceftriaxone 3patient did have some clinical improvement, and is currently being treated with Rocephin monitor clinical course closely Dictation was produced using [employer] dictation software. please excuse any grammatical, word or spelling errors. Time with Patient: Less than 30
[2024-10-16] MEDS: CHOLECALCIFEROL 25 MCG (1000 IU) TABLET PO SCH (16:54)
[2024-10-17] MEDS: FAMOTIDINE 20 MG/2 ML VIAL IV SCH (07:59)
--- NOTE | 2024-10-17 12:14 | P.PN ---
Subjective This is a pleasant 89 years old female who was admitted for acute urinary tract infection and metabolic encephalopathy besides have multiple chronic medical problems Patient currently treated for acute urinary tract infection with ceftriaxone Mentation improving she knows she is in [facility] she knows the date is 10/16/2024 and she knows the name of president however she does not have much insight to her illness she thinks she is in the hospital for irregular heartbeat rather than acute urinary tract infection, patient was updated She denies chest pain or dyspnea no other new complaint 10/17 Patient clinically looks the same She was able to walk to the restroom standing on the sink to wash her face. She uses a walker doing this. No other new complaint or change Still has a [place] in place Objective - Vital Signs Vital signs: Vital Signs Temp 98.1 F 10/17/24 07:07 Pulse 87 10/17/24 07:07 Resp 18 10/17/24 07:07 BP 156/87 10/17/24 07:07 Pulse Ox 93 L 10/17/24 07:07 FiO2 Intake & Output 10/16/24 10/17/24 10/17/24 18:59 06:59 18:59 Intake Total 480 Output Total 450 600 Balance 30 -600 Intake: Oral 480 Output: Urine 450 600 Other: Voiding Method Indwelling Catheter Indwelling Catheter Indwelling Catheter - Exam -GENERAL: The patient is alert ,mildly confused, not in any acute distress. Well developed, well nourished. Mild generalized weakness HEENT: Pupils are round and equally reacting to light. EOMI. No scleral icterus. No conjunctival pallor. Normocephalic, atraumatic. No pharyngeal erythema. No thyromegaly. CARDIOVASCULAR: S1 and S2 present. No murmurs, rubs, or gallops. PULMONARY: Chest is clear to auscultation, no wheezing , no crackles. ABDOMEN: Soft, nontender, nondistended, normoactive bowel sounds. No palpable organomegaly. MUSCULOSKELETAL: No joint swelling or deformity. EXTREMITIES: No cyanosis, clubbing, or pedal edema. NEUROLOGICAL: Gross neurological examination did not reveal any focal deficits. SKIN: No rashes. no petechiae. - Labs CBC & Chem 7: 10/16/24 04:19 10/16/24 04:19 Labs: Microbiology - Last 24 Hours (Table) 10/11/24 13:48 Blood Culture - Final Blood Assessment and Plan Assessment: Acute urinary tract infection Metabolic encephalopathy Possible elements of dementia Chronic atrial fibrillation Nonischemic cardiomyopathy with ejection fraction 35 to 40% Chronic kidney disease stage III Metastatic breast cancer to the liver and spine Plan: Continue ceftriaxone Psychiatry consult Infectious disease and pulmonary team consult ornamental metal worker on the case As per staff son is trying to get guardianship Labs and medication were reviewed.. Continue same treatment. Continue with symptomatic treatment. Resume home medication. Monitor labs and vitals. DVT and GI prophylaxis. Further recommendations as per clinical course of the patient DVT prophylaxis: Eliquis GI Prophylaxis: Pepcid PT/OT: Pending Prognosis is guarded
--- NOTE | 2024-10-17 15:22 | P.PN ---
Subjective Progress Note Date: 10/17/24 Principal diagnosis: Reason for follow-up is pneumonia Patient is a 89-year-old female with a past medical his significant for hypertension hyperlipidemia metastatic breast cancer with mets to the liver and spine patient has been brought into the hospital concerning for altered mental status, P did have a positive UA and also having focal opacity right lung base concerning for possible pneumonia prompted this consultation On today's evaluation that is 10/17/2024, the patient continues to be afebrile, the patient is on room air and breathing comfortably, the Pt denies having any chest pain or cough, the patient denies having any abdominal pain no vomiting or any diarrhea has been reported by the nursing staff. No new lab has been obtained today blood culture negative Objective - Vital Signs Vital signs: Vital Signs Temp 98.0 F 10/17/24 14:16 Pulse 94 10/17/24 14:16 Resp 18 10/17/24 14:16 BP 146/84 10/17/24 14:16 Pulse Ox 93 L 10/17/24 14:16 FiO2 Intake & Output 10/16/24 10/17/24 10/17/24 18:59 06:59 18:59 Intake Total 480 120 Output Total 450 600 Balance 30 -600 120 Intake: Oral 480 120 Output: Urine 450 600 Other: Voiding Method Indwelling Catheter Indwelling Catheter Indwelling Catheter - Exam GENERAL DESCRIPTION: An elderly female lying in bed in no distress RESPIRATORY SYSTEM: Unlabored breathing , decreased breath sounds at bases HEART: S1 S2 regular rate and rhythm , ABDOMEN: Soft , no tenderness EXTREMITIES: No edema feet - Labs CBC & Chem 7: 10/16/24 04:19 10/16/24 04:19 Labs: Microbiology - Last 24 Hours (Table) 10/11/24 13:48 Blood Culture - Final Blood Assessment and Plan (1) Pneumonia Current Visit: Yes Status: Acute Code(s): J18.9 - PNEUMONIA, UNSPECIFIED ORGANISM SNOMED Code(s): 695218930 (2) UTI (urinary tract infection) Current Visit: Yes Status: Acute Code(s): N39.0 - URINARY TRACT INFECTION, SITE NOT SPECIFIED SNOMED Code(s): 18803417 Plan: 1patient presented the hospital with mental status changes weakness which is likely multifactorial patient did have a positive UA however white count has been normal and will not qualify for symptomatic UTI did have evidence of patchy right lower lobe opacity concerning for possible pneumonia. 2blood culture have been negative sputum not collected urine is growing Klebsiella that is sensitive to ceftriaxone 3patient slowly clinically improving she is afebrile white count normal culture has been negative currently on ceftriaxone Dictation was produced using [employer] software. please excuse any grammatical, word or spelling errors. Time with Patient: Less than 30
--- NOTE | 2024-10-18 10:47 | P.PN ---
Subjective This is a pleasant 89 years old female who was admitted for acute urinary tract infection and metabolic encephalopathy besides have multiple chronic medical problems Patient currently treated for acute urinary tract infection with ceftriaxone Mentation improving she knows she is in [facility] she knows the date is 10/16/2024 and she knows the name of president however she does not have much insight to her illness she thinks she is in the hospital for irregular heartbeat rather than acute urinary tract infection, patient was updated She denies chest pain or dyspnea no other new complaint 10/17 Patient clinically looks the same She was able to walk to the restroom standing on the sink to wash her face. She uses a walker doing this. No other new complaint or change Still has a [place] in place 10/18 Patient resting in bed trying to get a nap Overall doing well No new complaints Objective - Vital Signs Vital signs: Vital Signs Temp 97.8 F 10/18/24 07:17 Pulse 100 10/18/24 07:17 Resp 17 10/18/24 07:17 BP 155/88 10/18/24 07:17 Pulse Ox 96 10/18/24 07:17 FiO2 Intake & Output 10/17/24 10/18/24 10/18/24 18:59 06:59 18:59 Intake Total 1300 240 Output Total 300 500 Balance 1000 -260 Intake: Oral 1300 240 Output: Urine 300 500 Other: Voiding Method Indwelling Catheter Indwelling Catheter Indwelling Catheter - Exam -GENERAL: The patient is alert ,mildly confused, not in any acute distress. Well developed, well nourished. Mild generalized weakness HEENT: Pupils are round and equally reacting to light. EOMI. No scleral icterus. No conjunctival pallor. Normocephalic, atraumatic. No pharyngeal erythema. No thyromegaly. CARDIOVASCULAR: S1 and S2 present. No murmurs, rubs, or gallops. PULMONARY: Chest is clear to auscultation, no wheezing , no crackles. ABDOMEN: Soft, nontender, nondistended, normoactive bowel sounds. No palpable organomegaly. MUSCULOSKELETAL: No joint swelling or deformity. EXTREMITIES: No cyanosis, clubbing, or pedal edema. NEUROLOGICAL: Gross neurological examination did not reveal any focal deficits. SKIN: No rashes. no petechiae. - Labs CBC & Chem 7: 10/16/24 04:19 10/16/24 04:19 Assessment and Plan Assessment: Acute urinary tract infection Metabolic encephalopathy Possible elements of dementia Chronic atrial fibrillation Nonischemic cardiomyopathy with ejection fraction 35 to 40% Chronic kidney disease stage III Metastatic breast cancer to the liver and spine Plan: Continue ceftriaxone Psychiatry consult Infectious disease and pulmonary team consult food service worker on the case As per staff son is trying to get guardianship Labs and medication were reviewed.. Continue same treatment. Continue with symptomatic treatment. Resume home medication. Monitor labs and vitals. DVT and GI prophylaxis. Further recommendations as per clinical course of the patient DVT prophylaxis: Eliquis GI Prophylaxis: Pepcid PT/OT: Pending Prognosis is guarded
--- NOTE | 2024-10-18 14:57 | P.PN ---
Subjective Progress Note Date: 10/18/24 Principal diagnosis: Reason for follow-up is pneumonia Patient is a 89-year-old female with a past medical his significant for hypertension hyperlipidemia metastatic breast cancer with mets to the liver and spine patient has been brought into the hospital concerning for altered mental status, P did have a positive UA and also having focal opacity right lung base concerning for possible pneumonia prompted this consultation On today's evaluation that is 10/18/2024, Patient is afebrile patient is currently on room air and denies having any shortness of breath, the patient denies any chest pain or cough, the patient denies any nausea vomiting did not have any abdominal pain and no diarrhea. No new labs has been obtained today blood culture have been negative Objective - Vital Signs Vital signs: Vital Signs Temp 97.8 F 10/18/24 07:17 Pulse 100 10/18/24 07:17 Resp 17 10/18/24 07:17 BP 155/88 10/18/24 07:17 Pulse Ox 96 10/18/24 07:17 FiO2 Intake & Output 10/17/24 10/18/24 10/18/24 18:59 06:59 18:59 Intake Total 1300 240 Output Total 300 500 Balance 1000 -260 Intake: Oral 1300 240 Output: Urine 300 500 Other: Voiding Method Indwelling Catheter Indwelling Catheter Indwelling Catheter - Exam GENERAL DESCRIPTION: An elderly female lying in bed in no distress RESPIRATORY SYSTEM: Unlabored breathing , decreased breath sounds at bases HEART: S1 S2 regular rate and rhythm , ABDOMEN: Soft , no tenderness EXTREMITIES: No edema feet - Labs CBC & Chem 7: 10/16/24 04:19 10/16/24 04:19 Assessment and Plan (1) Pneumonia Current Visit: Yes Status: Acute Code(s): J18.9 - PNEUMONIA, UNSPECIFIED ORGANISM SNOMED Code(s): 539536147 (2) UTI (urinary tract infection) Current Visit: Yes Status: Acute Code(s): N39.0 - URINARY TRACT INFECTION, SITE NOT SPECIFIED SNOMED Code(s): 94150246 Plan: 1patient presented the hospital with mental status changes weakness which is likely multifactorial patient did have a positive UA however white count has been normal and will not qualify for symptomatic UTI did have evidence of patchy right lower lobe opacity concerning for possible pneumonia. 2blood culture have been negative sputum not collected urine is growing Klebsiella that is sensitive to ceftriaxone 3patient has shown clinical improvement and has received adequate IV Rocephin will go ahead and discontinue Rocephin and monitor closely off antibiotic Dictation was produced using [employer] dictation software. please excuse any grammatical, word or spelling errors. Time with Patient: Less than 30
--- NOTE | 2024-10-19 10:51 | P.PN ---
Subjective This is a pleasant 89 years old female who was admitted for acute urinary tract infection and metabolic encephalopathy besides have multiple chronic medical problems Patient currently treated for acute urinary tract infection with ceftriaxone Mentation improving she knows she is in [facility] she knows the date is 10/16/2024 and she knows the name of president however she does not have much insight to her illness she thinks she is in the hospital for irregular heartbeat rather than acute urinary tract infection, patient was updated She denies chest pain or dyspnea no other new complaint 10/17 Patient clinically looks the same She was able to walk to the restroom standing on the sink to wash her face. She uses a walker doing this. No other new complaint or change Still has a [place] in place 10/18 Patient resting in bed trying to get a nap Overall doing well No new complaints 10/18 Patient clinically doing well No new complaints Patient wants to go home Patient currently off antibiotic. She is medically cleared for discharge pen ding placement. I just talked to the social science analyst and there is no place accepted her yet without guardianship Objective - Vital Signs Vital signs: Vital Signs Temp 97.9 F 10/19/24 07:11 Pulse 102 H 10/19/24 07:11 Resp 18 10/19/24 07:11 BP 163/102 10/19/24 07:11 Pulse Ox 95 10/19/24 07:11 FiO2 Intake & Output 10/18/24 10/19/24 10/19/24 18:59 06:59 18:59 Intake Total 240 Output Total 550 550 Balance -550 -310 Intake: Oral 240 Output: Urine 550 550 Other: Voiding Method Indwelling Catheter Indwelling Catheter - Exam -GENERAL: The patient is alert ,mildly confused, not in any acute distress. Well developed, well nourished. Mild generalized weakness HEENT: Pupils are round and equally reacting to light. EOMI. No scleral icterus. No conjunctival pallor. Normocephalic, atraumatic. No pharyngeal erythema. No thyromegaly. CARDIOVASCULAR: S1 and S2 present. No murmurs, rubs, or gallops. PULMONARY: Chest is clear to auscultation, no wheezing , no crackles. ABDOMEN: Soft, nontender, nondistended, normoactive bowel sounds. No palpable organomegaly. MUSCULOSKELETAL: No joint swelling or deformity. EXTREMITIES: No cyanosis, clubbing, or pedal edema. NEUROLOGICAL: Gross neurological examination did not reveal any focal deficits. SKIN: No rashes. no petechiae. - Labs CBC & Chem 7: 10/16/24 04:19 10/16/24 04:19 Assessment and Plan Assessment: Acute urinary tract infection Metabolic encephalopathy Possible elements of dementia Chronic atrial fibrillation Nonischemic cardiomyopathy with ejection fraction 35 to 40% Chronic kidney disease stage III Metastatic breast cancer to the liver and spine Plan: Continue ceftriaxone Psychiatry consult Infectious disease and pulmonary team consult workers compensation analyst on the case As per staff son is trying to get guardianship Labs and medication were reviewed.. Continue same treatment. Continue with symptomatic treatment. Resume home medication. Monitor labs and vitals. DVT and GI prophylaxis. Further recommendations as per clinical course of the patient DVT prophylaxis: Eliquis GI Prophylaxis: Pepcid PT/OT: Pending Prognosis is guarded
--- NOTE | 2024-10-19 15:26 | P.PN ---
Subjective Progress Note Date: 10/19/24 Principal diagnosis: Reason for follow-up is pneumonia Patient is a 89-year-old female with a past medical his significant for hypertension hyperlipidemia metastatic breast cancer with mets to the liver and spine patient has been brought into the hospital concerning for altered mental status, P did have a positive UA and also having focal opacity right lung base concerning for possible pneumonia prompted this consultation On today's evaluation that is 10/19/2024, patient has been afebrile, patient is breathing comfortably and is currently on room air, patient denies having any chest pain and cough, patient denies nausea vomiting or diarrhea and no abdominal pain No new lab has been repeated today blood culture have been negative Objective - Vital Signs Vital signs: Vital Signs Temp 97.8 F 10/19/24 14:00 Pulse 98 10/19/24 14:00 Resp 18 10/19/24 14:00 BP 158/99 10/19/24 14:00 Pulse Ox 97 10/19/24 14:00 FiO2 Intake & Output 10/18/24 10/19/24 10/19/24 18:59 06:59 18:59 Intake Total 240 Output Total 550 550 Balance -550 -310 Intake: Oral 240 Output: Urine 550 550 Other: Voiding Method Indwelling Catheter Indwelling Catheter Indwelling Catheter - Exam GENERAL DESCRIPTION: An elderly female lying in bed in no distress RESPIRATORY SYSTEM: Unlabored breathing , decreased breath sounds at bases HEART: S1 S2 regular rate and rhythm , ABDOMEN: Soft , no tenderness EXTREMITIES: No edema feet - Labs CBC & Chem 7: 10/16/24 04:19 10/16/24 04:19 Assessment and Plan (1) Pneumonia Current Visit: Yes Status: Acute Code(s): J18.9 - PNEUMONIA, UNSPECIFIED ORGANISM SNOMED Code(s): 196386596 (2) UTI (urinary tract infection) Current Visit: Yes Status: Acute Code(s): N39.0 - URINARY TRACT INFECTION, SITE NOT SPECIFIED SNOMED Code(s): 29261272 Plan: 1patient presented the hospital with mental status changes weakness which is likely multifactorial patient did have a positive UA however white count has been normal and will not qualify for symptomatic UTI did have evidence of patchy right lower lobe opacity concerning for possible pneumonia. 2blood culture have been negative sputum not collected urine is growing Klebsiella that is sensitive to ceftriaxone 3patient has shown clinical improvement and has received adequate IV Rocephin which was discontinued as of yesterday we will monitor closely off antibiotic currently waiting for placement Dictation was produced using [email or web address] dictation software. please excuse any grammatical, word or spelling errors. Time with Patient: Less than 30
--- NOTE | 2024-10-20 23:25 | P.PN ---
Subjective This is a pleasant 89 years old female who was admitted for acute urinary tract infection and metabolic encephalopathy besides have multiple chronic medical problems Patient currently treated for acute urinary tract infection with ceftriaxone Mentation improving she knows she is in [facility] she knows the date is 10/16/2024 and she knows the name of president however she does not have much insight to her illness she thinks she is in the hospital for irregular heartbeat rather than acute urinary tract infection, patient was updated She denies chest pain or dyspnea no other new complaint 10/17 Patient clinically looks the same She was able to walk to the restroom standing on the sink to wash her face. She uses a walker doing this. No other new complaint or change Still has a [place] in place 10/18 Patient resting in bed trying to get a nap Overall doing well No new complaints 10/19 Patient clinically doing well No new complaints Patient wants to go home Patient currently off antibiotic. She is medically cleared for discharge pen ding placement. I just talked to the marriage and family social worker and there is no place accepted her yet without guardianship 10/20 Patient doing well No nausea vomiting Family member at bedside No other new complaints Pending placement Objective - Vital Signs Vital signs: Vital Signs Temp 98.2 F 10/20/24 08:24 Pulse 132 H 10/20/24 08:24 Resp 18 10/20/24 08:24 BP 145/89 10/20/24 08:24 Pulse Ox 96 10/20/24 08:24 FiO2 Intake & Output 10/19/24 10/20/24 10/20/24 18:59 06:59 18:59 Output Total 450 325 Balance -450 -325 Output: Urine 450 325 Other: Voiding Method Indwelling Catheter Indwelling Catheter Indwelling Catheter - Exam -GENERAL: The patient is alert ,mildly confused, not in any acute distress. Well developed, well nourished. Mild generalized weakness HEENT: Pupils are round and equally reacting to light. EOMI. No scleral icterus. No conjunctival pallor. Normocephalic, atraumatic. No pharyngeal erythema. No thyromegaly. CARDIOVASCULAR: S1 and S2 present. No murmurs, rubs, or gallops. PULMONARY: Chest is clear to auscultation, no wheezing , no crackles. ABDOMEN: Soft, nontender, nondistended, normoactive bowel sounds. No palpable organomegaly. MUSCULOSKELETAL: No joint swelling or deformity. EXTREMITIES: No cyanosis, clubbing, or pedal edema. NEUROLOGICAL: Gross neurological examination did not reveal any focal deficits. SKIN: No rashes. no petechiae. - Labs CBC & Chem 7: 10/16/24 04:19 10/16/24 04:19 Assessment and Plan Assessment: Acute urinary tract infection Metabolic encephalopathy Possible elements of dementia Chronic atrial fibrillation Nonischemic cardiomyopathy with ejection fraction 35 to 40% Chronic kidney disease stage III Metastatic breast cancer to the liver and spine Plan: Continue ceftriaxone Psychiatry consult Infectious disease and pulmonary team consult [place] worker on the case As per staff son is trying to get guardianship Labs and medication were reviewed.. Continue same treatment. Continue with symptomatic treatment. Resume home medication. Monitor labs and vitals. DVT and GI prophylaxis. Further recommendations as per clinical course of the patient DVT prophylaxis: Eliquis GI Prophylaxis: Pepcid PT/OT: Pending Prognosis is guarded
--- NOTE | 2024-10-21 14:45 | P.PN ---
Subjective This is a pleasant 89 years old female who was admitted for acute urinary tract infection and metabolic encephalopathy besides have multiple chronic medical problems Patient currently treated for acute urinary tract infection with ceftriaxone Mentation improving she knows she is in [facility] [place] she knows the date is 10/16/2024 and she knows the name of president however she does not have much insight to her illness she thinks she is in the hospital for irregular heartbeat rather than acute urinary tract infection, patient was updated She denies chest pain or dyspnea no other new complaint 10/17 Patient clinically looks the same She was able to walk to the restroom standing on the sink to wash her face. She uses a walker doing this. No other new complaint or change Still has a [place] in place 10/18 Patient resting in bed trying to get a nap Overall doing well No new complaints 10/19 Patient clinically doing well No new complaints Patient wants to go home Patient currently off antibiotic. She is medically cleared for discharge pen ding placement. I just talked to the social service worker and there is no place accepted her yet without guardianship 10/20 Patient doing well No nausea vomiting Family member at bedside No other new complaints Pending placement 10/21 Today patient pleasant Lying in bed with no new symptoms manager respiratory care on the case Objective - Vital Signs Vital signs: Vital Signs Temp 97.5 F L 10/21/24 06:55 Pulse 75 10/21/24 06:55 Resp 17 10/21/24 06:55 BP 155/86 10/21/24 06:55 Pulse Ox 96 10/21/24 06:55 FiO2 Intake & Output 10/20/24 10/21/24 10/21/24 18:59 06:59 18:59 Output Total 400 300 Balance -400 -300 Weight 79.379 kg Output: Urine 400 300 Other: Voiding Method Indwelling Catheter Indwelling Catheter Indwelling Catheter # Bowel Movements 1 - Exam -GENERAL: The patient is alert ,mildly confused, not in any acute distress. Well developed, well nourished. Mild generalized weakness HEENT: Pupils are round and equally reacting to light. EOMI. No scleral icterus. No conjunctival pallor. Normocephalic, atraumatic. No pharyngeal erythema. No thyromegaly. CARDIOVASCULAR: S1 and S2 present. No murmurs, rubs, or gallops. PULMONARY: Chest is clear to auscultation, no wheezing , no crackles. ABDOMEN: Soft, nontender, nondistended, normoactive bowel sounds. No palpable organomegaly. MUSCULOSKELETAL: No joint swelling or deformity. EXTREMITIES: No cyanosis, clubbing, or pedal edema. NEUROLOGICAL: Gross neurological examination did not reveal any focal deficits. SKIN: No rashes. no petechiae. - Labs CBC & Chem 7: 10/16/24 04:19 10/16/24 04:19 Assessment and Plan Assessment: Acute urinary tract infection Metabolic encephalopathy Possible elements of dementia Chronic atrial fibrillation Nonischemic cardiomyopathy with ejection fraction 35 to 40% Chronic kidney disease stage III Metastatic breast cancer to the liver and spine Plan: Continue ceftriaxone Psychiatry consult Infectious disease and pulmonary team consult homeworker on the case As per staff son is trying to get guardianship Labs and medication were reviewed.. Continue same treatment. Continue with symptomatic treatment. Resume home medication. Monitor labs and vitals. DVT and GI prophylaxis. Further recommendations as per clinical course of the patient DVT prophylaxis: Eliquis GI Prophylaxis: Pepcid PT/OT: Pending Prognosis is guarded
--- NOTE | 2024-10-21 17:16 | P.PN ---
Subjective Progress Note Date: 10/20/24 Principal diagnosis: Reason for follow-up is pneumonia Patient is a 89-year-old female with a past medical his significant for hypertension hyperlipidemia metastatic breast cancer with mets to the liver and spine patient has been brought into the hospital concerning for altered mental status, P did have a positive UA and also having focal opacity right lung base concerning for possible pneumonia prompted this consultation On today's evaluation that is 10/20/2024, Patient is afebrile this morning patient denies having any chest pain shortness of breath or cough, the patient is currently on room air, patient denies any abdominal pain no diarrhea no nausea no vomiting No new labs has been obtained today Objective - Vital Signs Vital signs: Vital Signs Temp 98.2 F 10/20/24 08:24 Pulse 132 H 10/20/24 08:24 Resp 18 10/20/24 08:24 BP 145/89 10/20/24 08:24 Pulse Ox 96 10/20/24 08:24 FiO2 Intake & Output 10/19/24 10/20/24 10/20/24 18:59 06:59 18:59 Output Total 450 325 Balance -450 -325 Output: Urine 450 325 Other: Voiding Method Indwelling Catheter Indwelling Catheter Indwelling Catheter - Exam GENERAL DESCRIPTION: An elderly female lying in bed in no distress RESPIRATORY SYSTEM: Unlabored breathing , decreased breath sounds at bases HEART: S1 S2 regular rate and rhythm , ABDOMEN: Soft , no tenderness EXTREMITIES: No edema feet - Labs CBC & Chem 7: 10/16/24 04:19 10/16/24 04:19 Assessment and Plan (1) Pneumonia Current Visit: Yes Status: Acute Code(s): J18.9 - PNEUMONIA, UNSPECIFIED ORGANISM SNOMED Code(s): 507413656 (2) UTI (urinary tract infection) Current Visit: Yes Status: Acute Code(s): N39.0 - URINARY TRACT INFECTION, SITE NOT SPECIFIED SNOMED Code(s): 85483748 Plan: 1patient presented the hospital with mental status changes weakness which is likely multifactorial patient did have a positive UA however white count has been normal and will not qualify for symptomatic UTI did have evidence of patchy right lower lobe opacity concerning for possible pneumonia. 2blood culture have been negative sputum not collected urine is growing Klebsiella that is sensitive to ceftriaxone 3patient has shown clinical improvement and has received adequate IV Rocephin, patient is currently being monitored closely off antibiotic currently waiting for placement Dictation was produced using [email or web address] dictation software. please excuse any grammatical, word or spelling errors. Time with Patient: Less than 30
--- NOTE | 2024-10-21 17:17 | P.PN ---
Subjective Progress Note Date: 10/21/24 Principal diagnosis: Reason for follow-up is pneumonia Patient is a 89-year-old female with a past medical his significant for hypertension hyperlipidemia metastatic breast cancer with mets to the liver and spine patient has been brought into the hospital concerning for altered mental status, P did have a positive UA and also having focal opacity right lung base concerning for possible pneumonia prompted this consultation On today's evaluation that is 10/21/2024,the patient denies any fever or any chills, patient is breathing comfortably on room air, the patient denies chest pain shortness of breath and no significant cough, patient denies abdominal pain, no nausea vomiting or diarrhea. Objective - Vital Signs Vital signs: Vital Signs Temp 98.0 F 10/21/24 16:46 Pulse 83 10/21/24 16:46 Resp 16 10/21/24 16:46 BP 146/80 10/21/24 16:46 Pulse Ox 98 10/21/24 16:46 FiO2 Intake & Output 10/20/24 10/21/24 10/21/24 18:59 06:59 18:59 Output Total 400 300 Balance -400 -300 Weight 79.379 kg Output: Urine 400 300 Other: Voiding Method Indwelling Catheter Indwelling Catheter Indwelling Catheter # Bowel Movements 1 - Exam GENERAL DESCRIPTION: An elderly female lying in bed in no distress RESPIRATORY SYSTEM: Unlabored breathing , decreased breath sounds at bases HEART: S1 S2 regular rate and rhythm , ABDOMEN: Soft , no tenderness EXTREMITIES: No edema feet - Labs CBC & Chem 7: 10/16/24 04:19 10/16/24 04:19 Assessment and Plan (1) Pneumonia Current Visit: Yes Status: Acute Code(s): J18.9 - PNEUMONIA, UNSPECIFIED ORGANISM SNOMED Code(s): 145487571 (2) UTI (urinary tract infection) Current Visit: Yes Status: Acute Code(s): N39.0 - URINARY TRACT INFECTION, SITE NOT SPECIFIED SNOMED Code(s): 80186268 Plan: 1patient presented the hospital with mental status changes weakness which is likely multifactorial patient did have a positive UA however white count has been normal and will not qualify for symptomatic UTI did have evidence of patchy right lower lobe opacity concerning for possible pneumonia. 2blood culture have been negative sputum not collected urine is growing Klebsiella that is sensitive to ceftriaxone 3patient has shown clinical improvement and has received adequate IV Rocephin, 4patient is currently being monitored closely off antibiotic currently waiting for placement and there will be no need for any antibiotics on discharge Dictation was produced using [employer] dictation software. please excuse any grammatical, word or spelling errors. Time with Patient: Less than 30
[2024-10-22 08:08] LABS: Basophils # (A) 0.05 X 10*3/uL (0.00-0.10); Basophils % (A) 0.6 %; Eosinophils # (A) 0.27 X 10*3/uL (0.04-0.35); Eosinophils % (A) 3.4 %; HGB 10.2 g/dL (12.0-15.0); Lymphocytes # (A) 1.86 X 10*3/uL (0.90-5.00); Lymphocytes % (A) 23.6 %; MCH 29.9 pg (27.0-32.0); MCHC 30.9 g/dL (32.0-37.0); MCV 96.8 FL (80.0-97.0); Mean Platelet Volume 9.5 FL (9.5-12.2); Monocytes % (A) 6.3 %; NRBC Per 100 WBC 0 X 10*3/uL (0.00-0.01); Neutrophils # (A) 5.18 X 10*3/uL (1.80-7.70); Neutrophils % (A) 65.7 %; Platelet Count 317 X 10*3/uL (140-440); RBC 3.41 X 10*6/uL (4.10-5.20); RDW 16.5 % (11.5-14.5); WBC 7.89 X 10*3/uL (4.50-10.00)
[2024-10-22 08:32] LABS: BUN/Creat Ratio 11.11 Ratio (12.00-20.00); Calcium 8.9 mg/dL (8.7-10.3); Carbon Dioxide 25.5 mmol/L (21.6-31.8); Chloride 102 mmol/L (96-109); Glucose 117 mg/dL (70-110); Sodium 139 mmol/L (135-145)
[2024-10-22] MEDS: LACTULOSE 20 GM/30 ML CUP PO ONE (11:41)
--- NOTE | 2024-10-22 15:17 | XR ---
EXAMINATION TYPE: XR chest 2V DATE OF EXAM: 10/22/2024 3:13 PM COMPARISON: 10/13/2024 CLINICAL INDICATION: Female, 89 years old with history of shortness of breath, , TECHNIQUE: AP and lateral views FINDINGS: Heart upper limits of normal in size. Interstitial density persists. There are small bilateral pleura l effusions. Adjacent patchy bibasilar opacities have developed. IMPRESSION: Correlate for CHF with mild pulmonary vascular congestion. Development of small bilateral pleural eff usions with adjacent atelectasis and/or consolidation. [facility], Workstation: [facility], 10/22/2024 3:14 PM
[2024-10-22] MEDS: IPRATROPIUM-ALBUTEROL 3 ML NEB INHALATION STA (16:04)
[2024-10-22] MEDS: FUROSEMIDE 10 MG/ML 4 ML VIAL IV SCH (21:07)
--- NOTE | 2024-10-22 22:32 | P.PN ---
Subjective This is a pleasant 89 years old female who was admitted for acute urinary tract infection and metabolic encephalopathy besides have multiple chronic medical problems Patient currently treated for acute urinary tract infection with ceftriaxone Mentation improving she knows she is in [facility] she knows the date is 10/16/2024 and she knows the name of president however she does not have much insight to her illness she thinks she is in the hospital for irregular heartbeat rather than acute urinary tract infection, patient was updated She denies chest pain or dyspnea no other new complaint 10/17 Patient clinically looks the same She was able to walk to the restroom standing on the sink to wash her face. She uses a walker doing this. No other new complaint or change Still has a [place] in place 10/18 Patient resting in bed trying to get a nap Overall doing well No new complaints 10/19 Patient clinically doing well No new complaints Patient wants to go home Patient currently off antibiotic. She is medically cleared for discharge pen ding placement. I just talked to the social services counselor and there is no place accepted her yet without guardianship 10/20 Patient doing well No nausea vomiting Family member at bedside No other new complaints Pending placement 10/21 Today patient pleasant Lying in bed with no new symptoms business area manager on the case 10/22 Patient health insurance provider requested peer to peer review I have lengthy discussion with the physician from his insurance hide, his case was rejected because during PT evaluation she required (( minimal)) assistance for mobility. However patient was more tired today Repeat chest x-ray showed CHF. Patient started on IV Lasix Case was discussed with the staff and the patient case manager. Patient currently under guardianship, public guardian and her grandson as well Once stabilized patient will require discharge with home health care Patient also a case of breast cancer and she needs follow-up with her oncologist as an outpatient Objective - Vital Signs Vital signs: Vital Signs Temp 97.6 F 10/22/24 20:00 Pulse 56 L 10/22/24 20:00 Resp 17 10/22/24 20:00 BP 161/99 10/22/24 20:00 Pulse Ox 95 10/22/24 14:08 FiO2 Intake & Output 10/22/24 10/22/24 10/23/24 06:59 18:59 06:59 Intake Total 50 600 Output Total 250 200 Balance -200 400 Intake: Oral 50 600 Output: Urine 250 200 Other: Voiding Method Indwelling Catheter Indwelling Catheter - Exam -GENERAL: The patient is alert ,mildly confused, not in any acute distress. Well developed, well nourished. Mild generalized weakness HEENT: Pupils are round and equally reacting to light. EOMI. No scleral icterus. No conjunctival pallor. Normocephalic, atraumatic. No pharyngeal erythema. No thyromegaly. CARDIOVASCULAR: S1 and S2 present. No murmurs, rubs, or gallops. PULMONARY: Chest is clear to auscultation, no wheezing , no crackles. ABDOMEN: Soft, nontender, nondistended, normoactive bowel sounds. No palpable organomegaly. MUSCULOSKELETAL: No joint swelling or deformity. EXTREMITIES: No cyanosis, clubbing, or pedal edema. NEUROLOGICAL: Gross neurological examination did not reveal any focal deficits. SKIN: No rashes. no petechiae. - Labs CBC & Chem 7: 10/22/24 05:48 10/22/24 05:48 Labs: Abnormal Lab Results - Last 24 Hours (Table) 10/22/24 10/22/24 Range/Units 05:48 05:48 RBC 3.41 L (4.10-5.20) X 10*6/uL Hgb 10.2 L (12.0-15.0) g/dL Hct 33.0 L (37.2-46.3) % MCHC 30.9 L (32.0-37.0) g/dL RDW 16.5 H (11.5-14.5) % BUN/Creatinine Ratio 11.11 L (12.00-20.00) Ratio Glucose 117 H (70-110) mg/dL Assessment and Plan Assessment: Acute urinary tract infection Acute CHF Metabolic encephalopathy Possible elements of dementia Chronic atrial fibrillation Nonischemic cardiomyopathy with ejection fraction 35 to 40% Chronic kidney disease stage III Metastatic breast cancer to the liver and spine Plan: Patient currently off ceftriaxone Health insurance provider declined admission to subacute rehab, patient will require to be discharged with home health care Also patient obtain guardianship, has public guardian and her grandson Start IV Lasix Monitor creatinine and electrolytes Psychiatry consult Infectious disease and pulmonary team consult biscuit factory worker on the case Labs and medication were reviewed.. Continue same treatment. Continue with symptomatic treatment. Resume home medication. Monitor labs and vitals. DVT and GI prophylaxis. Further recommendations as per clinical course of the patient DVT prophylaxis: Eliquis GI Prophylaxis: Pepcid PT/OT: Pending Prognosis is guarded
[2024-10-23] MEDS: FAMOTIDINE 20 MG TAB PO SCH (08:14)
--- NOTE | 2024-10-23 20:02 | P.PN ---
Subjective This is a pleasant 89 years old female who was admitted for acute urinary tract infection and metabolic encephalopathy besides have multiple chronic medical problems Patient currently treated for acute urinary tract infection with ceftriaxone Mentation improving she knows she is in [facility] she knows the date is 10/16/2024 and she knows the name of president however she does not have much insight to her illness she thinks she is in the hospital for irregular heartbeat rather than acute urinary tract infection, patient was updated She denies chest pain or dyspnea no other new complaint 10/17 Patient clinically looks the same She was able to walk to the restroom standing on the sink to wash her face. She uses a walker doing this. No other new complaint or change Still has a [place] in place 10/18 Patient resting in bed trying to get a nap Overall doing well No new complaints 10/19 Patient clinically doing well No new complaints Patient wants to go home Patient currently off antibiotic. She is medically cleared for discharge pen ding placement. I just talked to the web content & social media manager and there is no place accepted her yet without guardianship 10/20 Patient doing well No nausea vomiting Family member at bedside No other new complaints Pending placement 10/21 Today patient pleasant Lying in bed with no new symptoms manager metal on the case 10/22 Patient health insurance provider requested peer to peer review I have lengthy discussion with the physician from his insurance hide, his case was rejected because during PT evaluation she required (( minimal)) assistance for mobility. However patient was more tired today Repeat chest x-ray showed CHF. Patient started on IV Lasix Case was discussed with the staff and the casework supervisor. Patient currently under guardianship, public guardian and her grandson as well Once stabilized patient will require discharge with home health care Patient also a case of breast cancer and she needs follow-up with her oncologist as an outpatient 10/23 Patient overall doing well Breathing improved while on Lasix, creatinine is stable, GFR improved creatinine down to 0.9 Patient medically stable for discharge, insurance provider declined subacute rehab admission Patient then will be go home with home care however her public guardian and her son requested to be discharged on Friday because they do not have her accommodation ready till Friday for her Objective - Vital Signs Vital signs: Vital Signs Temp 98.5 F 10/23/24 14:31 Pulse 107 H 10/23/24 14:31 Resp 16 10/23/24 14:31 BP 128/74 10/23/24 14:31 Pulse Ox 97 10/23/24 14:31 FiO2 Intake & Output 10/23/24 10/23/24 10/24/24 06:59 18:59 06:59 Intake Total 640 Balance 640 Intake: Oral 640 Other: Voiding Method Indwelling Catheter Indwelling Catheter - Exam -GENERAL: The patient is alert ,mildly confused, not in any acute distress. Well developed, well nourished. Mild generalized weakness HEENT: Pupils are round and equally reacting to light. EOMI. No scleral icterus. No conjunctival pallor. Normocephalic, atraumatic. No pharyngeal erythema. No thyromegaly. CARDIOVASCULAR: S1 and S2 present. No murmurs, rubs, or gallops. PULMONARY: Chest is clear to auscultation, no wheezing , no crackles. ABDOMEN: Soft, nontender, nondistended, normoactive bowel sounds. No palpable organomegaly. MUSCULOSKELETAL: No joint swelling or deformity. EXTREMITIES: No cyanosis, clubbing, or pedal edema. NEUROLOGICAL: Gross neurological examination did not reveal any focal deficits. SKIN: No rashes. no petechiae. - Labs CBC & Chem 7: 10/22/24 05:48 10/22/24 05:48 Assessment and Plan Assessment: Acute urinary tract infection Acute CHF Metabolic encephalopathy Possible elements of dementia Chronic atrial fibrillation Nonischemic cardiomyopathy with ejection fraction 35 to 40% Chronic kidney disease stage III Metastatic breast cancer to the liver and spine Plan: Patient currently off [facility] Health insurance provider declined admission to subacute rehab, patient will require to be discharged with home health care Also patient obtain guardianship, has public guardian and her grandson Start IV Lasix Monitor creatinine and electrolytes Psychiatry consult Infectious disease and pulmonary team consult pipe assembly worker on the case Labs and medication were reviewed.. Continue same treatment. Continue with symptomatic treatment. Resume home medication. Monitor labs and vitals. DVT and GI prophylaxis. Further recommendations as per clinical course of the patient DVT prophylaxis: Eliquis GI Prophylaxis: Pepcid PT/OT: Pending Prognosis is guarded
[2024-10-24 07:34] LABS: African American GFR (CKD) 55 (>60 ml/min/1.73 sqM); Anion Gap 7 mmol/L; Blood Urea Nitrogen 10 mg/dL (7-17); Calcium 8.8 mg/dL (8.4-10.2); Carbon Dioxide 35 mmol/L (22-30); Chloride 96 mmol/L (98-107); Glucose 125 mg/dL (74-99); Non-African American GFR(CKD) 47 (>60 ml/min/1.73 sqM); Potassium 3.3 mmol/L (3.5-5.1); Sodium 138 mmol/L (137-145)
--- NOTE | 2024-10-24 14:24 | P.PN ---
Subjective This is a pleasant 89 years old female who was admitted for acute urinary tract infection and metabolic encephalopathy besides have multiple chronic medical problems Patient currently treated for acute urinary tract infection with ceftriaxone Mentation improving she knows she is in [facility] she knows the date is 10/16/2024 and she knows the name of president however she does not have much insight to her illness she thinks she is in the hospital for irregular heartbeat rather than acute urinary tract infection, patient was updated She denies chest pain or dyspnea no other new complaint 10/17 Patient clinically looks the same She was able to walk to the restroom standing on the sink to wash her face. She uses a walker doing this. No other new complaint or change Still has a [place] in place 10/18 Patient resting in bed trying to get a nap Overall doing well No new complaints 10/19 Patient clinically doing well No new complaints Patient wants to go home Patient currently off antibiotic. She is medically cleared for discharge pen ding placement. I just talked to the child protective services social worker and there is no place accepted her yet without guardianship 10/20 Patient doing well No nausea vomiting Family member at bedside No other new complaints Pending placement 10/21 Today patient pleasant Lying in bed with no new symptoms manager hospitality on the case 10/22 Patient health insurance provider requested peer to peer review I have lengthy discussion with the physician from his insurance hide, his case was rejected because during PT evaluation she required (( minimal)) assistance for mobility. However patient was more tired today Repeat chest x-ray showed CHF. Patient started on IV Lasix Case was discussed with the staff and the corrections caseworker. Patient currently under guardianship, public guardian and her grandson as well Once stabilized patient will require discharge with home health care Patient also a case of breast cancer and she needs follow-up with her oncologist as an outpatient 10/23 Patient overall doing well Breathing improved while on Lasix, creatinine is stable, GFR improved creatinine down to 0.9 Patient medically stable for discharge, insurance provider declined subacute rehab admission Patient then will be go home with home care however her public guardian and her son requested to be discharged on Friday because they do not have her accommodation ready till Friday for her 10/24 Patient breathing is improved She is doing well No other new complaints Low potassium replaced Creatinine stable Potassium switched to oral 40 mg once daily Check labs tomorrow possible discharge in the morning Objective - Vital Signs Vital signs: Vital Signs Temp 98.2 F 10/24/24 07:46 Pulse 85 10/24/24 07:46 Resp 18 10/24/24 07:46 BP 158/89 10/24/24 07:46 Pulse Ox 95 10/24/24 07:46 FiO2 Intake & Output 10/23/24 10/24/24 10/24/24 18:59 06:59 18:59 Intake Total 640 1620 Output Total 1200 600 Balance 640 420 -600 Intake: Oral 640 1620 Output: Urine 1200 600 Uretheral ([place]) 600 Other: Voiding Method Indwelling Catheter Indwelling Catheter Indwelling Catheter # Bowel Movements 1 - Exam -GENERAL: The patient is alert ,mildly confused, not in any acute distress. Well developed, well nourished. Mild generalized weakness HEENT: Pupils are round and equally reacting to light. EOMI. No scleral icterus. No conjunctival pallor. Normocephalic, atraumatic. No pharyngeal erythema. No thyromegaly. CARDIOVASCULAR: S1 and S2 present. No murmurs, rubs, or gallops. PULMONARY: Chest is clear to auscultation, no wheezing , no crackles. ABDOMEN: Soft, nontender, nondistended, normoactive bowel sounds. No palpable organomegaly. MUSCULOSKELETAL: No joint swelling or deformity. EXTREMITIES: No cyanosis, clubbing, or pedal edema. NEUROLOGICAL: Gross neurological examination did not reveal any focal deficits. SKIN: No rashes. no petechiae. - Labs CBC & Chem 7: 10/22/24 05:48 10/24/24 06:50 Labs: Abnormal Lab Results - Last 24 Hours (Table) 10/24/24 Range/Units 06:50 Potassium 3.3 L (3.5-5.1) mmol/L Chloride 96 L (98-107) mmol/L Carbon Dioxide 35 H (22-30) mmol/L Creatinine 1.06 H (0.52-1.04) mg/dL Glucose 125 H (74-99) mg/dL Assessment and Plan Assessment: Acute urinary tract infection Acute CHF Metabolic encephalopathy Possible elements of dementia Chronic atrial fibrillation Nonischemic cardiomyopathy with ejection fraction 35 to 40% Chronic kidney disease stage III Metastatic breast cancer to the liver and spine Plan: [facility] Health insurance provider declined admission to subacute rehab, patient will require to be discharged with home health care Also patient obtain guardianship, has public guardian and her grandson Start IV Lasix Monitor creatinine and electrolytes Psychiatry consult Infectious disease and pulmonary team consult asphalt worker on the case Labs and medication were reviewed.. Continue same treatment. Continue with symptomatic treatment. Resume home medication. Monitor labs and vitals. DVT and GI prophylaxis. Further recommendations as per clinical course of the patient DVT prophylaxis: Eliquis GI Prophylaxis: Pepcid PT/OT: Pending Prognosis is guarded
[2024-10-24] MEDS: POTASSIUM CHLORIDE ER 20 MEQ TAB.ER PO STA (14:32)
[2024-10-25] MEDS: FUROSEMIDE 40 MG TAB PO SCH (09:04)
[2024-10-25 10:28] LABS: BUN/Creat Ratio 10.82 Ratio (12.00-20.00); Blood Urea Nitrogen 11.9 mg/dL (9.0-27.0); Calcium 9.2 mg/dL (8.7-10.3); Carbon Dioxide 30.8 mmol/L (21.6-31.8); Chloride 99 mmol/L (96-109); Glucose 127 mg/dL (70-110); Magnesium 1.5 mg/dL (1.5-2.4); Sodium 142 mmol/L (135-145)
[2024-10-25] MEDS ORDERED: Magnesium Replacement Protocol 1 EACH MISC MISCELLANE PRN (11:00)
[2024-10-25] MEDS: MAGNESIUM SULFATE-D5W PMX 1 GM in DEXTROSE/WATER 1 100ML.BAG IVPB SCH (11:16)
--- NOTE | 2024-10-25 19:11 | CDI ---
Documentation Clarification Form Date: 10/25/2024 06:46:24 PM From: Agata John RN, CCDS Phone: [phone] Admit Date: 10/11/2024 01:19:00 PM Patient Name: Jessica Buckner Visit Number: [id number] Discharge Date: ATTENTION: The Clinical Documentation Specialists (CDI) and [facility] Coding Staff appreciate your assistance in clarifying documentation. Please respond to the clarification below the line at the bottom and electronically sign. The CDI & [facility] Coding staff will review the response and follow-up if needed. Please note: Queries are made part of the Legal Health Record. If you have any questions, please contact the author of this message via ITS. [facility] E Sheet Your patient has the documented diagnosis of unspecified CHF in the progress note starting on 10/22/24. Additional information regarding the type of CHF is requested. History/Risk Factors: Hyperlipidemia, Hypertension Clinical Indicators: 89-year-old male present altered mental status. Per pulmonary evaluation on 10/12/24. Chest x-ray remarkable for cardiomegaly and pulmonary vascular congestion. Possible focal patchy opacity at the right bases could represent evolving patchy pulmonary edema or developing pneumonia. 10/11 VS/Pulse OX: 137/91 81 20 97.5 96% Ra 10/12 BNP: 3520 09/04/24 Echocardiogram Results: EF 35-40%, mild concentric LVH SVSP 45 mmHg, moderate TR, aortic valve sclerosis. 10/11 Chest X-ray: Heart mildly enlarged Interstitial/vascular prominence and some patchy right basilar opacity. No sizable pleural effusion. 10/13 Chest X-ray: Cardiomegaly with left basilar acute infiltrate and/or atelectasis 10/22 Chest X Ray: Correlate for CHF with mild pulmonary vascular congestion. Development of small bilateral pleural effusions with adjacent atelectasis and/or consolidation. 10/22 VS: 174/110 102 18 97.8 93% RA Treatment: Lasix 20 MG IV ONCE 10/12 Lasix 40 MG IV Q 12 10/22-10/24 >40 MG PO Daily 10/25 Lopressor 200 MG PO BID 10/11-10/25 Lipitor 20 MG PO Daily 10/12- In your professional opinion, can you please clarify the [acuity and type] of CHF if known? [ ] Acute Systolic Heart Failure (reduced EF) [x ] Acute on Chronic Systolic Heart Failure (reduced EF) [ ] Other, please specify [ ] Unable to determine (Template Last Revised: June 2020) Acute CHF, systolic dysfunction Electronically signed by Lisa Smith> 10/26/24 0820 <Electronically signed by Faiza Olivia MD> 10/26/24 1040 GIA
--- NOTE | 2024-10-25 20:04 | P.PN ---
Subjective Progress Note Date: 10/25/24 This is a pleasant 89 years old female who was admitted for acute urinary tract infection and metabolic encephalopathy besides have multiple chronic medical problems Patient currently treated for acute urinary tract infection with ceftriaxone Mentation improving she knows she is in [facility] she knows the date is 10/16/2024 and she knows the name of president however she does not have much insight to her illness she thinks she is in the hospital for irregular heartbeat rather than acute urinary tract infection, patient was updated She denies chest pain or dyspnea no other new complaint 10/17 Patient clinically looks the same She was able to walk to the restroom standing on the sink to wash her face. She uses a walker doing this. No other new complaint or change Still has a [place] in place 10/18 Patient resting in bed trying to get a nap Overall doing well No new complaints 10/19 Patient clinically doing well No new complaints Patient wants to go home Patient currently off antibiotic. She is medically cleared for discharge pending placement. I just talked to the social media campaign manager and there is no place accepted her yet without guardianship 10/20 Patient doing well No nausea vomiting Family member at bedside No other new complaints Pending placement 10/21 Today patient pleasant Lying in bed with no new symptoms hairmasters manager on the case 10/22 Patient health insurance provider requested peer to peer review I have lengthy discussion with the physician from his insurance hide, his case was rejected because during PT evaluation she required (( minimal)) assistance for mobility. However patient was more tired today Repeat chest x-ray showed CHF. Patient started on IV Lasix Case was discussed with the staff and the lining caser. Patient currently under guardianship, public guardian and her grandson as well Once stabilized patient will require discharge with home health care Patient also a case of breast cancer and she needs follow-up with her oncologist as an outpatient 10/23 Patient overall doing well Breathing improved while on Lasix, creatinine is stable, GFR improved creatinine down to 0.9 Patient medically stable for discharge, insurance provider declined subacute rehab admission Patient then will be go home with home care however her public guardian and her son requested to be discharged on Friday because they do not have her accommodation ready till Friday for her 10/24 Patient breathing is improved She is doing well No other new complaints Low potassium replaced Creatinine stable Potassium switched to oral 40 mg once daily Check labs tomorrow possible discharge in the morning 10/25/2024 Patient evaluated today sitting up in the chair. Right eye is patched. Patient awake alert oriented with no acute complaints. She was denied for [facility]. Social work has followed up with family and requesting hospice house on discharge. Urine culture final with klebsiella pneumoniae and patient is being monitored off antibiotics per ID. Renal function stable with BUN 11.9, creatinine 1.1. Magnesium 1.5. Review of Systems Constitutional: Denied any fatigue denied any fever. Cardio vascular: denied any chest pain, palpitations Gastrointestinal: denied any nausea, vomiting, diarrhea Pulmonary: Denied any shortness of breath cough Neurologic denied any new focal deficits All inpatient medications were reviewed and appropriate changes in these medications as dictated in the interval history and assessment and plan. PHYSICAL EXAMINATION: GENERAL: The patient is alert and oriented x3, not in any acute distress. Well developed, well nourished. HEENT: Pupils are round and equally reacting to light. EOMI. No scleral icterus. No conjunctival pallor. Normocephalic, atraumatic. No pharyngeal erythema. No thyromegaly. CARDIOVASCULAR: S1 and S2 present. No murmurs, rubs, or gallops. PULMONARY: Chest is clear to auscultation, no wheezing or crackles. ABDOMEN: Soft, nontender, nondistended, normoactive bowel sounds. No palpable organomegaly. MUSCULOSKELETAL: No joint swelling or deformity. EXTREMITIES: No cyanosis, clubbing, or pedal edema. NEUROLOGICAL: Gross neurological examination did not reveal any focal deficits. SKIN: No rashes. Assessment Acute urinary tract infection without sepsis, POA Acute CHF, systolic dysfunction Moderate pulmonary hypertension Metabolic encephalopathy Possible elements of dementia Chronic atrial fibrillation Nonischemic cardiomyopathy with ejection fraction 35 to 40% Chronic kidney disease stage III Metastatic breast cancer to the liver and spine and brain GI prophylaxis DVT prophylaxis: eliquis Full Code Plan Patient has been transitioned to oral lasix Patient currently off ceftriaxone, ID following. Health insurance provider declined admission to subacute rehab, patient will require to be discharged with home health care Also patient obtain guardianship, has public guardian and her grandson Monitor creatinine and electrolytes Psychiatry consult Infectious disease and pulmonary team consult right of way worker on the case and patient has been denied at [facility]. Family wanting hospice, consult was placed and patient to likely DC to hospice house tomorrow. The impression and plan of care has been dictated by Lisa Smith Nurse Practitioner as directed. Dr. Ne MD I have performed a history and physical examination and medical decision making of this patient, discussed the same with the dictator, and agree with the dictators assessment and plan as written, documented as a scribe. Based on total visit time, I have performed more than 50% of this visit. Objective - Vital Signs Vital signs: Vital Signs Temp 97.9 F 10/25/24 07:05 Pulse 90 10/25/24 09:07 Resp 15 10/25/24 09:07 BP 163/70 10/25/24 07:05 Pulse Ox 100 10/25/24 07:05 FiO2 Intake & Output 10/24/24 10/25/24 10/25/24 18:59 06:59 18:59 Intake Total 640 250 Output Total 1400 225 Balance -760 25 Intake: Oral 640 250 Output: Urine 1400 225 Uretheral ([place]) 600 Other: Voiding Method Indwelling Catheter Indwelling Catheter Indwelling Catheter # Bowel Movements 0 - Labs CBC & Chem 7: 10/22/24 05:48 10/25/24 05:55 Labs: Abnormal Lab Results - Last 24 Hours (Table) 10/25/24 Range/Units 05:55 Anion Gap 12.20 H (4.00-12.00) mmol/L Est GFR (CKD-EPI) 49 L (>=60) BUN/Creatinine Ratio 10.82 L (12.00-20.00) Ratio Glucose 127 H (70-110) mg/dL Assessment and Plan Time with Patient: Less than 30
[2024-10-26 08:17] LABS: BUN/Creat Ratio 11.82 Ratio (12.00-20.00); Chloride 96 mmol/L (96-109); Glucose 123 mg/dL (70-110); Magnesium 2.1 mg/dL (1.5-2.4); Potassium 3.9 mmol/L (3.5-5.5); Sodium 140 mmol/L (135-145)
[2024-10-26 08:18] LABS: Calcium 9.4 mg/dL (8.7-10.3); Carbon Dioxide 29.3 mmol/L (21.6-31.8)
--- NOTE | 2024-10-26 08:20 | P.DS ---
Providers Date of admission: 10/11/24 13:19 Attending physician: Mariah Mcbride Consults: 10/11/24 13:21 Consult Physician Routine Consulting Provider: Betty Tran Consult Reason/Comments: uti, pneumonia Do you want consulting provider notified?: Yes 10/11/24 17:22 Consult Physician Routine Consulting Provider: Fely Quinn Consult Reason/Comments: pneumonia Do you want consulting provider notified?: Yes 10/15/24 15:03 Consult Physician Routine Consulting Provider: Psychiatry - [facility] Consult Reason/Comments: competency Do you want consulting provider notified?: Yes Primary care physician: Babatunde Walsh Hospital Course: Final Diagnosis Acute urinary tract infection without sepsis, POA Acute CHF, systolic dysfunction Moderate pulmonary hypertension Metabolic encephalopathy Possible elements of dementia Chronic atrial fibrillation Nonischemic cardiomyopathy with ejection fraction 35 to 40% Chronic kidney disease stage III Metastatic breast cancer to the liver and spine and brain Discharge Disposition Patient stable for discharge medically. She will be discharged with hospice services once this is arranged today. Hospital Course This is a pleasant 89 years old female who was admitted for acute urinary tract infection and metabolic encephalopathy. Patient has a past medical history significant for congestive heart failure, pulmonary hypertension, chronic A-fib, nonischemic cardiomyopathy with an EF of 35 to 40%, chronic kidney disease, metastatic breast cancer to the liver and spine. Patient was admitted for an acute UTI altered mentation. Patient currently treated for acute urinary tract infection with ceftriaxone and ID ws consulted. Mentation improving she knows she is in [facility] she knows the date is 10/16/2024 and she knows the name of president however she does not have much insight to her illness she thinks she is in the hospital for irregular heartbeat rather than acute urinary tract infection. Urine culture did come back showing klebsiella pneumonie and close completed course of IV ceftriaxone in the hospital and is being monitored off antibiotics. ID is following. Patient has been medically cleared for discharge however there is guardianship involved. Additionally she was denied at subacute rehab. The plan now is for discharge with hospice per family. Most recent blood work reveals a sodium level of 140 potassium 3.9, BUN of 13.0, creatinine 1.1. Currently awake alert and oriented. She is currently afebrile temp of 98.1, heart rate 72, blood pressure 127/83 and she is 94% on room air. Please see medication reconciliation for a list of current medications. Thank you for allowing us to participate in the care of this patient. The impression and plan of care has been dictated by Lisa Smith, Nurse Practitioner as directed. Dr. Ne MD I have performed a history and physical examination and medical decision making of this patient, discussed the same with the dictator, and agree with the dictators assessment and plan as written, documented as a scribe. Based on total visit time, I have performed more than 50% of this visit. Patient Condition at Discharge: Fair Plan - Discharge Summary Discharge Rx Participant: Yes New Discharge Prescriptions: New Folic Acid 1 mg PO DAILY@1200 #30 tab Thiamine [Vitamin B-1] 100 mg PO DAILY@1200 #30 tab Continue Cyanocobalamin (Vitamin B-12) [Vitamin B-12] 1,000 mcg PO DAILY Gabapentin [Neurontin] 400 mg PO HS Cholecalciferol (Vitamin D3) [Vitamin D3 (50 Mcg = 2000 Iu)] 50 mcg PO MOWETHFR Cholecalciferol (Vitamin D3) [Vitamin D3 (50 Mcg = 2000 Iu)] 100 mcg PO SUSA Multivit-Minerals/Folic Acid [One-A-Day Women's 50 Plus Tab] 0.4 mg PO DAILY Famotidine [Pepcid] 20 mg PO BID Amiodarone [Cordarone] See Taper PO DIRECTED Amitriptyline HCl [Elavil] 50 mg PO DAILY Atorvastatin [Lipitor] 20 mg PO DAILY Citalopram Hydrobromide [CeleXA] 10 mg PO DAILY Levothyroxine Sodium [Levo-T] 50 mcg PO DAILY@0600 Aspirin [Adult Low Dose Aspirin EC] 81 mg PO DAILY Gabapentin [Neurontin] 100 mg PO DAILY Apixaban [Eliquis] 5 mg PO BID #60 tab Butalb/APAP/Caff 50-325-40Mg [Fioricet 50-325-40] 1 tab PO Q6H PRN #4 tab PRN Reason: Headache Metoprolol Tartrate [Lopressor] 200 mg PO BID Celecoxib [CeleBREX] 100 mg PO DAILY No Action Fulvestrant 500 mg IM Q30D Discharge Medication List Amitriptyline HCl [Elavil] 50 mg PO DAILY 12/23/20 [History] Atorvastatin [Lipitor] 20 mg PO DAILY 12/23/20 [History] Citalopram Hydrobromide [CeleXA] 10 mg PO DAILY 12/23/20 [History] Cyanocobalamin (Vitamin B-12) [Vitamin B-12] 1,000 mcg PO DAILY 12/23/20 [History] Levothyroxine Sodium [Levo-T] 50 mcg PO DAILY@0600 12/23/20 [History] Aspirin [Adult Low Dose Aspirin EC] 81 mg PO DAILY 06/06/23 [History] Gabapentin [Neurontin] 100 mg PO DAILY 06/06/23 [History] Gabapentin [Neurontin] 400 mg PO HS 06/06/23 [History] Fulvestrant 500 mg IM Q30D 09/03/24 [History] Apixaban [Eliquis] 5 mg PO BID #60 tab 09/09/24 [Rx] Butalb/APAP/Caff 50-325-40Mg [Fioricet 50-325-40] 1 tab PO Q6H PRN #4 tab 09/22/24 [Rx] Amiodarone [Cordarone] See Taper PO DIRECTED 10/11/24 [History] Celecoxib [CeleBREX] 100 mg PO DAILY 10/11/24 [History] Cholecalciferol (Vitamin D3) [Vitamin D3 (50 Mcg = 2000 Iu)] 50 mcg PO MOWETHFR 10/11/24 [History] Cholecalciferol (Vitamin D3) [Vitamin D3 (50 Mcg = 2000 Iu)] 100 mcg PO SUSA 10/11/24 [History] Famotidine [Pepcid] 20 mg PO BID 10/11/24 [History] Metoprolol Tartrate [Lopressor] 200 mg PO BID 10/11/24 [History] Multivit-Minerals/Folic Acid [One-A-Day Women's 50 Plus Tab] 0.4 mg PO DAILY 10/11/24 [History] Folic Acid 1 mg PO DAILY@1200 #30 tab 10/22/24 [Rx] Thiamine [Vitamin B-1] 100 mg PO DAILY@1200 #30 tab 10/22/24 [Rx] Follow up Appointment(s)/Referral(s): Babatunde Walsh MD [Primary Care Provider] - 1-2 days [facility], [NON-STAFF] - [address],[place] [NON-STAFF] - As Needed (Please call to see if they have a commode.) Malik Verdugo MD [STAFF PHYSICIAN] - 1 Week Activity/Diet/Wound Care/Special Instructions: Discharge to hospice House Discharge/Stand Alone Forms: Who Do I Call?, Adult Foster Nursing Home List, Assisted Living Facilities, Help In The Home
[2024-10-27 08:14] VITALS: BP 147/86; PULSE 115; RESP 17; TEMP 97.5
--- NOTE | 2024-10-27 12:54 | P.DS ---
Providers Date of admission: 10/11/24 13:19 Attending physician: Mariah Mcbride Consults: 10/11/24 13:21 Consult Physician Routine Consulting Provider: Betty Tran Consult Reason/Comments: uti, pneumonia Do you want consulting provider notified?: Yes 10/11/24 17:22 Consult Physician Routine Consulting Provider: Fely Quinn Consult Reason/Comments: pneumonia Do you want consulting provider notified?: Yes 10/15/24 15:03 Consult Physician Routine Consulting Provider: Psychiatry - [facility] Consult Reason/Comments: competency Do you want consulting provider notified?: Yes Primary care physician: Babatunde Walsh Hospital Course: Final Diagnosis Acute urinary tract infection without sepsis, POA Acute CHF, systolic dysfunction Moderate pulmonary hypertension Metabolic encephalopathy Possible elements of dementia Chronic atrial fibrillation Nonischemic cardiomyopathy with ejection fraction 35 to 40% Chronic kidney disease stage III Metastatic breast cancer to the liver and spine and brain Discharge Disposition Patient stable for discharge medically. Patient will be discharging to the hospice house. She is resting comfortably in bed today no acute complaints. Hospital Course This is a pleasant 89 years old female who was admitted for acute urinary tract infection and metabolic encephalopathy. Patient has a past medical history significant for congestive heart failure, pulmonary hypertension, chronic A-fib, nonischemic cardiomyopathy with an EF of 35 to 40%, chronic kidney disease, metastatic breast cancer to the liver and spine. Patient was admitted for an acute UTI altered mentation. Patient currently treated for acute urinary tract infection with ceftriaxone and ID ws consulted. Mentation improving she knows she is in [facility] she knows the date is 10/16/2024 and she knows the name of president however she does not have much insight to her illness she thinks she is in the hospital for irregular heartbeat rather than acute urinary tract infection. Urine culture did come back showing klebsiella pneumonie and close completed course of IV ceftriaxone in the hospital and is being monitored off antibiotics. ID is following. Patient has been medically cleared for discharge however there is guardianship involved. Additionally she was denied at subacute rehab. The plan now is for discharge with hospice per family. Most recent blood work reveals a sodium level of 140 potassium 3.9, BUN of 13.0, creatinine 1.1. Currently awake alert and oriented. She is currently afebrile temp of 98.1, heart rate 72, blood pressure 127/83 and she is 94% on room air. Please see medication reconciliation for a list of current medications. Thank you for allowing us to participate in the care of this patient. The impression and plan of care has been dictated by Lisa Smith, Nurse Practitioner as directed. Dr. Ne MD I have performed a history and physical examination and medical decision making of this patient, discussed the same with the dictator, and agree with the dictators assessment and plan as written, documented as a scribe. Based on total visit time, I have performed more than 50% of this visit. Patient Condition at Discharge: Fair Plan - Discharge Summary Discharge Rx Participant: Yes New Discharge Prescriptions: New Folic Acid 1 mg PO DAILY@1200 #30 tab Thiamine [Vitamin B-1] 100 mg PO DAILY@1200 #30 tab Continue Cyanocobalamin (Vitamin B-12) [Vitamin B-12] 1,000 mcg PO DAILY Gabapentin [Neurontin] 400 mg PO HS Cholecalciferol (Vitamin D3) [Vitamin D3 (50 Mcg = 2000 Iu)] 50 mcg PO MOWETHFR Cholecalciferol (Vitamin D3) [Vitamin D3 (50 Mcg = 2000 Iu)] 100 mcg PO SUSA Multivit-Minerals/Folic Acid [One-A-Day Women's 50 Plus Tab] 0.4 mg PO DAILY Famotidine [Pepcid] 20 mg PO BID Amiodarone [Cordarone] See Taper PO DIRECTED Amitriptyline HCl [Elavil] 50 mg PO DAILY Atorvastatin [Lipitor] 20 mg PO DAILY Citalopram Hydrobromide [CeleXA] 10 mg PO DAILY Levothyroxine Sodium [Levo-T] 50 mcg PO DAILY@0600 Aspirin [Adult Low Dose Aspirin EC] 81 mg PO DAILY Gabapentin [Neurontin] 100 mg PO DAILY Apixaban [Eliquis] 5 mg PO BID #60 tab Butalb/APAP/Caff 50-325-40Mg [Fioricet 50-325-40] 1 tab PO Q6H PRN #4 tab PRN Reason: Headache Metoprolol Tartrate [Lopressor] 200 mg PO BID Celecoxib [CeleBREX] 100 mg PO DAILY No Action Fulvestrant 500 mg IM Q30D Discharge Medication List Amitriptyline HCl [Elavil] 50 mg PO DAILY 12/23/20 [History] Atorvastatin [Lipitor] 20 mg PO DAILY 12/23/20 [History] Citalopram Hydrobromide [CeleXA] 10 mg PO DAILY 12/23/20 [History] Cyanocobalamin (Vitamin B-12) [Vitamin B-12] 1,000 mcg PO DAILY 12/23/20 [History] Levothyroxine Sodium [Levo-T] 50 mcg PO DAILY@0600 12/23/20 [History] Aspirin [Adult Low Dose Aspirin EC] 81 mg PO DAILY 06/06/23 [History] Gabapentin [Neurontin] 100 mg PO DAILY 06/06/23 [History] Gabapentin [Neurontin] 400 mg PO HS 06/06/23 [History] Fulvestrant 500 mg IM Q30D 09/03/24 [History] Apixaban [Eliquis] 5 mg PO BID #60 tab 09/09/24 [Rx] Butalb/APAP/Caff 50-325-40Mg [Fioricet 50-325-40] 1 tab PO Q6H PRN #4 tab 09/22/24 [Rx] Amiodarone [Cordarone] See Taper PO DIRECTED 10/11/24 [History] Celecoxib [CeleBREX] 100 mg PO DAILY 10/11/24 [History] Cholecalciferol (Vitamin D3) [Vitamin D3 (50 Mcg = 2000 Iu)] 50 mcg PO MOWETHFR 10/11/24 [History] Cholecalciferol (Vitamin D3) [Vitamin D3 (50 Mcg = 2000 Iu)] 100 mcg PO SUSA 10/11/24 [History] Famotidine [Pepcid] 20 mg PO BID 10/11/24 [History] Metoprolol Tartrate [Lopressor] 200 mg PO BID 10/11/24 [History] Multivit-Minerals/Folic Acid [One-A-Day Women's 50 Plus Tab] 0.4 mg PO DAILY 10/11/24 [History] Folic Acid 1 mg PO DAILY@1200 #30 tab 10/22/24 [Rx] Thiamine [Vitamin B-1] 100 mg PO DAILY@1200 #30 tab 10/22/24 [Rx] Follow up Appointment(s)/Referral(s): Babatunde Walsh MD [Primary Care Provider] - 10/29/24 2:00 pm [facility], [NON-STAFF] - [address],[place] [NON-STAFF] - As Needed (Please call to see if they have a commode.) Malik Verdugo MD [STAFF PHYSICIAN] - 1 Week (office not answering Please call to schedule appointment ) Activity/Diet/Wound Care/Special Instructions: Discharge to hospice House Discharge/Stand Alone Forms: Who Do I Call?, Adult Foster [facility] List, Assisted Living Facilities, Help In The Home
--- NOTE | 2024-10-29 13:01 | P.PN ---
Subjective Progress Note Date: 10/23/24 Principal diagnosis: Reason for follow-up is pneumonia Patient is a 89-year-old female with a past medical his significant for hypertension hyperlipidemia metastatic breast cancer with mets to the liver and spine patient has been brought into the hospital concerning for altered mental status, P did have a positive UA and also having focal opacity right lung base concerning for possible pneumonia prompted this consultation On today's evaluation that is 10/23/2024, the patient continues to be afebrile, the patient is on room air and breathing comfortably, the Pt denies having any chest pain or cough, the patient denies having any abdominal pain no vomiting or any diarrhea. No new lab has been obtained today blood culture negative Objective - Vital Signs Vital signs: Vital Signs Temp 98.5 F 10/23/24 14:31 Pulse 107 H 10/23/24 14:31 Resp 16 10/23/24 14:31 BP 128/74 10/23/24 14:31 Pulse Ox 97 10/23/24 14:31 FiO2 Intake & Output 10/22/24 10/23/24 10/23/24 18:59 06:59 18:59 Intake Total 600 Output Total 200 Balance 400 Intake: Oral 600 Output: Urine 200 Other: Voiding Method Indwelling Catheter Indwelling Catheter Indwelling Catheter - Exam GENERAL DESCRIPTION: An elderly female lying in bed in no distress RESPIRATORY SYSTEM: Unlabored breathing , decreased breath sounds at bases HEART: S1 S2 regular rate and rhythm , ABDOMEN: Soft , no tenderness EXTREMITIES: No edema feet - Labs CBC & Chem 7: 10/22/24 05:48 10/22/24 05:48 Assessment and Plan (1) Pneumonia Current Visit: Yes Status: Acute Code(s): J18.9 - PNEUMONIA, UNSPECIFIED ORGANISM SNOMED Code(s): 303139050 (2) UTI (urinary tract infection) Current Visit: Yes Status: Acute Code(s): N39.0 - URINARY TRACT INFECTION, SITE NOT SPECIFIED SNOMED Code(s): 87232677 Plan: 1patient presented the hospital with mental status changes weakness which is likely multifactorial patient did have a positive UA however white count has been normal and will not qualify for symptomatic UTI did have evidence of patchy right lower lobe opacity concerning for possible pneumonia. 2blood culture have been negative sputum not collected urine is growing Klebsiella that is sensitive to ceftriaxone 3patient has shown clinical improvement and has received adequate IV Rocephin therapy, patient did have normal white count as of yesterday there is no need for any further antibiotic therapy , ID will sign off please call back if any question regarding her infectious disease care Dictation was produced using [employer] dictation software. please excuse any grammatical, word or spelling errors.
--- NOTE | 2024-10-29 13:01 | P.PN ---
Subjective Progress Note Date: 10/22/24 Principal diagnosis: Reason for follow-up is pneumonia Patient is a 89-year-old female with a past medical his significant for hypertension hyperlipidemia metastatic breast cancer with mets to the liver and spine patient has been brought into the hospital concerning for altered mental status, P did have a positive UA and also having focal opacity right lung base concerning for possible pneumonia prompted this consultation On today's evaluation that is 10/22/2024,the patient remains to be afebrile, patient is on room air not requiring supplemental oxygen and denies any shortness of breath no chest pain or cough.Patient denies having any nausea or vomiting, no abdominal pain and no diarrhea has been reported. Patient did have white count 7.89 creatinine 0.9 Objective - Vital Signs Vital signs: Vital Signs Temp 97.8 F 10/22/24 07:32 Pulse 102 H 10/22/24 08:10 Resp 18 10/22/24 08:10 BP 171/92 10/22/24 08:11 Pulse Ox 93 L 10/22/24 07:32 FiO2 Intake & Output 10/21/24 10/22/24 10/22/24 18:59 06:59 18:59 Intake Total 600 50 Output Total 520 250 Balance 80 -200 Intake: Oral 600 50 Output: Urine 520 250 Uretheral ([place]) 520 Other: Voiding Method Indwelling Catheter Indwelling Catheter Indwelling Catheter - Exam GENERAL DESCRIPTION: An elderly female lying in bed in no distress RESPIRATORY SYSTEM: Unlabored breathing , decreased breath sounds at bases HEART: S1 S2 regular rate and rhythm , ABDOMEN: Soft , no tenderness EXTREMITIES: No edema feet - Labs CBC & Chem 7: 10/22/24 05:48 10/22/24 05:48 Labs: Abnormal Lab Results - Last 24 Hours (Table) 10/22/24 10/22/24 Range/Units 05:48 05:48 RBC 3.41 L (4.10-5.20) X 10*6/uL Hgb 10.2 L (12.0-15.0) g/dL Hct 33.0 L (37.2-46.3) % MCHC 30.9 L (32.0-37.0) g/dL RDW 16.5 H (11.5-14.5) % BUN/Creatinine Ratio 11.11 L (12.00-20.00) Ratio Glucose 117 H (70-110) mg/dL Assessment and Plan (1) Pneumonia Current Visit: Yes Status: Acute Code(s): J18.9 - PNEUMONIA, UNSPECIFIED ORGANISM SNOMED Code(s): 831004666 (2) UTI (urinary tract infection) Current Visit: Yes Status: Acute Code(s): N39.0 - URINARY TRACT INFECTION, SITE NOT SPECIFIED SNOMED Code(s): 86492849 Plan: 1patient presented the hospital with mental status changes weakness which is likely multifactorial patient did have a positive UA however white count has been normal and will not qualify for symptomatic UTI did have evidence of patchy right lower lobe opacity concerning for possible pneumonia. 2blood culture have been negative sputum not collected urine is growing Klebsiella that is sensitive to ceftriaxone 3patient has shown clinical improvement and has received adequate IV Rocephin, did have normal white count will be monitored closely off antibiotic therapy currently waiting for placement Dictation was produced using [employer] dictation software. please excuse any grammatical, word or spelling errors.
== END 2024-10-27 14:15 | disposition home or self-care (01) | DRG 689 ==
LOC: EC 10:18 → 4SSUR 13:18 → OBSVTOIN 13:19 → EEVIPCON 13:19 → 4SSUR 17:22
PROVIDERS: ADMIT Hospitalist; ATTEND Hospitalist
DX: N39.0 Urinary tract infection, site not specified (principal); G93.41 Metabolic encephalopathy; J96.01 Acute respiratory failure with hypoxia; J18.9 Pneumonia, unspecified organism; I50.23 Acute on chronic systolic (congestive) heart failure; C78.7 Secondary malignant neoplasm of liver and intrahepatic bile duct; C79.51 Secondary malignant neoplasm of bone; C50.919 Malignant neoplasm of unspecified site of unspecified female breast; I13.0 Hypertensive heart and chronic kidney disease with heart failure and stage 1 through stage 4 chronic kidney disease, or unspecified chronic kidney disease; I27.22 Pulmonary hypertension due to left heart disease; N18.30 Chronic kidney disease, stage 3 unspecified; F03.90 Unspecified dementia, unspecified severity, without behavioral disturbance, psychotic disturbance, mood disturbance, and anxiety; E03.9 Hypothyroidism, unspecified; I08.1 Rheumatic disorders of both mitral and tricuspid valves; I42.8 Other cardiomyopathies; I48.20 Chronic atrial fibrillation, unspecified; N17.9 Acute kidney failure, unspecified; B96.89 Other specified bacterial agents as the cause of diseases classified elsewhere; E78.5 Hyperlipidemia, unspecified; M19.90 Unspecified osteoarthritis, unspecified site; R47.81 Slurred speech; Z79.01 Long term (current) use of anticoagulants; Z79.1 Long term (current) use of non-steroidal anti-inflammatories (NSAID); Z79.890 Hormone replacement therapy; Z79.82 Long term (current) use of aspirin; Z87.891 Personal history of nicotine dependence; Z79.899 Other long term (current) drug therapy; Z86.19 Personal history of other infectious and parasitic diseases
CPT/HCPCS: 36415; 70450; 70496; 70498; 71045; 71046; 80048; 80053; 81001; 83605; 83735; 83880; 85025; 86738; 87040; 87077; 87086; 87186; 87449; 87636; 93005; 96365; 96366; 96375; 99285